=== PATIENT | male | born 1955 | race Caucasian/White ===

== ENCOUNTER → 2019-05-27 11:51 | Outpatient (CLI) | payer MEDICARE, OTHER, SELFPAY ==
--- NOTE | 2019-05-27 11:58 | RAD_ITS ---
STUDY: X-RAY - CERVICAL SPINE REASON FOR EXAM: Male, 64 years old. Neck pain TECHNIQUE: 5 view(s) of the cervical spine were obtained. COMPARISON: None FINDINGS: Normal anterior atlantoaxial articulation. Normal odontoid process. Normal cervical lordosis. There is multi-level endplate spondylosis. There is multi-level degenerative disc disease with multilevel disc space narrowing. There is multi-level osseous foraminal stenosis. The soft tissue structures are unremarkable. RAD/Cerv Spine 4 or 5 Views IMPRESSION: Moderate degenerative disc disease lower cervical spine. Electronically Signed: Ehsan Mathews MD at 12:38 EDT Tel , Service support ,
== END ==
PROVIDERS: Family Provider Family Medicine; PCP Family Medicine; Referring Provider Family Medicine; Visit Provider Family Medicine
DX: M54.2 Cervicalgia (principal)
CPT/HCPCS: 72050

== ENCOUNTER → 2019-08-13 09:08 | Outpatient (CLI) | payer MEDICARE, OTHER, SELFPAY ==
[2019-08-13 10:17] LABS: Absolute Lymphocyte Count 1.65 X10^3/uL (0.83-4.51); Absolute Neutrophil Count 5.2 X10^3/uL (2.0-7.7); Basophil# 0.06 X10^3/uL; Basophil% 0.8 % (0-1); Eosinophil# 0.07 X10^3/uL; Eosinophils% 0.9 % (0-5); Hematocrit 44.2 % (40-54); Lymphocyte # 1.65 X10^3/ul (4.0); Mean Corp Hgb Conc 33.9 g/dL (32-36); Mean Corpuscular Hgb 31.1 pg (27.0-32.0); Mean Corpuscular Volume 91.7 fL (80-94); Mean Platelet Vol. 9.3 fl (6.2-12.0); Monocyte# 0.53 X10^3/uL; Monocyte% 7.1 % (0-10); NRBC Flagged by Analyzer 0 % (0-5); Neutrophil # 5.18 X10^3/uL (2.7-7.7); Neutrophil % 68.9 % (47-70); Platelet Count 282 K/mm3 (150-450); RBC Distribution Width CV 12.3 % (11.6-14.6); RBC Distribution Width SD 41.4 fl (35.1-43.9); Red Blood Count 4.82 M/mm3 (4.6-6.2); White Blood Count 7.5 K/mm3 (4.4-11.0)
[2019-08-13 10:31] LABS: AST(SGOT) 18 U/L (15-37); Alanine Aminotransfer ALT/SGPT 20 U/L (16-61); Albumin, Serum 3.9 g/dL (3.2-5.0); Alkaline Phosphatase 86 U/L (45-117); Anion Gap 7 (5-15); BUN 18 mg/dL (7-18); BUN/Creat Ratio 19.9 RATIO (10-20); Calcium,Total 8.9 mg/dL (8.5-10.1); Chloride 102 mmol/L (98-107); Cholesterol 173 mg/dL (200); Creatinine, Serum 0.91 mg/dL (0.70-1.30); EST Glomerular Filtration Rate 89 mL/min (>60); Est Glom Filt Rate - Afr Amer 108 mL/min (>60); Globulin 3.9 g/dL (2.2-4.2); Glucose 94 mg/dL (74-106); High Density Lipoprotein 53 mg/dL; Potassium 4.1 mmol/L (3.5-5.1); Protein, Total 7.8 g/dL (6.4-8.2); Sodium Level 137 mmol/L (136-145); Triglycerides 64 mg/dL; Very Low Density Lipoprotein 13 mg/dL (5-40)
[2019-08-13 10:43] LABS: Microalbumin,Random Urine 5.5 mg/L (NO RANGE EST.); Microalbumin:Creatinine Ratio 8.7 mg/g CRE (<30 mg/g CRE)
== END ==
PROVIDERS: Family Provider Family Medicine; PCP Family Medicine; Referring Provider Family Medicine; Visit Provider Family Medicine
DX: I10 Essential (primary) hypertension (principal)
CPT/HCPCS: 36415; 80053; 80061; 82043; 82570; 85025

== ENCOUNTER 2019-08-25 09:30 | Outpatient (RCR) | payer MEDICARE, OTHER, SELFPAY ==
--- NOTE | 2019-07-29 15:03 | HP.PTEVAL_ITS ---
Patient's Visit Information DIANELYS SMALL is a 64 year old M referred to Physical Therapy by Sam Tao MD with a diagnosis of CERVICALGIA. Date of Evaluation: 07/29/19 Physical Therapist: Crystal Bailey PT, Cert MDT - Visit Plan Frequency: 2-3x /Week Duration: 4-6 Weeks Plan: NECK US, POSTURE CORRECTION/STRENGTHENING (PLEASE INCLUDE DEEP NECK FLEXOR EX'S), INSTRUCTION IN APPROPRIATE BODY MECHANICS AND ACTIVITY MODIFICATIONS. LAYO UE ROM, STRETCHING AND STRENGTHENING (ESPECIALLY SCAPULAR STABILIZERS). HEP INSTRUCTION. - Subjective Findings: Work/Leisure: RETIRED. Disability: NO. Present symptoms: HEADACHE , LAYO NECK PAIN, LAYO SHOULDER PAIN, RIGHT FOREARM, WRIST AND HAND NUMBNESS AND TINGLING. Present since: ABOUT 10 YEARS. Pain Scale: Worst - 5/10 Least - 0/10. Currently: 3/10. WORSENING. GETTING HARDER TO SLEEP AND NUMBESS USE TO JUST BE IN FINGERS NOW GOING UP ARM. Commenced as a result of: NO APPARENT REASON. Symptoms at onset: HEADACHE. Worse: LYING DOWN - CAN NOT FIND A COMFORTABLE POSITION AND CAUSES HEADACHE TO INCREASE, WALKING - IF HAVING TROUBLE WALKING PROPERLY. Better: CLOSING EYES, STAY STILL IN QUIET AREA FAR HEADACHE. CAN'T GET RID OF NUMBNESS. Disturbed sleep: YES. Previous history/Previous treatment: PHYSICAL THERPAY IN THE PAST. NO NECK SURGERY, NO SHLD SURGERY. NO INJECTIONS. Dizziness: NO. Tinnitis: OCCASSIONALLY - NOTHING MORE THAN NORMAL. Nausea: NO. Shortness of Breath: NO. Difficulty Swollowing: NO. Gait: NORMAL FOR PATIENT. Accidents: NO. Unexplained weight loss: NO. Imaging: RECENT NECK X-RAYS - There is multi-level endplate spondylosis. There is multi-level degenerative disc disease with multilevel disc space. narrowing. There is multi-level osseous foraminal stenosis. PMH/Recent major surgery: CANCER DX'D 1970'S - RESULTING IN RIGHT AKA. LTKR ABOUT 15 YEARS AGO. OTHER: PATIENT REPORTS THERAPY HELPED TEMPORARILY IN THE PAST BUT HIS FEAR IS THAT HE IS GOING TO HAVE TO HAVE SURGERY. PATIENT REPORTS HE HAS NOT HAD ANY OTHER TREATMENTS OR CONSULTS. HE REPORTS HE HAS HAD A NCT, BRAIN SCAN, MRI BUT REMOTE. BRAIN MRI 2016 - NORMAL. - Objective Sitting Posture/Standing Posture: POOR. Active Correction of posture: POOR. Other Observations: INDEP GAIT WITH STRAIGHT CANE LIMPING ON RIGHT LE AND WEARING PROSTHETIC LEG. Motor deficit: RIGHT TELEPHONIC CASE MANAGER 75 LBS AND LEFT 70 LBS. PATIENT IS LEFT HAND DOMINANT. LAYO UE STRENGTH 5/5 WITH MMT'ING EXCEPT RIGHT SHOULDER 4/5. Sensory deficit: DECREASED RIGHT FINGERS COMPARED TO LEFT. ROM deficit: LAYO UE'S WFL EXCEPT RIGHT SHOULDER SUPINE FLEX 125 WITH ERP. ER ROM IS GOOD. IR RESTICTED TO APPROX 60 DEG WITH 75 DEG ABD AND ABD = 150 DEG. Reflexes: 2/3 LAYO UE'S. Dural Signs: POSITIVE RIGHT UE. Cervical Mvmt Loss: Flex: NIL - NE. Pro: NIL - TIGHT. Ext: MOD TO PACO - INCREASES NECK PAIN. Ret: PACO. RSB: MOD - INCREASES RIGHT NECK PAIN. LSB: MIN - NE. R Rot: MIN - RIGHT NECK PAIN. L Rot: MIN - NE. Postural strength: POOR. Palpation: RIGHT SUPERIOR SCAP TENDERNESS. OTHER: TRACTION - NE. TREATMENT: HEP INSTRUCTION - Goals Goal 1:: DECREASE C/O NECK AND RIGHT UE SX'S. Goal Time Frame: 4-6 Weeks Goal 2:: IMPROVE WALKING AND SLEEP FUNCTION Goal Time Frame: 4-6 Weeks Goal 3:: INSTRUCT IN PROPHYLAXIS Goal Time Frame: 4-6 Weeks - Rehabilitation Potential Rehabilitation Potential: Fair - Anticipated Interventions Patient/Client Instruction: Educate patient on: Condition, Plan of Care, Risk Factors, Benefits of Fitness Program For the Purpose of:: To improve self management Therapeutic Exercise to Include: Strength training, Body mechanics, Postural training, Active ROM, Scapular Strength/Stabilization For the Purpose of:: To decrease pain, To improve muscle performance and motor function, To increase tolerance to activity/condition/position, To improve ability of physical actions for home/community/work/leisure Thank you for the opportunity to evaluate your patient. For Medicare and Medicare HMO plans, please review the plan of care and approve it. It will need to be FAXED BACK to us at [phone] for Medicare purposes. For Medicare only, by signing this I certify the plan of care. Please let me know if there are questions or concerns regarding this plan of care. Physician Signature: Date:
--- NOTE | 2019-08-25 10:01 | HP.PTDCSUM_ITS ---
HP - PT D/C Summary It has been my pleasure to treat DIANELYS SMALL under orders from Sam Tao MD, for the diagnosis of CERVICALGIA for a total of 10 visit(s). Discharge Date: Please see the following information for a summary of their discharge status. - Subjective Subjective: PATIENT REPORTS HE IS 90% BETTER. STATES HE DOESN'T HAVE THE HEADACHE ANYMORE OR THE EYE STRAIN. STATES HE IS SLEEPING BETTER AND IT JUST GETS STIFF SOMETIMES. DOING HEP AND FEELS IT IS JUST RIGHT. - Overall Improvement % Improvement: 90 - Objective Objective/Function: PATIENT HAS RESPONDED VERY WELL TO PT. ALL GOALS MET. UPON EXAM TODAY: Motor deficit: RIGHT VETERINARY RADIOLOGIST 87 LBS AND LEFT 86 LBS. PATIENT IS LEFT HAND DOMINANT. LAYO UE STRENGTH 5/5 WITH MMT'ING. Sensory deficit: NO. ROM deficit: LAYO UE'S WFL INCLUDING RIGHT SHLD. Dural Signs: NEGATIVE LAYO UE'S. Cervical Mvmt Loss: Flex: NIL - NE. Pro: NIL. Ext: MOD. Ret: PACO. RSB: MIN. LSB: MIN. R Rot: MIN. L Rot: MIN. Postural strength: POOR. PALPATION: MILD RIGHT CERVICAL TRIGGER POINTS THAT RESPONDED WELL TO SELF MASSAGE WITH BALL. - Goals Goal 1:: DECREASE C/O NECK AND RIGHT UE SX'S. Goal Progress: Goal Met Goal 2:: IMPROVE WALKING AND SLEEP FUNCTION Goal Progress: Goal Met Goal 3:: INSTRUCT IN PROPHYLAXIS Goal Progress: Goal Met - Plan Plan: D/C TO INDEP HEP. PATIENT IS AGREEABLE. - D/C Information If there are questions or concerns regarding this patient's physical therapy, please feel free to call me at [phone]. Thank you for the referral of this patient. Sincerely, Crystal Bailey, PT, Cert MDT
== END 2019-08-25 19:00 | disposition home or self-care (01) ==
LOC: PT 09:30
PROVIDERS: Family Provider Family Medicine; PCP Family Medicine; Referring Provider Family Medicine; Visit Provider Family Medicine
DX: M54.2 Cervicalgia (principal)
CPT/HCPCS: 97035; 97110; 97162; 97530

== ENCOUNTER → 2020-11-07 14:46 | Outpatient (CLI) | payer MEDICARE, OTHER, SELFPAY | PROVIDERS: PCP Family Medicine; Visit Provider Nurse Practitioner Adult Health | DX: U07.1 COVID-19 (principal) | CPT/HCPCS: 87635; U0005; U0003 ==

== ENCOUNTER → 2021-03-13 10:31 | Outpatient (CLI) | payer MEDICARE, OTHER, SELFPAY ==
[2021-03-13 12:05] LABS: Absolute Lymphocyte Count 1.94 X10^3/uL (0.83-4.51); Absolute Neutrophil Count 3.8 X10^3/uL (2.0-7.7); Basophil# 0.06 X10^3/uL; Basophil% 0.9 % (0-1); Eosinophil# 0.14 X10^3/uL; Eosinophils% 2.1 % (0-5); Hematocrit 43.5 % (40-54); Lymphocyte # 1.94 X10^3/ul (0.83-4.51); Lymphocyte % 29.3 % (19-41); Mean Corp Hgb Conc 34.5 g/dL (32-36); Mean Corpuscular Hgb 31.3 pg (27.0-32.0); Mean Corpuscular Volume 90.6 fL (80-94); Mean Platelet Vol. 9.4 fl (6.2-12.0); Monocyte# 0.61 X10^3/uL; Monocyte% 9.2 % (0-10); NRBC Flagged by Analyzer 0 % (0-5); Neutrophil # 3.84 X10^3/uL (2.7-7.7); Neutrophil % 58.2 % (47-70); Platelet Count 305 K/mm3 (150-450); RBC Distribution Width CV 12.5 % (11.6-14.6); RBC Distribution Width SD 41.1 fl (35.1-43.9); White Blood Count 6.6 K/mm3 (4.4-11.0)
[2021-03-13 12:30] LABS: Microalbumin:Creatinine Ratio 20.9 mg/g CRE (<30 mg/g CRE)
[2021-03-13 12:31] LABS: AST(SGOT) 28 U/L (15-37); Alanine Aminotransfer ALT/SGPT 42 U/L (16-61); Alkaline Phosphatase 85 U/L (45-117); BUN 15 mg/dL (7-18); BUN/Creat Ratio 17.7 RATIO (10-20); Calcium,Total 8.9 mg/dL (8.5-10.1); Chloride 104 mmol/L (98-107); Cholesterol 186 mg/dL (200); Creatinine, Serum 0.85 mg/dL (0.70-1.30); EST Glomerular Filtration Rate 96 mL/min (>60); Est Glom Filt Rate - Afr Amer 116 mL/min (>60); Glucose 102 mg/dL (74-106); Potassium 4.1 mmol/L (3.5-5.1); Sodium Level 137 mmol/L (136-145); Triglycerides 102 mg/dL
[2021-03-13 12:32] LABS: Anion Gap 6 (5-15); High Density Lipoprotein 51 mg/dL; Thyroid Stim Hormone (TSH) 2.75 uIU/mL (0.358-3.74); Very Low Density Lipoprotein 20 mg/dL (5-40)
[2021-03-15 13:23] LABS: Copper, Serum or Plasma 97 ug/dL (69-132); Zinc, Plasma or Serum 91 ug/dL (44-115)
[2021-03-15 13:28] LABS: ANTINUCLEAR ANTIBODIES DIRECT Negative (Negative)
== END ==
PROVIDERS: PCP Family Medicine; Visit Provider Family Medicine
DX: I10 Essential (primary) hypertension (principal); R43.9 Unspecified disturbances of smell and taste
CPT/HCPCS: 36415; 80053; 80061; 82043; 82525; 82570; 84443; 84630; 85025; 86038

== ENCOUNTER 2021-11-15 07:23 | Outpatient (CLI) | payer MEDICARE, OTHER, SELFPAY ==
--- NOTE | 2021-11-15 07:46 | CT_ITS ---
STUDY: CT LEFT LOWER EXTREMITY WITHOUT CONTRAST REASON FOR EXAM: Varus deformity of the left knee, surgical planning. TECHNIQUE: Transaxial CT imaging of the lower extremity was performed. Coronal and sagittal images were reformatted. Individualized dose optimization techniques were used for this CT. COMPARISON: None. FINDINGS: Knee: There is a medial femorotibial unicompartmental arthroplasty. There are marginal osteophytes with preservation of joint space of the lateral femorotibial compartment. There are marginal osteophytes, subchondral cystic change and joint space narrowing of the patellofemoral compartment (sagittal reconstruction 45). There is a small joint effusion of the left knee. There is enthesopathy at the patellar insertion of the distal quadriceps tendon. Hip: There is mild left hip arthrosis with small subchondral cysts of the acetabulum and mild joint space narrowing the superior medial left hip joint (coronal reconstruction 54). Ankle: There is a small osteochondral lesion of the medial talar dome (coronal reconstructions 27, 28) and posterior tibiotalar intra-articular bodies (sagittal reconstructions 18-21). There is a dorsal osteophyte of the proximal navicular with preservation of joint space of the talonavicular articulation. Normal posterior subtalar articulation. There is a small posterior calcaneal enthesophyte. CT/Extremity Lower without Contra IMPRESSION: Left knee osteoarthritis. Electronically Signed: Dallas English MD at 14:47 EST ,
== END 2021-11-15 23:59 | disposition home or self-care (01) ==
LOC: CT 07:25
PROVIDERS: PCP Family Medicine; Referring Provider Specialist; Visit Provider Specialist
DX: M21.162 Varus deformity, not elsewhere classified, left knee (principal)
CPT/HCPCS: 73700; 93005

== ENCOUNTER 2022-01-03 07:35 | Inpatient (IN) | payer MEDICARE, OTHER, SELFPAY ==
--- NOTE | 2021-11-13 13:06 | PCM.HP.BLA ---
History and Physical History and Physical [facility] Patient Name: Rizwan CoffmanDOB: 1955 From: LLOYD MCGARRY PA-C DATE OF SURGERY: 11/29/2021 SCHEDULED PROCEDURE: revision left partial knee replacement to a left total knee arthroplasty HISTORY OF PRESENT ILLNESS: Preoperative history and physical exam was performed on November 13, 2021. This is a 66-year-old male who has had a previous left unicompartmental knee replacement by Dr. Kojo Her on October 18, 2008. Patient denied any postoperative complications or infections. Patient has had increased pain in his left knee over the past several years. Patient has increased pain with going up and down stairs. Patient's pain can increase to 5/10 with activities. Patient has tried home exercises with no relief in symptoms. He has tried rest without relief in symptoms. He has tried jvua-fxq-xwmvjmr medications without relief in symptoms. He has used a cane for many years. Patient has had x-rays which shows a progression of lateral compartment osteoarthritis. After failing conservative measures and discussing all treatment options with Dr. Arnulfo Fernando, the patient does wish to proceed with a revision left partial knee replacement to a total knee arthroplasty. We are obtaining surgical clearance from the primary care physician Dr. Sam Tao. Patient has a medical history pertinent for hypertension as well as previous right knee infection which did require patient to have an tsioe-lqg-lqld amputation back in 1971. He currently denies any chest pain, shortness of breath, fevers chills or recent infections. REVIEW OF SYSTEMS: ROS: Const: Reports weight change, but denies change in appetite and fever. CV: Denies chest pain, heart murmur and irregular heartbeat. Resp: Denies cough, pneumonia, sleep apnea, shortness of breath, tuberculosis and wheezing. GI: Denies constipation, diarrhea, heartburn, nausea, rectal itching, bloody stools and vomiting. : Denies incontinence. Musculo: Reports pain and trouble walking, but denies leg swelling and weakness. Skin: Denies Raynaud's, history of shingles and tattoo. Neuro: Denies ambulatory dysfunction, dizziness, numbness/tingling and tremor. Psych: Denies anxiety, insomnia and stress. Derrick/Lymph: Denies anemia, bleeding/bruising tendency and past transfusion. Reviewed and updated. PAST MEDICAL HISTORY: Advance Care Plan: No Advance Directives Effective Date: 04/07/2018 PMH: Medical Problems: Cancer, High Blood Pressure Accidents: None Surgical Hx: Carpal Tunnel - 1998 [facility] LT Knee Unicompartmental - (10/18/2008) [facility] @ [facility] Right above the knee amputation - 1971 Anesthesia Complications: None Assistive Devices: Glasses, Cane Reviewed and updated. SOCIAL HISTORY: SH: Marital: .Occupation: Retired.Work Status: Retired.Hand Dominance: Left-Handed. Personal Habits: Cigarette Use: Never.Smokeless Tobacco: Never Used Smokeless Tobacco.E-Cigarette Use: Never used.Alcohol: Occasionally.Drug Use: Denies Use.Enjoy Exercising: Never Exercises. Reviewed and updated. VITALS: Ht: 69.5 Wt: 202lb Wt k.627 BMI: 29.4 BP: 128/86 Pulse: 78 Resp: 14 T: 97.4 T: 36.3C Pain Level: 0 ALLERGIES: No Known Drug Allergy MEDICATIONS: Lisinopril 40 mg 1 PO qd, Fluticasone Propionate 50 mcg/Act prn, Meloxicam 15 mg 1 by mouth every day, Lorazepam 0.5 mg 1 by mouth every day, Amlodipine Besylate 5 mg 1 by mouth every day PRE-OP EXAM: General appearance:NORMAL Other: Eyes: Conjunctivae and lids: NORMAL Pupils: ERR Ears, Nose, Mouth, and Throat: NORMAL Other: Inspection of lips, teeth and gums: NORMAL Other: Neck: Examination of neck: no masses noted. Respiratory: Assessment of respiratory effort: NORMAL Other: Auscultation of lungs: clear to auscultation no wheezes, rhonchi or rales. Cardiovascular: Auscultation of heart: regular rate and rhythm, no murmurs, gallops or rubs. PHYSICAL EXAMINATION: Patient does walk with a antalgic gait. Left knee is cool to touch without erythema or signs of infection. Previous incision is well-healed without signs of infection. He has tenderness to palpation over the lateral joint line. He gets crepitus with range of motion. Range of motion left knee: 0 extension 115 flexion. Stable to anterior/posterior drawer. Sensation intact to light touch. IMAGING STUDIES: Previous x-rays of the left knee reveals a unicompartmental medial knee replacement with well fixed implants. There has been progression of osteoarthritis of the lateral compartment including joint space narrowing, subtle sclerosis, osteophyte formation as well as patellofemoral joint space narrowing. IMPRESSION: 1. Presence of left medial unicompartmental knee replacement with progression osteoarthritis 2. Hypertension 3. Previous history of knee cancer with pwpsq-crj-xmvx amputation on the right PLAN: Dr. Arnulfo Fernando did discuss and review with the patient all treatment options including surgical versus nonsurgical options. Patient does wish to proceed with the above-stated procedure. Potential risks, benefits, and complications of the procedure were discussed in detail including but not limited to , infection, nerve and blood vessel damage, persistent pain, numbness, tingling, paresthesias, blood clot, pulmonary embolism, and requirement for possible further surgery. The patient expressed full understanding and has no further questions for the doctor. Patient does agree to proceed with the above-stated procedure and has signed the surgery consent form. We discussed the current risks associated with COVID 19. This does include the risk of exposure while in the hospital. Patient was reassured local hospitals have low infection rates and are taking all necessary precautions to avoid exposure to patients. In addition, we discussed strategies that can be used to help limit exposure including those that limit the patient's time in the hospital. Also using strategies to limit the patient's need for continued inpatient services after being discharged from the hospital. Patient was notified that we will need to comply with any screening or testing the hospital wishes to perform or that surgery may be delayed for any positive results. This dictation was created using voice recognition software. Phonetic and/or grammatical errors may exist. ___ I have re-examined the patient. There are no clinical changes since date of exam. ___ See progress notes for changes. ___ Dictated on admission Date: Time: Signature:
--- NOTE | 2021-11-15 08:30 | EKG12_ITS ---
Test Reason : PRE OP Blood Pressure : / mmHG Vent. Rate : 068 BPM Atrial Rate : 068 BPM P-R Int : 176 ms QRS Dur : 100 ms QT Int : 376 ms P-R-T Axes : 042 -31 051 degrees QTc Int : 399 ms Normal sinus rhythm Left axis deviation Poor R wave progression Abnormal ECG Confirmed by SHABBIR BACON, MARI ([id number]), assignment desk editor RICKEY DE LEON ([id number]) on 11/16/2021 9:02:05 AM Referred By: Arnulfo Fernando Confirmed By:MARI SHEA MD
[2021-11-15 08:36] LABS: Absolute Lymphocyte Count 1.84 X10^3/uL (0.83-4.51); Absolute Neutrophil Count 4.1 X10^3/uL (2.0-7.7); Basophil# 0.07 X10^3/uL; Eosinophil# 0.13 X10^3/uL; Eosinophils% 1.8 % (0-5); Hematocrit 44.7 % (40-54); Lymphocyte # 1.84 X10^3/ul (0.83-4.51); Lymphocyte % 26.2 % (19-41); Mean Corp Hgb Conc 33.6 g/dL (32-36); Mean Corpuscular Hgb 30.5 pg (27.0-32.0); Mean Corpuscular Volume 90.9 fL (80-94); Mean Platelet Vol. 9.7 fl (6.2-12.0); Monocyte# 0.86 X10^3/uL; Monocyte% 12.2 % (0-10); NRBC Flagged by Analyzer 0 % (0-5); Neutrophil # 4.11 X10^3/uL (2.7-7.7); Neutrophil % 58.5 % (47-70); Platelet Count 304 K/mm3 (150-450); RBC Distribution Width CV 12.7 % (11.6-14.6); RBC Distribution Width SD 41.8 fl (35.1-43.9); Red Blood Count 4.92 M/mm3 (4.6-6.2)
[2021-11-15 08:55] LABS: Albumin, Serum 4.1 g/dL (3.2-5.0); Anion Gap 5 (5-15); BUN 20 mg/dL (7-18); Calcium,Total 9.3 mg/dL (8.5-10.1); Chloride 99 mmol/L (98-107); Creatinine, Serum 1.11 mg/dL (0.70-1.30); EST Glomerular Filtration Rate 70 mL/min (>60); Est Glom Filt Rate - Afr Amer 85 mL/min (>60); Glucose 106 mg/dL (74-106); Potassium 4.2 mmol/L (3.5-5.1); Sodium Level 133 mmol/L (136-145)
--- NOTE | 2021-11-29 09:14 | SUR.PREOP ---
DR. FERNANDEZ SAW PT AT BEDSIDE AND ADVISED PT TO RESCHEDULE SURGERY DUE TO OPEN SCRATCH SPOTS AND RASH ON OPERATIVE LEG WELL FEVER OF UNKNOWN ORIGIN. PT TO SEE PRIMARY CARE AND RETURN FOR SURGERY AT A LATER DATE.
--- NOTE | 2021-12-18 13:01 | HP.PCM_ITS ---
History and Physical History and Physical [facility] Patient Name: Rizwan Coffman : 1955 From: LLOYD MCGARRY PA-C DATE OF SURGERY: 01/03/2022 SCHEDULED PROCEDURE: revision left unicompartmental knee replacement to a total knee arthroplasty HISTORY OF PRESENT ILLNESS: Preoperative history and physical exam was performed on December 18, 2021. This is a 66-year-old male who comes in for second preoperative visit for the left knee. He was initially scheduled to undergo revision left partial knee replacement to a left total knee arthroplasty on November 29, 2021. It was canceled on the day of surgery as he came in with a rash and elevated temperature. Patient states he scratches his skin due to dry skin. He has been afebrile at home. He is currently afebrile today. Patient has continued to have pain in the left knee. He initially had a left unicompartmental knee replacement by Dr. Her on October 18, 2008. There was no postoperative complications or infections. He continued to have pain in the left knee over the past several years. His pain can still reach as high as a 5/10. He has tried rest, home exercises with no relief in symptoms. He has attempted xefy-wro-okyaamr medications without relief. He has constant pain with going up and down stairs. Patient has had x- rays which has shown a progression of lateral compartment osteoarthritis. After failing conservative measures and discussing treatment options with Dr. Arnulfo Fernando, the patient does wish to proceed with a revision left partial knee replacement to a total knee arthroplasty. We are obtaining surgical clearance from the primary care physician Dr. Tao. Patient has a medical history pertinent for hypertension. He has also had previous right knee infection which did require an jpmec-aqt-csbo amputation back in 1971. Currently he denies any chest pain, shortness of breath, fevers chills. REVIEW OF SYSTEMS: ROS: Const: Reports weight change, but denies change in appetite and fever. CV: Denies chest pain, heart murmur and irregular heartbeat. Resp: Denies cough, pneumonia, sleep apnea, shortness of breath, tuberculosis and wheezing. GI: Denies constipation, diarrhea, heartburn, nausea, rectal itching, bloody stools and vomiting. : Denies incontinence. Musculo: Reports pain and trouble walking, but denies leg swelling and weakness. Skin: Denies Raynaud's, history of shingles and tattoo. Neuro: Denies ambulatory dysfunction, dizziness, numbness/tingling and tremor. Psych: Denies anxiety, insomnia and stress. Derrcik/Lymph: Denies anemia, bleeding/bruising tendency and past transfusion. Reviewed, no changes. PAST MEDICAL HISTORY: Advance Care Plan: No Advance Directives Effective Date: 04/07/2018 PMH: Medical Problems: Cancer, High Blood Pressure Accidents: None Surgical Hx: Carpal Tunnel - 1998 [facility] LT Knee Unicompartmental - (10/18/2008) [facility] @ [facility] Right above the knee amputation - 1971 Anesthesia Complications: None Assistive Devices: Glasses, Cane Reviewed, no changes. SOCIAL HISTORY: SH: Marital: .Occupation: Retired.Work Status: Retired.Hand Dominance: Left- Handed. Personal Habits: Cigarette Use: Never.Smokeless Tobacco: Never Used Smokeless Tobacco.E-Cigarette Use: Never used.Alcohol: Occasionally.Drug Use: Denies Use.Enjoy Exercising: Never Exercises. Reviewed, no changes. VITALS: Ht: 69.5 Wt: 205lb 4oz Wt k.101 BMI: 29.9 BP: 142/72 Pulse: 88 Resp: 16 T: 98.2 T: 36.8C Pain Level: 2 O2SatR: 98 ALLERGIES: No Known Drug Allergy MEDICATIONS: Lisinopril 40 mg 1 PO qd, Fluticasone Propionate 50 mcg/Act prn, Meloxicam 15 mg 1 by mouth every day, Lorazepam 0.5 mg 1 by mouth every day, Amlodipine Besylate 5 mg 1 by mouth every day PRE-OP EXAM: General appearance:NORMAL Other: Eyes: Conjunctivae and lids: NORMAL Pupils: ERR Ears, Nose, Mouth, and Throat: NORMAL Other: Inspection of lips, teeth and gums: NORMAL Other: Neck: Examination of neck: no masses noted. Respiratory: Assessment of respiratory effort: NORMAL Other: Auscultation of lungs: clear to auscultation no wheezes, rhonchi or rales. Cardiovascular: Auscultation of heart: regular rate and rhythm, no murmurs, gallops or rubs. PHYSICAL EXAMINATION: Patient does walk with a antalgic gait. Left knee is cool to touch without erythema or signs of infection. Previous incision is well-healed without signs of infection. Trace Effusion. He has tenderness to palpation over the lateral joint line. Crepitus with range of motion. Range of motion left knee: 0 extension 115 flexion. Stable to anterior/posterior drawer. Sensation intact to light touch. IMAGING STUDIES: Previous x-rays of the left knee reveals a unicompartmental medial knee replacement with well fixed implants. There has been progression of osteoarthritis of the lateral compartment including joint space narrowing, subtle sclerosis, osteophyte formation as well as patellofemoral joint space narrowing. IMPRESSION: 1. Presence of left medial unicompartmental knee replacement with progression osteoarthritis 2. Hypertension 3. Previous history of knee cancer with wrebo-adf-kqdm amputation on the right PLAN: Dr. Arnulfo Fernando did discuss and review with the patient all treatment options including surgical versus nonsurgical options. Patient does wish to proceed with the above-stated procedure. Potential risks, benefits, and complications of the procedure were discussed in detail including but not limited to , infection, nerve and blood vessel damage, persistent pain, numbness, tingling, paresthesias, blood clot, pulmonary embolism, and requirement for possible further surgery. The patient expressed full understanding and has no further questions for the doctor. Patient does agree to proceed with the above-stated procedure and has signed the surgery consent form. We discussed the current risks associated with COVID 19. This does include the risk of exposure while in the hospital. Patient was reassured local hospitals have low infection rates and are taking all necessary precautions to avoid exposure to patients. In addition, we discussed strategies that can be used to help limit exposure including those that limit the patient's time in the hospital. Also using strategies to limit the patient's need for continued inpatient services after being discharged from the hospital. Patient was notified that we will need to comply with any screening or testing the hospital wishes to perform or that surgery may be delayed for any positive results. This dictation was created using voice recognition software. Phonetic and/or grammatical errors may exist. ___ I have re-examined the patient. There are no clinical changes since date of exam. ___ See progress notes for changes. ___ Dictated on admission Date: Time: Signature:
[2022-01-03] VITALS (13 sets, daily range): BP systolic 93–128; BP diastolic 45–76; PULSE 67–92; RESP 15–18; TEMP 36.4–37; O2SAT 90–100; BMI 30.2
[2022-01-03] MEDS: Lactated Ringers 1,000 ML 999 ML IV (05:50)
[2022-01-03] MEDS: Gabapentin 600 MG Tablet PO (06:13)
[2022-01-03] MEDS: Acetaminophen 500 MG Tablet 1000 MG PO ×3 (06:13→21:38)
[2022-01-03] MEDS: Celecoxib 200 MG Capsule 400 MG PO (06:14)
[2022-01-03] MEDS: Lactated Ringers 1,000 ML 75 ML IV ×2 (06:55→23:54)
--- NOTE | 2022-01-03 07:30 | KNEE_PTH ---
PATIENT: DIANELYS SMALL LOC: [facility] U#:[id number] AGE/SX: 66/M ROOM: [facility] RE01/03/[address]: Dr. Tanika Méndez MD : 1955 BED: 1 DIS: 01/04/2022 SPEC #: [id number] RECD: 01/03/22 10:38 STATUS: MARIANNE JC #: [id number] YOLANDA: 01/03/22 07:[address]: Arnulfo Fernando DEPT: SURGICAL PATHOLOGY RECD BY: Lee Ann Seaman ENTERED: 01/03/22 11:22 SP TYPE: TOTAL KNEE OTHR DR: MD Shabbir Barraza PA-C Tissues: Knee, NOS Procedures: Decalcification bone/plaque Surgery Specimen Level IV HEADER OPERATION: [place], robotic assisted revision partial knee to total knee PRE-OP DIAGNOSIS: Presence of unicompartmental left knee replacement with progression to osteoarthritis TISSUE SUBMITTED: Left knee debrided bone and tissue MICROSCOPIC DIAGNOSIS Bone and tissue of left knee, total knee resection: Severe degenerative joint disease. AM:vicky 01/08/2022 MICROSCOPIC DESCRIPTION Slides are reviewed. GROSS DESCRIPTION Received is one container designated left knee debrided bone and tissue. The specimen consists of multiple fragments of valerio-yellow bone measuring in aggregate 12 x 9 x 3 cm. A number of bony fragments contain articular surfaces consistent with tibial plateau and femoral condyle and displaying prominent osteophyte formation and bone erosion. Delivery Coordinator sections are submitted in two cassettes after decalcification. / SJ:vicky 01/03/2022 TC:5 CPT: 92760, 96599
[2022-01-03] MEDS: Cefazolin 2 GM in 0.9% Normal Saline 100 ML IV (07:42)
[2022-01-03] MEDS: dexAMETHasone 10 MG/ML Vial IV (07:45)
[2022-01-03] MEDS: TXA 1000mg in NS100 100ml (IVPB at Incision) 660 MG IV (07:50)
[2022-01-03] MEDS: TXA 1000mg in NS100 100ml (IVPB at Closure) 660 MG IV (09:30)
--- NOTE | 2022-01-03 09:47 | OP.PCM_ITS ---
Report of Operation Date of Procedure: 01/03/22 Pre-Operative Diagnosis: Left knee Failed unicompartmental knee replacement sec ondary to progression of lateral and patellofemoral primary osteoarthritis Post-Operative Diagnosis: Left knee Failed unicompartmental knee replacement secondary to progression of lateral and patellofemoral primary osteoarthritis Surgery/Procedure Performed:: Left knee minimally invasive robotic assisted total knee replacement Description of Surgical Findings:: Stable knee with good patella tracking. Lateral patellofemoral stage IV osteoarthritis. Surgeon: Arnulfo Fernando feller machine operator: Fransico Ribeiro Type of Anesthesia: Spinal Anesthesiologist: William Bain Special Medications: 2 g Ancef, 1 g TXA at incision, 1 g TXA closure, 10 mg Decadron, joint cocktail (5 mg Duramorph, 30 mL of 0.5% Ropivicaine, 1000 units of epinephrine, 30 mg of Toradol) Specimen's removed: Bony cuts Description of Procedure: Implants used: 1. [place] size 6 triathlon cruciate retaining distal femoral press-fit component 2. Faith size 6 universal tibial baseplate with medial 5 mm augment 3. [place] X3 9 mm CS polyethylene 4. Faith X3 35 mm asymmetric patella Brief history operative indications: 66-year-old m with history of left knee medial unicompartmental replacement with progression of lateral and patellofemoral osteoarthritis with radiographic findings with loss of joint space, osteophyte formation and subchondral sclerosis. Failed conservative measures as mentioned in the H&P. Discussion of total knee arthroplasty as well as risk and benefits were discussed the patient including but not limited to blood loss, DVTs, PEs, neurovascular damage, general risk of anesthesia including loss of life, and stiffness or instability were discussed with patient. Patient demonstrated understanding and was able to sign informed consent. Procedure: On the date of procedure patient's left lower extremity was marked in the preoperative area. The patient was then taken back to the operating room where the patient was placed on the table in the supine position. All bony prominences were identified a well-padded. Anesthesia assumed control of the C-spine and airway and remained controlled throughout the remainder of the procedure. A tourniquet was placed on the left upper thigh and the leg was prepped in a sterile fashion. The surgeon then scrubbed at this time .Upon reentering the room left lower extremity was draped in a standard orthopedic fashion. A timeout was then called and everyone agreed upon the side, the site, the procedure to be performed, patient's identity and antibiotics given. Esmarch bandage was used to exsanguinate the extremity and the tourniquet was placed up to 250 mmHg with the knee in flexion. A midline skin incision was made and sharp dissection was taken down through skin subcutaneous tissue and fat. The standard medial parapatellar incision was made and the patella was subluxed laterally. An Appropriate deep MCL release was done and the fat pad was resected. At this time a complete synovectomy was performed. Our attention was then directed to the patella. The patella was everted and a flat resection was made. The knee was then flexed up in 2 femoral pins were placed inside the incision and 2 tibial pins were placed outside the incision in the medial tibia bicortically. Once this was completed the 2 checkpoints in the femur and tibia were placed. Knee was then flexed up and the bony landmarks were registered. Once this was completed knee was taken through range of motion and manually stressed allowing us to a plan for an appropriate tibial cut. The robotic arm was brought into the field sterilely and checkpoint and saw were registered. Osteophytes were debrided. At this time the tensioner was then placed in the joint and ligament tension was checked at 90 degrees and full extension. Based on the patient's ligamentous tension appropriate adjustments were made to the operative plan and ligament releases were done. At this time osteotome was used to remove the femoral component as well as the tibial component with minimal bone loss. We also used the osteotome to debride any excessive cement. Once this was completed and once we were happy with our operative plan with balanced flexion and extension gaps our attention was directed to the tibia where the robot was brought in. Initial tibial cut was made medially based on the previous surgery on this side we did need to make a 5 mm augment cut. These cuts were made for a 6 tibial implant. Our attention was then directed towards the femur the robot was brought into the field sterilely and registered. Posterior condylar cuts, anterior chamfer cuts and anterior cuts were appropriately made for a size 6 femur. When these were completed the saws were switched out in the distal femoral and posterior chamfer cuts were made. Protecting the soft tissue throughout this time. A size 6 tibial base plate was selected. the knee was flexed to 90 degrees and the soft tissues and posterior osteophytes were removed from the joint. 40 cc of the periarticular injection was injected into the posterior medial corner of the joint. The appropriate trials were then placed on the femur and tibia. A trial polyethylene was trialed to ensure proper balancing and stability of the knee. The appropriate tibial internal rotation was then marked with a bovie. Our attention was then directed to the patella. The lug holes were drilled and the patella trial was placed. Patellar tracking was checked and deemed appropriate. Once we were happy lug holes were drilled for the femur and trial components were removed. the tibia was subluxed and pinned into place and the keel was punched and drilled appropriately. Final components were verified and opened, and cement was mixed in a vacuum. Brickstream Simplex cement was used. The wound was copiously irrigated with normal saline. When the cement was ready the components were cemented into place starting with the tibia, femur was impacted as it was press-fit and finally cementing the patella. The trial poly component was placed and the knee was placed in full extension. All excess cement was removed in the process. Once the cement had cured the tracking, alignment and balance were verified and a size 9 mm CS polyethylene component was placed. Once the final components were placed a 3-minute dilute Betadine lavage was performed followed by an Irrisept lavage was performed and the wound was copiously irrigated with normal saline solution and the periarticular injection was given. The wound was closed in a layer ceballos fashion using #1 vicryl interrupted sutures for the arthrotomy, 2-0 interrupted Vicryl suture for the subcuticular layer and tj for final skin closure. A sterile compressive dressing was then placed. The patient was then awakened from anesthesia, transferred to the [facility] and transferred to the PACU for recovery. Post op plan DVT ppx: ASA 81mg BID, thigh high compression stockings Follow up: in office in 2 weeks for wound check PT: to start POD #0 at hospital, outpatient PT should be arranged. Due to the complexity of this case robotic arm was used to assist in the surgery to improve accuracy and clinical outcomes. Complications No intraoperative complications Admit VTE Documentation VTE Present on Admission: No VTE Mechan Device Prophylaxis: SCD's and Thigh High LINDA Hose VTE Pharm Prophylaxis ordered?: Yes
[2022-01-03] MEDS: Lactated Ringers 1,000 ML 125 ML IV ×2 (10:25→11:16)
--- NOTE | 2022-01-03 10:30 | RAD_ITS ---
STUDY: X-RAY - LEFT KNEE REASON FOR EXAM: Postoperative evaluation of left total knee arthroplasty. TECHNIQUE: 2 view(s) of the knee. COMPARISON: CT report 11/15/2021. FINDINGS: There is a left total knee arthroplasty without evidence of complication. There is postoperative gas in the soft tissues and overlying skin tj. RAD/Knee 1 or 2 Views IMPRESSION: Uncomplicated left total knee arthroplasty. Electronically Signed: Dallas English MD at 11:16 EDT ,
--- NOTE | 2022-01-03 12:20 | PCM.PN.HOSP ---
Subjective Subjective Patient is a 66-year-old gentleman who underwent revision left unicompartmental knee replacement to a total knee replacement on 01/03/[address] Fernando. The hospitalist service was consulted to assist with management of patient medical comorbidities Objective Data Objective Data Vital Signs: Vital Signs Temp Pulse Resp BP Pulse Ox 98.6 F 86 18 106/74 97 01/03/22 11:40 01/03/22 11:40 01/03/22 11:40 01/03/22 11:40 01/03/22 11:40 Oxygen Flow Rate (L/min) 4 Oxygen Delivery Method Room Air Weight: 93 kg Body Mass Index (BMI) 30.2 Intake & Output: Intake and Output for Last 24 Hours 01/01/22 01/02/22 01/03/22 23:59 23:59 23:59 Intake Total 4023.75 / 4023.75 Balance 4023.75 / 4023.75 Lab / Micro Data Result Diagrams: 11/15/21 07:29 11/15/21 07:29 Micro: Microbiology 12/28/21 10:47 Swab (Method) Nasal Screen MRSA/MSSA - Final 11/15/21 07:29 Swab (Method) Nasal Screen MRSA/MSSA - Final Radiography Diagnostic Testing: Radiology Impression Knee X-Ray 01/03/22 10:30 IMPRESSION: Uncomplicated left total knee arthroplasty. Electronically Signed: Dallas English MD at 11:16 EDT Reading Location ID and State: [address] [place] [address] Tel , Service support , Physical Exam Narrative GENERAL: cooperative HEENT: Atraumatic; EYES; Anicteric, Normal Conjunctiva NECK; supple, normal thyroid, RESPIRATORY: Diminished to auscultation CARDIOVASCULAR: Regular S1 S2, GI: soft, normoactive bowel sounds, : No Renal angle tenderness; EXTREMITIES: Right AKA, left knee in surgical dressing MUSCULOSKELETAL: no muscle wasting NEURO: Awake; no lateralizing signs. SKIN: No Rash PSYCH; Flat affect Assessment & Plan Assessment/Plan (1) Loose left total knee arthroplasty: QUALIFIERS: Encounter type: initial encounter Qualified Code(s): T84.033A - Mechanical loosening of internal left knee prosthetic joint, initial encounter PLAN: Patient is a 66-year-old gentleman who underwent revision left unicompartmental knee replacement to a total knee replacement on 01/03/[address] Fernando. The hospitalist service was consulted to assist with management of patient medical comorbidities 1. Status post revision left unicompartmental knee replacement to a total knee replacement -on 01/03/[address] Fernando. Patient postoperative orders regarding pain management DVT prophylaxis as well as PT OT addressed by primary service 2. Hypertension - Blood pressure controlled, home medications continued with dose adjustment as needed 3. 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 Sarcoma patient wears a prosthesis 4. Class I obesity with BMI of 30.3 ?Weight loss advised 5. DVT prophylaxis ?As per Ortho patient was placed on aspirin 81 mg p.o. twice daily Charges/Coding Visit Charges Inpatient E&M: 67164 Subs Hosp L3
[2022-01-03] MEDS: Cefazolin 1 GM/50 ML BAG IV ×2 (13:34→21:38)
[2022-01-03] MEDS: Senna/Docusate Sodium 1 Tablet 2 TABLET PO ×2 (13:35→21:38)
[2022-01-03] MEDS: Indapamide 2.5 MG Tablet 1.25 MG PO (13:35)
[2022-01-03] MEDS: Famotidine 20 MG Tablet PO (13:36)
[2022-01-03] MEDS: oxyCODONE 5 MG Tablet PO (16:05)
[2022-01-03] MEDS: Aspirin 81 MG TAB.CHEW PO (16:06)
[2022-01-03] MEDS: amLODIPine 5 MG Tablet PO (21:38)
[2022-01-03] MEDS: Lisinopril 20 MG Tablet PO (21:41)
[2022-01-04 05:00] VITALS: BP 117/77; PULSE 77; RESP 16; TEMP 36.4; O2SAT 97
[2022-01-04] MEDS: Acetaminophen 500 MG Tablet 1000 MG PO ×2 (05:11→14:14)
[2022-01-04 06:28] LABS: Hematocrit 34.8 % (40-54); Hemoglobin 11.9 g/dL (13.0-16.5); Mean Corp Hgb Conc 34.2 g/dL (32-36); Mean Corpuscular Hgb 31.2 pg (27.0-32.0); Mean Corpuscular Volume 91.3 fL (80-94); Mean Platelet Vol. 9.9 fl (6.2-12.0); Platelet Count 249 K/mm3 (150-450); RBC Distribution Width CV 12.5 % (11.6-14.6); RBC Distribution Width SD 41.5 fl (35.1-43.9); Red Blood Count 3.81 M/mm3 (4.6-6.2); White Blood Count 14.9 K/mm3 (4.4-11.0)
[2022-01-04 06:49] LABS: Anion Gap 4 (5-15); BUN 26 mg/dL (7-18); BUN/Creat Ratio 24.3 RATIO (10-20); Calcium,Total 8.3 mg/dL (8.5-10.1); Chloride 104 mmol/L (98-107); Creatinine, Serum 1.07 mg/dL (0.70-1.30); EST Glomerular Filtration Rate 73 mL/min (>60); Est Glom Filt Rate - Afr Amer 88 mL/min (>60); Estimated Creatinine Clearance 66.99 ml/min; Glucose 128 mg/dL (74-106); Potassium 4.2 mmol/L (3.5-5.1); Sodium Level 135 mmol/L (136-145)
[2022-01-04 08:18] VITALS: BP 126/73; PULSE 70; RESP 18; TEMP 36.6; O2SAT 98
[2022-01-04 08:40] VITALS: O2SAT 97
[2022-01-04] MEDS: Indapamide 2.5 MG Tablet 1.25 MG PO (09:04)
[2022-01-04] MEDS: Famotidine 20 MG Tablet PO (09:04)
[2022-01-04] MEDS: Aspirin 81 MG TAB.CHEW PO (09:04)
[2022-01-04] MEDS: Senna/Docusate Sodium 1 Tablet 2 TABLET PO (09:04)
--- NOTE | 2022-01-04 10:05 | CASEMGMT ---
RN JANEE Face to Face with patient for initial transition planning/care coordination assessment. RN CM introduced self and role at [facility]. Patient sitting in chair, alert and oriented. Patient willing to participate in assessment and is able to answer all questions appropriately. Care providers, pharmacy, and demographics verified. Patient wishes to discharge home and is setup with outpatient therapy at [facility]. Patient states he has no further needs or concerns at this time. CM to follow for discharge planning needs that may arise. PCP: Dinh Specialists: nicolette Fernando Pharmacy: CLAUDIA Vanessa [facility] retail at discharge Insurance: [facility], MMO Prescription Benefit: yes Living Will/HPOA: yes, son Kal Coffman LNOK: son, brother Living Arrangements: Patient lives alone in a 2 story home with bed and bath on first floor. Patient states he has 2 steps to enter the home. Patient states he was independent at home prior to surgery. Transportation: self, brother DME/HHC: Patient states she has shower chair, raised toilet, crutches, walker, and wheelchair at home. Patient states he has been to Rehab Unit in the past. Patient is scheduled for outpatient therapy at [facility] starting 01/08/22. Disposition Plan: Patient to discharge home with outpatient therapy, family support, and follow-up plans in place. Allyson NIETO, RN, CM
--- NOTE | 2022-01-04 10:47 | PN.HOSP_ITS ---
Subjective Subjective Patient seen and examined. He had an uneventful night and had no complaints. He was able to work with physical therapy today. Review of systems otherwise negative. Objective Data Objective Data Vital Signs: Vital Signs Temp Pulse Resp BP Pulse Ox 97.9 F 70 18 126/73 H 97 01/04/22 08:18 01/04/22 08:18 01/04/22 08:18 01/04/22 08:18 01/04/22 08:40 Oxygen Flow Rate (L/min) 4 Oxygen Delivery Method Room Air Weight: 205 lb 0.478 oz Body Mass Index (BMI) 30.2 Intake & Output: Intake and Output for Last 24 Hours 01/02/22 01/03/22 01/04/22 23:59 23:59 23:59 Intake Total 4241.25 / 4241.25 1330.00 / 1330.00 Output Total 900 / 900 400 / 400 Balance 3341.25 / 3341.25 930.00 / 930.00 Lab / Micro Data Result Diagrams: 01/04/22 05:35 01/04/22 05:35 Labs: Laboratory Results - last 24 hr 01/04/22 05:35: WBC 14.9 H, RBC 3.81 L, Hgb 11.9 L, Hct 34.8 L, MCV 91.3, MCH 31.2, MCHC 34.2, RDW Std Deviation 41.5, RDW Coeff of Ru 12.5, Plt Count 249, MPV 9.9 01/04/22 05:35: Sodium 135 L, Potassium 4.2, Chloride 104, Carbon Dioxide 27.0, Anion Gap 4 L, BUN 26 H, Creatinine 1.07, Estim Creat Clear Calc 66.99, Est GFR (MDRD) Af Amer 88, Est GFR (MDRD) Non-Af 73, BUN/Creatinine Ratio 24.3 H, Glucose 128 H, Calcium 8.3 L Micro: Microbiology 01/03/22 Unknown Tissue - Knee Wound Culture - Preliminary No growth-Final to follow 01/03/22 Unknown Tissue - Knee Wound Culture - Preliminary No growth-Final to follow 01/03/22 Unknown Tissue - Knee Wound Culture - Preliminary No growth-Final to follow 12/28/21 10:47 Swab (Method) Nasal Screen MRSA/MSSA - Final 11/15/21 07:29 Swab (Method) Nasal Screen MRSA/MSSA - Final Radiography Diagnostic Testing: Radiology Impression Knee X-Ray 01/03/22 10:30 IMPRESSION: Uncomplicated left total knee arthroplasty. Electronically Signed: Dallas English MD at 11:16 EDT , Physical Exam Const alert, oriented x3 and no apparent distress Exam Limitations: no limitations HEENT head/scalp atraumatic and moist oral mucous membranes Head and Scalp: normocephalic Eyes PERRL, EOMs intact bilaterally and conjunctivae normal Neck no lymphadenopathy, supple and no JVD Resp normal respiratory effort, no retractions, no use of accessory muscles and clear to auscultation bilaterally Cardio regular rate, regular rhythm, S1 normal heart sound, S2 normal heart sound and no murmurs GI normal to inspection, nondistended, normoactive bowel sounds, soft to palpation, non-tender and non-distended Extremity Extremity Narrative: has RLE prosthesis in place; LLE intact knee dressing Peripheral Pulses: Yes pulses 2+ throughout Skin no rashes or lesions noted Neuro oriented x3, CN's II-XII intact bilaterally and moves all extremities Sensorium / Orientation: awake and alert Psych affect normal Assessment & Plan Assessment/Plan (1) Loose left total knee arthroplasty: QUALIFIERS: Encounter type: initial encounter Qualified Code(s): T84.033A - Mechanical loosening of internal left knee prosthetic joint, initial encounter PLAN: #left knee arthritis * s/p revision of left unicompartmental knee replacement. * surgery done on 01/03/2022 * PT./OT on board. fall precautions * incentive spirometry use * #Hypertension: Continue current BP meds-amlodipine and indapamide as well as quinapril #Right AKA: This has been since childhood. Wears a prosthesis. DVT prophylaxis: On aspirin 81 mg daily Disposition: Patient stable to be discharged from hospital standpoint Charges/Coding Visit Charges Inpatient E&M: 96724 Subs Hosp L2
--- NOTE | 2022-01-04 12:10 | DCINST_ITS ---
Discharge Instructions Diet Discharge Diet: No restrictions Activity May shower in (days): 1 (Only if incision is dry and without drainage. Do not submerge underwater.) Ice area for (Minutes): 20 (Every 1-[address] barrier between skin and ice.) Weight Bearing Status: Weight bearing as tolerated Keep extremity elevated above heart level: Operative Extremity Additional Activity Instructions:: Follow [facility] postop instructions. Once postoperative dressing has been removed only use gentle soap and water over the incision. Do not use any ointments, Neosporin, salves, alcohol pads over the incision for 6 weeks postoperatively. Wear elastic LINDA hose for 2 weeks. Do not use alcohol with narcotic pain medications. Dressing / Incision Call your doctor if your incision/area has: Continuous Slow Oozing, Sudden Increased Bleeding, Increased Pain/ Swelling, Increased Redness and Foul Smelling Discharge Call your doctor if you observe: Fever of 101 or Higher, Shortness of breath, Chest pain, Calf discomfort and Uncontrolled pain Remove Dressing in: 4 days Follow Up Care Test Results: Test results from this visit will be discussed in further detail at your follow-up appointment, if applicable. Discharge Plan Admission Admit Date/Time: 01/03/22 07:35 Attending Provider: Tanika Méndez Primary Care Provider: Sam Tao Consulting Providers: Ortiz Daniels ; Efrain Pollack Discharge Orders/Prescriptions Prescriptions: New acetaminophen 500 mg Tablet 1,000 mg PO Q8 30 Days Qty: 90 RF: 0 aspirin 81 mg Tablet,Chewable 81 mg PO BIDCM 30 Days Qty: 60 RF: 0 meloxicam 7.5 mg Tablet 7.5 mg PO BID 30 Days Qty: 60 RF: 0 famotidine 20 mg Tablet 20 mg PO DAILY 30 Days Qty: 30 RF: 0 oxycodone 5 mg Tablet 5 - 10 mg PO .4-6 hrs prn PRN (Reason: Pain Score 4-10) 7 Days Qty: 60 RF: 0 doxycycline hyclate 100 mg tablet 100 mg PO BID 14 Days Qty: 28 RF: 0 Continued amlodipine 10 MG tablet 5 mg PO QHS RF: 0 indapamide 1.25 mg tablet 1.5 mg PO DAILY RF: 0 quinapril 20 mg Tablet 20 mg PO QHS RF: 0 ipratropium bromide 21 mcg (0.03 %) spray,non-aerosol 1 - 2 spray INTRANASAL PRN PRN (Reason: ALLERGIES) RF: 0 Referrals / Follow Up: Sam Tao MD [Primary Care Provider] - Disposition Disposition (needs filled in before D/C Order can be placed): Home, Self Care
--- NOTE | 2022-01-04 12:22 | PCM.PN.ORT ---
Subjective Subjective Patient is s/p revision left unicompartmental knee replacement to a total knee arthroplasty with Dr. Fernando on 01/03/2022. Patient resting comfortably in bed. Rates pain 2/ 10 at rest. With movement 5/10. States taking Tylenol, meloxicam oxycodone as needed and ice help to relieve pain. Patient has been up with therapy. Walking with the assit of a walker. Afebrile, no chest pain, shortness of breath, negative calf pain/ erythema, and no other signs of DVT. Objective Data Objective Data Vital Signs: Vital Signs Temp Pulse Resp BP Pulse Ox 97.9 F 70 18 126/73 H 97 01/04/22 08:18 01/04/22 08:18 01/04/22 08:18 01/04/22 08:18 01/04/22 08:40 Oxygen Flow Rate (L/min) 4 Oxygen Delivery Method Room Air Weight: 93 kg Body Mass Index (BMI) 30.2 Intake & Output: Intake and Output for Last 24 Hours 01/02/22 01/03/22 01/04/22 23:59 23:59 23:59 Intake Total 4241.25 / 4241.25 1330.00 / 1330.00 Output Total 900 / 900 400 / 400 Balance 3341.25 / 3341.25 930.00 / 930.00 Lab / Micro Data Result Diagrams: 01/04/22 05:35 01/04/22 05:35 Labs: Laboratory Results - last 24 hr 01/04/22 05:35: WBC 14.9 H, RBC 3.81 L, Hgb 11.9 L, Hct 34.8 L, MCV 91.3, MCH 31.2, MCHC 34.2, RDW Std Deviation 41.5, RDW Coeff of Ru 12.5, Plt Count 249, MPV 9.9 01/04/22 05:35: Sodium 135 L, Potassium 4.2, Chloride 104, Carbon Dioxide 27.0, Anion Gap 4 L, BUN 26 H, Creatinine 1.07, Estim Creat Clear Calc 66.99, Est GFR (MDRD) Af Amer 88, Est GFR (MDRD) Non-Af 73, BUN/Creatinine Ratio 24.3 H, Glucose 128 H, Calcium 8.3 L Micro: Microbiology 01/03/22 Unknown Tissue - Knee Gram Stain - Final 01/03/22 Unknown Tissue - Knee Wound Culture - Preliminary No growth-Final to follow 01/03/22 Unknown Tissue - Knee Gram Stain - Final 01/03/22 Unknown Tissue - Knee Wound Culture - Preliminary No growth-Final to follow 01/03/22 Unknown Tissue - Knee Gram Stain - Final 01/03/22 Unknown Tissue - Knee Wound Culture - Preliminary No growth-Final to follow 12/28/21 10:47 Swab (Method) Nasal Screen MRSA/MSSA - Final 11/15/21 07:29 Swab (Method) Nasal Screen MRSA/MSSA - Final Physical Exam Narrative Patient resting comfortably in bed No signs of acute distress Satting well on room air Left Limb is warm to touch, Sensation intact throughout entire lower extremity, including saphenous, sural, superficial and deep peroneal, and tibial distribution. DP/PT pulses bounding. Dorsi and plantar flexion 5/5 Dressing clear dry intact Calf nontender to palpation, no erythema, no edema. Negative Homans right LE below the knee amputation baseline Assessment & Plan Assessment/Plan (1) Loose left total knee arthroplasty: QUALIFIERS: Encounter type: initial encounter Qualified Code(s): T84.033A - Mechanical loosening of internal left knee prosthetic joint, initial encounter PLAN: Patient is status post left knee revision of unicompartmental knee replacement to left total knee arthroplasty with Dr. Fernando on 01/03/2022 1. Will continue PT today . Weightbearing as tolerated 2. plan for discharge this afternoon following PT 3. Patient will follow up for his post op appointment on 01/17/2022 4. Patient has outpatient PT appointment on 01/08/2022 5. WBC 14.9 acute reactive leukocytosis: secondary to pre operative decadron. no acute systemic signs of infection. will monitor, and likely self resolve. 6. H/H 11.9/34.8: post operative anemia secondary to acute blood loss intraoperatively. Patient is asymptomatic at this time. No intraoperative complications. will continue to monitor. no acute interventions. 7. DVT prophylaxis : Aspirin 81 mg twice daily x4 weeks 8. Pain control: patient instructed to take tylenol 500mg 2 tablets TID. and oxycodone 1-2 tablets every 4-6 hours only as needed for pain control. 9. Patient also given a prescription of meloxicam 7.5 mg twice daily for pain control, Pepcid for ulcer prophylaxis. 10. cultures pending, NGTD. doxycycline 100mg BID x2 weeks sent to pharmacy. patient to start that today. 11. Patient has been cleared per hospital medicine service for discharge home from their standpoint. 12. Patient is cleared from orthopedic standpoint to be discharged home. (2) S/P total knee arthroplasty:
[2022-01-04 14:03] VITALS: BP 146/66; PULSE 97; RESP 18; TEMP 36.7; O2SAT 99
== END 2022-01-04 14:56 | disposition home or self-care (01) | DRG 470 ==
LOC: SDC 07:56 → MS3 07:56
PROVIDERS: Admitting Provider Specialist; PCP Family Medicine; Referring Provider Specialist; Visit Provider Student in an Organized Health Care Education/Training Program
PROC: 0SRD0JZ Replacement of Left Knee Joint with Synthetic Substitute, Open Approach (ICD-10-PCS; CPT 27447; principal; 2022-01-03 07:00)
DX: M17.12 Unilateral primary osteoarthritis, left knee (principal); D62 Acute posthemorrhagic anemia; T84.033A Mechanical loosening of internal left knee prosthetic joint, initial encounter; I10 Essential (primary) hypertension; Z96.652 Presence of left artificial knee joint; E66.9 Obesity, unspecified; Z68.30 Body mass index [BMI] 30.0-30.9, adult
CPT/HCPCS: 36415; 73560; 80048; 82040; 83735; 85025; 85027; 87015; 87070; 87075; 87081; 87102; 87116; 87176; 87205; 87206; 88305; 88311; 93005; 97110; 97116; 97162; 97166; 97530; 97535; 99251; C1776; J7120; G0463; J2405

== ENCOUNTER → 2022-01-23 | Outpatient (CLI) | payer MEDICARE, OTHER, SELFPAY ==
--- NOTE | 2022-01-23 10:59 | VDLE_ITS ---
Reason For Study: Pain in LLE Procedure LEFT This is a venous duplex using B-mode, color GSV is normal. flow and spectral Doppler. CFV is compressible, spontaneous, phasic, Exam performed in department. competent, and demonstrates normal A preliminary report was called and/or faxed augmentation. to Abdullahi. FV is compressible, spontaneous, phasic, competent and demonstrates normal augmentation. POP V is compressible, spontaneous, phasic, competent and demonstrates normal augmentation. T/P Trunk is compressible. PTV is compressible. LT PerV is compressible. VL/Venous Duplex US, Unilateral Interpretation Summary Deep veins of the left lower extremity are patent and compressible segmentally. There is no evidence of left lower extremity deep vein thrombosis. Valvular competence appears intac t within the proximal deep venous system on the left . The left great saphenous vein appears patent a nd compressible segmentally. Ordering Physician: Arnulfo Fernando Referring Physician: Sam Tao MD Performed By: Allyson Sullivan RVT
== END | disposition home or self-care (01) ==
LOC: CVS 10:55
PROVIDERS: PCP Family Medicine; Referring Provider Specialist; Visit Provider Specialist
DX: M79.662 Pain in left lower leg (principal)
CPT/HCPCS: 93971

== ENCOUNTER → 2022-03-01 | Outpatient (CLI) | payer MEDICARE, OTHER, SELFPAY ==
[2022-03-01 10:06] LABS: Hematocrit 39.7 % (40-54); Hemoglobin 13.2 g/dL (13.0-16.5); Mean Corp Hgb Conc 33.2 g/dL (32-36); Mean Corpuscular Hgb 30.8 pg (27.0-32.0); Mean Corpuscular Volume 92.8 fL (80-94); Mean Platelet Vol. 9.7 fl (6.2-12.0); Platelet Count 310 K/mm3 (150-450); RBC Distribution Width CV 12.4 % (11.6-14.6); RBC Distribution Width SD 42.5 fl (35.1-43.9); Red Blood Count 4.28 M/mm3 (4.6-6.2)
[2022-03-01 10:53] LABS: AST(SGOT) 25 U/L (15-37); Alanine Aminotransfer ALT/SGPT 35 U/L (16-61); Albumin, Serum 3.8 g/dL (3.2-5.0); Alkaline Phosphatase 89 U/L (45-117); Anion Gap 7 (5-15); BUN 20 mg/dL (7-18); BUN/Creat Ratio 20.1 RATIO (10-20); Calcium,Total 9.7 mg/dL (8.5-10.1); Chloride 104 mmol/L (98-107); EST Glomerular Filtration Rate 79 mL/min (>60); Est Glom Filt Rate - Afr Amer 96 mL/min (>60); Ferritin 560 ng/mL (26-388); Glucose 142 mg/dL (74-106); Magnesium 1.8 mg/dL (1.6-2.6); Potassium 3.9 mmol/L (3.5-5.1); Protein, Total 7.8 g/dL (6.4-8.2); Sodium Level 137 mmol/L (136-145); Thyroid Stim Hormone (TSH) 1.92 uIU/mL (0.358-3.74)
== END | disposition home or self-care (01) ==
LOC: MFPLAB 09:02
PROVIDERS: PCP Family Medicine; Visit Provider Family Medicine
DX: I10 Essential (primary) hypertension (principal); R25.2 Cramp and spasm; R61 Generalized hyperhidrosis
CPT/HCPCS: 36415; 80053; 82728; 83735; 84443; 85027

== ENCOUNTER → 2022-04-13 | Outpatient (CLI) | payer MEDICARE, OTHER, SELFPAY ==
--- NOTE | 2022-04-13 10:55 | VDLE_ITS ---
Reason For Study: LEG SWELLING Procedure LEFT Exam performed in department. GSV is normal. This is a venous duplex using B-mode, color CFV is compressible, spontaneous, phasic, flow and spectral Doppler. competent, and demonstrates normal The exam was of adequate technical quality. augmentation. A preliminary report was called and/or faxed FV is compressible, spontaneous, phasic, to Ortiz Daniels. competent and demonstrates normal augmentation. POP V is compressible, spontaneous, phasic, competent and demonstrates normal augmentation. T/P Trunk is compressible. PTV is compressible. LT PerV is compressible. VL/Venous Duplex US, Unilateral Interpretation Summary Deep veins of the left lower extremity are patent and compressible segmentally. There is no evidence of left lower extremity deep vein thrombosis. Valvular competence appears intac t within the proximal deep venous system on the left . The left great saphenous vein appears patent a nd compressible segmentally. Ordering Physician: Ortiz Daniels Referring Physician: Sam Tao MD Performed By: Kojo Suresh
== END | disposition home or self-care (01) ==
LOC: CVS 10:49
PROVIDERS: PCP Family Medicine; Visit Provider Physician Assistant Surgical
DX: R22.42 Localized swelling, mass and lump, left lower limb (principal)
CPT/HCPCS: 93971

== ENCOUNTER → 2022-09-03 | Outpatient (CLI) | payer MEDICARE, OTHER, SELFPAY ==
[2022-09-03 12:33] LABS: Absolute Lymphocyte Count 1.47 X10^3/uL (0.83-4.51); Absolute Neutrophil Count 5.2 X10^3/uL (2.0-7.7); Basophil# 0.04 X10^3/uL; Basophil% 0.5 % (0-1); Eosinophil# 0.04 X10^3/uL; Eosinophils% 0.5 % (0-5); Hematocrit 45.8 % (40-54); Hemoglobin 16.2 g/dL (13.0-16.5); Lymphocyte # 1.47 X10^3/ul (0.83-4.51); Lymphocyte % 19.9 % (19-41); Mean Corp Hgb Conc 35.4 g/dL (32-36); Mean Corpuscular Hgb 31.4 pg (27.0-32.0); Mean Corpuscular Volume 88.8 fL (80-94); Mean Platelet Vol. 9.4 fl (6.2-12.0); Monocyte% 8.1 % (0-10); NRBC Flagged by Analyzer 0 % (0-5); Neutrophil % 70.7 % (47-70); Platelet Count 290 K/mm3 (150-450); RBC Distribution Width CV 12.4 % (11.6-14.6); RBC Distribution Width SD 40.7 fl (35.1-43.9); Red Blood Count 5.16 M/mm3 (4.6-6.2); White Blood Count 7.4 K/mm3 (4.4-11.0)
[2022-09-03 13:11] LABS: ALB/GLOB Ratio 1.2 RATIO (0.9-2.4); AST(SGOT) 33 U/L (15-37); Alanine Aminotransfer ALT/SGPT 48 U/L (16-61); Albumin, Serum 4.3 g/dL (3.2-5.0); Alkaline Phosphatase 92 U/L (45-117); Anion Gap 11 (5-15); BUN 17 mg/dL (7-18); Calcium,Total 9.6 mg/dL (8.5-10.1); Chloride 100 mmol/L (98-107); EST Glomerular Filtration Rate 79 mL/min (>60); Est Glom Filt Rate - Afr Amer 95 mL/min (>60); Globulin 3.6 g/dL (2.2-4.2); Glucose 99 mg/dL (74-106); PSA,Total - Annual Screen 1.84 ng/mL (0.00-4.00); Potassium 3.9 mmol/L (3.5-5.1); Protein, Total 7.9 g/dL (6.4-8.2); Sodium Level 137 mmol/L (136-145)
[2022-09-03 13:22] LABS: Microalbumin:Creatinine Ratio 82.8 mg/g CRE (<30 mg/g CRE)
== END | disposition home or self-care (01) ==
LOC: MFPLAB 11:14
PROVIDERS: PCP Family Medicine; Visit Provider Family Medicine
DX: Z00.00 Encounter for general adult medical examination without abnormal findings (principal); Z12.5 Encounter for screening for malignant neoplasm of prostate; I10 Essential (primary) hypertension
CPT/HCPCS: 36415; 80053; 82043; 82570; 84153; 85025; G0103

== ENCOUNTER → 2022-09-10 | Outpatient (CLI) | payer MEDICARE, OTHER, SELFPAY ==
--- NOTE | 2022-09-10 07:39 | CT_ITS ---
STUDY: CTA OF THE BRAIN REASON FOR EXAM: Male, 67 years old. Headache, vision changes, Cervicalgia RADIATION DOSAGE (If Supplied By Facility): CTDIvol = ( 31.77 ) mGy, DLP = ( 1209.81 ) mGycm TECHNIQUE: CT angiography was performed with a multi-detector CT scanner. Data acquisition was obtained from the skull base through the vertex following intravenous administration of IV 100mL Isovue-370. MIP images were reconstructed from the axial data set. Post-processing of the angiographic images was performed, with multiplanar reformation and 3D reconstruction. Individualized dose optimization techniques were used for this CT. COMPARISON: None. FINDINGS: Normal bilateral petrous carotid arteries. Normal right cavernous carotid artery with a normal supraclinoid bifurcation. Normal left cavernous carotid artery with a normal supraclinoid bifurcation. Normal right A1 segments of the anterior cerebral artery. Normal left A1 segments of the anterior cerebral artery. Normal intact anterior communicating artery (ACOM). Normal bilateral A2 segments of the anterior cerebral arteries. Normal right M1 and M2 segments of the middle cerebral arteries, with a normal M1 bifurcation. Normal left M1 and M2 segments of the middle cerebral arteries, with a normal M1 bifurcation. Normal right posterior communicating artery (PCOM). Normal left posterior communicating artery (PCOM). Normal bilateral vertebral arteries. Normal basilar artery with a normal basilar bifurcation. The visualized bilateral superior cerebellar (SCA) arteries are normal. Normal bilateral P1, P2 and visualized P3 segments of the posterior cerebral arteries. There is no demonstrated aneurysm of the craig of Maza. Mild degree of cerebral atrophy. CT/CTA Head W/WO Contrast IMPRESSION: Normal craig of Maza without a demonstrated aneurysm or hemodynamically significant stenosis. Electronically Signed: Al Martinez MD at 9:02 EST ,
== END | disposition home or self-care (01) ==
LOC: CT 07:39
PROVIDERS: PCP Family Medicine; Referring Provider Family Medicine; Visit Provider Family Medicine
DX: M54.2 Cervicalgia (principal); G31.9 Degenerative disease of nervous system, unspecified; H53.9 Unspecified visual disturbance; G44.89 Other headache syndrome
CPT/HCPCS: 70496; Q9967

== ENCOUNTER 2022-09-13 11:00 | Outpatient (RCR) | payer MEDICARE, OTHER, SELFPAY ==
--- NOTE | 2022-08-14 12:06 | HP.PTEVAL_ITS ---
Patient's Visit Information DIANELYS SMALL is a 67 year old M referred to Physical Therapy by Dr. Sam Tao MD with a diagnosis of Cervicalgia. 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 Pt reports this may be the cause for his chronic neck pain as he always leans toward his R side. Pt notes he has had Rx for this in the past and notes the cervical traction helped to ease his pain immensely. Pt reports this episode originated about 3-4 weeks ago and has progressively worsened. Pt reports this keeps him from sleeping at night and makes him have to sit in a chair to sleep. Pt reports he is sleeping a little better now that he was prescribed a muscle relaxer. Pt reports he has no recent diagnostic tests. Pt reports he has tingling and occasionally numbness in his R UE. Pt reports he was an avid walker until the pain returned in his neck. Pt also notes he has difficulty with house chores secondary to GIFFORD's. - Pain neck pain Pain Intensity (Out of 10): 0 Pain Intensity Range: 8 - Objective Neuro: B UE sensation is WNL to light touch. B bicipital reflex 2/3. Palpation: Pt is sore throughout the R side of his C/S. Obvious guarding on R C/S. No obvious deformity noted. ROM: Pt is moderately limited with ext and retraction. Pt was WNL with all other ranges. MMT: B UE's are grossly 5/5 throughout. Repeated movements: Rep retraction 10x2 increased IGFFORD's and R UE radiculopathy. Rep retraction in sitting increased R UE. Special test. Pos apley compression and distraction test - Balance/Special Test Scores Oswestry Neck Score: 20 - Goals Goal 1:: Decrease neck pain x 50% to aid with sleep Goal Time Frame: 4-6 Weeks Goal 2:: Decrease R UE radiculopathy x 50% to aid with IADL's Goal Time Frame: 4-6 Weeks Goal 3:: Increase c/s ROM ext and retraction x 1 grade to aid with IADL's Goal Time Frame: 4-6 Weeks Goal 4:: I with HEP Goal Time Frame: 4-6 Weeks - Rehabilitation Potential Physical Therapy Diagnosis: Pt has neck pain, R UE radiculopathy, and difficulty with sleep secondary to deg changes in the c/s Rehabilitation Potential: Good - Anticipated Interventions Patient/Client Instruction: Educate patient on: Condition, Plan of Care For the Purpose of:: To improve self management Therapeutic Exercise to Include: Strength training, Endurance training, Active ROM, Scapular Strength/Stabilization For the Purpose of:: To decrease pain, To increase ROM, To improve muscle perf ormance and motor function Thermo therapy (hot pack): Yes Intermittent cervical traction: Yes For the Purpose of:: To decrease pain Thank you for the opportunity to evaluate your patient. For Medicare and Medicare HMO plans, please review the plan of care and approve it. It will need to be FAXED BACK to us at [phone] for Medicare purposes. For Medicare only, by signing this I certify the plan of care. Please let me know if there are questions or concerns regarding this plan of care. Physician Signature: Date:
--- NOTE | 2023-01-10 17:19 | HP.PT.NRP ---
DIANELYS SMALL was seen in my office for initial evaluation on 08/14/22. The following Plan of Care was established for this patient: Initial Frequency: 2-3x /Week Initial Duration: 4-6 Weeks Patient/Client Instruction: Educate patient on: Condition, Plan of Care For the Purpose of:: To improve self management Therapeutic Exercise to Include: Strength training, Endurance training, Active ROM, Scapular Strength/Stabilization For the Purpose of:: To decrease pain, To increase ROM, To improve muscle performance and motor function Thermo therapy (hot pack): Yes Intermittent cervical traction: Yes For the Purpose of:: To decrease pain This patient was last seen in our office . Pertinent comments regarding their Physical therapy will appear below: Pt was treated for 9 PT visits for neck pain through the date of 09/14/22. Pt has not returned through todays date and is discontinued at this time. At this point I will be discontinuing this patient from physical therapy. I would be happy to see this patient again in the future if found appropriate by the physician. Thank you! Rob Augustin, PT, ATC Balance/Gait/Functional tests - Balance/Special Test Scores Oswestry Neck Score: 14
== END 2022-09-13 19:00 | disposition home or self-care (01) ==
LOC: PT 11:00
PROVIDERS: PCP Family Medicine; Referring Provider Family Medicine; Visit Provider Family Medicine
DX: M54.2 Cervicalgia (principal); G54.0 Brachial plexus disorders; R26.89 Other abnormalities of gait and mobility
CPT/HCPCS: 97012; 97110; 97140; 97161; 97164

== ENCOUNTER → 2022-09-17 | Outpatient (CLI) | payer MEDICARE, OTHER, SELFPAY ==
--- NOTE | 2022-09-17 12:00 | RAD_ITS ---
HISTORY: Cervicalgia, right-sided pain. TECHNIQUE: XR Spine Cervical 4 or 5 Views. COMPARISON: 05/27/2019. FINDINGS: VERTEBRAE: Vertebral body heights maintained. No acute fracture identified. ALIGNMENT: No significant anterior or posterior subluxation. Straightening of the cervical lordosis. INTERVERTEBRAL DISCS: Mild intervertebral disc space narrowing with osteophytes and degenerative endplate changes again seen at C4-5, C5-6, and C6-7. Mild right foraminal narrowing at C4-5, moderate bilateral foraminal narrowing at C5-6, and moderate right foraminal narrowing C6-7. SOFT TISSUES: No significant prevertebral soft tissue swelling. RAD/Cerv Spine 4 or 5 Views IMPRESSION: No acute fracture or dislocation identified in the cervical spine. Multilevel degenerative change. Electronically Signed: Tina Bernabe MD at 8:25 EST ,
== END | disposition home or self-care (01) ==
PROVIDERS: PCP Family Medicine; Visit Provider Family Medicine
DX: M54.2 Cervicalgia (principal)
CPT/HCPCS: 72050

== ENCOUNTER → 2022-10-04 | Outpatient (CLI) | payer MEDICARE, OTHER, SELFPAY ==
--- NOTE | 2022-10-04 14:56 | MRI_ITS ---
STUDY: MRI CERVICAL SPINE WITHOUT CONTRAST REASON FOR EXAM: Male, 67 years old. C-5-7 nerve impingement with radiculopathy TECHNIQUE: Standardized fat and water weighted pulse sequences were obtained in the sagittal and axial planes. COMPARISON: X-ray of the cervical spine dated September 17, 2022 FINDINGS: Normal foramen magnum and brainstem-cervical cord junction. Normal craniovertebral junction. Normal anterior atlantoaxial articulation. Normal odontoid process. Normal cervical lordosis. C2-3: Normal endplates. Diffuse disc desiccation. Normal disc height and morphology. Normal central canal and intervertebral neural foramina. C3-4: Normal endplates. Mild disc space narrowing and diffuse disc desiccation with a shallow midline disc protrusion causing mild compression anterior midline aspect of the cord and mild central canal stenosis. Normal intervertebral neural foramina. C4-5: Normal endplates. Moderate disc space narrowing with mild annular bulging contributing to mild central canal stenosis and mass effect on anterior aspect of the cord. Moderate to severe bilateral foraminal stenosis with nerve root compression due to combine uncovertebral facet joint hypertrophy. C5-6: Severe disc space narrowing with a diffuse disc osteophyte complex causing compression on anterior aspect of the cord and moderate central canal stenosis, as well as flattening of the cord and mildly increased signal in the cord consistent with compressive myelomalacia. Severe bilateral foraminal stenosis with nerve root compression due to uncovertebral and facet joint hypertrophy. C6-7: Severe disc space narrowing with a diffuse disc osteophyte complex causing compression on anterior aspect of the cord and moderate central canal stenosis. Severe bilateral foraminal stenosis with nerve root compression due to uncovertebral and facet joint hypertrophy. C7-T1: Normal endplates. Normal disc height, signal and morphology. Normal central canal and intervertebral neural foramina. Normal remaining aspects of the cervical cord. Normal visualized soft tissue structures. MRI/Spine Cervical (Routine) IMPRESSION: 1. Multilevel degenerative changes, as described above. 2. Moderate central canal stenosis with cord compression at C5-C6 and C6-C7 3. Compressive myelomalacia with increased signal within the cord at C5-C6 4. Multilevel foraminal stenosis with nerve root compression Electronically Signed: Nir Reaves MD at 9:15 EST ,
== END | disposition home or self-care (01) ==
LOC: MRI 14:49
PROVIDERS: PCP Family Medicine; Referring Provider Family Medicine; Visit Provider Family Medicine
DX: M54.12 Radiculopathy, cervical region (principal)
CPT/HCPCS: 72141

== ENCOUNTER 2022-12-25 05:26 | Inpatient (IN) | payer MEDICARE, OTHER, SELFPAY ==
--- NOTE | 2022-12-17 08:41 | EKG12_ITS ---
Test Reason : PREOP Blood Pressure : / mmHG Vent. Rate : 058 BPM Atrial Rate : 058 BPM P-R Int : 176 ms QRS Dur : 102 ms QT Int : 394 ms P-R-T Axes : 041 -11 045 degrees QTc Int : 386 ms Sinus bradycardia Otherwise normal ECG Confirmed by MONALISA BACON, WILEY ([id number]), editor index RICKEY DE LEON ([id number]) on 12/17/2022 12:48:33 PM Referred By: RICARDO Confirmed By:WILEY SHELDON MD
[2022-12-17 09:25] LABS: Absolute Lymphocyte Count 1.67 X10^3/uL (0.83-4.51); Absolute Neutrophil Count 4.4 X10^3/uL (2.0-7.7); Basophil# 0.05 X10^3/uL; Basophil% 0.7 % (0-1); Eosinophil# 0.08 X10^3/uL; Eosinophils% 1.2 % (0-5); Hematocrit 45.2 % (40-54); Hemoglobin 15.3 g/dL (13.0-16.5); Lymphocyte # 1.67 X10^3/ul (0.83-4.51); Mean Corp Hgb Conc 33.8 g/dL (32-36); Mean Corpuscular Hgb 31.1 pg (27.0-32.0); Mean Corpuscular Volume 91.9 fL (80-94); Mean Platelet Vol. 9.2 fl (6.2-12.0); Monocyte# 0.69 X10^3/uL; Monocyte% 9.9 % (0-10); NRBC Flagged by Analyzer 0 % (0-5); Neutrophil # 4.44 X10^3/uL (2.7-7.7); Neutrophil % 63.9 % (47-70); Platelet Count 298 K/mm3 (150-450); RBC Distribution Width CV 12.6 % (11.6-14.6); RBC Distribution Width SD 43.1 fl (35.1-43.9); Red Blood Count 4.92 M/mm3 (4.6-6.2)
[2022-12-17 09:43] LABS: Magnesium 2.1 mg/dL (1.6-2.6)
[2022-12-17 09:45] LABS: Anion Gap 4 (5-15); BUN 22 mg/dL (7-18); BUN/Creat Ratio 19.1 RATIO (10-20); Calcium,Total 9.5 mg/dL (8.5-10.1); Chloride 103 mmol/L (98-107); Creatinine, Serum 1.15 mg/dL (0.70-1.30); EST Glomerular Filtration Rate 67 mL/min (>60); Est Glom Filt Rate - Afr Amer 81 mL/min (>60); Glucose 119 mg/dL (74-106); Potassium 4.1 mmol/L (3.5-5.1); Sodium Level 136 mmol/L (136-145)
[2022-12-17 10:23] LABS: HIV - WCH Non-Reactive (Nonreactive); Hepatitis B Surface Antibody Non-Reactive; Hepatitis C Antibody Non-Reactive (Nonreactive)
[2022-12-18 08:59] LABS: Hepatitis A AB, Total Negative (Negative)
--- NOTE | 2022-12-20 16:52 | PCM.HP.BLA ---
History and Physical Addendum MR#: [id number] Acct: [id number] Name:DIANELYS ROSS Rep #: [id number] : 1955 ? ? Provider: Dr. Jose Dockery, DO Age/Sex:? 67/M ? ? Location: [facility] [place] Status: Signed Intake Vital Signs ? 01/03/2205:50 10/15/2309:07 Height 5 ft 9 in 5 ft 9 in Weight: ? 208 lb BMI ? 30.7 Intake Visit Reasons:?Cervical spine Is patient in pain?: Yes Pain scale (1-10): 6 Allergies No Known Allergies Allergy (Verified 10/15/22 10:08) Medications amlodipine 10 mg tablet 5 mg PO QHS 10/24/13 [History Confirmed 10/15/22] indapamide 1.25 mg tablet 1.5 mg PO DAILY 11/14/21 [History Confirmed 10/15/22] ipratropium bromide 21 mcg (0.03 %) nasal spray 1 - 2 spray intranasal PRN PRN ALLERGIES 11/14/21 [History Confirmed 10/15/22] quinapril 20 mg tablet 20 mg PO QHS 11/14/21 [History Confirmed 10/15/22] acetaminophen 500 mg tablet 1,000 mg PO Q8 30 days #90 tabs 01/04/22 [Rx Confirmed 10/15/22] aspirin 81 mg chewable tablet 81 mg PO BIDCM 30 days #60 tabs 01/04/22 [Rx Confirmed 10/15/22] doxycycline hyclate 100 mg tablet 100 mg PO BID 2 weeks #28 tabs 01/04/22 [Rx Confirmed 10/15/22] famotidine 20 mg tablet 20 mg PO DAILY 30 days #30 tabs 01/04/22 [Rx Confirmed 10/15/22] meloxicam 7.5 mg tablet 7.5 mg PO BID 30 days #60 tabs 01/04/22 [Rx Confirmed 10/15/22] oxycodone 5 mg tablet 5 - 10 mg PO .4-6 hrs prn PRN Pain Score 4-10 7 days #60 tabs 01/04/22 [Rx Confirmed 10/15/22] baclofen 20 mg tablet 20 mg PO DAILY 10/15/22 [History Confirmed 10/15/22] venlafaxine besylate 112.5 mg tablet,extended release 24 hr 5 mg PO DAILY 10/15/22 [History Confirmed 10/15/22] PFSH Medical History? Ambulates with cane Arthritis Cancer Former smoker History of stress test Hypertension Leg cramps Loose left total knee arthroplasty Rash Wears glasses Surgical History? History of carpal tunnel surgery of left wrist Hx of above knee amputation Hx of colonoscopy Hx of left knee surgery Social History? Smoking Status:? Never smoker HPI Cervical spine Details: Parts of this documentation were recorded by a scribe, this documentation accurately reflects the service provided and the decisions made by me, Dr. Jose Dockery, DO 10/15/22 1005. DIANELYS COFFMAN is a 67 year old M here today for cervical pain. States that he has been having pain for 3 months. States that he did do some PT over here [facility]. States that he did 9 sessions and they thought his pain was getting worse so they stopped PT. States that depending on how he lays down both hands and gets some numbness and tingling. Denies any previous surgery on his neck. States that laying down or anything pushing against the back of his neck increases his pain. Has used ice and heat in the past but not recently. Denies taking anything for the pain. Denies any injections in his neck. Pt had xrays on 09/17/22 and had an MRI on 10/04/22. Mr. Coffman is a very pleasant gentleman 67 years old who has chief complaint of right-sided neck pain that radiates down his right arm and perhaps a see 6 dermatome or perhaps a C7 dermatome or both.? It started about 3 months ago.? He has had some pains in the past however nothing like this.? Oddly enough he cannot lie down on his back as that really makes the pain bad.? But if he sits up most of the pain actually goes away.? He sleeps in a recliner in his semisitting position but he does not sleep that well.? But at least he does not have the severe pain.? He is right-hand dominant. On examination he has a positive Spurling's to the right side.? He has pain with extension but none with flexion of his cervical spine.? He has good motor strength of all the major muscle groups of both upper extremities.? He has no long tract signs on the left side he has no clonus and he has no hyperreflexia of his patella.? Upper extremity reflexes are 1+ for brachioradialis and biceps but absent on both triceps. Reviewed plain x-rays of his cervical spine that were done recently.? He demonstrates that he has significant degenerative disc disease at C5-6 and C6-7.? The MRI scan is consistent with the same except at C5-6 he has central protrusion with some pressure on the spinal cord.? He also has what appears to be some degree of myelomalacia at this level. He will need surgical intervention at C5-6 and C6-7.? 5 6 needs to be decompressed on both sides 6 7 simply fused.? Right now he is in the middle of his brothers estate which will take him a couple of more months.? He has to get that done before January 12.? We can do his surgery after that.? In the meantime we will send him to Dr. Sherman for a cervical epidural steroid injection hopefully this can at least give him some degree of pain relief.? I will visit with him again [address] Sherman performs the epidural injection of his cervical spine. Coding Level of Care Code Off vis,new,level 3 Diagnoses Herniated nucleus pulposus, C5-6 left? M50.222 Myelomalacia of cervical cord? G95.89
[2022-12-25] VITALS (14 sets, daily range): BP systolic 120–171; BP diastolic 76–98; PULSE 87–110; RESP 18–24; TEMP 36.5–36.8; O2SAT 93–98; BMI 29.7
[2022-12-25] MEDS: Magnesium 1 GM over 15 mins IV (06:00)
[2022-12-25] MEDS: Lactated Ringers 1,000 ML 15 ML IV (06:10)
[2022-12-25] MEDS: Acetaminophen 500 MG Tablet 1000 MG PO ×3 (06:12→22:18)
[2022-12-25] MEDS: dexAMETHasone 4 MG/ML Vial 8 MG IV (06:34)
[2022-12-25] MEDS: Insulin Lispro 100 UNIT/ML INSULN.PEN SC (06:47)
[2022-12-25 06:50] LABS: Bedside Glucose 218 mg/dL (74-106)
--- NOTE | 2022-12-25 07:30 | DISC_PTH ---
PATIENT: DIANELYS SMALL LOC: [facility] U#:[id number] AGE/SX: 67/M ROOM: IA315 RE12/25/[address]: Dr. Jose Dockery DO : 1955 BED: 1 DIS: 12/26/2022 SPEC #: [id number] RECD: 12/25/22 16:32 STATUS: MARIANNE RESam #: [id number] YOLANDA: 12/25/22 07:[address]: Jose Dockery DEPT: SURGICAL PATHOLOGY RECD BY: Lee Ann Seaman ENTERED: 12/26/22 09:19 SP TYPE: DISC OTHR DR: MD Dr. Darwin Barraza DO Tissues: A - Intervertebral disc, NOS B - Intervertebral disc, NOS Procedures: Decalcification bone/plaque Surgery Specimen Level III HEADER OPERATION: ERAS, anterior cervical disc fusion, C5-6, C6-7 PRE-OP DIAGNOSIS: Herniated nucleus pulposus, C5-6 left TISSUE SUBMITTED: A ? Disc material cervical C5-6, B - Disc material cervical C6-7 MICROSCOPIC DIAGNOSIS A. Disc material cervical C5-6, excision: Fragments of fibrocartilaginous tissue and bone with reactive changes. B. Disc material cervical C6-7, excision: Fragments of fibrocartilaginous tissue and bone with reactive changes. KARIME:vicky 12/27/2022 MICROSCOPIC DESCRIPTION Slides are reviewed. GROSS DESCRIPTION A - Received in fixative is one container labeled with the patient's name and designated disc material cervical C5-6. The specimen consists of multiple irregular fragments of valerio, indurated tissue that in aggregate measure 3.0 x 2.5 x 0.3 cm. The specimen is totally submitted in one cassette after decalcification. B - Received in fixative is one container labeled with the patient's name and designated disc material cervical C6-7. The specimen consists of multiple irregular fragments of valerio, indurated tissue that in aggregate measure 3.0 x 2.5 x 0.3 cm. The specimen is totally submitted in one cassette after decalcification. / KARIME:vicky 12/26/2022 TC:5 CPT: 40698 x2, 10474 x2
[2022-12-25] MEDS: Cefazolin 2 GM in 0.9% Normal Saline 100 ML IV (07:38)
--- NOTE | 2022-12-25 08:10 | RAD_ITS ---
STUDY: X-RAY - CERVICAL SPINE REASON FOR EXAM: Male, 67 years old. ANTERIOR FUSION C5-6, C6-7 TECHNIQUE: 1 view(s) of the cervical spine were obtained. COMPARISON: None FINDINGS: The localization instrument is seen along the anterior aspect of the C5-C6 disc space level. RAD/Spine 1 View Any Level IMPRESSION: The localization instrument is seen along the anterior aspect of the C5-C6 disc space level. Electronically Signed: Al Martinez MD at 8:42 EDT ,
[2022-12-25] MEDS: Heparin 10,000 UNITS/10 ML Vial 10000 UNITS (08:38)
[2022-12-25] MEDS: THROMBIN (RECOMBINANT) 20,000 UNIT VIAL 20000 UNIT TOPICAL (08:38)
--- NOTE | 2022-12-25 09:10 | RAD_ITS ---
STUDY: X-RAY - LUMBAR SPINE REASON FOR EXAM: Male, 67 years old. ANTERIOR FUSION C5-6, C6-7 TECHNIQUE: 1 view(s) of the lumbar spine were obtained. COMPARISON: Comparison is made with prior study done earlier today. FINDINGS: The localization instrument is seen anterior to the C5-C6 disc space level. RAD/Spine 1 View Any Level IMPRESSION: The localization instrument is seen anterior to the C5-C6 disc space level. Electronically Signed: Al Martinez MD at 9:48 EDT ,
--- NOTE | 2022-12-25 11:51 | RAD_ITS ---
STUDY: X-RAY - CERVICAL SPINE REASON FOR EXAM: Male, 67 years old. ANTERIOR FUSION C5-6, C6-7 TECHNIQUE: 1 view(s) of the cervical spine were obtained. COMPARISON: None FINDINGS: Status post anterior fusion with screw and plate fixation device and prosthetic disc at the C5-C6 and C6-C7 levels. RAD/Spine 1 View Any Level IMPRESSION: Status post anterior fusion with screw and plate fixation device and prosthetic disc placement at the C5-C6 and C6-C7 levels. Electronically Signed: Al Martinez MD at 13:57 EDT ,
--- NOTE | 2022-12-25 12:40 | OP.PCM_ITS ---
Report of Operation Description of Surgical Findings:: Preoperative diagnosis: Myelomalacia C5-6 and C6-7 secondary to spinal stenosis. Postoperative diagnosis: The same Procedures: #1 anterior lumbar interbody fusion C6-7 CPT code 45564 #2 application of spine plate from C5-C7 CPT code 69654/59 #3 anterior cervical fusion C5-6 CPT code 67993/51 #4 insertion of cage C6-7 CPT code 48132 #5 insertion of cage at C5-6 CPT code 35162/51 #6 bone marrow aspirate left iliac crest CPT code 97204 #7 use of allograft C5-6 and C6-7 CPT code 24043 Surgeon: Dr. Dockery Mender Hand: Lenka SCHULTZ Anesthesia: General endotracheal by [facility] EBL: Less than 50 cc Drains: 1/4 inch Catracho Complications: None Procedure: Patient was taken to the OR where he was placed in the supine position on the operative table he was then placed under general endotracheal anesthesia. A Alonzo catheter was inserted. Neuro monitoring placed her leads on the patient. A Kerlix was placed from 1 wrist to the other wrist and around the feet. This is for purposes of pulling an intraoperative x-ray was taken and the skin marked with a small laceration using the end of the needle where I would start the incision. The left crest and the cervical spine were then prepped and draped standard fashion. The PA obtained the bone marrow aspirate from the left crest by punching a hole through the skin entering with a Jamshidi needle and tapping it into the crest area. 60 cc of BMA were obtained this was then given to the chemical technician in the room who spun it down and the cells from other cells and concentrate of the stem cells from the patient about 10 times. This was given back to us then. Then then I made a incision starting the midline at the predetermined point incurvated into the edge of the right sternocleidomastoid muscle in line with longer's lines. Cutaneous tissues were incised length of skin incision note that the patient had any platysma at all it was only very thin covering but no muscle to speak of. I then exploited the superficial cervical fascia followed by the explantation of the pretracheal fascia in this fashion I was able to retract the midline structures to the left and the carotid to the right. This had been good access to the anterior longitudinal ligament and disc spaces. We then marked the disc that we thought would be C5-6 because it would be easier to see. This was done with a needle and an intraoperative x-ray was taken to confirm that that was indeed C5-6. I then moved down 1 level to C6-7 this was then marked with the cautery. 15 blade was used to cut into the annulus and remove the anterior nucleus I then removed more nucleus from and then the disc base using pituitary rongeurs and curettes. Went all the way back to the narrow uncinate process on the right side and used a maira bur to repeatedly bur the uncinate process until it was a thin shell that was then removed with sharp angled curettes. We then removed all the cartilage off both endplates using curettes. Adjuvants for the cage were then taken and we found that we would need a 7 mm cage. The space was then broached with anesthesia pulling on the head we then tamped the appropriate cage in place. Note that it was filled with spongy allograft and soaked in the patient's own stem cells prior to insertion. We then moved up to the 5 6 level. Note that there was a complete calcification anteriorly and use double-action rongeurs and the bur to remove these large calcifications just to find the disc space. Once it was found I then cut the anterior annulus with a 15 blade removed it and removed more nucleus from within the disc space. Note that the patient had myelomalacia basically at this level and below complete calcification of the posterior longitudinal ligament all the way across the back of the space. It was a very tedious process using more than 1 maira bur to bur this down to a thin shell I opened both uncinate processes the same fashion that I did at the level below. It was burred down to a thin shell and then removed to take the pressure off both see nerve roots. I had to work a lot harder on removing the bone from the that was calcified at the posterior longitudinal ligament these were likewise removed using Kerrison rongeurs I was finally released him off the back of the vertebra particularly at C6 6. These were removed carefully with a Kerrison rongeurs to prevent a tear in the dura. Once this was done I removed all remaining cartilage off both endplates and used a broach to broach the space. Once this was done we took our measurements decided to use an 8 mm large cage. Again this was filled with spongy bone soaked the patient's own stem cells and anesthesia pulling on the head of then tamped into place and countersunk it. We used a 45 mm plate I did add some lordosis to it. We then proceeded to put [address] 1 at a time followed by the insertion of a 14 mm screw this was done at all 6 points. We were able to observe it on plain x-ray was found to be quite satisfactory with good posit ion of the cages the plate and all the screws. Note that we thoroughly irrigated frequently in the course of the case. We left the 1/4 inch Catracho drain in place since she had no platysma we simply closed subcutaneous tissues interrupted fashion with 5-0 Vicryl for closure of the skin with 5-0 Vicryl also in interrupted fashion. This approximated the skin a safety pin was placed through the drain and sterile dressings were applied. The patient was then recovered in the OR taken recovery in satisfactory condition. This interoperative summary on Rizwan Coffman. This is Dr. Dockery dictating.
[2022-12-25 13:15] LABS: Bedside Glucose 164 mg/dL (74-106)
[2022-12-25] MEDS: dexAMETHasone 4 MG/ML Vial IV ×2 (13:30→18:49)
[2022-12-25] MEDS: Lactated Ringers 1,000 ML 100 ML IV ×2 (13:58→17:13)
[2022-12-25] MEDS: Cefazolin 1 GM/50 ML BAG IV ×2 (15:50→23:32)
[2022-12-25] MEDS: Ensure Surgery 237 ML LIQUID PO (17:15)
--- NOTE | 2022-12-25 18:17 | PN.HOSP_ITS ---
Reason for Visit Reason for Visit: Diagnoses Encounter for other preprocedural examination (12/25/22) Subjective Subjective Patient was seen and examined at the request of spine surgery, he was admitted to their service today after undergoing a cervical fusion. Patient has a history of essential hypertension, he did not take his blood pressure medications today. Objective Data Objective Data Vital Signs: Vital Signs Temp Pulse Resp BP Pulse Ox O2 Del Method O2 Flow Rate 97.7 F L 105 H 20 H 171/98 H 94 Room Air 4 12/25/22 17:06 12/25/22 17:06 12/25/22 17:06 12/25/22 17:06 12/25/22 17:06 12/25/22 17:44 12/25/22 13:30 Oxygen Flow Rate (L/min) 4 Oxygen Delivery Method Room Air Weight: 88.904 kg Body Mass Index (BMI) 29.7 Intake & Output: Intake and Output for Last 24 Hours 12/23/22 12/24/22 12/25/22 23:59 23:59 23:59 Intake Total 3587 / 3587 Output Total 1650 / 1650 Balance 1937 / 1937 Lab / Micro Data Result Diagrams: 12/17/22 08:33 12/17/22 08:33 Labs: Laboratory Results - last 24 hr 12/25/22 05:51: POC Glucose 218 H 12/25/22 12:55: POC Glucose 164 H Micro: Microbiology 12/17/22 08:33 Swab (Method) Nasal Screen MRSA/MSSA - Final Radiography Diagnostic Testing: Radiology Impression Spine X-Ray 12/25/22 08:10 IMPRESSION: The localization instrument is seen along the anterior aspect of the C5-C6 disc space level. Electronically Signed: Al Martinez MD at 8:42 EDT , Spine X-Ray 12/25/22 09:10 IMPRESSION: The localization instrument is seen anterior to the C5-C6 disc space level. Electronically Signed: Al Martinez MD at 9:48 EDT , Spine X-Ray 12/25/22 11:51 IMPRESSION: Status post anterior fusion with screw and plate fixation device and prosthetic disc placement at the C5-C6 and C6-C7 levels. Electronically Signed: Al Martinez MD at 13:57 EDT , Physical Exam Const alert, oriented x3, no apparent distress, average body habitus and healthy appearing General Appearance: cooperative, well kempt and well developed Orientation / Consciousness: awake, oriented to person, oriented to place and oriented to time HEENT normocephalic and moist oral mucous membranes Eyes PERRL, EOMs intact bilaterally and conjunctivae normal Neck supple, no JVD, thyroid normal and no carotid bruits General: trachea midline Resp normal respiratory effort and clear to auscultation bilaterally Auscultation: Negative for rales, rhonchi or wheezes Cardio regular rate, regular rhythm, S1 normal heart sound, S2 normal heart sound, no murmurs, no rub and no gallops GI normal to inspection, nondistended, normoactive bowel sounds, soft to palpation, non-tender and non-distended Extremity Extremity Narrative: 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 Essential hypertension-patient's blood pressure medications will be restarted tonight-patient is on an GHANSHYAM inhibitor, a diuretic, and calcium channel nayan. 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
[2022-12-25] MEDS: amLODIPine 5 MG Tablet PO (18:39)
[2022-12-25] MEDS: Lisinopril 20 MG Tablet PO (18:40)
[2022-12-25] MEDS: Indapamide 2.5 MG Tablet 1.25 MG PO (18:50)
[2022-12-26 01:55] VITALS: BP 146/86; PULSE 96; RESP 18; TEMP 36.5; O2SAT 94
[2022-12-26] MEDS: dexAMETHasone 4 MG/ML Vial 2 MG IV ×2 (02:00→06:59)
[2022-12-26] MEDS: 0.9% Saline Lock 10 ML Syringe IV ×2 (02:10→06:58)
[2022-12-26] MEDS: Acetaminophen 500 MG Tablet 1000 MG PO ×2 (06:59→14:03)
[2022-12-26 07:09] VITALS: BP 140/81; PULSE 95; RESP 20; TEMP 36.6; O2SAT 94
[2022-12-26 08:21] VITALS: BP 141/79; PULSE 92; RESP 18; TEMP 36.7; O2SAT 95
[2022-12-26] MEDS: Indapamide 2.5 MG Tablet 1.25 MG PO (08:31)
[2022-12-26] MEDS: Ensure Surgery 237 ML LIQUID PO ×2 (08:31→11:45)
--- NOTE | 2022-12-26 11:34 | PCM.PN.HOSP ---
Reason for Visit Reason for Visit: Diagnoses Other specified diseases of spinal cord (12/25/22) Encounter for other preprocedural examination (12/25/22) Subjective Subjective Patient was seen and examined today, his blood pressure is improved. Patient has no complaints of any shortness of breath or chest discomfort Objective Data Objective Data Vital Signs: Vital Signs Temp Pulse Resp BP Pulse Ox O2 Del Method O2 Flow Rate 98.1 F 92 18 141/79 H 95 Room Air 4 12/26/22 08:21 12/26/22 08:21 12/26/22 08:21 12/26/22 08:21 12/26/22 08:21 12/26/22 08:23 12/25/22 13:30 Oxygen Flow Rate (L/min) 4 Oxygen Delivery Method Room Air Weight: 88.904 kg Body Mass Index (BMI) 29.7 Intake & Output: Intake and Output for Last 24 Hours 12/24/22 12/25/22 12/26/22 23:59 23:59 23:59 Intake Total 4837 / 4837 1003.58 / 1003.58 Output Total 4400 / 4400 1300 / 1300 Balance 437 / 437 -296.42 / -296.42 Lab / Micro Data Result Diagrams: 12/17/22 08:33 12/17/22 08:33 Labs: Laboratory Results - last 24 hr 12/25/22 12:55: POC Glucose 164 H Micro: Microbiology 12/17/22 08:33 Swab (Method) Nasal Screen MRSA/MSSA - Final Radiography Diagnostic Testing: Radiology Impression Spine X-Ray 12/25/22 11:51 IMPRESSION: Status post anterior fusion with screw and plate fixation device and prosthetic disc placement at the C5-C6 and C6-C7 levels. Electronically Signed: Al Martinez MD at 13:57 EDT , Physical Exam Const alert, oriented x3, no apparent distress and healthy appearing General Appearance: cooperative, well kempt and well developed Orientation / Consciousness: awake, oriented to person, oriented to place and oriented to time HEENT normocephalic and moist oral mucous membranes Eyes PERRL, EOMs intact bilaterally and conjunctivae normal Neck Neck Narrative: Patient has a neck collar in place, this was not removed for examination of the neck Resp normal respiratory effort, no retractions, no use of accessory muscles and clear to auscultation bilaterally Auscultation: Negative for rales, rhonchi or wheezes Cardio regular rate, regular rhythm, no murmurs, no rub and no gallops GI normal to inspection, nondistended, normoactive bowel sounds, soft to palpation, non-tender and non-distended Extremity Extremity Narrative: There is a remote [id number] amputation on the right Skin no rashes or lesions noted General Skin Exam: no breakdown Neuro oriented x3, CN's II-XII intact bilaterally, no focal motor deficits and no sensory deficits noted Sensorium / Orientation: awake, alert, oriented to person, oriented to place and oriented to time Speech: speech normal Psych affect normal Assessment & Plan Assessment/Plan (1) Myelomalacia of cervical cord: PLAN: Plan 1. Essential hypertension-patient is currently receiving his home blood pressure medications. 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
--- NOTE | 2022-12-26 13:45 | CASEMGMT ---
WERNER WELLER Assessment: Face to Face with pt for initial transition planning/care coordination assessment. RN JANEE introduced self and role at [facility], pt voices understanding and consents to assessment. Pt is A/O x4 and answers all questions appropriately at this time. Pt lying in bed in no distress. Care providers, pharmacy, and demographics verified/updated. Admitting Dx: anterior cervical disc fusion C5-6, C6-7 PCP:Dinh Specialists:Sarkis, spine OR; nicolette Fernando [facility] Insurance: [facility], MM Prescription Benefit: yes LNOK: Kal Coffman, son Living Arrangements: Pt lives alone in a single story home with 1 step to enter with a rail. Pt reports he is I in ADL's and denies concerns at home. Transportation: Pt drives self and denies concerns with transportation. Pt sons will transport him until he is able. DME/HHC/SNF: Pt has a cane, walker, w/c, raised toilet seat, crutches and prosthesis for R AKA. Pt states his home is w/c accessible. Pt denies hx of HHC and states has been to the Rehab Unit at [facility]. Pt states no concerns with going home at time of dc. Pt states no further concerns/needs. CM to follow. Advised pt to ask CM if any further question/concerns/needs arise, voices understanding. Pt Goal: Home Plan: Home
[2022-12-26 14:00] VITALS: BP 127/84; PULSE 96; RESP 18; TEMP 36.9; O2SAT 98
--- NOTE | 2022-12-26 15:32 | DCINST_ITS ---
Discharge Instructions Activity May shower in (days): 5 May resume sexual activity in: 4-6 weeks Weight Bearing Status: Full weight bearing Lifting Restrictions: 15# Follow Up Care Test Results: Test results from this visit will be discussed in further detail at your follow- up appointment, if applicable. Discharge Plan Admission Admit Date/Time: 12/25/22 05:26 Primary Reason for Your Visit: cervical decompression and fusion Attending Provider: Jose Dockery Primary Care Provider: Sam Tao Consulting Providers: Darwin Thornton Discharge Orders/Prescriptions Prescriptions: No Action baclofen 20 mg tablet 20 mg PO PRN PRN (Reason: Pain) amlodipine 10 MG tablet 5 mg PO QHS indapamide 1.25 mg tablet 1.25 mg PO DAILY quinapril 20 mg Tablet 20 mg PO QHS ipratropium bromide 21 mcg (0.03 %) spray,non-aerosol 1 - 2 spray INTRANASAL PRN PRN (Reason: ALLERGIES) lorazepam 1 mg Tablet 1 mg PO DAILY PRN (Reason: Cramps) meloxicam 7.5 mg tablet 15 mg PO QHS oxycodone-acetaminophen 5-325 mg tablet 1 tab PO Q6H PRN (Reason: pain) 10 Days Qty: 40 0RF Referrals / Follow Up: Sam Tao MD [Primary Care Provider] - Disposition Disposition (needs filled in before D/C Order can be placed): Home, Self Care
--- NOTE | 2022-12-26 15:34 | PCM.DC.SUM ---
Providers Date of Admission: 12/25/22 Primary Care Physician: Dr. Sam Tao MD Attending Physician: This is discharge summary on Rizwan Coffman. This patient was admitted yesterday and underwent anterior cervical decompression and fusion at the C6-7 and C5-6 levels. At the 5 6 levels he had myelomalacia with marked central stenosis. Calcification of the posterior longitudinal ligament at this level and took a significant amount of work intraoperatively to remove all the bone spurs and decompress the spinal cord. Today he is doing well. He has a clear voice. His pain is not bad at all. The pain down his right arm is completely resolved. Neurologically he remains totally intact. I change his dressing and remove the drain he had a significant amount of drainage as expected. Incision is dry and healing well now. I put new dressings on and gave him directions regarding the removal of the dressing when he could shower etc. In addition he was given oxycodone 5/325 for pain. He has enough for 10 days. He already has an appointment to see me in the office. He knows how to get ahold of me in the event that he should have a problem however I do not anticipate that he will. This is the end of discharge summary on Rizwan Coffman. This is Dr. Dockery dictating. Consultations 12/25/22 13:30 Consult: Hospitalist Routine Consulting Provider: Darwin Thornton Reason for Consult: med management EMERGENT Consult: No MD Notified: Yes Date Notified: 12/25/22 Time Notified: 17:03 Method of Notification: Verbal Reason For Visit: ANTERIOR CERVICAL DISC FUSION C 5-6, C 6-7 Diagnosis Discharge Diagnosis (1) Myelomalacia of cervical cord: Status: Acute Code(s): G95.89 - Other specified diseases of spinal cord Medications at Discharge Home Medications amlodipine 10 mg tablet 5 mg PO QHS BP 10/24/13 indapamide 1.25 mg tablet 1.25 mg PO DAILY WATER PILL 11/14/21 ipratropium bromide 21 mcg (0.03 %) nasal spray 1 - 2 spray intranasal PRN PRN ALLERGIES 11/14/21 quinapril 20 mg tablet 20 mg PO QHS BP 11/14/21 baclofen 20 mg tablet 20 mg PO PRN PRN Pain 10/15/22 lorazepam 1 mg tablet 1 mg PO DAILY PRN Cramps 12/11/22 meloxicam 7.5 mg tablet 15 mg PO QHS PAIN 12/11/22 oxycodone-acetaminophen 5 mg-325 mg tablet 1 tab PO Q6H PRN pain 10 days #40 tabs 12/26/22 Weight / BMI Weight Weight: 196 lb Body Mass Index (BMI) 29.7 ABG / Lab / Microbiology Data Result Diagrams: 12/17/22 08:33 12/17/22 08:33 Microbiology: Microbiology 12/17/22 08:33 Swab (Method) Nasal Screen MRSA/MSSA - Final D/C Instructions May shower in (days): 5 May resume sexual activity in: 4-6 weeks Weight Bearing Status: Full weight bearing Meaningful Use Info Meaningful Use Diagnoses (Choose all that apply): None applicable Discharge Plan Admission Admit Date/Time: 12/25/22 05:26 Primary Reason for Your Visit: cervical decompression and fusion Attending Provider: Jose Dockery Primary Care Provider: Sam Tao Consulting Providers: Darwin Thornton Discharge Orders/Prescriptions Prescriptions: No Action baclofen 20 mg tablet 20 mg PO PRN PRN (Reason: Pain) amlodipine 10 MG tablet 5 mg PO QHS indapamide 1.25 mg tablet 1.25 mg PO DAILY quinapril 20 mg Tablet 20 mg PO QHS ipratropium bromide 21 mcg (0.03 %) spray,non-aerosol 1 - 2 spray INTRANASAL PRN PRN (Reason: ALLERGIES) lorazepam 1 mg Tablet 1 mg PO DAILY PRN (Reason: Cramps) meloxicam 7.5 mg tablet 15 mg PO QHS oxycodone-acetaminophen 5-325 mg tablet 1 tab PO Q6H PRN (Reason: pain) 10 Days Qty: 40 0RF Referrals / Follow Up: Sam Tao MD [Primary Care Provider] - Disposition Disposition (needs filled in before D/C Order can be placed): Home, Self Care
== END 2022-12-26 17:44 | disposition home or self-care (01) | DRG 472 ==
LOC: ACINP 16:41 → MS3 16:56
PROVIDERS: Anesthesiology; Admitting Provider Orthopaedic Surgery; PCP Family Medicine; Visit Provider Orthopaedic Surgery
PROC: 0RG23A0 Fusion of 2 or more Cervical Vertebral Joints with Interbody Fusion Device, Anterior Approach, Anterior Column, Percutaneous Approach (ICD-10-PCS; CPT 22551; principal; 2022-12-25 07:00)
DX: M48.02 Spinal stenosis, cervical region (principal); G95.89 Other specified diseases of spinal cord; M50.222 Other cervical disc displacement at C5-C6 level; M50.322 Other cervical disc degeneration at C5-C6 level; M19.90 Unspecified osteoarthritis, unspecified site; I10 Essential (primary) hypertension
CPT/HCPCS: 36415; 72020; 80048; 82962; 83735; 85025; 86703; 86706; 86708; 86803; 87081; 88304; 88311; 93005; 94668; 97162; C1713; J7120; A4216; J2405; J3475

== ENCOUNTER → 2023-04-16 | Outpatient (CLI) | payer MEDICARE, OTHER, SELFPAY ==
--- NOTE | 2023-04-16 09:02 | RAD_ITS ---
STUDY: X-RAY - CERVICAL SPINE REASON FOR EXAM: Male, 68 years old. Radiculopathy. TECHNIQUE: 7 view(s) of the cervical spine, including lateral flexion and extension views, were obtained. COMPARISON: Cervical spine and x-rays dated March 20, 2023. FINDINGS: Osteopenia. Normal anterior atlantoaxial articulation. Normal odontoid process. Normal cervical lordosis. Diffuse uncovertebral and facet sclerosis. Anterior fusion from C5 to C7 with intervertebral disc prostheses at C5-6 and C6-7, unchanged from prior study. Limited flexion and extension. Intervertebral disc space narrowing at C4-5 and C7-T1. Anterior bony neural foraminal encroachment at C4-5, C5-6 and C6-7 on the right and C4-5, C5-6 and C6-7 on the left. Normal soft tissues. RAD/Cerv Spine Obl/Flex/Ext Comp IMPRESSION: Stable osteopenia, postsurgical changes from C5 to C7 with intervertebral disc prostheses at C5-6 and C6-7. Anterior bony neural foraminal encroachment at C4-5 through C6-7 bilaterally. No acute abnormality or erosive changes. Electronically Signed: Dany Cardona MD at 9:52 EDT ,
== END | disposition home or self-care (01) ==
LOC: MTRAD 09:01
PROVIDERS: PCP Family Medicine; Referring Provider Family Medicine; Visit Provider Family Medicine
DX: M54.12 Radiculopathy, cervical region (principal); R29.898 Other symptoms and signs involving the musculoskeletal system
CPT/HCPCS: 72052

== ENCOUNTER → 2023-04-20 | Outpatient (CLI) | payer MEDICARE, OTHER, SELFPAY ==
--- NOTE | 2023-04-20 07:43 | MRI_ITS ---
HISTORY: Left arm numbness and weakness. TECHNIQUE: Multiplanar and multisequence MR images of the cervical spine were obtained without contrast. 296 images. COMPARISON: XR 1723, MR 10/04/2022. FINDINGS: Motion artifact lowers the sensitivity of examination. VERTEBRAE: Vertebral body heights maintained. Mild degenerative endplate changes of C4-5. Artifact from anterior spinal fusion hardware of C5-7. No other significant bone marrow signal abnormality. VERTEBRAL ALIGNMENT: No anterior or posterior subluxation. SPINAL CORD: Cervical cord signal and morphology within normal limits. SOFT TISSUES: No prevertebral fluid collection. INTERVERTEBRAL DISCS: C2-3, C3-4: No significant posterior disc protrusion, central canal stenosis, or foraminal narrowing. C4-5: Mild posterior disc bulge osteophyte complex resulting in mild central canal stenosis and bilateral foraminal narrowing, not increased from prior. C5-6, C6-7: Interbody fusion material. No recurrent posterior disc protrusion. Residual degenerative change with mild central canal stenosis. Mild-moderate bilateral foraminal narrowing with limited evaluation due to motion artifact. C7-T1: No significant posterior disc protrusion, central canal stenosis, or foraminal narrowing. MRI/Spine Cervical (Routine) IMPRESSION: ACDF C5-7 with mild spinal canal stenosis, decreased from prior. Motion artifact. Degenerative disc disease of C4-5 above the level of fusion again resulting in mild spinal canal stenosis and bilateral foraminal narrowing. Electronically Signed: Tina Bernabe MD at 15:16 EDT ,
== END | disposition home or self-care (01) ==
LOC: MRI 08:02
PROVIDERS: PCP Family Medicine; Referring Provider Family Medicine; Visit Provider Family Medicine
DX: M54.12 Radiculopathy, cervical region (principal); R29.898 Other symptoms and signs involving the musculoskeletal system
CPT/HCPCS: 72141

== ENCOUNTER 2023-04-23 13:30 | Outpatient (RCR) | payer MEDICARE, OTHER, SELFPAY ==
--- NOTE | 2023-04-22 08:39 | HP.OTEVAL ---
Patient's Visit Information Visit Information Visit Information: DIANELYS SMALL is a 68 year old M, referred to Occupational Therapy by Dr. Sam Tao MD, with a diagnosis of new onset L 2-3 finger paresthesia and hand weakness. Date of Evaluation: 04/17/23 Occupational Therapist: Britta Cam, HELEN/Edin, CHT Subjective Subjective: Pt is a 68 year-old left-handed individual with left digits 2-3 paresthesia and hand weakness. Earlier this year, patient received PT prior to obtaining an MRI of his cervical spine. Per chart review pt had ACDF C5-7 secondary to spinal stenosis. Per patient post surgery everything was resolved. In the last 2 weeks pt has new paresthesia in L hand IF and MF finger. Pt reports when everything is inflamed it is going all the way up the arm with hair raising feeling. When squeezing/making a fist pt feels like he is stretching the skin on his 2-3 digits. This limits all ADL and IADLs. Pt is retired and has hobbies of lawncare, utilizing hand tools, and socializing. Pt reports dropping items in the past week. Pt hands difficulty with telling pressure and opening medicine bottles. MRI schedule for Saturday Morning with Dr Tao. Pt declining nerve conduction tests. Pt has tried Advil, muscle relaxers, nothing helps the pain. Walks with cane and places more weight on palm when ambulating. Objective Objective/Observation: When perform AROM pt hikes L shoulder to compensate indicating possible tight muscles. Pt utilizes cane on left side when ambulating and uses a compensatory gait due to RLE prosthesis and leans on LUE while ambulating. 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# L 60# Lateral Pinch: R 16# L 9# Tripod Pinch: R 16# L 8# Sensation Thumb: left 2.83 right 2.83 interpretation Normal Index: L 3.61 diminished light touch right 2.83 normal sensation Middle: L 3.22 diminished light touch right 2.83 normal sensation Ring: left 2.83 right 2.83 interpretation Normal Little: left 2.83 right 2.83 interpretation Normal Sensation Comments: Right hand normal at 2.83 Nine Hole Peg Right: 28.82 Left: 27.12 Quick DASH-Disab of Arm,Shoulder& Hand Quick DASH Score: 29.5450 Goals Goal:: pt will demo a increase in left mental health therapist strength by 15# or greater to increase pts ind. with ADLs and IADLs by d/c pt will demo a increase in left lateral and tripod pinch to increase pts ind. with ADLs and IADLs by d.c Goal:: Patient will be able to perform daily tasks (such as opening jars, writing, and driving) with no reports of numbness/tingling. Goal:: Patient will be able to perform daily tasks (such as opening jars, writing, and driving) with no reports of numbness/tingling. 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 Goal:: Pt will identify and implement 3 energy conservation techniques within his daily tasks for increased ability to perform functional tasks. Rehabilitation General Assessment: Pt seen for an OT eval due to L 2-3 finger paresthesia and weakness. Patent has a diagnosis of cervical spinal stenosis. Patient is a left-handed individual with decreased strength affecting ability to perform ADL and IADL tasks. Pt will benefit from skilled OT 1-2x a week for 4 weeks to diminished symptoms and increase pts ind. with ADLs and IADLs. pt would also benefit from further education and to ensure follow through with techniques and education. Pt educated in radial nerve glides, positioning, and safety when performing daily tasks. Pt is scheduled for a MRI of the cervical spine Saturday04/20/23. Based on findings this may alter POC. Pt verbalizes understanding and agreeable to OT POC. Therapy session was directly supervised and doc. approved by Britta CERVANTES/JENNIFER Jesus. Rehabilitation Potential: Good Anticipated Interventions Anticipated Interventions: A/AAROM/PROM, Strengthening, Sensory Retraining, Modalities, Joint Protection/Energy Conservation, Ergonomic Education, Fine Motor Coord/Devan, Sensory Stimulation, ADL Training, Education re assistive Equipment, Education re Diagnosis and Home Program Visit Plan Frequency: 1-2x /Week Duration: 4 Weeks General Plan: AROM/ROM Energy conservation Joint protection Body Mechanics/Ergonomic Education Strength Sensory Stimulation Safety [facility] [place] TEXT: Thank you for the opportunity to evaluate your patient. For Medicare and Medicare HMO plans, please review the plan of care and approve it. It will need to be FAXED BACK to us at [phone] for Medicare purposes. Please let me know if there are questions or concerns regarding this plan of care. Physician Signature: Date:
== END 2023-04-23 19:00 | disposition home or self-care (01) ==
LOC: OT 13:30
PROVIDERS: PCP Family Medicine; Referring Provider Family Medicine; Visit Provider Family Medicine
DX: R20.2 Paresthesia of skin (principal); R29.898 Other symptoms and signs involving the musculoskeletal system
CPT/HCPCS: 97110; 97165; 97168

== ENCOUNTER → 2023-09-05 | Outpatient (CLI) | payer MEDICARE, OTHER, SELFPAY ==
[2023-09-05 12:24] LABS: Absolute Lymphocyte Count 1.97 X10^3/uL (0.83-4.51); Absolute Neutrophil Count 4.4 X10^3/uL (2.0-7.7); Basophil# 0.05 X10^3/uL; Basophil% 0.7 % (0-1); Eosinophil# 0.05 X10^3/uL; Eosinophils% 0.7 % (0-5); Hematocrit 44.3 % (40-54); Lymphocyte # 1.97 X10^3/ul (0.83-4.51); Lymphocyte % 27.7 % (19-41); Mean Corp Hgb Conc 33.9 g/dL (32-36); Mean Corpuscular Hgb 31.2 pg (27.0-32.0); Mean Corpuscular Volume 92.1 fL (80-94); Mean Platelet Vol. 9.2 fl (6.2-12.0); Monocyte# 0.65 X10^3/uL; Monocyte% 9.1 % (0-10); NRBC Flagged by Analyzer 0 % (0-5); Neutrophil # 4.38 X10^3/uL (2.7-7.7); Neutrophil % 61.7 % (47-70); Platelet Count 329 K/mm3 (150-450); RBC Distribution Width CV 12.5 % (11.6-14.6); RBC Distribution Width SD 42.9 fl (35.1-43.9); Red Blood Count 4.81 M/mm3 (4.6-6.2); White Blood Count 7.1 K/mm3 (4.4-11.0)
[2023-09-05 13:08] LABS: Microalbumin,Random Urine 6.4 mg/L (NO RANGE EST.); Microalbumin:Creatinine Ratio 5.3 mg/g CRE (<30 mg/g CRE)
[2023-09-05 13:17] LABS: ALB/GLOB Ratio 0.9 RATIO (0.9-2.4); AST(SGOT) 35 U/L (15-37); Alanine Aminotransfer ALT/SGPT 45 U/L (16-61); Albumin, Serum 3.9 g/dL (3.2-5.0); Alkaline Phosphatase 95 U/L (45-117); Anion Gap 5 (5-15); BUN 23 mg/dL (7-18); BUN/Creat Ratio 22.1 RATIO (10-20); Calcium,Total 9.4 mg/dL (8.5-10.1); Chloride 104 mmol/L (98-107); Cholesterol 171 mg/dL (200); Creatinine, Serum 1.04 mg/dL (0.70-1.30); EST Glomerular Filtration Rate 75 mL/min (>60); Est Glom Filt Rate - Afr Amer 91 mL/min (>60); Globulin 4.2 g/dL (2.2-4.2); Glucose 103 mg/dL (74-106); High Density Lipoprotein 55 mg/dL; Protein, Total 8.1 g/dL (6.4-8.2); Sodium Level 134 mmol/L (136-145)
== END | disposition home or self-care (01) ==
LOC: MFPLAB 11:01
PROVIDERS: PCP Family Medicine; Visit Provider Family Medicine
DX: I10 Essential (primary) hypertension (principal)
CPT/HCPCS: 36415; 80053; 82043; 82465; 82570; 83718; 85025

== ENCOUNTER → 2024-03-02 | Outpatient (CLI) | payer MEDICARE, OTHER, SELFPAY ==
[2024-03-02 13:00] LABS: Absolute Lymphocyte Count 1.57 X10^3/uL (0.83-4.51); Absolute Neutrophil Count 4.9 X10^3/uL (2.0-7.7); Basophil# 0.05 X10^3/uL; Basophil% 0.7 % (0-1); Eosinophil# 0.08 X10^3/uL; Eosinophils% 1.1 % (0-5); Hematocrit 43.4 % (40-54); Hemoglobin 14.7 g/dL (13.0-16.5); Lymphocyte # 1.57 X10^3/ul (0.83-4.51); Lymphocyte % 21.1 % (19-41); Mean Corp Hgb Conc 33.9 g/dL (32-36); Mean Corpuscular Hgb 31.5 pg (27.0-32.0); Mean Corpuscular Volume 93.1 fL (80-94); Mean Platelet Vol. 9.7 fl (6.2-12.0); Monocyte# 0.76 X10^3/uL; Monocyte% 10.2 % (0-10); NRBC Flagged by Analyzer 0 % (0-5); Neutrophil # 4.93 X10^3/uL (2.7-7.7); Neutrophil % 66.4 % (47-70); Platelet Count 303 K/mm3 (150-450); RBC Distribution Width CV 12.6 % (11.6-14.6); RBC Distribution Width SD 43.2 fl (35.1-43.9); Red Blood Count 4.66 M/mm3 (4.6-6.2); White Blood Count 7.4 K/mm3 (4.4-11.0)
[2024-03-02 14:45] LABS: AST(SGOT) 28 U/L (15-37); Alanine Aminotransfer ALT/SGPT 30 U/L (16-61); Albumin, Serum 3.9 g/dL (3.2-5.0); Alkaline Phosphatase 97 U/L (45-117); Anion Gap 6 (5-15); BUN 27 mg/dL (7-18); BUN/Creat Ratio 23.9 RATIO (10-20); Calcium,Total 9.9 mg/dL (8.5-10.1); Chloride 105 mmol/L (98-107); Creatinine, Serum 1.13 mg/dL (0.70-1.30); EST Glomerular Filtration Rate 68 mL/min (>60); Est Glom Filt Rate - Afr Amer 83 mL/min (>60); Globulin 3.9 g/dL (2.2-4.2); Glucose 96 mg/dL (74-106); Potassium 4.5 mmol/L (3.5-5.1); Protein, Total 7.8 g/dL (6.4-8.2); Sodium Level 134 mmol/L (136-145)
[2024-03-06 18:14] LABS: Microalbumin,Random Urine 6.4 mg/L (NO RANGE EST.); Microalbumin:Creatinine Ratio 5.4 mg/g CRE (<30 mg/g CRE)
== END | disposition home or self-care (01) ==
LOC: MFPLAB 11:04
PROVIDERS: PCP Family Medicine; Visit Provider Family Medicine
DX: M19.049 Primary osteoarthritis, unspecified hand (principal); I10 Essential (primary) hypertension
CPT/HCPCS: 36415; 80053; 82043; 82570; 85025

== ENCOUNTER → 2025-01-26 | Outpatient (CLI) | payer MEDICARE, OTHER, SELFPAY ==
--- NOTE | 2025-01-26 11:18 | RAD_ITS ---
PROCEDURE: LUMBAR SPINE 2 OR 3 VIEWS 01/26/2025 REASON FOR EXAM: DORSALGIA TECHNIQUE: 2 view(s) of the lumbar spine FINDINGS: Vertebrae: No acute fracture. Discs: Mild multilevel disc space narrowing. Alignment: Mild dextroscoliosis centered at L2/L3. No subluxation. Other: Facet hypertrophy in the lower lumbar spine. RAD/Lumbar Spine 2 or 3 Views IMPRESSION: Mild dextroscoliosis with degenerative disc disease. Reading Location: [id number]
== END | disposition home or self-care (01) ==
LOC: MTLAB 11:14 → MTRAD 11:14
PROVIDERS: PCP Family Medicine; Referring Provider Family Medicine; Visit Provider Family Medicine
DX: M54.9 Dorsalgia, unspecified (principal)
CPT/HCPCS: 72100

== ENCOUNTER → 2025-03-02 | Outpatient (CLI) | payer MEDICARE, OTHER, SELFPAY ==
--- NOTE | 2025-03-02 10:10 | RAD_ITS ---
PROCEDURE: FEMUR MIN 2 VIEWS 03/02/2025 REASON FOR EXAM: PAIN LATERAL LEG, MYOFASCIAL PAIN TECHNIQUE: 2 view(s) of the right femur. COMPARISON: None. FINDINGS: Status post right above the knee amputation. There is no evidence of acute injury. The bone and soft tissues at the amputation site appear unremarkable. There is no evidence of osteomyelitis or subcutaneous emphysema. The right hip appears unremarkable. RAD/Femur Min 2 Views IMPRESSION: Status post right AKA no evidence of complications. Reading Location: [id number]
== END | disposition home or self-care (01) ==
LOC: MTRAD 10:10
PROVIDERS: PCP Family Medicine; Referring Provider Family Medicine; Visit Provider Family Medicine
DX: M79.18 Myalgia, other site (principal)
CPT/HCPCS: 73552

== ENCOUNTER 2025-03-10 11:49 | Outpatient (RCR) | payer MEDICARE, OTHER, SELFPAY ==
--- NOTE | 2025-05-04 08:01 | HP.PT.NRP ---
Patient Information Patient Information: DIANELYS SMALL was seen in my office for initial evaluation on 03/10/25. The following Plan of Care was established for this patient: POC Established Initial Frequency: 1x/Week Initial Duration: 1 Week Last Seen Last Seen: This patient was last seen in our office . Pertinent comments regarding their Physical therapy will appear below: Plan was to return to MD for further evaluation- d/c At this point I will be discontinuing this patient from physical therapy. I would be happy to see this patient again in the future if found appropriate by the physician. Thank you! CHRISTOPHER SalazarT
== END 2025-03-10 19:00 | disposition home or self-care (01) ==
LOC: PT 11:49
PROVIDERS: PCP Family Medicine; Referring Provider Family Medicine; Visit Provider Family Medicine
DX: M79.604 Pain in right leg (principal); S33.6XXD Sprain of sacroiliac joint, subsequent encounter
CPT/HCPCS: 97162

== ENCOUNTER → 2025-03-18 | Outpatient (CLI) | payer MEDICARE, OTHER, SELFPAY ==
--- NOTE | 2025-03-18 17:30 | MRI_ITS ---
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 It displays low T1 and bright T2 signal with intense post contrast enhancement. Thickened sciatic nerve with stump neuroma along its tip measuring 2.9 x 1.8 cm along its axial diameter. Diffuse fatty changes of the right pelvic girdle and thigh muscles. The right femoral head and neck are unremarkable. There is no femoral head collapse. The right femoroacetabular joints space is narrowed. Minimal left hip joint effusion. No pathologically enlarged lymph nodes. No pelvic collections. MRI/Lower Ext No Joint W/WO Cont IMPRESSION: Evidence of above knee amputation with the distal femoral shaft stump shows an intramedullary well defined lesion . advise clinical and prior studies correlation. Thickened sciatic nerve with stump neuroma. Diffuse fatty changes of the right pelvic girdle and thigh muscles. Reading Location[facility]
== END | disposition home or self-care (01) ==
LOC: MRI 16:49
PROVIDERS: PCP Family Medicine; Referring Provider Family Medicine; Visit Provider Family Medicine
DX: R52 Pain, unspecified (principal); L90.5 Scar conditions and fibrosis of skin
CPT/HCPCS: 73720; A9575

== ENCOUNTER → 2025-04-16 | Outpatient (CLI) | payer MEDICARE, OTHER, SELFPAY ==
[2025-04-16] VITALS (13 sets, daily range): BP systolic 100–150; BP diastolic 57–86; PULSE 59–78; RESP 10–22; TEMP 36.5; O2SAT 93–98; BMI 31.9
--- NOTE | 2025-04-16 | ASPIGT_PTH ---
PATIENT: DIANELYS SMALL LOC: [facility] U#:[id number] AGE/SX: 70/M ROOM: RE04/16/[address]: Dr. Sam Tao MD : [id number] BED: DIS: 04/16/2025 SPEC #: [id number] RECD: 04/16/25 15:02 STATUS: MARIANNE HOSEA #: [id number] YOLANDA: 04/16/25 00:[address]: Sam Tao DEPT: SURGICAL PATHOLOGY RECD BY: Lee Ann Seaman Tissues: Leg, NOS Procedures: FNA Specimen Adequacy Special Stain Group II Surgery Specimen Level IV Imprint (control) HEADER OPERATION: Bone lesion biopsy PRE-OP DIAGNOSIS: Right leg bone lesion TISSUE SUBMITTED: A- 18 gauge x 7 cores, bone biopsy MICROSCOPIC DIAGNOSIS A. Right leg, bone, CT-guided core biopsy: - Fibrovascular connective tissue and scant adipose. - Negative for neoplasia. - No significant inflammation seen. COMMENT The specimen is evaluated at the time of biopsy by Dr. Jackson. Immediate Evaluation =1. Blood, fat, stroma. 2. Blood. 3. Blood and fat. MICROSCOPIC DESCRIPTION Slides are reviewed. GROSS DESCRIPTION Received in fixative is one container labeled with the patient's name and designated Bone lesion biopsy. The specimen consists of a bone fragment measuring in aggregate 1 x 0.5 x 0.25cm. The entire specimen is submitted in one cassette. 04/16/2025 CPT:60836,04595
--- NOTE | 2025-04-16 09:13 | CT_ITS ---
EXAM: CT-guided biopsy of the distal femur abnormality. 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 COMPARISON: MRI examination dated March 18, 2025. TECHNIQUE: The procedure as well as the benefits and possible complications including infection and bleeding were explained to the patient. Informed consent was obtained. Conscious sedation was performed. The patient received 2 mg of Versed and 50 mcg of fentanyl intravenously. Conscious sedation was started at 10:27 a.m. and terminated at 10:45 a.m.. The patient was independently monitored by the department nurse. The abnormality was localized. The overlying skin was prepped and draped in the usual sterile fashion. Following local anesthetic application, an 18 gauge core biopsy needle system was placed into the abnormality in the lower portion of the femur. 6 targeted biopsies were performed. The specimen was deemed adequate by the pathologist. The patient tolerated the procedure well. Radiation dose: CTDI L volume: 18.99. DLP: 218.9 FINDINGS: Successful targeted core biopsies of the distal femoral abnormality. The patient tolerated the procedure well. CT/Biopsy/Inj or Needle Placement IMPRESSION: Successful targeted core biopsies of distal femoral abnormality as described. The patient tolerated the procedure well. No immediate post procedure complication noted. Reading Location: [place] [id number]
[2025-04-16] MEDS: Midazolam 2 MG/2 ML Syringe IV (10:24)
[2025-04-16] MEDS: fentaNYL 100 MCG/2 ML Ampul IV (10:24)
[2025-04-16] MEDS: 0.9% Saline Lock 10 ML Syringe IV (10:32)
[2025-04-16] MEDS: Lidocaine 2% (20 ml mdv) 20 ML Vial INFILT (10:36)
== END | disposition home or self-care (01) ==
LOC: RAD 09:13
PROVIDERS: PCP Family Medicine; Referring Provider Family Medicine; Visit Provider Family Medicine
DX: M79.89 Other specified soft tissue disorders (principal); Z89.611 Acquired absence of right leg above knee
CPT/HCPCS: 20206; 77012; 87070; 87075; 87205; 88172; 88305; 88313; 99156

== ENCOUNTER → 2025-06-04 | Outpatient (CLI) | payer MEDICARE, OTHER, SELFPAY ==
[2025-06-04 15:32] LABS: Hematocrit 47.2 % (40-54); Hemoglobin 16.2 g/dL (13.0-16.5); Immature Granulocytes Count 0.020 X10^3/uL (0.0-0.0); Mean Corp Hgb Conc 34.3 g/dL (32-36); Mean Corpuscular Volume 91.3 fL (80-94); Mean Platelet Vol. 9.8 fl (6.2-12.0); NRBC Flagged by Analyzer 0 % (0-5); Platelet Count 314 K/mm3 (150-450); RBC Distribution Width CV 12.8 % (11.6-14.6); RBC Distribution Width SD 43.2 fl (35.1-43.9); Red Blood Count 5.17 M/mm3 (4.6-6.2); White Blood Count 8.0 K/mm3 (4.4-11.0)
[2025-06-04 16:34] LABS: AST(SGOT) 69 U/L (<=37); Alanine Aminotransfer ALT/SGPT 92 U/L (<=46); Albumin, Serum 4.6 g/dL (3.4-4.8); Alkaline Phosphatase 109 U/L (40-129); Anion Gap 16 (5-15); BUN 19 mg/dL (4-19); BUN/Creat Ratio 17.5 RATIO (10-20); Calcium,Total 10.0 mg/dL (7.6-11.0); Carbon Dioxide 20.4 mmol/L (21.0-32.0); Chloride 98 mmol/L (98-108); Globulin 3.5 g/dL (2.2-4.2); Glucose 105 mg/dL (70-99); Potassium 4.9 mmol/L (3.3-5.1)
[2025-06-06 08:39] LABS: Prealbumin 22 mg/dL (9-32)
== END | disposition home or self-care (01) ==
LOC: MFPLAB 12:29
PROVIDERS: PCP Family Medicine; Visit Provider Family Medicine
DX: R52 Pain, unspecified (principal)
CPT/HCPCS: 80053; 83036; 84134; 85025

== ENCOUNTER → 2025-08-03 | Outpatient (CLI) | payer MEDICARE, OTHER, SELFPAY ==
[2025-08-03 12:22] LABS: Hematocrit 43.3 % (40-54); Hemoglobin 14.9 g/dL (13.0-16.5); Immature Granulocytes Count 0.020 X10^3/uL (0.0-0.0); Mean Corp Hgb Conc 34.4 g/dL (32-36); Mean Corpuscular Volume 91.2 fL (80-94); Mean Platelet Vol. 9.2 fl (6.2-12.0); NRBC Flagged by Analyzer 0 % (0-5); Platelet Count 284 K/mm3 (150-450); RBC Distribution Width CV 12.9 % (11.6-14.6); RBC Distribution Width SD 42.9 fl (35.1-43.9); Red Blood Count 4.75 M/mm3 (4.6-6.2); White Blood Count 6.5 K/mm3 (4.4-11.0)
[2025-08-03 13:04] LABS: AST(SGOT) 60 U/L (<=37); Alanine Aminotransfer ALT/SGPT 82 U/L (<=46); Albumin, Serum 4.2 g/dL (3.4-4.8); Alkaline Phosphatase 103 U/L (40-129); Anion Gap 10 (5-15); BUN 18 mg/dL (4-19); BUN/Creat Ratio 17.6 RATIO (10-20); Calcium,Total 9.4 mg/dL (7.6-11.0); Carbon Dioxide 24.1 mmol/L (21.0-32.0); Chloride 101 mmol/L (98-108); Globulin 3.2 g/dL (2.2-4.2); Glucose 114 mg/dL (70-99); Potassium 4.6 mmol/L (3.3-5.1)
[2025-08-04 08:09] LABS: Prealbumin 21 mg/dL (9-32)
== END | disposition home or self-care (01) ==
LOC: MFPLAB 09:26
PROVIDERS: PCP Family Medicine; Visit Provider Family Medicine
DX: R52 Pain, unspecified (principal); L90.5 Scar conditions and fibrosis of skin
CPT/HCPCS: 36415; 80053; 83036; 84134; 85025

== ENCOUNTER 2025-08-17 09:54 | Observation (INO) | payer MEDICARE, OTHER, SELFPAY ==
[2025-08-17] VITALS (13 sets, daily range): BP systolic 106–135; BP diastolic 62–80; PULSE 72–100; RESP 15–18; TEMP 36.5–37.3; O2SAT 84–98; BMI 32.4
--- OUTSIDE RECORDS SUMMARY | 2025-08-17 06:05 | XMS RPT_ITS | CCD ---
Author Organization [facility] Care Team Providers Care Manager [employer] Name Role Phone Dr. Clementina Tao Primary Care Provider Dr. Saji Whiteside Attending Provider Dr. Arnulfo Fernando Referring Provider [phone] Dr. Arnulfo Fernando Admit Provider Dr. Arnulfo Fernando Other Provider TIMOTEO Almeida Other Provider [phone] Dr. Efrain Pollack Attending Provider Unavailable Dr. Efrain Pollack Other Provider Unavailable Dr. Tanika Méndez Attending Provider Dr. Tanika Méndez Other Provider Dr. Clementina Tao Primary Care Provider Dr. Arnulfo Fernando Referring Provider ELVIS BONNER Attending Unavailable CLEMENTINA TAO Primary Care Unavailable DARIANA JOSE Referring Unavailable DARIANA JOSE Attending Unavailable CLEMENTINA TAO Referring Unavailable CLEMENTINA TAO Primary Care Unavailable Dr. Clementina Tao Primary Care Provider Dr. Clementina Tao Referring Provider Dr. Jose Dockery Attending Provider Dr. Clementina Tao Primary Care Provider [phone] Dr. Clementina Tao Referring Provider Dr. Jose Dockery Attending Provider [phone] Saad Haywood Attending Provider Dr. Jose Dockery Referring Provider Dr. Jose Dockery Admit Provider Dr. Jose Dockery Other Provider Dr. Darwin Thornton Attending Provider Dr. Darwin Thornton Other Provider Dr. Clementina Tao Primary Care Provider Dr. Jose Dockery Attending Provider Dr. Jose Dockery Referring Provider Dr. Clementina aTo Referring Provider Dr. Saad Haywood Attending Provider Dr. Clementina Tao Primary Care Provider Dr. Clementina Tao Referring Provider Dr. Jose Dockery Attending Provider Dinh BACON, Dr. Vargas Primary Care Provider 1([facility])[phone] Dr. Clementina Tao MD Attending Provider Dr. Clementina Tao MD Referring Provider Dr. Montez Robbins MD Attending Provider 1([facility])[phone] Dinh BACON, Dr. Vargas Primary Care Physician Dr. Clementina Tao MD Attending Physician Dr. Clementina Tao MD Referring Provider Dr. Montez Robbins MD Attending Physician 1([facility])[phone] Montez Robbins Referring Unavailable Tao, Clementina Primary Care Unavailable Montez Robbins Attending Unavailable Tao, Clementina Attending Unavailable Tao, Clementina Referring Unavailable Tao, Clementina Primary Care Unavailable Tao, Clementina Referring Unavailable Tao, Clementina Attending Unavailable Tao, Clementina Primary Care Unavailable Tao, Clementina Attending Unavailable Tao, Clementina Referring Unavailable Tao, Clementina Primary Care Unavailable Tao, Clementina Attending Unavailable Tao, Clementina Referring Unavailable Tao, Clementina Primary Care Unavailable Tao, Clementina Attending Unavailable Tao, Clementina Referring Unavailable Tao, Clementina Primary Care Unavailable Tao, Clementina Attending Unavailable Tao, Clementina Primary Care Unavailable Tao, Clementina Primary Care Unavailable Tao, Clementina Attending Unavailable Tao, Clementina Referring Unavailable Tao, Clementina Primary Care Unavailable Montez Robbins Attending Unavailable Clementina Tao Referring Unavailable Clementina Tao Primary Care Unavailable Montez Robbins Attending Unavailable Medications Current Medications Medication Drug Class(es) Dates Sig (Normalized) Sig (Original) acetaminophen 500 mg oral tablet (8 sources) Start: 01-04-2022 take 1000 mg by mouth every eight hours Acetaminophen Active 1000 MG PO EVERY 8 HOURS 90 January 03, 2022 11:00pm amLODIPine 5 mg oral tablet (20 sources) Dihydropyridine Calcium Channel Nayan Start: 04-16-2025 take 2.5-5 mg by mouth once daily Start: 10-24-2013 End: 04-16-2025 take 5 mg by mouth at bedtime Amlodipine 10 MG tablet Discontinued 5 mg PO AT BEDTIME October 24, 2013 1:00am April 16, 2025 9:47am BP Start: 10-24-2013 take 5 mg by mouth at bedtime Amlodipine Active 5 MG PO AT BEDTIME October 24, 2013 12:00am aspirin 81 mg chewable tablet (8 sources) Platelet Aggregation Inhibitor, Nonsteroidal Anti-inflammatory Drug Start: 01-04-2022 take 81 mg by mouth twice daily at mealtime Aspirin Active 81 MG PO TWICE DAILY WITH MEALS 60 January 03, 2022 11:00pm doxycycline hyclate 100 mg oral tablet (8 sources) Tetracycline-class Drug Start: 01-04-2022 take 100 mg by mouth twice daily Doxycycline Hyclate Active 100 MG PO TWICE A DAY 28 January 03, 2022 11:00pm famotidine 20 mg oral tablet (8 sources) Histamine-2 Receptor Antagonist Start: 01-04-2022 take 20 mg by mouth once daily Famotidine Active 20 MG PO DAILY 30 January 03, 2022 11:00pm levocetirizine dihydrochloride 5 mg oral tablet (5 sources) Histamine-1 Receptor Antagonist Start: 04-16-2025 take 1 tablet by mouth once daily magnesium oxide 400 mg oral tablet (4 sources) Start: 04-23-2025 Manganese 50 mg tablet (5 sources) Start: 04-16-2025 Start: 04-16-2025 Manganese 50 m g tablet Active mg PO April 16, 2025 12:00am oxyCODONE hydrochloride 5 mg oral tablet (8 sources) Opioid Agonist Start: 01-04-2022 Oxycodone Acti ve 5 - 10 MG PO .4-6 hrs prn 60 7 January 04, 2022 ramipril 10 mg oral capsule (5 sources) Angiotensin Converting Enzyme Inhibitor Start: 04-16-2025 take 1 capsule by mouth once daily in the evening Venlafaxine Besylate (1 source) Start: 10-15-2022 take 5 mg by mouth once daily Venlafaxine Besylate Active 5 MG PO DAILY October 15, 2022 12:00am vitamin b6 250 mg oral tablet (4 sources) Start: 04-23-2025 Completed/Discontinued Medications Medication Drug Class(es) Dates Sig (Normalized) Sig (Original) acetaminophen 325 mg / oxyCODONE hydrochloride 5 mg oral tablet (20 sources) Opioid Agonist Start: 01-09-2023 End: 03-20-2023 Oxycodone-Acetamino phen 5-325 mg tablet Discontinued NMA PO 0 January 09, 2023 12:00am March 20, 2023 10:22am Start: 01-09-2023 End: 03-20-2023 Oxycodone-Acetaminophen Disc ontinued TAB PO January 08, 2023 11:00pm March 20, 2023 9:22am Start: 12-26-2022 End: 01-05-2023 Oxycodone-Acetaminophen 5-32 5 mg tablet Discontinued 1 {tbl} PO EVERY 6 HOURS as needed for pain 40 10 0 December 26, 2022 January 04, 2023 12:00am January 05, 2023 12:11am Herniated nucleus pulposus, C6-7 right Herniated nucleus pulposus, C5-6 left Other cervical disc displacement at C6-C7 level Other cervical disc displacement at C5-C6 level Start: 12-26-2022 End: 01-05-2023 take 1 tablet by mouth every six hours Oxycodone-Acetaminophen Discontinued 1 TABLET PO EVERY 6 HOURS 40 10 December 26, 2022 January 04, 2023 11:11pm baclofen 20 mg oral tablet (14 sources) gamma-Aminobutyric Acid-ergic Agonist Start: 10-15-2022 End: 04-16-2025 Baclofen 20 mg tablet Discontinued 20 mg PO NEEDED as needed for Pain October 15, 2022 1:00am April 16, 2025 9:41am indapamide 1.25 mg oral tablet (20 sources) Thiazide-like Diuretic Start: 11-14-2021 End: 04-16-2025 take 1 tablet by mouth once daily Indapamide 1.25 mg tablet Discontinued 1.25 mg PO DAILY November 14, 2021 1:00am April 16, 2025 9:41am WATER PILL Start: 11-14-2021 take 1.5 mg by mouth once jodee y Indapamide Active 1.5 MG PO DAILY November 14, 2021 12:00am ipratropium bromide 0.021 mg/actuat metered dose nasal spray (20 sources) Anticholinergic Start: 11-14-2021 End: 04-16-2025 Ipratropium Burkett 21 mcg (0.03 %) spray,non-aerosol Discontinued 1 - 2 NMA INTRANASAL NEEDED as needed for ALLERGIES November 14, 2021 1:00am April 16, 2025 9:41am Start: 11-14-2021 Ipratropium Br omide Active 1 - 2 SPRAY INTRANASAL NEEDED November 14, 2021 12:00am LORazepam 1 mg oral tablet (13 sources) Benzodiazepine Start: 12-11-2022 End: 04-23-2025 take 1 tablet by mouth once daily as needed Lorazepam 1 mg Tablet Discontinued 1 mg PO DAILY as needed for Cramps December 11, 2022 12:00am April 23, 2025 10:22am meloxicam 7.5 mg oral tablet (20 sources) Nonsteroidal Anti-inflammatory Drug Start: 12-11-2022 End: 04-16-2025 take 2 tablets by mouth at bedtime Meloxicam 7.5 mg tablet Discontinued 15 mg PO AT BEDTIME December 11, 2022 1:04pm April 16, 2025 9:42am PAIN Start: 12-11-2022 take 15 mg by mouth at bedtime Meloxicam Active 15 MG PO AT BEDTIME December 11, 2022 12:04pm Start: 01-04-2022 End: 12-11-2022 take 1 tablet by mouth twice daily Meloxicam 7.5 mg Tablet Discontinued 7.5 mg PO TWICE A DAY 60 30 0 January 04, 2022 12:00am December 11, 2022 1:04pm quinapril 20 mg oral tablet (20 sources) Angiotensin Converting Enzyme Inhibitor Start: 11-14-2021 End: 04-16-2025 take 1 tablet by mouth at bedtime Quinapril 20 mg Tablet Discontinued 20 mg PO AT BEDTIME November 14, 2021 1:00am April 16, 2025 9:42am BP Problems Active Problems Problem Classification Problem Date Documented Da te Episodic/Chronic Complication of device; implant or graft (2 sources) Loosening of total knee replacement; Translations: [Mechanical loosening of internal left knee prosthetic joint, initial encounter] Episodic Complications of surgical procedures or medical care (2 sources) Neuroma of amputation stump; Translations: [Neuroma of amputation stump, unspecified extremity] 05-21-2025 Episodic Malignant neoplasm without specification of site (20 sources) Malignant neoplastic disease; Translations: [Malignant (primary) neoplasm, unspecified] 01-03-2022 Chronic Comment on above: R LEG, KNEE JOINT Other and unspecified benign neoplasm (2 sources) Neuroma; Translations: [Benign neoplasm of peripheral nerves and autonomic nervous system, unspecified] 05-21-2025 Episodic Other bone disease and musculoskeletal deformities (7 sources) History of amputation of lower limb above knee; Translations: [Acquired absence of unspecified leg above knee] 04-24-2025 Chronic Other bone disease and musculoskeletal deformities (1 source) Acquired absence of right leg above knee; Translations: [Acquired absence of right leg above knee] Onset: 04-22-2025 Chronic Other connective tissue disease (20 sources) History of total knee arthroplasty; Translations: [Presence of unspecified artificial knee joint] 01-04-2022 Chronic Other connective tissue disease (4 sources) Presence of unspecified artificial knee joint; Translations: [Knee joint replacement] Chronic Other connective tissue disease (12 sources) History of cervical spine fusion; Translations: [Arthrodesis status] 01-09-2023 Episodic Other connective tissue disease (6 sources) Arthrodesis status; Translations: [Arthrodesis status] 01-09-2023 Episodic Other nervous system disorders (14 sources) Myelomalacia; Translations: [Other specified diseases of spinal cord] 10-15-2022 Chronic Other nervous system disorders (8 sources) Other specified diseases of spinal cord; Translations: [Other myelopathy] 10-15-2022 Chronic Residual codes; unclassified (1 source) Pain, unspecified; Translations: [Pain, unspecified] Onset: 06-18-2025 Episodic Spondylosis; intervertebral disc disorders; other back problems (20 sources) Displacement of cervical intervertebral disc without myelopathy; Translations: [Other cervical disc displacement at C5-C6 level] 10-15-2022 Chronic Past or Other Problems Problem Classification Problem Date Documented Da te Episodic/Chronic Other connective tissue disease (1 source) Myalgia, other site; Translations: [Myalgia, other site] Onset: 03-10-2025 Episodic Other screening for suspected conditions (not mental disorders or infectious disease) (1 source) Encounter for screening for malignant neoplasm of colon; Translations: [Special screening for malignant neoplasms, colon] Onset: 11-09-2021 Episodic Spondylosis; intervertebral disc disorders; other back problems (15 sources) Neck pain; Translations: [Cervicalgia] Onset: 02-05-2025 10-15-2022 Episodic Results Test Name Value Interpretation Reference Range Facility Prealbumin [id number] Prealbumin [Mass/Vol] 21 mg/dL Normal 9-32 [facility] Comment on above: Result Comment: Perf ormed at: - [facility] [address] [id number] Hat Presser: Vinod Varghese PhD, Phone: [phone] Performed By: #### L 100.0100, L3300.6400, L501.9985, L500.4050 ####[facility] [address] [place], [place], [id number] CBC W/Diff, Automatedon 11-0 Absolute Lymph 1.67 X10 3/uL Normal 0.83-4.51 [facility] Comment on above: Performed By: #### L 100.0100, L3300.6400, L501.9985, L500.4050 ####[facility] [address] [place], [address] Absolute Neut 3.9 X10 3/uL Normal 2.0-7.7 [facility] Comment on above: Performed By: #### L 100.0100, L3300.6400, L501.9985, L500.4050 ####[facility] [address] [place], [address] Basophils/100 WBC (Bld) 1.1 % High 0-1 [facility] Comment on above: Performed By: #### L 100.0100, L3300.6400, L501.9985, L500.4050 ####[facility] [address] [place], [address] Eosinophils/100 WBC (Bld) 1.8 % Normal 0-5 [facility] Comment on above: Performed By: #### L 100.0100, L3300.6400, L501.9985, L500.4050 ####[facility] [address] [place], [address] Erythrocyte distribution width (RBC) [Ratio] 12.9 % Normal 11.6-14.6 [facility] Comment on above: Performed By: #### L 100.0100, L3300.6400, L501.9985, L500.4050 ####[facility] [address] [place], [address] Hematocrit (Bld) [Volume fraction] 43.3 % Normal 40-54 [facility] Comment on above: Performed By: #### L 100.0100, L3300.6400, L501.9985, L500.4050 ####[facility] [address] [place], [address] Hemoglobin (Bld) [Mass/Vol] 14.9 g/dL Normal 13.0-16.5 [facility] Comment on above: Performed By: #### L 100.0100, L3300.6400, L501.9985, L500.4050 ####[facility] [address] [place], [address] IG% 0.300 Normal 0.0-0.9 [facility] Comment on above: Result Comment: IG% - Immature Granulocytes (promyelocytes, myelocytes and metamyelocytes) > 1% indicates that a LEFT SHIFT is Present. Performed By: #### L 100.0100, L3300.6400, L501.9985, L500.4050 ####[facility] [address] [place], [address] Lymphocytes/100 WBC (Bld) 25.6 % Normal 19-41 [facility] Comment on above: Performed By: #### L 100.0100, L3300.6400, L501.9985, L500.4050 ####[facility] [address] [place], [address] MCH (RBC) [Entitic mass] 31.4 pg Normal 27.0-32.0 [facility] Comment on above: Performed By: #### L 100.0100, L3300.6400, L501.9985, L500.4050 ####[facility] [address] [place], [address] MCHC (RBC) [Mass/Vol] 34.4 g/dL Normal 32-36 [facility] Comment on above: Performed By: #### L 100.0100, L3300.6400, L501.9985, L500.4050 ####[facility] [address] [place], [address] MCV (RBC) [Entitic vol] 91.2 fL Normal 80-94 [facility] Comment on above: Performed By: #### L 100.0100, L3300.6400, L501.9985, L500.4050 ####[facility] [address] [place], [address] Monocytes/100 WBC (Bld) 10.9 % High 0-10 [facility] Comment on above: Performed By: #### L 100.0100, L3300.6400, L501.9985, L500.4050 ####[facility] [address] [place], [address] Neutrophils/100 WBC (Bld) 60.3 % Normal 47-70 [facility] Comment on above: Performed By: #### L 100.0100, L3300.6400, L501.9985, L500.4050 ####[facility] [address] [place], [address] Nucleated RBC (Bld) [#/Vol] 0 10*3/uL Normal 0-5 [facility] Comment on above: Performed By: #### L 100.0100, L3300.6400, L501.9985, L500.4050 ####[facility] [address] [place], [address] Platelet mean volume (Bld) [Entitic vol] 9.2 fL Normal 6.2-12.0 [facility] Comment on above: Performed By: #### L 100.0100, L3300.6400, L501.9985, L500.4050 ####[facility] [address] [place], [address] Platelets (Bld) [#/Vol] 284 10*3/uL Normal 150-450 [facility] Comment on above: Performed By: #### L 100.0100, L3300.6400, L501.9985, L500.4050 ####[facility] [address] [place], [address] RBC (Bld) [#/Vol] 4.75 10*6/uL Normal 4.6-6.2 [facility] Comment on above: Performed By: #### L 100.0100, L3300.6400, L501.9985, L500.4050 ####[facility] [address] [place], [address] RDW SD 42.9 fl Normal 35.1-43.9 [facility] Comment on above: Performed By: #### L 100.0100, L3300.6400, L501.9985, L500.4050 ####[facility] [address] [place], [address] WBC (Bld) [#/Vol] 6.5 10*3/uL Normal 4.4-11.0 [facility] Comment on above: Performed By: #### L 100.0100, L3300.6400, L501.9985, L500.4050 ####[facility] [address] [place], [address] Absolute Neut Normal 2.0-7.7 [facility] Comment on above: Result Comment: DIFF ERENT ORDER Performed By: #### L 500.4050, L100.0100 ####[facility] [address] [place], [address] HCT Normal 40-54 [facility] Comment on above: Result Comment: DIFF ERENT ORDER Performed By: #### L 500.4050, L100.0100 ####[facility] [address] [place], [address] HGB Normal 13.0-16.5 [facility] Comment on above: Result Comment: DIFF ERENT ORDER Performed By: #### L 500.4050, L100.0100 ####[facility] [address] [place], [address] MCH Normal 27.0-32.0 [facility] Comment on above: Result Comment: DIFF ERENT ORDER Performed By: #### L 500.4050, L100.0100 ####[facility] [address] [place], [address] MCHC Normal 32-36 [facility] Comment on above: Result Comment: DIFF ERENT ORDER Performed By: #### L 500.4050, L100.0100 ####[facility] [address] [place], [address] MCV Normal 80-94 [facility] Comment on above: Result Comment: DIFF ERENT ORDER Performed By: #### L 500.4050, L100.0100 ####[facility] [address] [place], [address] NEUT% Normal 47-70 [facility] Comment on above: Result Comment: DIFF ERENT ORDER Performed By: #### L 500.4050, L100.0100 ####[facility] [address] [place], [address] PLT Normal 150-450 [facility] Comment on above: Result Comment: DIFF ERENT ORDER Performed By: #### L 500.4050, L100.0100 ####[facility] [address] [place], [address] RBC Normal 4.6-6.2 [facility] Comment on above: Result Comment: DIFF ERENT ORDER Performed By: #### L 500.4050, L100.0100 ####[facility] [address] [place], [address] RDW CV Normal 11.6-14.6 [facility] Comment on above: Result Comment: DIFF ERENT ORDER Performed By: #### L 500.4050, L100.0100 ####[facility] [address] [place], [address] RDW SD Normal 35.1-43.9 [facility] Comment on above: Result Comment: DIFF ERENT ORDER Performed By: #### L 500.4050, L100.0100 ####[facility] [address] [place], [address] WBC Normal 4.4-11.0 [facility] Comment on above: Result Comment: DIFF ERENT ORDER Performed By: #### L 500.4050, L100.0100 ####[facility] [address] [place], [address] Comprehensive Metabolic Prof ilon 11-04-2025 Albumin [Mass/Vol] 4.2 g/dL Normal 3.4-4.8 [facility] Comment on above: Performed By: #### L 100.0100, L3300.6400, L501.9985, L500.4050 ####[facility] [address] [place], [address] Albumin/Globulin [Mass ratio] 1.3 {ratio} Normal 0.9-2.4 [facility] Comment on above: Performed By: #### L 100.0100, L3300.6400, L501.9985, L500.4050 ####[facility] [address] [place], [address] ALK PHOS 103 U/L Normal 40-129 [facility] Comment on above: Performed By: #### L 100.0100, L3300.6400, L501.9985, L500.4050 ####[facility] [address] [place], [address] ALT [Catalytic activity/Vol] 82 U/L High <=46 [facility] Comment on above: Performed By: #### L 100.0100, L3300.6400, L501.9985, L500.4050 ####[facility] [address] [place], [address] AST [Catalytic activity/Vol] 60 U/L High <=37 [facility] Comment on above: Performed By: #### L 100.0100, L3300.6400, L501.9985, L500.4050 ####[facility] [address] [place], [address] Bilirubin [Mass/Vol] 0.58 mg/dL Normal 0.00-1.30 [facility] Comment on above: Performed By: #### L 100.0100, L3300.6400, L501.9985, L500.4050 ####[facility] [address] [place], [address] BUN/CRE 17.6 RATIO Normal 10-20 [facility] Comment on above: Performed By: #### L 100.0100, L3300.6400, L501.9985, L500.4050 ####[facility] [address] [place], [address] Calcium [Mass/Vol] 9.4 mg/dL Normal 7.6-11.0 [facility] Comment on above: Performed By: #### L 100.0100, L3300.6400, L501.9985, L500.4050 ####[facility] [address] [place], [address] Chloride [Moles/Vol] 101 mmol/L Normal 98-108 [facility] Comment on above: Performed By: #### L 100.0100, L3300.6400, L501.9985, L500.4050 ####[facility] [address] [place], [address] CO2 [Moles/Vol] 24.1 mmol/L Normal 21.0-32.0 [facility] Comment on above: Performed By: #### L 100.0100, L3300.6400, L501.9985, L500.4050 ####[facility] [address] [place], [address] Creatinine [Mass/Vol] 1.03 mg/dL Normal 0.70-1.20 [facility] Comment on above: Performed By: #### L 100.0100, L3300.6400, L501.9985, L500.4050 ####[facility] [address] [place], [address] GAP 10 Normal 5-15 [facility] Comment on above: Performed By: #### L 100.0100, L3300.6400, L501.9985, L500.4050 ####[facility] [address] [place], [address] GFR/1.73 sq M.predicted among non-blacks MDRD (S/P/Bld) [Vol rate/Area] 78 mL/min/{1.73_m2} Normal >60 [facility] Comment on above: Result Comment: mL/m in/1.73m2 CKD-EPI Creatinine Equation (2020) Performed By: #### L 100.0100, L3300.6400, L501.9985, L500.4050 ####[facility] [address] [place], [address] Globulin (S) [Mass/Vol] 3.2 g/dL Normal 2.2-4.2 [facility] Comment on above: Performed By: #### L 100.0100, L3300.6400, L501.9985, L500.4050 ####[facility] [address] [place], [address] Glucose [Mass/Vol] 114 mg/dL High 70-99 [facility] Comment on above: Performed By: #### L 100.0100, L3300.6400, L501.9985, L500.4050 ####[facility] [address] [place], [address] Potassium [Moles/Vol] 4.6 mmol/L Normal 3.3-5.1 [facility] Comment on above: Performed By: #### L 100.0100, L3300.6400, L501.9985, L500.4050 ####[facility] [address] [place], [address] Sodium [Moles/Vol] 136 mmol/L Normal 133-145 [facility] Comment on above: Performed By: #### L 100.0100, L3300.6400, L501.9985, L500.4050 ####[facility] [address] [place], [address] T PROT 7.4 g/dL Normal 5.9-8.4 [facility] Comment on above: Performed By: #### L 100.0100, L3300.6400, L501.9985, L500.4050 ####[facility] [address] [place], [address] Urea nitrogen [Mass/Vol] 18 mg/dL Normal 4-19 [facility] Comment on above: Performed By: #### L 100.0100, L3300.6400, L501.9985, L500.4050 ####[facility] [address] [place], [address] ALB Normal 3.4-4.8 [facility] Comment on above: Result Comment: DIFF ERENT ORDER Performed By: #### L 500.4050, L100.0100 ####[facility] [address] [place], [address] ALK PHOS Normal 40-129 [facility] Comment on above: Result Comment: DIFF ERENT ORDER Performed By: #### L 500.4050, L100.0100 ####[facility] [address] [place], [address] ALT Normal <=46 [facility] Comment on above: Result Comment: DIFF ERENT ORDER Performed By: #### L 500.4050, L100.0100 ####[facility] [address] [place], [address] AST Normal <=37 [facility] Comment on above: Result Comment: DIFF ERENT ORDER Performed By: #### L 500.4050, L100.0100 ####[facility] [address] [place], [address] BUN Normal 4-19 [facility] Comment on above: Result Comment: DIFF ERENT ORDER Performed By: #### L 500.4050, L100.0100 ####[facility] [address] [place], [address] BUN/CRE Normal 10-20 [facility] Comment on above: Result Comment: DIFF ERENT ORDER Performed By: #### L 500.4050, L100.0100 ####[facility] [address] [place], [address] Calcium Normal 7.6-11.0 [facility] Comment on above: Result Comment: DIFF ERENT ORDER Performed By: #### L 500.4050, L100.0100 ####[facility] [address] [place], [address] CL Normal 98-108 [facility] Comment on above: Result Comment: DIFF ERENT ORDER Performed By: #### L 500.4050, L100.0100 ####[facility] [address] [place], [address] CO2 Normal 21.0-32.0 [facility] Comment on above: Result Comment: DIFF ERENT ORDER Performed By: #### L 500.4050, L100.0100 ####[facility] [address] [place], [address] CREAT,SERUM Normal 0.70-1.20 [facility] Comment on above: Result Comment: DIFF ERENT ORDER Performed By: #### L 500.4050, L100.0100 ####[facility] [address] [place], [address] eGFR Normal >60 [facility] Comment on above: Result Comment: DIFF ERENT ORDER Performed By: #### L 500.4050, L100.0100 ####[facility] [address] [place], [address] GAP Normal 5-15 [facility] Comment on above: Result Comment: DIFF ERENT ORDER Performed By: #### L 500.4050, L100.0100 ####[facility] [address] [place], [address] GLU Normal 70-99 [facility] Comment on above: Result Comment: DIFF ERENT ORDER Performed By: #### L 500.4050, L100.0100 ####[facility] [address] [place], [address] Potassium Normal 3.3-5.1 [facility] Comment on above: Result Comment: DIFF ERENT ORDER Performed By: #### L 500.4050, L100.0100 ####[facility] [address] [place], [address] T BILI Normal 0.00-1.30 [facility] Comment on above: Result Comment: DIFF ERENT ORDER Performed By: #### L 500.4050, L100.0100 ####[facility] [address] [place], [address] T PROT Normal 5.9-8.4 [facility] Comment on above: Result Comment: DIFF ERENT ORDER Performed By: #### L 500.4050, L100.0100 ####[facility] [address] [place], [address] Comprehensive Metabolic Profil Normal 133-145 [facility] Comment on above: Result Comment: DIFF ERENT ORDER Performed By: #### L 500.4050, L100.0100 ####[facility] [address] [place], [address] Hemoglobin A1con 08-03-2025 HbA1c (Bld) [Mass fraction] 6.1 % High <=5.6 [facility] Comment on above: Result Comment: Norm al < 5.7 % Prediabetic 5.7 - 6.4 % Diabetic >or= 6.5 % Please note range changes. Performed By: #### L 100.0100, L3300.6400, L501.9985, L500.4050 ####[facility] [address] [place], [address] Prealbumin [id number] Prealbumin [Mass/Vol] 22 mg/dL Normal 9-32 [facility] Comment on above: Result Comment: Perf ormed at: - [facility] [address] [id number] Hat Presser: Vinod Varghese PhD, Phone: [phone] Performed By: #### L 4537.1500 #### [facility] [address] [place], [address] Absolute lymphocyte countOrd ered By: Clementina Tao on 06-04-2025 Lymphocytes Auto (Unsp spec) [#/Vol] 2.09 10*3/uL 0.83-4.51 [facility] Absolute neutrophil countOrd ered By: Clementina Tao on 06-04-2025 Neutrophils (Bld) [#/Vol] 5.0 10*3/uL 2.0-7.7 [facility] Anion gap in Serum or Plasma Ordered By: Clementina Tao on 06-04-2025 Anion gap [Moles/Vol] 16 mmol/L High 5-15 [facility] Automated lymphocyte count a s percentage of total leukocytesOrdered By: Clementina Tao on 06-04-2025 Lymphocytes/100 WBC Auto (Unsp spec) 26.0 % 19-41 [facility] BUN/creatinine ratioOrdered By: Clementina Tao on 06-04-2025 Urea nitrogen/Creatinine [Mass ratio] 17.5 mg/mg 10-20 [facility] Basophil percentageOrdered B y: Clementina Tao on 06-04-2025 Basophils/100 WBC (Bld) 0.7 % 0-1 [facility] Bilirubin, totalOrdered By: Clementina Tao on 06-04-2025 Bilirubin [Mass/Vol] 0.61 mg/dL 0.00-1.30 [facility] CBC W/Diff, Automatedon 09 Absolute Lymph 2.09 X10 3/uL Normal 0.83-4.51 [facility] Comment on above: Order Comment: Inter face Comments:cc copy all to Dr. Robbins at [facility] Date: 06/04/25Order Info: 0184-1 - CBCDComments: cc copy all to Dr. Robbins at [facility] Performed By: #### L 501.9985, L100.0100, L500.4050 ####[facility] [address] [place], [address] Absolute Neut 5.0 X10 3/uL Normal 2.0-7.7 [facility] Comment on above: Order Comment: Inter face Comments:cc copy all to Dr. Robbins at [facility] Date: 06/04/25Order Info: 0184-1 - CBCDComments: cc copy all to Dr. Robbins at [facility] Performed By: #### L 501.9985, L100.0100, L500.4050 ####[facility] [address] [place], [address] Basophils/100 WBC (Bld) 0.7 % Normal 0-1 [facility] Comment on above: Order Comment: Inter face Comments:cc copy all to Dr. Robbins at [facility] Date: 06/04/25Order Info: 0184-1 - CBCDComments: cc copy all to Dr. Robbins at [facility] Performed By: #### L 501.9985, L100.0100, L500.4050 ####[facility] [address] [place], [address] Eosinophils/100 WBC (Bld) 1.5 % Normal 0-5 [facility] Comment on above: Order Comment: Inter face Comments:cc copy all to Dr. Robbins at [facility] Date: 06/04/25Order Info: 0184-1 - CBCDComments: cc copy all to Dr. Robbins at [facility] Performed By: #### L 501.9985, L100.0100, L500.4050 ####[facility] [address] [place], [address] Erythrocyte distribution width (RBC) [Ratio] 12.8 % Normal 11.6-14.6 [facility] Comment on above: Order Comment: Inter face Comments:cc copy all to Dr. Robbins at [facility] Date: 06/04/25Order Info: 0184-1 - CBCDComments: cc copy all to Dr. Robbins at [facility] Performed By: #### L 501.9985, L100.0100, L500.4050 ####[facility] [address] [place], [address] Hematocrit (Bld) [Volume fraction] 47.2 % Normal 40-54 [facility] Comment on above: Order Comment: Inter face Comments:cc copy all to Dr. Robbins at [facility] Date: 06/04/25Order Info: 0184-1 - CBCDComments: cc copy all to Dr. Robbins at [facility] Performed By: #### L 501.9985, L100.0100, L500.4050 ####[facility] [address] [place], [address] Hemoglobin (Bld) [Mass/Vol] 16.2 g/dL Normal 13.0-16.5 [facility] Comment on above: Order Comment: Inter face Comments:cc copy all to Dr. Robbins at [facility] Date: 06/04/25Order Info: 0184-1 - CBCDComments: cc copy all to Dr. Robbins at [facility] Performed By: #### L 501.9985, L100.0100, L500.4050 ####[facility] [address] [place], [address] IG% 0.200 Normal 0.0-0.9 [facility] Comment on above: Order Comment: Inter face Comments:cc copy all to Dr. Robbins at [facility] Date: 06/04/25Order Info: 0184-1 - CBCDComments: cc copy all to Dr. Robbins at [facility] Result Comment: IG% - Immature Granulocytes (promyelocytes, myelocytes and metamyelocytes) > 1% indicates that a LEFT SHIFT is Present. Performed By: #### L 501.9985, L100.0100, L500.4050 ####[facility] [address] [place], [address] Lymphocytes/100 WBC (Bld) 26.0 % Normal 19-41 [facility] Comment on above: Order Comment: Inter face Comments:cc copy all to Dr. Robbins at [facility] Date: 06/04/25Order Info: 0184-1 - CBCDComments: cc copy all to Dr. Robbins at [facility] Performed By: #### L 501.9985, L100.0100, L500.4050 ####[facility] [address] [place], [address] MCH (RBC) [Entitic mass] 31.3 pg Normal 27.0-32.0 [facility] Comment on above: Order Comment: Inter face Comments:cc copy all to Dr. Robbins at [facility] Date: 06/04/25Order Info: 0184-1 - CBCDComments: cc copy all to Dr. Robbins at [facility] Performed By: #### L 501.9985, L100.0100, L500.4050 ####[facility] [address] [place], [address] MCHC (RBC) [Mass/Vol] 34.3 g/dL Normal 32-36 [facility] Comment on above: Order Comment: Inter face Comments:cc copy all to Dr. Robbins at [facility] Date: 06/04/25Order Info: 0184-1 - CBCDComments: cc copy all to Dr. Robbins at [facility] Performed By: #### L 501.9985, L100.0100, L500.4050 ####[facility] [address] [place], [address] MCV (RBC) [Entitic vol] 91.3 fL Normal 80-94 [facility] Comment on above: Order Comment: Inter face Comments:cc copy all to Dr. Robbins at [facility] Date: 06/04/25Order Info: 0184-1 - CBCDComments: cc copy all to Dr. Robbins at [facility] Performed By: #### L 501.9985, L100.0100, L500.4050 ####[facility] [address] [place], [address] Monocytes/100 WBC (Bld) 9.2 % Normal 0-10 [facility] Comment on above: Order Comment: Inter face Comments:cc copy all to Dr. Robbins at [facility] Date: 06/04/25Order Info: 0184-1 - CBCDComments: cc copy all to Dr. Robbins at [facility] Performed By: #### L 501.9985, L100.0100, L500.4050 ####[facility] [address] [place], [address] Neutrophils/100 WBC (Bld) 62.4 % Normal 47-70 [facility] Comment on above: Order Comment: Inter face Comments:cc copy all to Dr. Robbins at [facility] Date: 06/04/25Order Info: 0184-1 - CBCDComments: cc copy all to Dr. Robbins at [facility] Performed By: #### L 501.9985, L100.0100, L500.4050 ####[facility] [address] [place], [address] Nucleated RBC (Bld) [#/Vol] 0 10*3/uL Normal 0-5 [facility] Comment on above: Order Comment: Inter face Comments:cc copy all to Dr. Robbins at [facility] Date: 06/04/25Order Info: 0184-1 - CBCDComments: cc copy all to Dr. Robbins at [facility] Performed By: #### L 501.9985, L100.0100, L500.4050 ####[facility] [address] [place], [address] Platelet mean volume (Bld) [Entitic vol] 9.8 fL Normal 6.2-12.0 [facility] Comment on above: Order Comment: Inter face Comments:cc copy all to Dr. Robbins at [facility] Date: 06/04/25Order Info: 0184-1 - CBCDComments: cc copy all to Dr. Robbins at [facility] Performed By: #### L 501.9985, L100.0100, L500.4050 ####[facility] [address] [place], [address] Platelets (Bld) [#/Vol] 314 10*3/uL Normal 150-450 [facility] Comment on above: Order Comment: Inter face Comments:cc copy all to Dr. Robbins at [facility] Date: 06/04/25Order Info: 0184-1 - CBCDComments: cc copy all to Dr. Robbins at [facility] Performed By: #### L 501.9985, L100.0100, L500.4050 ####[facility] [address] [place], [address] RBC (Bld) [#/Vol] 5.17 10*6/uL Normal 4.6-6.2 [facility] Comment on above: Order Comment: Inter face Comments:cc copy all to Dr. Robbins at [facility] Date: 06/04/25Order Info: 0184-1 - CBCDComments: cc copy all to Dr. Robbins at [facility] Performed By: #### L 501.9985, L100.0100, L500.4050 ####[facility] [address] [place], [address] RDW SD 43.2 fl Normal 35.1-43.9 [facility] Comment on above: Order Comment: Inter face Comments:cc copy all to Dr. Robbins at [facility] Date: 06/04/25Order Info: 0184-1 - CBCDComments: cc copy all to Dr. Robbins at [facility] Performed By: #### L 501.9985, L100.0100, L500.4050 ####[facility] [address] [place], [place], [address] WBC (Bld) [#/Vol] 8.0 10*3/uL Normal 4.4-11.0 [facility] Comment on above: Order Comment: Inter face Comments:cc copy all to Dr. Robbins at [facility] Date: 06/04/25Order Info: 0184-1 - CBCDComments: cc copy all to Dr. Robbins at [facility] Performed By: #### L 501.9985, L100.0100, L500.4050 ####[facility] [address] [place], [address] Carbon dioxide, total [Moles /volume] in Central venous bloodOrdered By: Clementina Tao on 06-04-2025 CO2 [Moles/Vol] 20.4 mmol/L Low 21.0-32.0 [facility] Chloride assayOrdered By: Vu Tao on 06-04-2025 Chloride [Moles/Vol] 98 mmol/L 98-108 [facility] Comprehensive Metabolic Prof ilon 06-04-2025 Albumin [Mass/Vol] 4.6 g/dL Normal 3.4-4.8 [facility] Comment on above: Order Comment: Inter face Comments:cc copy all to Dr. Robbins at [facility] Date: 06/04/25Order Info: 0786-1 - CMPcc copy all to Dr. Robbins at [facility] Performed By: #### L 501.9985, L100.0100, L500.4050 ####[facility] [address] [place], [place], [address] Albumin/Globulin [Mass ratio] 1.3 {ratio} Normal 0.9-2.4 [facility] Comment on above: Order Comment: Inter face Comments:cc copy all to Dr. Robbins at [facility] Date: 06/04/25Order Info: 0786-1 - CMPcc copy all to Dr. Robbins at [facility] Performed By: #### L 501.9985, L100.0100, L500.4050 ####[facility] [address] [place], [address] ALK PHOS 109 U/L Normal 40-129 [facility] Comment on above: Order Comment: Inter face Comments:cc copy all to Dr. Robbins at [facility] Date: 06/04/25Order Info: 0786 - [facility] all to [facility]. Robbins at [facility] Performed By: #### L 501.9985, L100.0100, L500.4050 ####[facility] [address] [place], [address] ALT [Catalytic activity/Vol] 92 U/L High <=46 [facility] Comment on above: Order Comment: Inter face Comments:cc copy all to Dr. Robbins at [facility] Date: 06/04/25Order Info: 0786 - [facility] all to Dr. Robbins at [facility] Performed By: #### L 501.9985, L100.0100, L500.4050 ####[facility] [address] [place], [place], [address] AST [Catalytic activity/Vol] 69 U/L High <=37 [facility] Comment on above: Order Comment: Inter face Comments:cc copy all to Dr. Robbins at [facility] Date: 06/04/25Order Info: 0786 - [facility] copy all to Dr. Robbins at [facility] Performed By: #### L 501.9985, L100.0100, L500.4050 ####[facility] [address] [place], [address] Bilirubin [Mass/Vol] 0.61 mg/dL Normal 0.00-1.30 [facility] Comment on above: Order Comment: Inter face Comments:cc copy all to Dr. Robbins at [facility] Date: 06/04/25Order Info: 0786- - CMPcc copy all to Dr. Robbins at [facility] Performed By: #### L 501.9985, L100.0100, L500.4050 ####[facility] [address] [place], [address] BUN/CRE 17.5 RATIO Normal 10-20 [facility] Comment on above: Order Comment: Inter face Comments:cc copy all to Dr. Robbins at [facility] Date: 06/04/25Order Info: 0786-1 - CMPcc copy all to Dr. Robbins at [facility] Performed By: #### L 501.9985, L100.0100, L500.4050 ####[facility] [address] [place], [address] Calcium [Mass/Vol] 10.0 mg/dL Normal 7.6-11.0 [facility] Comment on above: Order Comment: Inter face Comments:cc copy all to Dr. Robbins at [facility] Date: 06/04/25Order Info: 0786- - CMPcc copy all to Dr. Robbins at [facility] Performed By: #### L 501.9985, L100.0100, L500.4050 ####[facility] [address] [place], [address] Chloride [Moles/Vol] 98 mmol/L Normal 98-108 [facility] Comment on above: Order Comment: Inter face Comments:cc copy all to Dr. Robbins at [facility] Date: 06/04/25Order Info: 0786-1 - CMPcc copy all to Dr. Robbins at [facility] Performed By: #### L 501.9985, L100.0100, L500.4050 ####[facility] [address] [place], [address] CO2 [Moles/Vol] 20.4 mmol/L Low 21.0-32.0 [facility] Comment on above: Order Comment: Inter face Comments:cc copy all to Dr. Robbins at [facility] Date: 06/04/25Order Info: 0786-1 - CMPcc copy all to Dr. Robbins at [facility] Performed By: #### L 501.9985, L100.0100, L500.4050 ####[facility] [address] [place], [address] Creatinine [Mass/Vol] 1.10 mg/dL Normal 0.70-1.20 [facility] Comment on above: Order Comment: Inter face Comments:cc copy all to Dr. Robbins at [facility] Date: 06/04/25Order Info: 0786-1 - [facility] copy all to Dr. Robbins at [facility] Performed By: #### L 501.9985, L100.0100, L500.4050 ####[facility] [address] [place], [address] GAP 16 High 5-15 [facility] Comment on above: Order Comment: Inter face Comments:cc copy all to Dr. Robbins at [facility] Date: 06/04/25Order Info: 0786-1 - [facility] copy all to Dr. Robbins at [facility] Performed By: #### L 501.9985, L100.0100, L500.4050 ####[facility] [address] [place], [address] GFR/1.73 sq M.predicted among non-blacks MDRD (S/P/Bld) [Vol rate/Area] 72 mL/min/{1.73_m2} Normal >60 [facility] Comment on above: Order Comment: Inter face Comments:cc copy all to Dr. Robbins at [facility] Date: 06/04/25Order Info: 0786-1 - [facility] copy all to Dr. Robbins at [facility] Result Comment: mL/m in/1.73m2 CKD-EPI Creatinine Equation (2020) Performed By: #### L 501.9985, L100.0100, L500.4050 ####[facility] [address] [place], [address] Globulin (S) [Mass/Vol] 3.5 g/dL Normal 2.2-4.2 [facility] Comment on above: Order Comment: Inter face Comments:cc copy all to Dr. Robbins at [facility] Date: 06/04/25Order Info: 0786-1 - CMPcc copy all to Dr. Robbins at [facility] Performed By: #### L 501.9985, L100.0100, L500.4050 ####[facility] [address] [place], [address] Glucose [Mass/Vol] 105 mg/dL High 70-99 [facility] Comment on above: Order Comment: Inter face Comments:cc copy all to Dr. Robbins at [facility] Date: 06/04/25Order Info: 0786-1 - CMPcc copy all to Dr. Robbins at [facility] Performed By: #### L 501.9985, L100.0100, L500.4050 ####[facility] [address] [place], [address] Potassium [Moles/Vol] 4.9 mmol/L Normal 3.3-5.1 [facility] Comment on above: Order Comment: Inter face Comments:cc copy all to Dr. Robbins at [facility] Date: 06/04/25Order Info: 0786-1 - CMPcc copy all to Dr. Robbins at [facility] Performed By: #### L 501.9985, L100.0100, L500.4050 ####[facility] [address] [place], [address] Sodium [Moles/Vol] 135 mmol/L Normal 133-145 [facility] Comment on above: Order Comment: Inter face Comments:cc copy all to Dr. Robbins at [facility] Date: 06/04/25Order Info: [id number] - CMPcc copy all to Dr. Robbins at [facility] Performed By: #### L 501.9985, L100.0100, L500.4050 ####[facility] [address] [place], [address] T PROT 8.1 g/dL Normal 5.9-8.4 [facility] Comment on above: Order Comment: Inter face Comments:cc copy all to Dr. Robbins at [facility] Date: 06/04/25Order Info: [id number] - [facility] copy all to Dr. oRbbins at [facility] Performed By: #### L 501.9985, L100.0100, L500.4050 ####[facility] [address] [place], [place], [address] Urea nitrogen [Mass/Vol] 19 mg/dL Normal 4-19 [facility] Comment on above: Order Comment: Inter face Comments:cc copy all to Dr. Robbins at [facility] Date: 06/04/25Order Info: [id number] - [facility] copy all to Dr. Robbins at [facility] Performed By: #### L 501.9985, L100.0100, L500.4050 ####[facility] [address] [place], [place], [id number] Eosinophil percentageOrdered By: Clementina Tao on 06-04-2025 Eosinophils/100 WBC (Bld) 1.5 % 0-5 [facility] Erythrocyte distribution wid th ratioOrdered By: Clementina Tao on 06-04-2025 Erythrocyte distribution width (RBC) [Ratio] 12.8 % 11.6-14.6 [facility] Erythrocyte distribution wid th standard deviationOrdered By: Clementina Tao on 06-04-2025 Erythrocyte distribution width (RBC) [Ratio] 43.2 fl 35.1-43.9 [facility] Glomerular filtration rate ( GFR) estimation/1.73 sq m using serum, plasma, or whole bOrdered By: Clementina Tao on 06-04-2025 GFR/1.73 sq M.predicted among non-blacks MDRD (S/P/Bld) [Vol rate/Area] 72 mL/min/{1.73_m2} >60 [facility] Comment on above: mL/min/1.73m2 CKD-EP I Creatinine Equation (2020) Hematocrit Auto (Bld) [Volum e fraction]Ordered By: Clementina Tao on 06-04-2025 Hematocrit (Bld) [Volume fraction] 47.2 % 40-54 [facility] Hemoglobin A1con 06-04-2025 HbA1c (Bld) [Mass fraction] 6.0 % High <=5.6 [facility] Comment on above: Order Comment: Inter face Comments:cc copy all to Dr. Robbins at [facility] Date: 06/04/25Order Info: [id number] - [id number]: cc copy all to Dr. Robbins at [facility] Result Comment: Norm al < 5.7 % Prediabetic 5.7 - 6.4 % Diabetic >or= 6.5 % Please note range changes. Performed By: #### L 501.9985, L100.0100, L500.4050 ####[facility] [address] [place], [address] Hemoglobin A1c percentageOrd ered By: Clementina Tao on 06-04-2025 HbA1c (Bld) [Mass fraction] 6.0 % High <5.7 [facility] Comment on above: Normal < 5.7 % Predi abetic 5.7 - 6.4 % Diabetic >or= 6.5 % Please note range changes. Hemoglobin measurementOrdere d By: Clementina Tao on 06-04-2025 Hemoglobin (Bld) [Mass/Vol] 16.2 g/dL 13.0-16.5 [facility] Immature granulocytes/100 WB C Auto (Bld)Ordered By: Clementina Tao on 06-04-2025 Immature granulocytes/100 WBC (Bld) 0.200 % 0.0-0.9 [facility] Comment on above: IG% - Immature Granu locytes (promyelocytes, myelocytes and metamyelocytes) > 1% indicates that a LEFT SHIFT is Present. Laboratory - Chemistry and C hemistry - challengeOrdered By: Clementina Tao on 06-04-2025 AST [Catalytic activity/Vol] 69 U/L High <38 [facility] MCV (mean corpuscular volume ) determinationOrdered By: Clementina Tao on 06-04-2025 MCV (RBC) [Entitic vol] 91.3 fL 80-94 [facility] Mean corpuscular hemoglobin (MCH) determinationOrdered By: Clementina Tao on 06-04-2025 MCH (RBC) [Entitic mass] 31.3 pg 27.0-32.0 [facility] Mean corpuscular hemoglobin concentration (MCHC) determinationOrdered By: Clementina Tao on 06-04-2025 MCHC (RBC) [Mass/Vol] 34.3 g/dL 32-36 [facility] Mean platelet volume determi nationOrdered By: Clementina Tao on 06-04-2025 Platelet mean volume (Bld) [Entitic vol] 9.8 fL 6.2-12.0 [facility] Monocyte percentageOrdered B y: Clementina Tao on 06-04-2025 Monocytes/100 WBC (Bld) 9.2 % 0-10 [facility] Neutrophil percentageOrdered By: Clementina Tao on 06-04-2025 Neutrophils/100 WBC (Bld) 62.4 % 47-70 [facility] Nucleated red blood cell per centageOrdered By: Clementina Tao on 06-04-2025 Nucleated RBC/100 WBC (Bld) [Ratio] 0 % 0-5 [facility] Platelet countOrdered By: Vu Tao on 06-04-2025 Platelets (Bld) [#/Vol] 314 10*3/uL 150-450 [facility] Potassium measurement (mass/ volume)Ordered By: Clementina Tao on 06-04-2025 Potassium (Unsp spec) [Mass/Vol] 4.9 mmol/L 3.3-5.1 [facility] RBC Auto (Bld) [#/Vol]Ordere d By: Clementina Tao on 06-04-2025 RBC (Bld) [#/Vol] 5.17 10*6/uL 4.6-6.2 [facility] Serum creatinine measurement (mass/volume)Ordered By: Clementina Tao on 06-04-2025 Creatinine [Mass/Vol] 1.10 mg/dL 0.70-1.20 [facility] Serum globulin measurementOr dered By: Clementina Tao on 06-04-2025 Globulin (S) [Mass/Vol] 3.5 g/dL 2.2-4.2 [facility] Serum glucose measurement (m ass/volume)Ordered By: Clementina Tao on 06-04-2025 Glucose [Mass/Vol] 105 mg/dL High 70-99 [facility] Serum or plasma alanine burgos otransferase (ALT) measurementOrdered By: Clementina Tao on 06-04-2025 ALT [Catalytic activity/Vol] 92 U/L High <47 [facility] Serum or plasma albumin rl urement (mass/volume)Ordered By: Clementina Tao on 06-04-2025 Albumin [Mass/Vol] 4.6 g/dL 3.4-4.8 [facility] Serum or plasma albumin/glob ulin mass ratioOrdered By: Clementina Tao on 06-04-2025 Albumin/Globulin [Mass ratio] 1.3 {ratio} 0.9-2.4 [facility] Serum or plasma alkaline lalit sphatase measurementOrdered By: Clementina Tao on 06-04-2025 ALP [Catalytic activity/Vol] 109 U/L 40-129 [facility] Serum or plasma calcium rl urement (mass/volume)Ordered By: Clementina Tao on 06-04-2025 Calcium [Mass/Vol] 10.0 mg/dL 7.6-11.0 [facility] Serum or plasma urea nitroge n measurement (mass/volume)Ordered By: Clementina Tao on 06-04-2025 Urea nitrogen [Mass/Vol] 19 mg/dL 4-19 [facility] Serum prealbumin measurement by immunoassayOrdered By: Clementina Tao on 06-04-2025 Prealbumin [Mass/Vol] 22 mg/dL 9-32 [facility] Comment on above: Performed at: [place] [id number] Director: Vinod Varghese PhD, Phone: [phone] Sodium levelOrdered By: Clementina Tao on 06-04-2025 Sodium [Moles/Vol] 135 mmol/L 133-145 [facility] Total proteinOrdered By: Marah Tao on 06-04-2025 Protein [Mass/Vol] 8.1 g/dL 5.9-8.4 [facility] White blood cell (WBC) count Ordered By: Clementina Tao on 06-04-2025 WBC (Bld) [#/Vol] 8.0 10*3/uL 4.4-11.0 [facility] Plastic Surgery Visit Report on 05-21-2025 Plastic Surgery Visit Report [facility] Plastic Reconstructive Surgery [address], [address] [place] [address] OFFICE VISIT Date of Service: 05/21/25 MR#: [id number] Acct: [id number] Name: RIZWAN COFFMAN Rep #: [id number] : 1955 Provider: Dr. Montez Robbins MD Age/Sex: 70/M Location: [facility] Status: Signed with Addenda ADDENDUM by Dr. Montez Robbins MD on 05/21/25 at 1352 Assessment and Plan (No Qualifiers) Assessment and Plan (1) S/P above knee amputation: Status: Acute (2) Neuroma: Status: Acute (3) Neuroma of amputation stump of extremity: Status: Acute 05/21/25 1352 Date Montez Robbins MD cc: * Signed ADDENDUM by Dr. Montez Robbins MD on 05/21/25 at 1352 Assessment and Plan (No Qualifiers) Assessment and Plan (1) S/P above knee amputation: Status: Acute Plan: CPT codes for insurance prior authorization are as follows: 08368, 10379, 57474, 11606 05/21/25 1352 Date Montez Robbins MD cc: * Signed Intake Vital Signs 3 04/23/25 10:28 05/21/25 09:15 Height 5 ft 7 in 5 ft 7 in Weight: 203 lb BMI 31.8 BP 147/87 H 181/91 H Blood Pressure Location Lt brachial Lt brachial Position Sitting Sitting Respiration 18 18 Pulse 92 72 Temp 98.0 F Temp Source Oral Oral Pulse Oximetry (%) 96 98 Oxygen Delivery Method room air room air Intake Visit Reasons: 4 W FU Chief Complaint: pain in scar right leg Allergies No Known Allergies Allergy (Verified 05/21/25 09:17) Have you fallen in the past year?: No [facility] Medical History Numbness and tingling in both hands Cancer Wears glasses Cancer Ambulates with cane Arthritis Former smoker Leg cramps History of stress test Hypertension Surgical History H/O neck surgery Hx of total knee arthroplasty Hx of left knee surgery Hx of colonoscopy History of carpal tunnel surgery of left wrist Hx of above knee amputation Social History Smoking Status: Never smoker alcohol intake: never substance use type: does not use additional social history: pt denies aspirin, denies ibuprofen , denies vaping, denies edibles, denies marijuana denies blood clots HPI 4 W FU Details: The patient is a 70-year-old male presenting with pain in the right leg above-knee amputation stump. 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 The patient reports that the prosthetic leg fit perfectly for many years without issues until December of this year when he began experiencing sharp, steady pain upon weight-bearing. The pain was initially thought to be due to an inflammatory hip condition, but medication did not alleviate the symptoms. Subsequent evaluation suggested a pinched nerve, leading to a referral for acupuncture, which was not performed due to concerns about the stump's appearance. An MRI revealed a growth, and a CT-guided biopsy was performed, which was negative for malignancy. 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 The patient has been advised to consult with a prosthetics specialist to address the fit of the prosthetic leg. If adjustments do not alleviate the pain, surgical exploration and potential nerve intervention are considered. The patient has been referred to pain management for further evaluation and management of symptoms. ROS - Musculoskeletal: Reports sharp, steady pain in the right leg stump upon weight-bearing. Denies pain when not wearing the prosthetic. - Neurological: Reports sharp, electrical pain localized to the stump area. Denies radiation of pain. - General: Denies any other significant health problems, including diabetes or smoking history. Attestation: Documentation on this patient encounter was supported using ambient scribe technology/ voice AI technology. The patient consented to recording for the purpose of documenting the encounter. Provider reviewed content of the generated note prior to signature. Current encounter, 21 May 2025: Patient went to his prosthetists and there was nothing they could do to refit the AKA to alleviate pressure/pain. Prosthesis please that this is a neuroma pain that would benefit from surgical intervention. Patient would like to try surgical intervention as previously discussed as he feels like the neuroma pain is getting worse. He has point tenderness and shooting burning electrical pain. Exam Details - Musculoskeletal: Right AKA stump with healed incision with indentations along the incision from tethered skin and scar. (more content not included)... Normal [facility] Plastic Surgery Visit Report on 04-23-2025 Plastic Surgery Visit Report [facility] Plastic Reconstructive Surgery [address], [address] [place] [address] OFFICE VISIT Date of Service: 04/23/25 MR#: [id number] Acct: [id number] Name: RIZWAN COFFMAN Rep #: [id number] : 1955 Provider: Dr. Montez Robbins MD Age/Sex: 70/M Location: [facility] Status: Signed Intake Vital Signs 3 12/25/22 06:14 03/23/25 15:23 04/16/25 09:42 04/23/25 10:28 Height 5 ft 8 in 5 ft 8 in 5 ft 8 in 5 ft 7 in Weight: 203 lb BMI 31.8 BP 147/87 H Blood Pressure Location Lt brachial Position Sitting Respiration 18 Pulse 92 Temp 98.0 F Temp Source Oral Pulse Oximetry (%) 96 Oxygen Delivery Method room air Intake Visit Reasons: PAIN IN SCAR R LEG Chief Complaint: pain in scar right leg Is patient in pain?: No (only when wearing prostesis) Allergies No Known Allergies Allergy (Verified 04/23/25 10:21) Medications 3 ???Medication ???Instructions ???Recorded ???Confirmed ???Type amlodipine 5 mg tablet 2.5 - 5 mg PO DAILY 04/16/2504/23 History levocetirizine 5 mg tablet 5 mg PO DAILY 04/16/25 04/23/25 Hi story manganese 50 mg tablet mg PO 04/16/25 04/23/25 History ramipril 10 mg capsule 10 mg PO QPM 04/16/25 04/23/25 His tory magnesium oxide 400 mg (241.3 mg mg PO Vitiman 04/23/25 04/23/25 Hi story magnesium) tablet pyridoxine (vitamin B6) 250 mg mg PO Vitamin 04/23/25 04/23/25 Hi story tablet (Vitamin B-6) Have you fallen in the past year?: No PFSH Medical History Numbness and tingling in both hands Cancer Wears glasses Cancer Ambulates with cane Arthritis Former smoker Leg cramps History of stress test Hypertension Surgical History H/O neck surgery Hx of total knee arthroplasty Hx of left knee surgery Hx of colonoscopy History of carpal tunnel surgery of left wrist Hx of above knee amputation Social History Smoking Status: Never smoker alcohol intake: never substance use type: does not use additional social history: pt denies aspirin, denies ibuprofen , denies vaping, denies edibles, denies marijuana denies blood clots HPI PAIN IN SCAR R LEG Details: The patient is a 70-year-old male presenting with pain in the right leg above-knee amputation stump. 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 The patient reports that the prosthetic leg fit perfectly for many years without issues until December of this year when he began experiencing sharp, steady pain upon weight-bearing. The pain was initially thought to be due to an inflammatory hip condition, but medication did not alleviate the symptoms. Subsequent evaluation suggested a pinched nerve, leading to a referral for acupuncture, which was not performed due to concerns about the stump's appearance. An MRI revealed a growth, and a CT-guided biopsy was performed, which was negative for malignancy. 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 The patient has been advised to consult with a prosthetics specialist to address the fit of the prosthetic leg. If adjustments do not alleviate the pain, surgical exploration and potential nerve intervention are considered. The patient has been referred to pain management for further evaluation and management of symptoms. ROS - Musculoskeletal: Reports sharp, steady pain in the right leg stump upon weight-bearing. Denies pain when not wearing the prosthetic. - Neurological: Reports sharp, electrical pain localized to the stump area. Denies radiation of pain. - General: Denies any other significant health problems, including diabetes or smoking history. Attestation: Documentation on this patient encounter was supported using ambient scribe technology/ voice AI technology. The patient consented to recording for the purpose of documenting the encounter. Provider reviewed content of the generated note prior to signature. ROS General General: Yes good health; No fatigue, fever(s) or weight loss HENMT HENMT: No rhinitis, sore throat/mouth sore, nasal congestion, contacts or glaucoma Endo Endocrine: No thyroid disease, polydipsia, heat intolerance, cold intolerance, hepatitis or excessive urine Skin Skin: No Bleeding, bruising, changing moles or suspicious lesion Musc Musculoskeletal: No joint pain, joint stiffness, muscle weakness, back pain, osteoarthritis or Muscle aches/ myalgia Neuro Neurological: No headache(s), No lightheadedness and No numbness Cardio Cardiovascular: No chest pain, pacemaker, fatigue or shortness of breat with exertion Psych Psychiatric: No depression, c (more content not included)... Normal [facility] Culture, Anaerobic Any Sourc rae 04-22-2025 CUAN RIGHT LEG BONE LESION BIOPY- CT No growth in 5 days. Normal [facility] Comment on above: Performed By: #### M 100.1999, M100.4001, M100.2910 #### [facility] [address] [place], [place], [id number] Surgical pathology reportOrd ered By: Birdie Jackson on 04-19-2025 Surgical pathology study [facility] Body Tissue Cultureon 2024 BTC RIGHT LEG BONE LESION BIOPY- CT No growth aerobically. Normal [facility] Comment on above: Performed By: #### M 100.1999, M100.4001, M100.2910 #### [facility] [address] [place], [place], [address] Anaerobic cultureOrdered By: Clementina Tao on 04-16-2025 Bacteria identified Anaer cx Nom (Unsp spec) No growth in 5 days. [facility] Bacterial tissue aerobic cul tureOrdered By: Clementina Tao on 04-16-2025 Bacteria identified Aer cx Nom (Tiss) No growth aerobically. [facility] Biopsy/Inj or Needle Placeme nton 04-16-2025 Biopsy/Inj or Needle Placement [facility] Imaging Services [address] [place] [address] Biopsy/Inj or Needle Placement MR#: [id number] Acct: [id number] Name: RIZWAN COFFMAN Rep #: [id number] : 1955 M 70 From: Al phillips MD PCP: Dr. Clementina Tao MD Status: REG CLI Study: Biopsy/Inj or Needle Placement Date of Exam: 0 04/16/25 Exam# [id number] Ordering Dr: Clementina Tao MD EXAM: CT-guided biopsy of the distal femur abnormality. 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 COMPARISON: MRI examination dated March 18, 2025. TECHNIQUE: The procedure as well as the benefits and possible complications including infection and bleeding were explained to the patient. Informed consent was obtained. Conscious sedation was performed. The patient received 2 mg of Versed and 50 mcg of fentanyl intravenously. Conscious sedation was started at 10:27 a.m. and terminated at 10:45 a.m.. The patient was independently monitored by the department nurse. The abnormality was localized. The overlying skin was prepped and draped in the usual sterile fashion. Following local anesthetic application, an 18 gauge core biopsy needle system was placed into the abnormality in the lower portion of the femur. 6 targeted biopsies were performed. The specimen was deemed adequate by the pathologist. The patient tolerated the procedure well. Radiation dose: CTDI L volume: 18.99. DLP: 218.9 FINDINGS: Successful targeted core biopsies of the distal femoral abnormality. The patient tolerated the procedure well. CT/Biopsy/Inj or Needle Placement IMPRESSION: Successful targeted core biopsies of distal femoral abnormality as described. The patient tolerated the procedure well. No immediate post procedure complication noted. Reading Location: [place] [address] CC: Dr. Clementina Tao MD Manufacturing Scheduler: Signed Normal [facility] Gram Stainon 04-16-2025 GS RIGHT LEG BONE LESION BIOPY- CT Gram Stain No organisms seen Rare White Blood Cells Normal [facility] Comment on above: Performed By: #### M 100.2000, M100.4001, M100.2910 #### [facility] [place], [address] Gram stainOrdered By: Clementina umanzor on 04-16-2025 Microscopic observation Gram stain Nom (Unsp spec) [facility] Special Stain Group IIon Special Stain Group II --- Patient Age/Sex Location Account Attending Physician RIZWAN COFFMAN/M RAD [id number] Dr. Clementina Tao MD Specimen: [id number] Received: 04/16/25 Status: MARIANNE Dietz Num: [id number] Spec Type: ASP RAD Subm Dr: Dr. Clementina Tao MD HEADER OPERATION: Bone lesion biopsy PRE-OP DIAGNOSIS: Right leg bone lesion TISSUE SUBMITTED: A- 18 gauge x 7 cores, bone biopsy MICROSCOPIC DIAGNOSIS A. Right leg, bone, CT-guided core biopsy: - Fibrovascular connective tissue and scant adipose. - Negative for neoplasia. - No significant inflammation seen. COMMENT The specimen is evaluated at the time of biopsy by Dr. Jackson. Immediate Evaluation =1. Blood, fat, stroma. 2. Blood. 3. Blood and fat. MICROSCOPIC DESCRIPTION Slides are reviewed. GROSS DESCRIPTION Received in fixative is one container labeled with the patient's name and designated Bone lesion biopsy. The specimen consists of a bone fragment measuring in aggregate 1 x 0.5 x 0.25cm. The entire specimen is submitted in one cassette. 04/16/2025 [facility]:[id number] Patient Age/Sex Location Account Attending Physician RIZWAN COFFMAN 70/M RAD [id number] Dr. Clementina Tao MD Signed (signature on file) Dr. Birdie Jackson MD 04/19/25 1553 Normal [facility] Comment on above: Performed By: #### P SSII ####[facility] [address] [place], [place], [id number] Magnetic resonance imaging r eportOrdered By: Sourav Harman on 03-22-2025 Study report [facility] Imaging Services [address] [place], [place] [address] Lower Ext No Joint W/WO Cont MR#: [id number] Acct: [id number] Name: RIZWAN COFFMAN Rep #: [id number] : 1955 M 70 From: Mya Harman MD PCP: Dr. Clementina Tao MD Status: REG CLI Study:Lower Ext No Joint W/WO Cont Date of Ex am: 03/18/25 Exam# [id number] Ordering Dr: Vu Tao MD ADDENDUM by Dr. Sourav Harman MD on 03/22/25 at 1236 20 cc of Clariscan were injected intravenously. Reading Location: [facility] 03/22/25 1236 Date cc: Dr. Clementina Tao MD ~* Signed PROCEDURE: LOWER EXT NO JOINT W/WO CONT 03/19/2025 REASON FOR EXAM: HX STUMP FROM SARCOMA REMOVAL, PAINFUL SCAR TECHNIQUE: LOWER EXT NO JOINT W/WO CONT CONTRAST: VOLUME: mL COMPARISON: 03-02-2025 FINDINGS: Evidence of above knee amputation with the distal femoral shaft stump shows an intramedullary well defined lesion 2 x 1.9 cm along its axial diameter. It displays low T1 and bright T2 signal with intense post contrast enhancement. Thickened sciatic nerve with stump neuroma along its tip measuring 2.9 x 1.8 cm along its axial diameter. Diffuse fatty changes of the right pelvic girdle and thigh muscles. The right femoral head and neck are unremarkable. There is no femoral head collapse. The right femoroacetabular joints space is narrowed. Minimal left hip joint effusion. No pathologically enlarged lymph nodes. No pelvic collections. MRI/Lower Ext No Joint W/WO Cont IMPRESSION: Evidence of above knee amputation with the distal femoral shaft stump shows an intramedullary well defined lesion . advise clinical and prior studies correlation. Thickened sciatic nerve with stump neuroma. Diffuse fatty changes of the right pelvic girdle and thigh muscles. Reading Location: [place] [address] CC: Dr. Clementina Tao MD ~ Manufacturing Scheduler: Signed [facility] Lower Ext No Joint W/WO Cont on 03-18-2025 Lower Ext No Joint W/WO Cont [facility] Imaging Services [address] [place] [address] Lower Ext No Joint W/WO Cont MR#: [id number] Acct: [id number] Name: RIZWAN COFFMAN Rep #: [id number] : 1955 M 70 From: Sourav ferrera MD PCP: Dr. Clementina Tao MD Status: [facility] CLI Study: Lower Ext No Joint W/WO Cont Date of Exam: Exam# [id number] Ordering Dr: Clementina Tao MD ADDENDUM by Dr. Sourav Harman MD on 03/22/25 at 1236 20 cc of Clariscan were injected intravenously. Reading Location: [place] [address] 03/22/25 1236 Date cc: Dr. Clementina Tao MD * Signed PROCEDURE: LOWER EXT NO JOINT W/WO CONT 03/19/2025 REASON FOR EXAM: HX STUMP FROM SARCOMA REMOVAL, PAINFUL SCAR TECHNIQUE: LOWER EXT NO JOINT W/WO CONT CONTRAST: VOLUME: mL COMPARISON: 03-02-2025 FINDINGS: Evidence of above knee amputation with the distal femoral shaft stump shows an intramedullary well defined lesion 2 x 1.9 cm along its axial diameter. It displays low T1 and bright T2 signal with intense post contrast enhancement. Thickened sciatic nerve with stump neuroma along its tip measuring 2.9 x 1.8 cm along its axial diameter. Diffuse fatty changes of the right pelvic girdle and thigh muscles. The right femoral head and neck are unremarkable. There is no femoral head collapse. The right femoroacetabular joints space is narrowed. Minimal left hip joint effusion. No pathologically enlarged lymph nodes. No pelvic collections. MRI/Lower Ext No Joint W/WO Cont IMPRESSION: Evidence of above knee amputation with the distal femoral shaft stump shows an intramedullary well defined lesion . advise clinical and prior studies correlation. Thickened sciatic nerve with stump neuroma. Diffuse fatty changes of the right pelvic girdle and thigh muscles. Reading Location: [place] [address] CC: Dr. Clementina Tao MD Manufacturing Scheduler: Signed Normal [facility] Femur Min 2 Viewson 03-02-20 Femur Min 2 Views [facility] Imaging Services [address], [place] [id number] Femur Min 2 Views MR#: [id number] Acct: [id number] Name: RIZWAN COFFMAN Rep #: [id number] : 1955 M 70 From: Jonathan Rosales MD PCP: Dr. Clementina Tao MD Status: REG CLI Study: Femur Min 2 Views Date of Exam: 03/02/25 Exam# [id number] Ordering Dr: Clementina Tao MD PROCEDURE: FEMUR MIN 2 VIEWS 03/02/2025 REASON FOR EXAM: PAIN LATERAL LEG, MYOFASCIAL PAIN TECHNIQUE: 2 view(s) of the right femur. COMPARISON: None. FINDINGS: Status post right above the knee amputation. There is no evidence of acute injury. The bone and soft tissues at the amputation site appear unremarkable. There is no evidence of osteomyelitis or subcutaneous emphysema. The right hip appears unremarkable. RAD/Femur Min 2 Views IMPRESSION: Status post right AKA no evidence of complications. Reading Location: [id number] CC: Dr. Clementina Tao MD Manufacturing Scheduler: Signed Normal [facility] Lumbar Spine 2 or 3 Viewson 01-26-2025 Lumbar Spine 2 or 3 Views [facility] Imaging Services [address] [place] [id number] Lumbar Spine 2 or 3 Views MR#: [id number] Acct: [id number] Name: RIZWAN COFFMAN Rep #: [id number] : 1955 M 70 From: Ehsan Mathews MD PCP: Dr. Clementina Tao MD Status: REG CLI Study: Lumbar Spine 2 or 3 Views Date of Exam: Exam# [id number] Ordering Dr: Clementina Tao MD PROCEDURE: LUMBAR SPINE 2 OR 3 VIEWS 01/26/2025 REASON FOR EXAM: DORSALGIA TECHNIQUE: 2 view(s) of the lumbar spine FINDINGS: Vertebrae: No acute fracture. Discs: Mild multilevel disc space narrowing. Alignment: Mild dextroscoliosis centered at L2/L3. No subluxation. Other: Facet hypertrophy in the lower lumbar spine. RAD/Lumbar Spine 2 or 3 Views IMPRESSION: Mild dextroscoliosis with degenerative disc disease. Reading Location: [id number] CC: Dr. Clementina Tao MD Manufacturing Scheduler: Signed Normal [facility] Absolute lymphocyte countOrd ered By: Clementina Tao on 09-05-2023 Lymphocytes Auto (Unsp spec) [#/Vol] 1.97 10*3/uL 0.83-4.51 [facility] Basophil percentageOrdered B y: Clementina Tao on 09-05-2023 Basophils/100 WBC (Bld) 0.7 % 0-1 [facility] Bilirubin [Mass/Vol] 1.00 mg/dL 0.20-1.00 [facility] Comment on above: For patients on eltr ombopag therapy, use of Dimension [place] TBIL is not recommended. Chloride [Moles/Vol] 104 mmol/L 98-107 [facility] Cholesterol [Mass/Vol] 171 mg/dL <200 [facility] Comment on above: <200 mg/dL Desirable 200-240 mg/dL Borderline >240 mg/dL High Risk Eosinophils/100 WBC (Bld) 0.7 % 0-5 [facility] Glucose [Mass/Vol] 103 mg/dL 74-106 [facility] Comment on above: Fasting Glucose resu lt from 100 to 125 mg/dL suggests IMPAIRED HOMEOSTASIS per A.D.A. criteria. Neutrophils (Bld) [#/Vol] 4.4 10*3/uL 2.0-7.7 [facility] Neutrophils/100 WBC (Bld) 61.7 % 47-70 [facility] Potassium [Moles/Vol] 4.0 mmol/L 3.5-5.1 [facility] Protein [Mass/Vol] 8.1 g/dL 6.4-8.2 [facility] Sodium [Moles/Vol] 134 mmol/L 136-145 [facility] WBC (Bld) [#/Vol] 7.1 10*3/uL 4.4-11.0 [facility] Blood erythrocytes count (nu mber/volume)Ordered By: Clementina Tao on 09-05-2023 RBC (Bld) [#/Vol] 4.81 10*6/uL 4.6-6.2 [facility] Blood hemoglobin measurement (mass/volume)Ordered By: Clementina Tao on 09-05-2023 Hemoglobin (Bld) [Mass/Vol] 15.0 g/dL 13.0-16.5 [facility] Blood lymphocytes/100 leukoc ytesOrdered By: Clementina Tao on 09-05-2023 Lymphocytes/100 WBC (Bld) 27.7 % 19-41 [facility] Blood monocytes/100 leukocyt esOrdered By: Clementina Tao on 09-05-2023 Monocytes/100 WBC (Bld) 9.1 % 0-10 [facility] Blood platelet mean volumeOr dered By: Clementina Tao on 09-05-2023 Platelet mean volume (Bld) [Entitic vol] 9.2 fL 6.2-12.0 [facility] Determination of erythrocyte mean corpuscular volume (MCV)Ordered By: Clementina Tao on 09-05-2023 MCV (RBC) [Entitic vol] 92.1 fL 80-94 [facility] Hematocrit Auto (Bld) [Volum e fraction]Ordered By: Clementina Tao on 09-05-2023 Hematocrit (Bld) [Volume fraction] 44.3 % 40-54 [facility] Laboratory - Chemistry and C hemistry - challengeOrdered By: Clementina Tao on 09-05-2023 ALP [Catalytic activity/Vol] 95 U/L 45-117 [facility] ALT [Catalytic activity/Vol] 45 U/L 16-61 [facility] CO2 [Moles/Vol] 25.0 mmol/L 21.0-32.0 [facility] Globulin (S) [Mass/Vol] 4.2 g/dL 2.2-4.2 [facility] Urea nitrogen/Creatinine [Mass ratio] 22.1 mg/mg 10-20 [facility] Laboratory - Hematology and Cell countsOrdered By: Clementina Tao on 09-05-2023 Erythrocyte distribution width (RBC) [Entitic vol] 42.9 fL 35.1-43.9 [facility] Erythrocyte distribution width (RBC) [Ratio] 12.5 % 11.6-14.6 [facility] Immature granulocytes/100 WBC (Bld) 0.100 % 0.0-0.9 [facility] Comment on above: IG% - Immature Granu locytes (promyelocytes, myelocytes and metamyelocytes) > 1% indicates that a LEFT SHIFT is Present. MCH (RBC) [Entitic mass] 31.2 pg 27.0-32.0 [facility] Nucleated RBC/100 WBC (Bld) [Ratio] 0 % 0-5 [facility] Auto (RBC) [Mass/Vol]Or dered By: Clementina Tao on 09-05-2023 MCHC (RBC) [Mass/Vol] 33.9 g/dL 32-36 [facility] No Panel InformationOrdered By: Clementina Tao on 09-05-2023 Estimated GFR (MDRD) Amer 91 mL/min >60 [facility] Comment on above: GFR Calc Estimated GFR (MDRD) Non-Af Amer 75 mL/min >60 [facility] Comment on above: Non- GFR Calc Urine Microalbumin/Creatinine Ratio 5.3 mg/g CRE <30 [facility] Platelets bldOrdered By: Marah Tao on 09-05-2023 Platelets (Bld) [#/Vol] 329 10*3/uL 150-450 [facility] Serum or plasma albumin rl urement (mass/volume)Ordered By: Clementina Tao on 09-05-2023 Albumin [Mass/Vol] 3.9 g/dL 3.2-5.0 [facility] Serum or plasma albumin/glob ulin mass ratioOrdered By: Clementina Tao on 09-05-2023 Albumin/Globulin [Mass ratio] 0.9 {ratio} 0.9-2.4 [facility] Serum or plasma calcium rl urement (mass/volume)Ordered By: Clementina Tao on 09-05-2023 Calcium [Mass/Vol] 9.4 mg/dL 8.5-10.1 [facility] Serum or plasma cholesterol in HDL measurement (mass/volume)Ordered By: Clementina Tao on 09-05-2023 Cholesterol in HDL [Mass/Vol] 55 mg/dL >40 [facility] Comment on above: The drugs N-Acetylcy steine and Metamizole may falsely depress this assay. Reference Range HDL <40 mg/dL Low HDL Cholesterol HDL >or= 60 mg/dL High HDL Cholesterol Serum or plasma creatinine m easurement (mass/volume)Ordered By: Clementina Tao on 09-05-2023 Creatinine [Mass/Vol] 1.04 mg/dL 0.70-1.30 [facility] Comment on above: The validity of the calculated GFR & GFRAA in patients over 70 years has not been determined. Clinical correlation is essential. Serum or plasma urea nitroge n measurement (mass/volume)Ordered By: Clementina Tao on 09-05-2023 Urea nitrogen [Mass/Vol] 23 mg/dL 7-18 [facility] Thin prep Papanicolaou smear with manual screeningOrdered By: Clementina Tao on 09-05-2023 Thin prep Papanicolaou smear with manual screening 35 U/L 15-37 [facility] Thin prep Papanicolaou smear with manual screening 5 5-15 [facility] Thin prep Papanicolaou smear with manual screening 6.4 mg/L NO RANGE EST. [facility] Urine creatinine measurement (mass/volume)Ordered By: Clementina Tao on 09-05-2023 Creatinine (U) [Mass/Vol] 120.00 mg/dL NO RANGE EST. [facility] Glucose Glucometer (BldC) [M ass/Vol]Ordered By: Dr. Dockery on 12-25-2022 Glucose [Mass/Vol] 164 mg/dL 74-106 [facility] Comment on above: MANAGEMENT OF PATIEN T CARE PER NURSING PROTOCOL No Panel InformationOrdered By: Dr. Dockery on 12-18-2022 Nasal Screen MRSA/MSSA [facility] Absolute lymphocyte countOrd ered By: Dr. Dockery on 12-17-2022 Lymphocytes Auto (Unsp spec) [#/Vol] 1.67 10*3/uL 0.83-4.51 [facility] Basophil percentageOrdered B y: Dr. Dockery on 12-17-2022 Basophils/100 WBC (Bld) 0.7 % 0-1 [facility] Chloride [Moles/Vol] 103 mmol/L 98-107 [facility] Eosinophils/100 WBC (Bld) 1.2 % 0-5 [facility] Glucose [Mass/Vol] 119 mg/dL 74-106 [facility] Comment on above: Fasting Glucose resu lt from 100 to 125 mg/dL suggests IMPAIRED HOMEOSTASIS per A.D.A. criteria. Neutrophils (Bld) [#/Vol] 4.4 10*3/uL 2.0-7.7 [facility] Neutrophils/100 WBC (Bld) 63.9 % 47-70 [facility] Potassium [Moles/Vol] 4.1 mmol/L 3.5-5.1 [facility] Sodium [Moles/Vol] 136 mmol/L 136-145 [facility] WBC (Bld) [#/Vol] 7.0 10*3/uL 4.4-11.0 [facility] Blood erythrocytes count (nu mber/volume)Ordered By: Dr. Dockery on 12-17-2022 RBC (Bld) [#/Vol] 4.92 10*6/uL 4.6-6.2 [facility] Blood hemoglobin measurement (mass/volume)Ordered By: Dr. Dockery on 12-17-2022 Hemoglobin (Bld) [Mass/Vol] 15.3 g/dL 13.0-16.5 [facility] Blood lymphocytes/100 leukoc ytesOrdered By: Dr. Dockery on 12-17-2022 Lymphocytes/100 WBC (Bld) 24.0 % 19-41 [facility] Blood monocytes/100 leukocyt esOrdered By: Dr. Dockery on 12-17-2022 Monocytes/100 WBC (Bld) 9.9 % 0-10 [facility] Blood platelet mean volumeOr dered By: Dr. Dockery on 12-17-2022 Platelet mean volume (Bld) [Entitic vol] 9.2 fL 6.2-12.0 [facility] Determination of erythrocyte mean corpuscular volume (MCV)Ordered By: Dr. Dockery on 12-17-2022 MCV (RBC) [Entitic vol] 91.9 fL 80-94 [facility] HIV 1 and HIV-2 antibody ass ay with HIV-1 p24 antigen detectionOrdered By: Dr. Dockery on 12-17-2022 HIV 1+2 Ab+HIV1 p24 Ag IA Ql Non-Reactive Nonreactive [facility] Hematocrit Auto (Bld) [Volum e fraction]Ordered By: Dr. Dockery on 12-17-2022 Hematocrit (Bld) [Volume fraction] 45.2 % 40-54 [facility] Laboratory - Chemistry and C hemistry - challengeOrdered By: Dr. Dockery on 12-17-2022 CO2 [Moles/Vol] 29.0 mmol/L 21.0-32.0 [facility] Urea nitrogen/Creatinine [Mass ratio] 19.1 mg/mg 10- [facility] Laboratory - Chemistry and C hemistry - challengeOrdered By: Dr. Lal on 12-17-2022 Magnesium [Mass/Vol] 2.1 mg/dL 1.6-2.6 [facility] Laboratory - Hematology and Cell countsOrdered By: Dr. Dockery on 12-17-2022 Erythrocyte distribution width (RBC) [Entitic vol] 43.1 fL 35.1-43.9 [facility] Erythrocyte distribution width (RBC) [Ratio] 12.6 % 11.6-14.6 [facility] Immature granulocytes/100 WBC (Bld) 0.300 % 0.0-0.9 [facility] Comment on above: IG% - Immature Granu locytes (promyelocytes, myelocytes and metamyelocytes) > 1% indicates that a LEFT SHIFT is Present. MCH (RBC) [Entitic mass] 31.1 pg 27.0-32.0 [facility] Nucleated RBC/100 WBC (Bld) [Ratio] 0 % 0-5 [facility] MCHC Auto (RBC) [Mass/Vol]Or dered By: Dr. Dockery on 12-17-2022 MCHC (RBC) [Mass/Vol] 33.8 g/dL 32-36 [facility] No Panel InformationOrdered By: Dr. Dockery on 12-17-2022 Estimated GFR (MDRD) Amer 81 mL/min >60 [facility] Comment on above: GFR Calc Estimated GFR (MDRD) Non-Af Amer 67 mL/min >60 [facility] Comment on above: Non- GFR Calc Hepatitis A Antibody Total Negative Negative [facility] Comment on above: Performed at: [address] [id number] Director: Vinod Varghese PhD, Phone: [phone] Hepatitis C Antibody Non-Reactive Nonreactive [facility] Comment on above: Non Reactive: < 0.8 Equivocal: >/= 0.8 to < 1.0 Reactive: >/= 1.0The CDC recommends that a reactive/equivocal HCV antibody result be followed up by the HCV Nucleic Acid Amplificationtest (344774) No Panel InformationOrdered By: Jose Dockery on 12-17-2022 Nasal Screen MRSA/MSSA [facility] Platelets bldOrdered By: Dr. Dockery on 12-17-2022 Platelets (Bld) [#/Vol] 298 10*3/uL 150-450 [facility] Serum hepatitis B virus surf connie antibody IgG detectionOrdered By: Dr. Dockery on 12-17-2022 HBV surface IgG Ql (S) Non-Reactive [facility] Comment on above: Non Reactive: Incons istent with immunity less than <10 mIU/mL Reactive: Consistent with immunity greater than or equal to 10 mIU/mL Serum or plasma calcium rl urement (mass/volume)Ordered By: Dr. Dockery on 12-17-2022 Calcium [Mass/Vol] 9.5 mg/dL 8.5-10.1 [facility] Serum or plasma creatinine m easurement (mass/volume)Ordered By: Dr. Dockery on 12-17-2022 Creatinine [Mass/Vol] 1.15 mg/dL 0.70-1.30 [facility] Comment on above: The validity of the calculated GFR & GFRAA in patients over 70 years has not been determined. Clinical correlation is essential. Serum or plasma urea nitroge n measurement (mass/volume)Ordered By: Dr. Dockery on 12-17-2022 Urea nitrogen [Mass/Vol] 22 mg/dL 7-18 [facility] Thin prep Papanicolaou smear with manual screeningOrdered By: Dr. Dockery on 12-17-2022 Thin prep Papanicolaou smear with manual screening 4 5-15 [facility]20[facility] RIZWAN COFFMAN ([id number]) 1955 M Date Time Provider Department 09/18/22 ELVIS BONNER During your visit today, we recorded the following information about you: Timothy Cohen RN 09/18/2022 9:11 AM Signed Received request for Rizwan's colonoscopy that was completed on 11/09/2021. Faxed to [phone]. Fax confirmation sheet received. Timothy Cohen RN Allergies As of Date: 09/18/2022 (No Known Allergies) Date Reviewed: 11/09/2021 Reviewed by: Lalita Sheth RN - Fully Assessed Reason for Visit: Release Of Medical Records [2017] Cmt: Colonoscopy results Prescriptions as of 09/18/2022 - polyethylene glycol 3350 (MIRALAX, GLYCOLAX) 17 gram packet Take 17 g by mouth once daily. - amLODIPine (NORVASC) 10 mg tablet Take 10 mg by mouth once daily. - meloxicam (MOBIC) 15 mg tablet Take 15 mg by mouth once daily. - lisinopril (ZESTRIL, PRINIVIL) 20 mg tablet Take 20 mg by mouth once daily. - FLUTICASONE PROPIONATE (FLUTICASONE NASAL) Use in the nose. Problem List As Of Date 09/18/2022 Noted Resolved Benign Neoplasm of Colon [D12.6] 12/19/2009 Unspecified Constipation [K59.00] 12/19/2009 Encounter for screening for malignant neoplasm *04/19/2016 Encounter Status:Closed by TIMOTHY COHEN on 09/18/22 Normal [facility] Absolute lymphocyte countOrd ered By: Dr. Tao on 09-03-2022 Lymphocytes Auto (Unsp spec) [#/Vol] 1.47 10*3/uL 0.83-4.51 [facility] Basophil percentageOrdered B y: Dr. Tao on 09-03-2022 Basophils/100 WBC (Bld) 0.5 % 0-1 [facility] Bilirubin [Mass/Vol] 0.90 mg/dL 0.20-1.00 [facility] Comment on above: For patients on eltr ombopag therapy, use of Dimension [place] TBIL is not recommended. Chloride [Moles/Vol] 100 mmol/L 98-107 [facility] Eosinophils/100 WBC (Bld) 0.5 % 0-5 [facility] Glucose [Mass/Vol] 99 mg/dL 74-106 [facility] Neutrophils (Bld) [#/Vol] 5.2 10*3/uL 2.0-7.7 [facility] Neutrophils/100 WBC (Bld) 70.7 % 47-70 [facility] Potassium [Moles/Vol] 3.9 mmol/L 3.5-5.1 [facility] Protein [Mass/Vol] 7.9 g/dL 6.4-8.2 [facility] Sodium [Moles/Vol] 137 mmol/L 136-145 [facility] WBC (Bld) [#/Vol] 7.4 10*3/uL 4.4-11.0 [facility] Blood erythrocytes count (nu mber/volume)Ordered By: Dr. Tao on 09-03-2022 RBC (Bld) [#/Vol] 5.16 10*6/uL 4.6-6.2 [facility] Blood hemoglobin measurement (mass/volume)Ordered By: Dr. Tao on 09-03-2022 Hemoglobin (Bld) [Mass/Vol] 16.2 g/dL 13.0-16.5 [facility] Blood lymphocytes/100 leukoc ytesOrdered By: Dr. Tao on 09-03-2022 Lymphocytes/100 WBC (Bld) 19.9 % 19-41 [facility] Blood monocytes/100 leukocyt esOrdered By: Dr. Tao on 09-03-2022 Monocytes/100 WBC (Bld) 8.1 % 0-10 [facility] Blood platelet mean volumeOr dered By: Dr. Tao on 09-03-2022 Platelet mean volume (Bld) [Entitic vol] 9.4 fL 6.2-12.0 [facility] Determination of erythrocyte mean corpuscular volume (MCV)Ordered By: Dr. Tao on 09-03-2022 MCV (RBC) [Entitic vol] 88.8 fL 80-94 [facility] Hematocrit Auto (Bld) [Volum e fraction]Ordered By: Dr. Tao on 09-03-2022 Hematocrit (Bld) [Volume fraction] 45.8 % 40-54 [facility] Laboratory - Chemistry and C hemistry - challengeOrdered By: Dr. Tao on 09-03-2022 ALP [Catalytic activity/Vol] 92 U/L 45-117 [facility] ALT [Catalytic activity/Vol] 48 U/L 16-61 [facility] CO2 [Moles/Vol] 26.0 mmol/L 21.0-32.0 [facility] Globulin (S) [Mass/Vol] 3.6 g/dL 2.2-4.2 [facility] Urea nitrogen/Creatinine [Mass ratio] 17.0 mg/mg 10-20 [facility] Laboratory - Hematology and Cell countsOrdered By: Dr. Tao on 09-03-2022 Erythrocyte distribution width (RBC) [Entitic vol] 40.7 fL 35.1-43.9 [facility] Erythrocyte distribution width (RBC) [Ratio] 12.4 % 11.6-14.6 [facility] Immature granulocytes/100 WBC (Bld) 0.300 % 0.0-0.9 [facility] Comment on above: IG% - Immature Granu locytes (promyelocytes, myelocytes and metamyelocytes) > 1% indicates that a LEFT SHIFT is Present. MCH (RBC) [Entitic mass] 31.4 pg 27.0-32.0 [facility] Nucleated RBC/100 WBC (Bld) [Ratio] 0 % 0-5 [facility] MCHC Auto (RBC) [Mass/Vol]Or dered By: Dr. Tao on 09-03-2022 MCHC (RBC) [Mass/Vol] 35.4 g/dL 32-36 [facility] No Panel InformationOrdered By: Dr. Tao on 09-03-2022 Estimated GFR (MDRD) Amer 95 mL/min >60 [facility] Comment on above: GFR Calc Estimated GFR (MDRD) Non-Af Amer 79 mL/min >60 [facility] Comment on above: Non- GFR Calc Prostate Specific Antigen Screen 1.84 ng/mL 0.00-4.00 [facility] Comment on above: This test was perfor med using the TPSA assay method for the[employer] chemistry system. Values obtained with differentassay methods cannot be used interchangably.When changing PSA assays in the course of monitoring apatient, additional sequential testing should be carriedout to confirm baseline values. Urine Microalbumin/Creatinine Ratio 82.8 mg/g CRE <30 [facility] Platelets bldOrdered By: Dr. Tao on 09-03-2022 Platelets (Bld) [#/Vol] 290 10*3/uL 150-450 [facility] Serum or plasma albumin rl urement (mass/volume)Ordered By: Dr. Tao on 09-03-2022 Albumin [Mass/Vol] 4.3 g/dL 3.2-5.0 [facility] Serum or plasma albumin/glob ulin mass ratioOrdered By: Dr. Tao on 09-03-2022 Albumin/Globulin [Mass ratio] 1.2 {ratio} 0.9-2.4 [facility] Serum or plasma calcium rl urement (mass/volume)Ordered By: Dr. Tao on 09-03-2022 Calcium [Mass/Vol] 9.6 mg/dL 8.5-10.1 [facility] Serum or plasma creatinine m easurement (mass/volume)Ordered By: Dr. Tao on 09-03-2022 Creatinine [Mass/Vol] 1.00 mg/dL 0.70-1.30 [facility] Comment on above: The validity of the calculated GFR & GFRAA in patients over 70 years has not been determined. Clinical correlation is essential. Serum or plasma urea nitroge n measurement (mass/volume)Ordered By: Dr. Tao on 09-03-2022 Urea nitrogen [Mass/Vol] 17 mg/dL 7-18 [facility] Thin prep Papanicolaou smear with manual screeningOrdered By: Dr. Tao on 09-03-2022 Thin prep Papanicolaou smear with manual screening 33 U/L 15-37 [facility] Thin prep Papanicolaou smear with manual screening 11 5-15 [facility] Thin prep Papanicolaou smear with manual screening 48.0 mg/L NO RANGE EST. [facility] Urine creatinine measurement (mass/volume)Ordered By: Dr. Tao on 09-03-2022 Creatinine (U) [Mass/Vol] 58.00 mg/dL NO RANGE EST. [facility] Basophil percentageon 2021 Bilirubin [Mass/Vol] 0.50 mg/dL 0.20-1.00 [facility] Work Phone: Comment on above: For patients on eltr ombopag therapy, use of Dimension [place] TBIL is not recommended. Chloride [Moles/Vol] 104 mmol/L 98-107 [facility] Work Phone: Glucose [Mass/Vol] 142 mg/dL 74-106 [facility] Work Phone: [phone] Comment on above: Fasting Glucose resu lt greater than or equal to 126 mg/dL suggests DIABETES MELLITUS per A.D.A. criteria. Potassium [Moles/Vol] 3.9 mmol/L 3.5-5.1 [facility] Work Phone: [phone] Protein [Mass/Vol] 7.8 g/dL 6.4-8.2 [facility] Work Phone: [phone] Sodium [Moles/Vol] 137 mmol/L 136-145 [facility] Work Phone: [phone] WBC (Bld) [#/Vol] 7.0 10*3/uL 4.4-11.0 [facility] Work Phone: [phone] Blood erythrocytes count (nu mber/volume)on 03-01-2022 RBC (Bld) [#/Vol] 4.28 10*6/uL 4.6-6.2 [facility] Work Phone: [phone] Blood hemoglobin measurement (mass/volume)on 03-01-2022 Hemoglobin (Bld) [Mass/Vol] 13.2 g/dL 13.0-16.5 [facility] Work Phone: [phone] Blood platelet mean volumeon 03-01-2022 Platelet mean volume (Bld) [Entitic vol] 9.7 fL 6.2-12.0 [facility] Work Phone: [phone] Determination of erythrocyte mean corpuscular volume (MCV)on 03-01-2022 MCV (RBC) [Entitic vol] 92.8 fL 80-94 [facility] Work Phone: [phone] Hematocrit Auto (Bld) [Volum e fraction]on 03-01-2022 Hematocrit (Bld) [Volume fraction] 39.7 % 40-54 [facility] Work Phone: [phone] Laboratory - Chemistry and C hemistry - challengeon 03-01-2022 ALP [Catalytic activity/Vol] 89 U/L 45-117 [facility] Work Phone: ALT [Catalytic activity/Vol] 35 U/L 16-61 [facility] Work Phone: [phone] CO2 [Moles/Vol] 26.0 mmol/L 21.0-32.0 [facility] Work Phone: [phone] Globulin (S) [Mass/Vol] 4.0 g/dL 2.2-4.2 [facility] Work Phone: [phone] Magnesium [Mass/Vol] 1.8 mg/dL 1.6-2.6 [facility] Work Phone: Urea nitrogen/Creatinine [Mass ratio] 20.1 mg/mg 10-20 [facility] Work Phone: [phone] Laboratory - Hematology and Cell countson 03-01-2022 Erythrocyte distribution width (RBC) [Entitic vol] 42.5 fL 35.1-43.9 [facility] Work Phone: [phone] distribution width (RBC) [Ratio] 12.4 % 11.6-14.6 [facility] Work Phone: MCH (RBC) [Entitic mass] 30.8 pg 27.0-32.0 [facility] Work Phone: MCHC Auto (RBC) [Mass/Vol]on 03-01-2022 MCHC (RBC) [Mass/Vol] 33.2 g/dL 32-36 [facility] Work Phone: No Panel Informationon 03-01 Estimated GFR (MDRD) Amer 96 mL/min >60 [facility] Work Phone: Comment on above: GFR Calc Estimated GFR (MDRD) Non-Af Amer 79 mL/min >60 [facility] Work Phone: [phone] Comment on above: Non- GFR Calc Thyroid Stimulating Hormone (TSH) 1.92 uIU/mL 0.358-3.74 [facility] Work Phone: Platelets bldon 03-01-2022 Platelets (Bld) [#/Vol] 310 10*3/uL 150-450 [facility] Work Phone: [phone] Serum or plasma albumin rl urement (mass/volume)on 03-01-2022 Albumin [Mass/Vol] 3.8 g/dL 3.2-5.0 [facility] Work Phone: [phone] Serum or plasma albumin/glob ulin mass ratioon 03-01-2022 Albumin/Globulin [Mass ratio] 1.0 {ratio} 0.9-2.4 [facility] Work Phone: [phone] Serum or plasma calcium rl urement (mass/volume)on 03-01-2022 Calcium [Mass/Vol] 9.7 mg/dL 8.5-10.1 [facility] Work Phone: [phone] Serum or plasma creatinine m easurement (mass/volume)on 03-01-2022 Creatinine [Mass/Vol] 1.00 mg/dL 0.70-1.30 [facility] Work Phone: Comment on above: The validity of the calculated GFR & GFRAA in patients over 70 years has not been determined. Clinical correlation is essential. Serum or plasma ferritin zachery surement (mass/volume)on 03-01-2022 Ferritin [Mass/Vol] 560 ng/mL 26-388 [facility] Work Phone: [phone] Serum or plasma urea nitroge n measurement (mass/volume)on 03-01-2022 Urea nitrogen [Mass/Vol] 20 mg/dL 7-18 [facility] Work Phone: [phone] Thin prep Papanicolaou smear with manual screeningon 03-01-2022 Thin prep Papanicolaou smear with manual screening 25 U/L 15-37 [facility] Work Phone: [phone] Thin prep Papanicolaou smear with manual screening 7 5-15 [facility] Work Phone: [phone] Basophil percentageon 2021 Chloride [Moles/Vol] 104 mmol/L 98-107 [facility] Work Phone: [phone] Glucose [Mass/Vol] 128 mg/dL 74-106 [facility] Work Phone: [phone] Comment on above: Fasting Glucose resu lt greater than or equal to 126 mg/dL suggests DIABETES MELLITUS per A.D.A. criteria. Potassium [Moles/Vol] 4.2 mmol/L 3.5-5.1 [facility] Work Phone: [phone] Sodium [Moles/Vol] 135 mmol/L 136-145 [facility] Work Phone: [phone] WBC (Bld) [#/Vol] 14.9 10*3/uL 4.4-11.0 [facility] Work Phone: [phone] Blood erythrocytes count (nu mber/volume)on 01-04-2022 RBC (Bld) [#/Vol] 3.81 10*6/uL 4.6-6.2 [facility] Work Phone: [phone] Blood hemoglobin measurement (mass/volume)on 01-04-2022 Hemoglobin (Bld) [Mass/Vol] 11.9 g/dL 13.0-16.5 [facility] Work Phone: [phone] Blood platelet mean volumeon 01-04-2022 Platelet mean volume (Bld) [Entitic vol] 9.9 fL 6.2-12.0 [facility] Work Phone: [phone] Determination of erythrocyte mean corpuscular volume (MCV)on 01-04-2022 MCV (RBC) [Entitic vol] 91.3 fL 80-94 [facility] Work Phone: [phone] Hematocrit Auto (Bld) [Volum e fraction]on 01-04-2022 Hematocrit (Bld) [Volume fraction] 34.8 % 40-54 [facility] Work Phone: [phone] Laboratory - Chemistry and C hemistry - challengeon 01-04-2022 CO2 [Moles/Vol] 27.0 mmol/L 21.0-32.0 [facility] Work Phone: [phone] Urea nitrogen/Creatinine [Mass ratio] 24.3 mg/mg 10-20 [facility] Work Phone: [phone] Laboratory - Hematology and Cell countson 01-04-2022 Erythrocyte distribution width (RBC) [Entitic vol] 41.5 fL 35.1-43.9 [facility] Work Phone: [phone] Erythrocyte distribution width (RBC) [Ratio] 12.5 % 11.6-14.6 [facility] Work Phone: [phone] MCH (RBC) [Entitic mass] 31.2 pg 27.0-32.0 [facility] Work Phone: [phone] MCHC Auto (RBC) [Mass/Vol]on 01-04-2022 MCHC (RBC) [Mass/Vol] 34.2 g/dL 32-36 [facility] Work Phone: No Panel Informationon 01-04 Estimated Creatinine Clearance Calc 66.99 ml/min [facility] Work Phone: [phone] Estimated GFR (MDRD) Amer 88 mL/min >60 [facility] Work Phone: Comment on above: GFR Calc Estimated GFR (MDRD) Non-Af Amer 73 mL/min >60 [facility] Work Phone: [phone] Comment on above: Non- GFR Calc Platelets bldon 01-04-2022 Platelets (Bld) [#/Vol] 249 10*3/uL 150-450 [facility] Work Phone: [phone] Serum or plasma calcium rl urement (mass/volume)on 01-04-2022 Calcium [Mass/Vol] 8.3 mg/dL 8.5-10.1 [facility] Work Phone: [phone] Serum or plasma creatinine m easurement (mass/volume)on 01-04-2022 Creatinine [Mass/Vol] 1.07 mg/dL 0.70-1.30 [facility] Work Phone: [phone] Comment on above: The validity of the calculated GFR & GFRAA in patients over 70 years has not been determined. Clinical correlation is essential. Serum or plasma urea nitroge n measurement (mass/volume)on 01-04-2022 Urea nitrogen [Mass/Vol] 26 mg/dL 7-18 [facility] Work Phone: Thin prep Papanicolaou smear with manual screeningon 01-04-2022 Thin prep Papanicolaou smear with manual screening 4 5-15 [facility] Work Phone: Gram stain for investigation of transfusion reactionon 01-03-2022 Microscopic observation Gram stain Nom (Unsp spec) [facility] Work Phone: Absolute lymphocyte counton 11-15-2021 Lymphocytes Auto (Unsp spec) [#/Vol] 1.84 10*3/uL 0.83-4.51 [facility] Work Phone: Basophil percentageon 2021 Basophils/100 WBC (Bld) 1.0 % 0-1 [facility] Work Phone: Eosinophils/100 WBC (Bld) 1.8 % 0-5 [facility] Work Phone: Neutrophils (Bld) [#/Vol] 4.1 10*3/uL 2.0-7.7 [facility] Work Phone: Neutrophils/100 WBC (Bld) 58.5 % 47-70 [facility] Work Phone: Blood lymphocytes/100 leukoc yteson 11-15-2021 Lymphocytes/100 WBC (Bld) 26.2 % 19-41 [facility] Work Phone: Blood monocytes/100 leukocyt eson 11-15-2021 Monocytes/100 WBC (Bld) 12.2 % 0-10 [facility] Work Phone: Laboratory - Chemistry and C hemistry - challengeon 11-15-2021 Magnesium [Mass/Vol] 2.0 mg/dL 1.6-2.6 [facility] Work Phone: Laboratory - Hematology and Cell countson 11-15-2021 Immature granulocytes/100 WBC (Bld) 0.300 % 0.0-0.9 [facility] Work Phone: Comment on above: IG% - Immature Granu locytes (promyelocytes, myelocytes and metamyelocytes) > 1% indicates that a LEFT SHIFT is Present. Nucleated RBC/100 WBC (Bld) [Ratio] 0 % 0-5 [facility] Work Phone: Serum or plasma albumin rl urement (mass/volume)on 11-15-2021 Albumin [Mass/Vol] 4.1 g/dL 3.2-5.0 [facility] Work Phone: HISTORY PHYSICALon 2 HISTORY PHYSICAL HNO ID: [id number] Author: Elvis Bonner MD Service: General Surgery Author Type: Physician Type: HANDP Filed: 11/09/2021 8:44 AM Note Text: HISTORY AND PHYSICAL ? Rizwan Coffman 1955 ? REFERRING PHYSICIAN: Clementina Tao MD ? CHIEF COMPLAINT: Consult (Colonoscopy) ? HPI: The patient is a 66 year old male referred for endoscopy. Rizwan notes no colon complaints. Patient denies any change in bowel habits, weight changes, blood in stools, black tarry stools or abdominal pain. Denies family history of colon issues. The patient notes no upper GI complaints. ? Rizwan has undergone prior endoscopy. Most recent colonoscopy 05/01/[address] Casillas with findings of sigmoid diverticulosis and a 7 mm recto-sigmoid colon polyp which was removed. Pathology showed: ? CONVERTED FINAL DIAGNOSIS 1. Transverse colon polyp, biopsy (A) - Colonic mucosa with minimal surface epithelial hyperplasia (see comment). ?2. Colon polyp at 25 cm, biopsy (B) - Markedly cauterized colonic mucosa with prominent lymphoid aggregate (see comment). ?SHWETA/north 05/03/2016 ? CONVERTED DIAGNOSIS COMMENT ? 1, 2. There is no evidence of dysplasia or malignancy, including on multiple additional deeper levels. ? ? ? Patient had history of a polyp on prior colonoscopy in 2009 as well. Repeat colonoscopy was recommended in 5 years. ? Patient denies chest pain, shortness of breath or recent hospitalizations. Denies problems with sedation in the past. ? Patient has upcoming total knee replacement in October and is hoping to get his colonoscopy completed before his knee surgery. ? ? ? PAST MEDICAL HISTORY PAST MEDICAL HISTORY Diagnosis Date - Benign neoplasm of colon ? - HTN (hypertension), benign ? - Malignant neoplasm of bone and articular cartilage, site unspecified ? Bone cancer left knee - Unspecified constipation ? ? ? PAST SURGICAL HISTORY PAST SURGICAL HISTORY Procedure Laterality Date - COLONOS W/REM POLYP SNARE ? 05/01/2016 ? repeat in 5 years - COLONOSCOP W/ OR W/O BRSH SPEC ? 12/19/2009 ? Colonoscopy-repeat in 5 years (3-2014) - LEG AMPUTATION HX Right ? ? Bone cancer age 17 - TOTAL KNEE REPLACEMENT ? 09/30/2008 ? PARTIAL KNEE REPLACEMENT ? ? ? CURRENT MEDICATIONS Current Outpatient Medications Medication Sig - polyethylene glycol 3350 (MIRALAX, GLYCOLAX) 17 gram packet Take 17 g by mouth once daily. - amLODIPine (NORVASC) 10 mg tablet Take 10 mg by mouth once daily. - meloxicam (MOBIC) 15 mg tablet Take 15 mg by mouth once daily. - lisinopril (ZESTRIL, PRINIVIL) 20 mg tablet Take 20 mg by mouth once daily. - FLUTICASONE PROPIONATE (FLUTICASONE NASAL) Use in the nose. ? No current facility-administere d medications for this visit. ? ? ALLERGIES: Patient has no known allergies. ? PERSONAL HISTORY: SOCIAL HISTORY Social History ? Tobacco Use - Smoking status: Never Smoker - Smokeless tobacco: Never Used Substance Use Topics - Alcohol use: No - Drug use: No ? FAMILY HISTORY: FAMILY HISTORY FAMILY HISTORY Problem Relation Age of Onset - Hypertension Brother ? ? ? REVIEW OF SYMPTOMS: The review of systems data was entered by the nurse and reviewed by me ? Nursing Notes: Shayla Frank 10/17/2021 9:28 AM Signed REVIEW OF SYSTEMS: General: The patient denies fatigue, denies weight loss, denies weight gain, denies feeling hot, and denies feelings of cold. Eyes: The patient denies glaucoma, denies eye injury/surgery, does not wear glasses or contacts. Ear/Nose/Throat: The patient denies allergies, denies hayfever, denies ear infections, and denies bloody noses. Cardiovascular: The patient denies chest pain, denies heart disease, NOTES high blood pressure,denies cardiac stent, denies prior heart attack, denies irregular heart beat, denies high cholesterol, denies poor circulation, denies heart failure, other cardiac issues, NOTES claudication, denies cold feet, denies peripheral arterial stent. Respiratory: The patient denies tuberculosis, denies pneumonia, denies frequent cough, denies pulmonary embolism, denies shortness of breath, and denies coughing up blood. Gastrointestinal: The patient denies difficulty swallowing, denies acid reflux, denies ulcers, denies vomiting, denies jaundice/hepatitis, denies gallbladder problems, denies black or tarry stools, denies hemorrhoids, denies bleeding from rectum, denies diverticulitis, denies constipation, denies diarrhea, denies loss of stool control, and denies hernias. Kidney/Bladder: The patient denies kidney stones, denies urine infections, and denies bloody urine. Skin: The patient denies a history of skin cancer, denies bleeding/changing moles, and denies a history of skin rash. Neurologic: The patient denies a history of epilepsy/convulsions , denies headaches, denies head/spinal injuries, and denies stroke/TIA. Psychiatric: (more content not included)... [facility] NURSING PROGon 11-09-2021 NURSING PROG HNO ID: [id number] Author: Antionette Edge RN Service: ? Author Type: Registered Nurse Type: Nursing Progress Note Filed: 11/09/2021 9:54 AM Note Text: [facility] PRE-OP NURSING HAND OFF NOTE SBAR Hand off given to Anna Red RN and Toño Berger RN. Hand off was communicated verbally and at the patient's bedside and all questions were answered. Antionette Edge RN [facility] Teresa 10-18-2021 [facility] RIZWAN COFFMAN ([id number]) 1955 M Date Time Provider Department 10/18/21 DARIANA JOSE During your visit today, we recorded the following information about you: Maricarmen Riggins 10/18/2021 12:18 PM Signed 11-02-2021 [facility] Allergies As of Date: 10/18/2021 (No Known Allergies) Date Reviewed: 10/17/2021 Reviewed by: Dariana Jose PA-C - Fully Assessed Reason for Visit: 11-02-2021 [facility] [Other] Primary Visit Diagnosis:Special screening for malignant neoplasms, colon [Z12.11] Order(s):COLONOSCOPY SCREENING [GI51] Order #: [id number] FUTURE Prescriptions as of 11/09/2021 - polyethylene glycol 3350 (MIRALAX, GLYCOLAX) 17 gram packet Take 17 g by mouth once daily. - amLODIPine (NORVASC) 10 mg tablet Take 10 mg by mouth once daily. - meloxicam (MOBIC) 15 mg tablet Take 15 mg by mouth once daily. - lisinopril (ZESTRIL, PRINIVIL) 20 mg tablet Take 20 mg by mouth once daily. - FLUTICASONE PROPIONATE (FLUTICASONE NASAL) Use in the nose. Facility-Administere d Medications as of 11/09/2021 - lactated ringers iv infusion Problem List As Of Date 10/18/2021 Noted Resolved Benign Neoplasm of Colon [D12.6] 12/19/2009 Unspecified Constipation [K59.00] 12/19/2009 Encounter for screening for malignant neoplasm *04/19/2016 Encounter Status:Closed by MARICARMEN RIGGINS on 11/09/21 [facility] 10-17-2021 [facility] Office Visit (SWS) RIZWAN COFFMAN ([id number]) 1955 M Date Time Provider Department 10/17/21 9:30 AM DARIANA JOSE During your visit today, we recorded the following information about you: Temperature Pulse Blood pressure Weight 98 degrees 96/minute 124/81 93 kg Height 1.765 m Shayla Frank 10/17/2021 9:28 AM Signed REVIEW OF SYSTEMS: General: The patient denies fatigue, denies weight loss, denies weight gain, denies feeling hot, and denies feelings of cold. Eyes: The patient denies glaucoma, denies eye injury/surgery, does not wear glasses or contacts. Ear/Nose/Throat: The patient denies allergies, denies hayfever, denies ear infections, and denies bloody noses. Cardiovascular: The patient denies chest pain, denies heart disease, NOTES high blood pressure,denies cardiac stent, denies prior heart attack, denies irregular heart beat, denies high cholesterol, denies poor circulation, denies heart failure, other cardiac issues, NOTES claudication, denies cold feet, denies peripheral arterial stent. Respiratory: The patient denies tuberculosis, denies pneumonia, denies frequent cough, denies pulmonary embolism, denies shortness of breath, and denies coughing up blood. Gastrointestinal: The patient denies difficulty swallowing, denies acid reflux, denies ulcers, denies vomiting, denies jaundice/hepatitis, denies gallbladder problems, denies black or tarry stools, denies hemorrhoids, denies bleeding from rectum, denies diverticulitis, denies constipation, denies diarrhea, denies loss of stool control, and denies hernias. Kidney/Bladder: The patient denies kidney stones, denies urine infections, and denies bloody urine. Skin: The patient denies a history of skin cancer, denies bleeding/changing moles, and denies a history of skin rash. Neurologic: The patient denies a history of epilepsy/convulsions , denies headaches, denies head/spinal injuries, and denies stroke/TIA. Psychiatric: The patient denies psychiatric medications, denies depression, and denies voices, denies substance abuse. Endocrine: The patient denies thyroid disorders, denies diabetes, and denies hormonal problems. Hematologic: The patient denies a history of bruising, denies bleeding, and denies anemia, denies blood clots. Infections: The patient NOTES a history of measles and mumps, denies rheumatic fever, and denies sexually transmitted diseases. Musculoskeletal: The patient NOTES back pain/injury, NOTES back problems, denies sciatica, NOTES knee/foot trouble, NOTES arthritis, or denies gout. When was patient's last Mammogram screening? N/A Last Colonoscopy: 04/2016 Shayla Jose PA-C 10/17/2021 12:14 PM Signed HISTORY AND PHYSICAL Rizwan Coffman 1955 REFERRING PHYSICIAN: Clementina Tao MD CHIEF COMPLAINT: Consult (Colonoscopy) HPI: The patient is a 66 year old male referred for endoscopy. Rizwan notes no colon complaints. Patient denies any change in bowel habits, weight changes, blood in stools, black tarry stools or abdominal pain. Denies family history of colon issues. The patient notes no upper GI complaints. Rizwan has undergone prior endoscopy. Most recent colonoscopy 05/01/[address] Casillas with findings of sigmoid diverticulosis and a 7 mm recto-sigmoid colon polyp which was removed. Pathology showed: CONVERTED FINAL DIAGNOSIS 1. Transverse colon polyp, biopsy (A) - Colonic mucosa with minimal surface epithelial hyperplasia (see comment). ?2. Colon polyp at 25 cm, biopsy (B) - Markedly cauterized colonic mucosa with prominent lymphoid aggregate (see comment). ?J[facility]/north 05/03/2016 CONVERTED DIAGNOSIS COMMENT 1, 2. There is no evidence of dysplasia or malignancy, including on multiple additional deeper levels. ? Patient had history of a polyp on prior colonoscopy in 2009 as well. Repeat colonoscopy was recommended in 5 years. Patient denies chest pain, shortness of breath or recent hospitalizations. Denies problems with sedation in the past. Patient has upcoming total knee replacement in October and is hoping to get his colonoscopy completed before his knee surgery. PAST MEDICAL HISTORY Diagnosis Date - Benign neoplasm of colon - HTN (hypertension), benign - Malignant neoplasm of bone and articular cartilage, site unspecified Bone cancer left knee - Unspecified constipation PAST SURGICAL HISTORY Procedure Laterality Date - COLONOS W/REM POLYP SNARE 05/01/2016 repeat in 5 years - COLONOSCOP W/ OR W/O BRSH SPEC 12/19/2009 Colonoscopy-repeat in 5 years (-2014) - LEG AMPUTATION HX Right Bone cancer age 17 - TOTAL KNEE REPLACEMENT 09/30/2008 PARTIAL KNEE REPLACEMENT Current Outpatient Medications Medication Sig - polyethylene glycol 3350 (MIRALAX, GLYCOLAX) 17 gram packet Take 17 g by mouth once daily. - amLODIPine (NORVASC) 10 mg tablet Take 10 mg (more content not included)... [facility] Vital Signs Date Time Vital Sign Value Performing Clinician Marinoi jessenia 05-21-2025 09:15-0400 Body height 170.[address] Clementina Tao MD Work Phone: [facility] 05-21-2025 09:15-0400 Diastolic blood pressure 91 mm[Hg] Dr. Clementina Tao MD Work Phone: [phone] [place] [address] 05-21-2025 09:15-0400 Heart rate 72 /min Dr. Clementina Tao MD Work Phone: [phone] [place] [address] 05-21-2025 09:15-0400 Respiratory rate 18 /min Dr. Clementina Tao MD Work Phone: [phone] [place] [address] 05-21-2025 09:15-0400 SaO2% (BldA) [Mass fraction] 98 % Dr. Clementina Tao MD Work Phone: [phone] [place] [address] 05-21-2025 09:15-0400 Systolic blood pressure 181 mm[Hg] Dr. Clementina Tao MD Work Phone: [phone] [place] [address] 04-23-2025 10:28-0400 Body height 170.[address] Clementina Tao MD Work Phone: [phone] [place] [address] 04-23-2025 10:28-0400 Body mass index (BMI) [Ratio] 31.8 kg/m2 Dr. Clementina Tao MD Work Phone: [phone] [place] [address] 04-23-2025 10:28-0400 Body temperature 98 [degF] Dr. Clementina Tao MD Work Phone: [phone])[phone] [place] [address] 04-23-2025 10:28-0400 Body weight 92.[address] Clementina Tao MD Work Phone: [phone] [place] [address] 04-23-2025 10:28-0400 Diastolic blood pressure 87 mm[Hg] Dr. Clementina Tao MD Work Phone: [phone] [place] [address] 04-23-2025 10:28-0400 Heart rate 92 /min Dr. Clementina Tao MD Work Phone: [phone])601-957838 [place] [address] 04-23-2025 10:28-0400 Respiratory rate 18 /min Dr. Clementina Tao MD Work Phone: [facility] 04-23-2025 10:28-0400 SaO2% (BldA) [Mass fraction] 96 % Dr. Clementina Tao MD Work Phone: [facility] 04-23-2025 10:28-0400 Systolic blood pressure 147 mm[Hg] Dr. Clementina Tao MD Work Phone: [phone] [place] [address] 04-16-2025 12:02-0400 Diastolic blood pressure 70 mm[Hg] Dr. Clementina Tao MD Work Phone: [phone])989-947565 [place] [address] 04-16-2025 12:02-0400 Heart rate 62 /min Dr. Clementina Tao MD Work Phone: [phone])254-509065 [place] [address] 04-16-2025 12:02-0400 Respiratory rate 15 /min Dr. Clemenitna Tao MD Work Phone: [phone] [place] [address] 04-16-2025 12:02-0400 SaO2% (BldA) [Mass fraction] 95 % Dr. Clementina Tao MD Work Phone: [phone] [place] [address] 04-16-2025 12:02-0400 Systolic blood pressure 113 mm[Hg] Dr. Clementina Tao MD Work Phone: [phone] [place] [address] 04-16-2025 09:42-0400 Body height 172.[address] Clementina Tao MD Work Phone: [phone] [place] [address] 04-16-2025 09:42-0400 Body mass index (BMI) [Ratio] 31.9 kg/m2 Dr. Clementina Tao MD Work Phone: [phone])[phone] [place] [address] 04-16-2025 09:42-0400 Body temperature 97.7 [degF] Dr. Clementina Tao MD Work Phone: [phone] [place] [address] 04-16-2025 09:42-0400 Body weight 95.[address] Clementina Tao MD Work Phone: [phone] [place] [address] 12-26-2022 14:00-0400 Body temperature 98.4 [degF] Dr. Clementina Tao Work Phone: [facility] 12-26-2022 14:00-0400 Diastolic blood pressure 84 mm[Hg] Dr. Clementina Tao Work Phone: [facility] 12-26-2022 14:00-0400 Heart rate 96 /min Dr. Clementina Tao Work Phone: [phone] [address] [place] [id number] 12-26-2022 14:00-0400 Respiratory rate 18 /min Dr. Clementina Tao Work Phone: 7(327)416-741132 [address] 12-26-2022 14:00-0400 SaO2% (BldA) [Mass fraction] 98 % Dr. Clementina Tao Work Phone: 4(949)[phone] [place] [address] 12-26-2022 14:00-0400 Systolic blood pressure 127 mm[Hg] Dr. Clementina Tao Work Phone: 5(577)[phone] [place] [address] 12-25-2022 13:30-0400 Inhaled oxygen flow rate 4 L/min Dr. Clementina Tao Work Phone: 4(222)[phone] [address] 12-25-2022 06:14-0400 Body height 172.[address] Clementina Tao Work Phone: 7(750)[phone] [place] [address] 12-25-2022 06:14-0400 Body mass index (BMI) [Ratio] 29.7 kg/m2 Dr. Clementina Tao Work Phone: 1(305)[phone] [place] [address] 12-25-2022 06:14-0400 Body weight 88.[address] Clementina Tao Work Phone: 8(954)578-073638 [place] [address] 10-15-2022 10:07-0500 Body height 175.[address] Clementina Tao Work Phone: 2(794)[phone] [place] [address] 10-15-2022 10:07-0500 Body mass index (BMI) [Ratio] 30.7 kg/m2 Dr. Clementina Tao Work Phone: 9(530)815-002238 [place] [address] 10-15-2022 10:07-0500 Body weight 94.[address] Clementina Tao Work Phone: 2(910)[phone] [place] [address] 01-04-2022 14:03-0400 Body temperature 98.1 [degF] Dr. Clementina Tao Work Phone: [facility] Work Phone: 01-04-2022 14:03-0400 Diastolic blood pressure 66 mm[Hg] Dr. Clementina Tao Work Phone: [facility] Work Phone: 01-04-2022 14:03-0400 Heart rate 97 /min Dr. Clementina Tao Work Phone: [facility] Work Phone: 01-04-2022 14:03-0400 Respiratory rate 18 /min Dr. Clementina Tao Work Phone: [facility] Work Phone: 01-04-2022 14:03-0400 SaO2% (BldA) [Mass fraction] 99 % Dr. Clementina Tao Work Phone: [facility] Work Phone: 01-04-2022 14:03-0400 Systolic blood pressure 146 mm[Hg] Dr. Clementina Tao Work Phone: [facility] Work Phone: 01-03-2022 11:10-0400 Inhaled oxygen flow rate 4 L/min Dr. Clmeentina Tao Work Phone: [facility] Work Phone: 01-03-2022 05:50-0400 Body height 175.[address] Clementina Tao Work Phone: [facility] Work Phone: 01-03-2022 05:50-0400 Body mass index (BMI) [Ratio] 30.2 kg/m2 Dr. Clementina Tao Work Phone: [facility] Work Phone: 01-03-2022 05:50-04[address] weight [address] Clementina Tao Work Phone: [facility] Work Phone: Encounters Encounter Date Encounter Type Care Provider Facility Start: 08-17-2025 ambulatory Montez Robbins Facility:[facility] Start: 08-03-2025 ambulatory Clementina Tao Facility:[facility] Start: 06-04-2025 End: 06-04-[address] Clementina Tao MD Work Phone: -[facility] Start: 06-04-2025 End: 06-04-[address] Clementina Tao MD -[facility] Start: 06-04-2025 End: 06-04-2025 ambulatory Clementina Tao Facility:[facility] Start: 05-21-2025 End: 05-21-[address] Montez Robbins MD -[facility] Work Phone: Start: 05-21-2025 End: 05-21-[address] Clementina Tao MD Work Phone: -[facility] Start: 04-23-2025 End: 04-23-[address] Montez Robbins MD -[facility] Work Phone: Start: 04-23-2025 End: 04-23-[address] Clementina Tao MD Work Phone: -[facility] Start: 04-16-2025 End: 04-16-[address] Clementina Tao MD Work Phone: -Radiology [facility] Start: 04-16-2025 End: 04-16-[address] Clementina Tao MD -Radiology [facility] Work Phone: Start: 04-16-2025 End: 04-16-2025 ambulatory Clementina Tao Facility:[facility] Start: 03-18-2025 End: 03-18-[address] Clementina Tao MD Work Phone: [facility] Work Phone: Start: 03-18-2025 End: 03-18-[address] Clementina Tao MD -[facility] - [facility] Work Phone: Start: 03-18-2025 End: 03-18-2025 ambulatory Clementina Tao Facility:[facility] Start: 03-10-2025 End: 03-10-[address] Clementina Tao MD -Physical Therapy Work Phone: Start: 03-10-[address] Clementina Tao MD -Physical Therapy Work Phone: Start: 03-10-2025 End: 03-10-[address] Clementina Tao MD Work Phone: -Physical Therapy Start: 03-02-2025 End: 03-02-[address] Clementina Tao MD Work Phone: [facility] Work Phone: Start: 03-02-2025 End: 03-02-[address] Clementina Tao MD -Radiology [place] Work Phone: Start: 03-02-2025 End: 03-02-2025 ambulatory Clementina Tao Facility:[facility] Start: 01-26-2025 End: 01-26-[address] Clementina Tao MD Work Phone: [facility] Work Phone: Start: 01-26-2025 End: 01-26-[address] [facility] Start: 01-26-2025 End: 01-26-2025 ambulatory Clementina Tao Facility:[facility] Start: 09-05-2023 End: 09-05-[address] Clementina Tao Work Phone: [facility] Work Phone: Start: 09-05-2023 End: 09-05-[address] Clementina Tao Work Phone: [facility] Start: 05-30-2023 End: 05-30-[address] Clementina Tao Work Phone: [facility] Work Phone: Start: 04-17-[address] Clementina Tao Work Phone: [facility]-Occupational Therapy Work Phone: Start: 04-16-2023 End: 04-16-[address] Clementina Tao Work Phone: [facility] Work Phone: Start: 04-16-2023 End: 04-16-[address] Clementina Tao Work Phone: [facility] Work Phone: Start: 03-20-2023 End: 03-20-[address] Clementina Tao Work Phone: [facility] Work Phone: Start: 02-06-2023 End: 02-06-[address] Clementina Tao Work Phone: [facility] Work Phone: Start: 01-09-2023 End: 01-09-[address] Clementina Tao Work Phone: [facility] Start: 12-26-2022 Non-patient / Non-visit Dr. Vu Tao Work Phone: [facility] Start: 12-26-2022 Non-patient / Non-visit Dr. Vu Tao Work Phone: [facility] Start: 12-25-2022 Non-patient / Non-visit Dr. Vu Tao Work Phone: [facility] Start: 12-25-2022 Non-patient / Non-visit Dr. Vu Tao Work Phone: [facility] Start: 12-25-2022 End: 12-26-2022 Evaluation and management of inpatient Dr. Clementina Tao Work Phone: [facility]-Medical Surgical 3 Start: 12-20-2022 Non-patient / Non-visit Dr. Vu Tao Work Phone: [facility] Start: 12-17-2022 End: 12-17-[address] Clementina Tao Work Phone: [facility] Start: 12-17-2022 End: 12-17-2022 Non-patient / Non-visit Dr. Clementina Tao Work Phone: [facility] Start: 10-15-2022 End: 10-15-[address] Clementina Tao Work Phone: [facility] Start: 10-04-2022 End: 10-04-[address] Clementina Tao Work Phone: [facility] Work Phone: Start: 10-04-2022 End: 10-04-[address] Clementina Tao Work Phone: [facility] - [facility] Start: 09-17-2022 End: 09-17-2022 ambulatory [facility] Work Phone: Start: 09-17-2022 End: 09-17-2022 Patient encounter procedure [facility], [facility] Start: 09-13-2022 End: 09-13-[address] Clementina Tao Work Phone: [facility] Work Phone: Start: 09-13-2022 End: 09-13-[address] Clementina Tao Work Phone: [facility]-Physical Therapy Start: 09-13-2022 Registered Recurring [facility]-Physical Therapy Start: 09-10-2022 End: 09-10-2022 ambulatory [facility] Work Phone: Start: 09-10-2022 End: 09-10-2022 Patient encounter procedure [facility] Start: 09-03-2022 End: 09-03-2022 ambulatory [facility] Work Phone: Start: 09-03-2022 End: 09-03-2022 Patient encounter procedure [facility] Start: 04-13-2022 End: 04-13-[address] [facility] Start: 03-01-2022 End: 03-01-[address] Clementina Tao Work Phone: [facility] [place] Start: 01-23-2022 End: 01-23-[address] [facility] Start: 01-04-2022 Non-patient / Non-visit Dr. Vu Tao Work Phone: [facility] Start: 01-03-2022 Non-patient / Non-visit Dr. Vu Tao Work Phone: [facility] Start: 01-03-2022 End: 01-04-2022 Evaluation and management of inpatient Dr. Clementina Tao Work Phone: [facility]-Medical Surgical 3 Start: 11-15-2021 End: 11-15-[address] Clement[facility] Start: 11-15-2021 Non-patient / Non-visit Dr. Vu Tao Work Phone: [facility] Start: 11-09-2021 End: 11-09-2021 ambulatory ELVIS BONNER Facility:[facility] Start: 10-17-2021 End: 10-17-2021 ambulatory DARIANA JOSE Facility:[facility] Procedures Date Procedure Procedure Detail Performing Clinician Start: 04-16-[address] Clementina Tao MD Work Phone: Start: 04-16-[address] Clementina aTo MD Work Phone: Start: 04-16-2025 Gram stain microscopy Gerardo Tao MD Work Phone: Start: 04-16-2025 Biopsy/Inj or Needle Placement Dr. Clementina Tao MD Work Phone: Start: 03-18-2025 MRI of lower limb wi th contrast Dr. Clementina Tao MD Work Phone: Start: 03-02-2025 Plain X-ray of femur Dr Janay Tao MD Work Phone: Start: 01-26-2025 X-ray of lumbar spin e, two or three views Dr. Clementina Tao MD Work Phone: Start: 04-16-2023 X-ray of cervical spine Dr. Clementina Tao Work Phone: Start: 03-20-2023 X-ray of cervical spine Dr. Celmentina Tao Work Phone: Start: 02-06-2023 X-ray of cervical spine Dr. Clementina Tao Work Phone: Start: 01-09-2023 X-ray of cervical spine Dr. Clementina Tao Work Phone: Start: 12-25-[address] Janay Tao Work Phone: Start: 12-25-2022 End: 12-25-[address] Clementina Tao Work Phone: Start: 12-25-2022 Cervical arthrodesis by anterior technique Dr. Clementina Tao Work Phone: Start: 12-17-2022 Nasal Screen MRSA/MSSA Dr. Clementina Tao Work Phone: Start: 10-04-2022 MRI of cervical spine Gerardo Tao Work Phone: Start: 12-19-2022 X-ray of cervical spine Start: 09-10-2022 CT angiography of head Start: 01-03-2022 End: 01-03-[address] Acid fast bacilli culture Dr. Clementina Tao Work Phone: Start: 01-03-2022 End: 01-03-[address] Clementina lee Work Phone: Start: 01-03-2022 End: 01-03-2022 Cytopathology procedure, preparation of smear, genital source Dr. Clementina Tao Work Phone: Start: 01-03-2022 End: 01-03-[address] Clementina Tao Work Phone: Start: 01-03-2022 Investigation of transfusion reaction Dr. Clementina Tao Work Phone: Start: 01-03-2022 End: 01-03-2022 Microbial culture, routine Dr. Clementina gomez Work Phone: Start: 01-03-2022 End: 01-03-[address] Clementina Tao Work Phone: Start: 01-03-2022 Radiologic examinati on of knee Dr. Clementina Tao Work Phone: Start: 01-03-2022 Total Knee Replaceme nt Robotic Arm Jany (Left) Dr. lCementina Tao Work Phone: Start: 11-15-2021 MRI of lower extremity Dr. Clementina Tao Work Phone: Acid fast bacilli culture Dr Janay Tao Work Phone: Cytopathology proced ure, preparation of smear, genital source Dr. Clementina Tao Work Phone: Fungus stain method Dr. Clementina Tao Work Phone: Mycology culture Dr. Clementina hernandez Work Phone: Nasal Screen MRSA/MSSA Dr. Guilherme Tao Work Phone: Plan of Treatment Date Care Activity Detail Author Start: 04-16-2025 Biopsy muscle percutaneous needle BIOPSY MUSCLE PERQ NEEDLE [facility] Start: 04-16-2025 Following clinical pathway protocol [facility] Start: 04-16-2025 Catheterization of vein [facility] Start: 04-16-2025 Oxygen therapy [facility] Start: 04-16-2025 Patient discharge [facility] Start: 04-16-2025 Vital signs measurements [facility] Start: 12-26-2022 Patient discharge [facility] Start: 12-25-2022 [facility] Start: 12-25-2022 Following clinical pathway protocol [facility] Start: 12-25-2022 Admission procedure [facility] Start: 12-25-2022 Application of intermittent pneumatic compression device [facility] Start: 12-25-2022 Care of equipment and devices [facility] Start: 12-25-2022 Catheterization of vein [facility] Start: 12-25-2022 Consultation [facility] Start: 12-25-2022 Elevation of head of bed [facility] Start: 12-25-2022 Following clinical pathway protocol [facility] Start: 12-25-2022 Incentive spirometry [facility] Start: 12-25-2022 Measuring intake and output [facility] Start: 12-25-2022 Neurovascular assessment [facility] Start: 12-25-2022 Patient education [facility] Start: 12-25-2022 Procedure discontinued [facility] Start: 12-25-2022 Provision of activity privileges [facility] Start: 12-25-2022 Recommendation to continue with treatment [facility] Start: 12-25-2022 Referral to service [facility] Start: 12-25-2022 Taking patient vital signs [facility] Start: 12-25-2022 [facility] Start: 12-25-2022 Admission procedure [facility] Start: 10-15-2022 Patient referral [facility] Work Phone: Start: 01-04-2022 Patient discharge [facility] Work Phone: Start: 01-03-2022 Anaerobic Culture Anaerobic Culture [facility] Work Phone: Start: 01-03-2022 Microbial culture, routine Wound Culture [facility] Work Phone: Start: 01-03-2022 Following clinical pathway protocol [facility] Work Phone: Start: 01-03-2022 Provision of overbed trapeze [facility] Work Phone: Start: 01-03-2022 Ambulation therapy management [facility] Work Phone: Start: 01-03-2022 Application of device [facility] Work Phone: Start: 01-03-2022 Application of elastic bandage [facility] Work Phone: Start: 01-03-2022 Assessment of risk of venous thromboembolism [facility] Work Phone: Start: 01-03-2022 Catheterization of vein [facility] Work Phone: Start: 01-03-2022 Consultation [facility] Work Phone: Start: 01-03-2022 Exercises [facility] Work Phone: Start: 01-03-2022 Following clinical pathway protocol [facility] Work Phone: Start: 01-03-2022 Incentive spirometry [facility] Work Phone: Start: 01-03-2022 Introduction of urinary catheter [facility] Work Phone: Start: 01-03-2022 Measuring intake and output [facility] Work Phone: Start: 01-03-2022 Neurovascular assessment [facility] Work Phone: Start: 01-03-2022 Patient education [facility] Work Phone: Start: 01-03-2022 Procedure discontinued [facility] Work Phone: Start: 01-03-2022 Provision of activity privileges [facility] Work Phone: Start: 01-03-2022 Referral to occupational therapist [facility] Work Phone: Start: 01-03-2022 Referral to service [facility] Work Phone: Start: 01-03-2022 Vital signs measurements [facility] Work Phone: Start: 01-03-2022 Wound care [facility] Work Phone: Start: 01-03-2022 [facility] Work Phone: Start: 01-03-2022 Admission procedure [facility] Work Phone: Start: 01-03-2022 Application of antithromboembolic stockings [facility] Work Phone: Start: 01-03-2022 Application of intermittent pneumatic compression device [facility] Work Phone: Patient Education RAD RN Image-G uided Biopsy RAD RN Procedural Sedation [facility] Work Phone: Patient referral [facility] Work Phone: Immunizations Immunization Date Immunization Notes Care Provider Fa [facility] 05-19-2021 Covid (Pfizer) Dr. Clementina gomez Work Phone: [facility] 04-28-2021 Covid (Pfizer) Dr. Clementina Gentile h Work Phone: [facility] Payers Date Payer Category Payer Self-pay [id number] 2018 Medicare [id number] 2016 Unknown [id number] Unknown [id number] 2.16.8 [id number] Unknown [id number] 2.16.8 [id number] Unknown [id number] 2.16.8 [id number] Unknown [id number] 2.16.8 [id number] Unknown [id number] 2.16.8 [id number] Unknown [id number] 2.16.8 [id number] Unknown [id number] 2.16.8 [id number] Unknown [id number] 2.16.8 [id number] Unknown [id number] 2.16.8 [id number] Unknown [id number] 2.16.8 [id number] Social History Date Type Detail Facility Start: 12-28-2021 End: 05-30-2023 Tobacco smoking status ARIS Unknown if ever smoked [facility] Start: 1955 Sex Assigned At Male [facility] Start: 11-27-2023 End: 04-23-2025 Tobacco smoking status NHIS Never smoked tobacco (finding) [facility] Sex Male [facility] Medical Equipment Procedure Code Equipment Code Equipment Origin al Text Equipment Identifier Dates Discectomy, spine, cervical, anterior approach, with fusion 2 level plate FDA Start: 12-25-2022 Discectomy, spine, cervical, anterior approach, with fusion 7mm F3D cervical FDA Start: 12-25-2022 Discectomy, spine, cervical, anterior approach, with fusion 8mm F3D Cervical FDA Start: 12-25-2022 Discectomy, spine, cervical, anterior approach, with fusion PATCH,AMNION 4x4CM FDA Start: 12-25-2022 Discectomy, spine, cervical, anterior approach, with fusion STRIP,BONE CANC [id number] FDA Start: 12-25-2022 Discectomy, spine, cervical, anterior approach, with fusion STRIP,BONE CANC [id number] FDA Start: 12-25-2022 Discectomy, spine, cervical, anterior approach, with fusion screw FDA Start: 12-25-2022 Discectomy, spine, cervical, anterior approach, with fusion 2 level plate FDA Start: 12-25-2022 Discectomy, spine, cervical, anterior approach, with fusion 7mm F3D cervical FDA Start: 12-25-2022 Discectomy, spine, cervical, anterior approach, with fusion 8mm F3D Cervical FDA Start: 12-25-2022 Discectomy, spine, cervical, anterior approach, with fusion PATCH,AMNION 4x4CM FDA Start: 12-25-2022 Discectomy, spine, cervical, anterior approach, with fusion STRIP,BONE CANC [id number] FDA Start: 12-25-2022 Discectomy, spine, cervical, anterior approach, with fusion STRIP,BONE CANC [id number] FDA Start: 12-25-2022 Discectomy, spine, cervical, anterior approach, with fusion screw FDA Start: 12-25-2022 Discectomy, spine, cervical, anterior approach, with fusion 2 level plate FDA Start: 12-25-2022 Discectomy, spine, cervical, anterior approach, with fusion 7mm F3D cervical FDA Start: 12-25-2022 Discectomy, spine, cervical, anterior approach, with fusion 8mm F3D Cervical FDA Start: 12-25-2022 Discectomy, spine, cervical, anterior approach, with fusion PATCH,AMNION 4x4CM FDA Start: 12-25-2022 Discectomy, spine, cervical, anterior approach, with fusion STRIP,BONE CANC [id number] FDA Start: 12-25-2022 Discectomy, spine, cervical, anterior approach, with fusion STRIP,BONE CANC [id number] FDA Start: 12-25-2022 Discectomy, spine, cervical, anterior approach, with fusion screw FDA Start: 12-25-2022 Discectomy, spine, cervical, anterior approach, with fusion 2 level plate FDA Start: 12-25-2022 Discectomy, spine, cervical, anterior approach, with fusion 7mm F3D cervical FDA Start: 12-25-2022 Discectomy, spine, cervical, anterior approach, with fusion 8mm F3D Cervical FDA Start: 12-25-2022 Discectomy, spine, cervical, anterior approach, with fusion PATCH,AMNION 4x4CM FDA Start: 12-25-2022 Discectomy, spine, cervical, anterior approach, with fusion STRIP,BONE CANC [id number] FDA Start: 12-25-2022 Discectomy, spine, cervical, anterior approach, with fusion STRIP,BONE CANC [id number] FDA Start: 12-25-2022 Discectomy, spine, cervical, anterior approach, with fusion screw FDA Start: 12-25-2022 Discectomy, spine, cervical, anterior approach, with fusion 2 level plate FDA Start: 12-25-2022 Discectomy, spine, cervical, anterior approach, with fusion 7mm F3D cervical FDA Start: 12-25-2022 Discectomy, spine, cervical, anterior approach, with fusion 8mm F3D Cervical FDA Start: 12-25-2022 Discectomy, spine, cervical, anterior approach, with fusion PATCH,AMNION 4x4CM FDA Start: 12-25-2022 Discectomy, spine, cervical, anterior approach, with fusion STRIP,BONE CANC [id number] FDA Start: 12-25-2022 Discectomy, spine, cervical, anterior approach, with fusion STRIP,BONE CANC [id number] FDA Start: 12-25-2022 Discectomy, spine, cervical, anterior approach, with fusion screw FDA Start: 12-25-2022 Discectomy, spine, cervical, anterior approach, with fusion 2 level plate FDA Start: 12-25-2022 Discectomy, spine, cervical, anterior approach, with fusion 7mm F3D cervical FDA Start: 12-25-2022 Discectomy, spine, cervical, anterior approach, with fusion 8mm F3D Cervical FDA Start: 12-25-2022 Discectomy, spine, cervical, anterior approach, with fusion PATCH,AMNION 4x4CM FDA Start: 12-25-2022 Discectomy, spine, cervical, anterior approach, with fusion STRIP,BONE CANC [id number] FDA Start: 12-25-2022 Discectomy, spine, cervical, anterior approach, with fusion STRIP,BONE CANC [id number] FDA Start: 12-25-2022 Discectomy, spine, cervical, anterior approach, with fusion screw FDA Start: 12-25-2022 Discectomy, spine, cervical, anterior approach, with fusion 2 level plate FDA Start: 12-25-2022 Discectomy, spine, cervical, anterior approach, with fusion 7mm F3D cervical FDA Start: 12-25-2022 Discectomy, spine, cervical, anterior approach, with fusion 8mm F3D Cervical FDA Start: 12-25-2022 Discectomy, spine, cervical, anterior approach, with fusion PATCH,AMNION 4x4CM FDA Start: 12-25-2022 Discectomy, spine, cervical, anterior approach, with fusion STRIP,BONE CANC [id number] FDA Start: 12-25-2022 Discectomy, spine, cervical, anterior approach, with fusion STRIP,BONE CANC [id number] FDA Start: 12-25-2022 Discectomy, spine, cervical, anterior approach, with fusion screw FDA Start: 12-25-2022 Discectomy, spine, cervical, anterior approach, with fusion 2 level plate FDA Start: 12-25-2022 Discectomy, spine, cervical, anterior approach, with fusion 7mm F3D cervical FDA Start: 12-25-2022 Discectomy, spine, cervical, anterior approach, with fusion 8mm F3D Cervical FDA Start: 12-25-2022 Discectomy, spine, cervical, anterior approach, with fusion PATCH,AMNION 4x4CM FDA Start: 12-25-2022 Discectomy, spine, cervical, anterior approach, with fusion STRIP,BONE CANC [id number] FDA Start: 12-25-2022 Discectomy, spine, cervical, anterior approach, with fusion STRIP,BONE CANC [id number] FDA Start: 12-25-2022 Discectomy, spine, cervical, anterior approach, with fusion screw FDA Start: 12-25-2022 Discectomy, spine, cervical, anterior approach, with fusion 2 level plate FDA Start: 12-25-2022 Discectomy, spine, cervical, anterior approach, with fusion 7mm F3D cervical FDA Start: 12-25-2022 Discectomy, spine, cervical, anterior approach, with fusion 8mm F3D Cervical FDA Start: 12-25-2022 Discectomy, spine, cervical, anterior approach, with fusion PATCH,AMNION 4x4CM FDA Start: 12-25-2022 Discectomy, spine, cervical, anterior approach, with fusion STRIP,BONE CANC [id number] FDA Start: 12-25-2022 Discectomy, spine, cervical, anterior approach, with fusion STRIP,BONE CANC [id number] FDA Start: 12-25-2022 Discectomy, spine, cervical, anterior approach, with fusion screw FDA Start: 12-25-2022 Discectomy, spine, cervical, anterior approach, with fusion 2 level plate FDA Start: 12-25-2022 Discectomy, spine, cervical, anterior approach, with fusion 7mm F3D cervical FDA Start: 12-25-2022 Discectomy, spine, cervical, anterior approach, with fusion 8mm F3D Cervical FDA Start: 12-25-2022 Discectomy, spine, cervical, anterior approach, with fusion PATCH,AMNION 4x4CM FDA Start: 12-25-2022 Discectomy, spine, cervical, anterior approach, with fusion STRIP,BONE CANC [id number] FDA Start: 12-25-2022 Discectomy, spine, cervical, anterior approach, with fusion STRIP,BONE CANC [id number] FDA Start: 12-25-2022 Discectomy, spine, cervical, anterior approach, with fusion screw FDA Start: 12-25-2022 Discectomy, spine, cervical, anterior approach, with fusion 2 level plate FDA Start: 12-25-2022 Discectomy, spine, cervical, anterior approach, with fusion 7mm F3D cervical FDA Start: 12-25-2022 Discectomy, spine, cervical, anterior approach, with fusion 8mm F3D Cervical FDA Start: 12-25-2022 Discectomy, spine, cervical, anterior approach, with fusion PATCH,AMNION 4x4CM FDA Start: 12-25-2022 Discectomy, spine, cervical, anterior approach, with fusion STRIP,BONE CANC [id number] FDA Start: 12-25-2022 Discectomy, spine, cervical, anterior approach, with fusion STRIP,BONE CANC [id number] FDA Start: 12-25-2022 Discectomy, spine, cervical, anterior approach, with fusion screw FDA Start: 12-25-2022 Discectomy, spine, cervical, anterior approach, with fusion 2 level plate FDA Start: 12-25-2022 Discectomy, spine, cervical, anterior approach, with fusion 7mm F3D cervical FDA Start: 12-25-2022 Discectomy, spine, cervical, anterior approach, with fusion 8mm F3D Cervical FDA Start: 12-25-2022 Discectomy, spine, cervical, anterior approach, with fusion PATCH,AMNION 4x4CM FDA Start: 12-25-2022 Discectomy, spine, cervical, anterior approach, with fusion STRIP,BONE CANC [id number] FDA Start: 12-25-2022 Discectomy, spine, cervical, anterior approach, with fusion STRIP,BONE CANC [id number] FDA Start: 12-25-2022 Discectomy, spine, cervical, anterior approach, with fusion screw FDA Start: 12-25-2022 ([id number]) Uncoated knee ti casey prosthesis, metallic ()[id number] FDA Start: 01-03-2022 ([id number]) Knee arthroplast y wedge ()[id number] TOA FDA Start: 01-03-2022 ([id number]) Coated knee femu r prosthesis ()[id number] FDA Start: 01-03-2022 Orthopaedic ceme nt, non-antimicrobial ()[id number] FDA Start: 01-03-2022 Orthopaedic ceme nt, non-antimicrobial ()[id number] FDA Start: 01-03-2022 ([id number]) Polyethylene pat jose manuel prosthesis ()[id number] FDA Start: 01-03-2022 ([id number]) Tibial insert ()[id number] FDA Start: 01-03-2022 Goals Date Patient Goal Desired Activity /State Functional Status Date Assessment Result Facility 12-26-2022 Functional status Bedrest [facility] Work Phone: 01-04-2022 Functional status Chair [facility] Work Phone: 01-03-2022 Functional status Standard Walker [facility] Work Phone: Mental Status Date Assessment Result Facility 04-16-2025 Cognitive function Voice/Name [facility] Work Phone: 12-26-2022 Cognitive function Level Of Cons ciousness Awake;Alert;Appropriate;Follow s Commands [facility] Work Phone: 12-26-2022 Cognitive function Voice/Name [facility] Work Phone: 01-04-2022 Cognitive function Level Of Cons ciousness Awake;Alert;Appropriate;Follow s Commands [facility] Work Phone: 01-03-2022 Cognitive function Voice/Name [facility] Work Phone: Clinical Notes 10-17-2021 to 05-04-2025 Note Date & Type Note Facility 05-04-2025 Discharge summary Note Date/Time May 04, 2025 8:0 1am [facility] Physical Therapy [facility] [address] [place] [address] [address] [place] [address] / REHABILITATION SERVICES DISCHARGE SUMMARY MR#: [id number] Acct: [id number] Name: RIZWAN COFFMAN Rep #: [id number] : 1955 70 From: Latha Cardenas DP T Referring Dr.: Dr. Clementina Tao MD Status: REG RCR Insurance: MEDICARE PART A B [facility] Patient Information Patient Information: RIZWAN COFFMAN was seen in my office for initial evaluation on 03/10/25. The following Plan of Care was established for this patient: POC Established Initial Frequency: 1x/Week Initial Duration: 1 Week Last Seen Last Seen: This patient was last seen in our office . Pertinent comments regarding their Physical therapy will appear below: Plan was to return to MD for further evaluation- d/c At this point I will be discontinuing this patient from physical therapy. I would be happy to see this patient again in the future if found appropriate by the physician. Thank you! Latha Cardenas DPT <Electronically signed by Latha Cardenas DPT> 05/04/25 0801 CC: Dr. Clementina Tao MD ~ ELR Signed [facility] Work Phone: 1(598) 664-563008-05-2025 Discharge summary [facility] [address] [place] [address]. [address] [place] [address] / REHABILITATION SERVICES DISCHARGE SUMMARY MR#: [id number] Acct: [id number] Name: RIZWAN COFFMAN Rep #: [id number] : 1955 70 From: Latha Cardenas DP T Referring Dr.: Dr. Clementina Tao MD Status: REG RCR Insurance: MEDICARE PART A B [facility] Patient Information Patient Information: RIZWAN COFFMAN was seen in my office for initial evaluation on 03/10/25. The following Plan of Care was established for this patient: POC Established Initial Frequency: 1x/Week Initial Duration: 1 Week Last Seen Last Seen: This patient was last seen in our office . Pertinent comments regarding their Physical therapy willappear below: Plan was to return to MD for further evaluation- d/c At this point I will be discontinuing this patient from physical therapy. I would be happy to see this patient again in the future if found appropriate by the physician. Thank you! Latha Cardenas, CHRISTOPHERT 05/04/25 0801 CC: Dr. Clementina Tao MD ~ ELR Signed [facility]07-25-2025 Evaluation note* Diagnosis Onset Date Resolution Status Admit Date S/P above knee amputation acute April 23, 2025 9:39am [facility] Work Phone: 1(233) 887-859007-25-2025 Evaluation note* Diagnosis Onset Date Resolution Status Admit Date S/P above knee amputation acute April 23, 2025 9:39am Neuroma acute May 21, 2 025 9:09am Neuroma of amputation stump of extremity acute May 21 9:09am S/P above knee amputation acute May 21, 2025 9:09am [facility] Work Phone: 1(479) 128-903107-18-2025 Radiology Diagnostic study note [facility] Imaging Services [address] [place], [place] [id number] Biopsy/Inj or Needle Placement MR#: [id number] Acct: [id number] Name: RIZWAN COFFMAN Rep #: [id number] : 1955 M 70 From: Sherif Martinez MD PCP: Dr. Clementina Tao MD Status: REG CLI Study:Biopsy/Inj or Needle Placement Date of Exam: 04/16/25 Exam# [id number] Ordering Dr: Vu Tao MD EXAM: CT-guided biopsy of the distal femur abnormality. 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 COMPARISON: MRI examination dated March 18, 2025. TECHNIQUE: The procedure as well as the benefits and possible complications including infection and bleeding were explained to the patient. Informed consent was obtained. Conscious sedation was performed. The patient received 2 mg of Versed and 50 mcg of fentanyl intravenously. Conscious sedation was started at 10:27 a.m. and terminated at 10:45 a.m.. The patient was independently monitored by the department nurse. The abnormality was localized. The overlying skin was prepped and draped in theusual sterile fashion. Following local anesthetic application, an 18 gauge core biopsy needle system was placed into the abnormality in the lower portion of the femur. 6 targeted biopsies were performed. The specimen was deemed adequate by the pathologist. The patient tolerated the procedure well. Radiation dose: CTDI L volume: 18.99. DLP: 218.9 FINDINGS: Successful targeted core biopsies of the distal femoral abnormality. The patient tolerated the procedure well. CT/Biopsy/Inj or Needle Placement IMPRESSION: Successful targeted core biopsies of distal femoral abnormality as described. The patient toleratedthe procedure well. No immediate post procedure complication noted. [facility] CC: Dr. Clementina Tao MD ~ Manufacturing Scheduler: Signed [facility]06-03-2025 Radiology Diagnostic study note [facility] Imaging Services [address] [place] [address] Femur Min 2 Views MR#: [id number] Acct: [id number] Name: RIZWAN COFFMAN Rep #: [id number] : 1955 M 70 From: Demond Rosales MD PCP: Dr. Clementina Tao MD Status: REG CLI Study:Femur Min 2 Views Date of Exam: Exam# [id number] Ordering Dr: Vu Tao MD PROCEDURE: FEMUR MIN 2 VIEWS 03/02/2025 REASON FOR EXAM: PAIN LATERAL LEG, MYOFASCIAL PAIN TECHNIQUE: 2 view(s) of the right femur. COMPARISON: None. FINDINGS: Status post right above the knee amputation. There is no evidence of acute injury. The bone and soft tissues at the amputation site appear unremarkable. There is no evidence of osteomyelitis or subcutaneousemphysema. The righthip appears unremarkable. RAD/Femur Min 2 Views IMPRESSION: Status post right AKA no evidence of complications. Reading Location: [id number] CC: Dr. Clementina Tao MD ~ Manufacturing Scheduler: Signed [facility] Work Phone: 1([phone]) 191-643904-29-2025 Radiology Diagnostic study note [facility] Imaging Services [address] [place] [address] Lumbar Spine 2 or 3 Views MR#: [id number] Acct: [id number] Name: RIZWAN COFFMAN Rep #: [id number] : 1955 M 70 From: Uzair Mathews MD PCP: Dr. Clementina Tao MD Status: REG CLI Study:Lumbar Spine 2 or 3 Views Date of Exam: 01/26/25 Exam# [id number] Ordering Dr: Vu Tao MD PROCEDURE: LUMBAR SPINE 2 OR 3 VIEWS 01/26/2025 REASON FOR EXAM: DORSALGIA TECHNIQUE: 2 view(s) of the lumbar spine FINDINGS: Vertebrae: No acute fracture. Discs: Mild multilevel disc space narrowing. Alignment: Mild dextroscoliosis centered at L2/L3. No subluxation. Other: Facet hypertrophy in the lower lumbar spine. RAD/Lumbar Spine 2 or 3 Views IMPRESSION: Mild dextroscoliosis with degenerative disc disease. Reading Location: [id number] CC: Dr. Clementina Tao MD ~ Manufacturing Scheduler: Signed [facility]04-13-2023 Discharge summary Author Rob Hartzler [facility] January 10, 2023 5:19pm Note Date/Time January 10, 2023 5:1 9pm [facility] Physical Therapy [facility] [address] [place] [address] / REHABILITATION SERVICES DISCHARGE SUMMARY MR#: [id number] Acct: [id number] Name: RIZWAN COFFMAN Rep #: [id number] : 1955 68 From: Rob Augustin PT, ATC Referring Dr.: Dr. Clementina Tao MD Status: REG RCR Insurance: MEDICARE PART A B [facility] RIZWAN COFFMAN was seen in my office for initial evaluation on 08/14/22. The following Plan of Care was established for this patient: Initial Frequency: 2-3x /Week Initial Duration: 4-6 Weeks Patient/Client Instruction: Educate patient on: Condition, Plan of Care For the Purpose of:: To improve self management Therapeutic Exercise to Include: Strength training, Endurance training, Active ROM, Scapular Strength/Stabilization For the Purpose of:: To decrease pain, To increase ROM, To improve muscle performance and motor function Thermo therapy (hot pack): Yes Intermittent cervical traction: Yes For the Purpose of:: To decrease pain This patient was last seen in our office . Pertinent comments regarding their Physical therapy will appear below: Pt was treated for 9 PT visits for neck pain through the date of 09/14/22. Pt has not returned through todays date and is discontinued at this time. At this point I will be discontinuing this patient from physical therapy. I would be happy to see this patient again in the future if found appropriate by the physician. Thank you! Rob Augustin PT, ATC Balance/Gait/Functional tests - Balance/Special Test Scores Oswestry Neck Score: 14 <Electronically signed by Rob Augustin PT, ATC> 01/10/23 1719 CC: Dr. Clementina Tao MD ~ [facility] Signed [facility] Work Phone: 1([phone]) 308-685903-29-[address] Dockery [facility] December 26, 2022 3:37pm Note Date/Time December 26, 2022 3:3 7pm [facility] Medical Records Department [address] [place] [address] Discharge Summary 12/26/22 1534 MR#: [id number] Acct: [id number] Name: RIZWAN COFFMAN Rep #:[id number] : 1955 67 From: Jose Mckeon PCP: Dr. Clementina Tao MD Status:ADM IN Location: [facility] [place] [id number] Providers Date of Admission: 12/25/22 Primary Care Physician: Dr. Clementina Tao MD Attending Physician: This is discharge summary on Rizwan Coffman. This patient was admitted yesterday and underwent anterior cervical decompression and fusion at the C6-7 and C5-6 levels. At the 5 6 levels he had myelomalacia with marked central stenosis. Calcification of the posterior longitudinal ligament at this level and took a significant amount of work intraoperatively to remove all the bone spurs and decompress the spinal cord. Today he is doing well. He has a clear voice. His pain is not bad at all. The pain down his right arm is completely resolved. Neurologically he remains totally intact. I change his dressing and remove the drain he had a significant amount of drainage as expected. Incision is dry and healing well now. I put new dressings on and gave him directions regarding the removal of the dressing when he could shower etc. In addition he was given oxycodone 5/325 for pain. He has enough for 10 days. He already has an appointment to see me in the office. He knows how to get ahold of me in the event that he should have a problem however I do not anticipate that he will. This is the end of discharge summary on Rizwan Coffman. This is Dr. Dockery dictating. Consultations 12/25/22 13:30 Consult: Hospitalist Routine Consulting Provider: Darwin Thornton Reason for Consult: med management EMERGENT Consult: No MD Notified: Yes Date Notified: 12/25/22 Time Notified: 17:03 Method of Notification: Verbal Reason For Visit: ANTERIOR CERVICAL DISC FUSION C 5-6, C 6-7 Diagnosis Discharge Diagnosis (1) Myelomalacia of cervical cord: Status: Acute Code(s): G95.89 - Other specified diseases of spinal cord Medications at Discharge Home Medications amlodipine 10 mg tablet 5 mg PO QHS BP 10/24/13 indapamide 1.25 mg tablet 1.25 mg PO DAILY WATER PILL 11/14/21 ipratropium bromide 21 mcg (0.03 %) nasal spray 1 - 2 spray intranasal PRN PRN ALLERGIES 11/14/21 quinapril 20 mg tablet 20 mg PO QHS BP 11/14/21 baclofen 20 mg tablet 20 mg PO PRN PRN Pain 10/15/22 lorazepam 1 mg tablet 1 mg PO DAILY PRN Cramps 12/11/22 meloxicam 7.5 mg tablet 15 mg PO QHS PAIN 12/11/22 oxycodone-acetaminophen 5 mg-325 mg tablet 1 tab PO Q6H PRN pain 10 days #40 tabs 12/26/22 Weight / BMI Weight Weight: 196 lb Body Mass Index (BMI) 29.7 ABG / Lab / Microbiology Data Result Diagrams: 12/17/22 08:33 12/17/22 08:33 Microbiology: Microbiology 12/17/22 08:33 Swab (Method) Nasal Screen MRSA/MSSA - Final D/C Instructions May shower in (days): 5 May resume sexual activity in: 4-6 weeks Weight Bearing Status: Full weight bearing Meaningful Use Info Meaningful Use Diagnoses (Choose all that apply): None applicable Discharge Plan Admission Admit Date/Time: 12/25/22 05:26 Primary Reason for Your Visit: cervical decompression and fusion Attending Provider: Jose Dockery Primary Care Provider: Clementina Tao Consulting Providers: Darwin Thornton Discharge Orders/Prescriptions Prescriptions: No Action baclofen 20 mg tablet 20 mg PO PRN PRN (Reason: Pain) amlodipine 10 MG tablet 5 mg PO QHS indapamide 1.25 mg tablet 1.25 mg PO DAILY quinapril 20 mg Tablet 20 mg PO QHS ipratropium bromide 21 mcg (0.03 %) spray,non-aerosol 1 - 2 spray INTRANASAL PRN PRN (Reason: ALLERGIES) lorazepam 1 mg Tablet 1 mg PO DAILY PRN (Reason: Cramps) meloxicam 7.5 mg tablet 15 mg PO QHS oxycodone-acetaminophen 5-325 mg tablet 1 tab PO Q6H PRN (Reason: pain) 10 Days Qty: 40 0RF Referrals / Follow Up: Clementina Tao MD [Primary Care Provider] - Disposition Disposition (needs filled in before D/C Order can be placed): Home, Self Care 12/26/22 1537 <Electronically signed by Jose Dockery DO> Cosigner Signature (if applicable): CC: Dr. Clementina Tao MD; Dr. Jose Dockery DO; Dr. Darwin Thornton DO~ Signed [facility] Work Phone: 1(252) 517-707903-29-[address] Thornton [facility] December 26, 2022 11:36am Note Date/Time December 26, 2022 11: 36am [facility] Medical Records Department [address] [place] [address] Progress Note - Hospitalist 12/26/22 1134 MR#: [id number] Acct: [id number] Name: RIZWAN COFFMAN Rep #:[id number] : 1955 67 From: Darwin Thornton DO PCP: Dr. Clementina Tao MD Status:ADM IN Location: [facility] [place] [id number] Reason for Visit Reason for Visit: Diagnoses Other specified diseases of spinal cord (12/25/22) Encounter for other preprocedural examination (12/25/22) Subjective Subjective Patient was seen and examined today, his blood pressure is improved. Patient has no complaints of any shortness of breath or chest discomfort Objective Data Objective Data Vital Signs: Vital Signs Temp Pulse Resp BP Pulse Ox O2 Del Method O2 Flow Rate 98.1 F 92 18 141/79 H 95 Room Air 4 12/26/22 08:21 12/26/22 08:21 12/26/22 08:21 12/26/22 08:21 12/26/22 08:21 12/26/22 08:23 12/25/22 13:30 Oxygen Flow Rate (L/min) 4 Oxygen Delivery Method Room Air Weight: 88.904 kg Body Mass Index (BMI) 29.7 Intake & Output: Intake and Output for Last 24 Hours 12/24/22 12/25/22 12/26/22 23:59 23:59 23:59 Intake Total 4837 / 4837 1003.58 / 1003.58 Output Total 4400 / 4400 1300 / 1300 Balance 437 / 437 -296.42 / -296.42 Lab / Micro Data Result Diagrams: 12/17/22 08:33 12/17/22 08:33 Labs: Laboratory Results - last 24 hr 12/25/22 12:55: POC Glucose 164 H Micro: Microbiology 12/17/22 08:33 Swab (Method) Nasal Screen MRSA/MSSA - Final Radiography Diagnostic Testing: Radiology Impression Spine X-Ray 12/25/22 11:51 IMPRESSION: Status post anterior fusion with screw and plate fixation device and prosthetic disc placement at the C5-C6 and C6-C7 levels. Electronically Signed: Al Martinez MD at 13:57 EDT , Physical Exam Const alert, oriented x3, no apparent distress and healthy appearing General Appearance: cooperative, well kempt and well developed Orientation / Consciousness: awake, oriented to person, oriented to place and oriented to time HEENT normocephalic and moist oral mucous membranes Eyes PERRL, EOMs intact bilaterally and conjunctivae normal Neck Neck Narrative: Patient has a neck collar in place, this was not removed for examination of the neck Resp normal respiratory effort, no retractions, no use of accessory muscles and clearto auscultation bilaterally Auscultation: Negative for rales, rhonchi or wheezes Cardio regular rate, regular rhythm, no murmurs, no rub and no gallops GI normal to inspection, nondistended, normoactive bowel sounds, soft to palpation,non-tender and non-distended Extremity Extremity Narrative: There is a remote gqtpf-lfl-meep amputation on the right Skin no rashes or lesions noted General Skin Exam: no breakdown Neuro oriented x3, CN's II-XII intact bilaterally, no focal motor deficits and no sensory deficits noted Sensorium / Orientation: awake, alert, oriented to person, oriented to place andoriented to time Speech: speech normal Psych affect normal Assessment & Plan Assessment/Plan (1) Myelomalacia of cervical cord: PLAN: Plan 1. Essential hypertension-patient is currently receiving his home blood pressure medications. 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 Thornton [facility] December 25, 2022 6:22pm Note Date/Time December 25, 2022 6:2 1pm [facility] Medical Records Department [address] [address] Progress Note - Hospitalist 12/25/221816 MR#: [id number] Acct: [id number] Name: RIZWAN COFFMAN Rep #:[id number] : 1955 67 From: Darwin Thornton DO PCP: Dr. Clementina Tao MD Status:ADM IN Location: [place] [address] Reason for Visit Reason for Visit: Diagnoses Encounter for other preprocedural examination (12/25/22) Subjective Subjective Patient was seen and examined at the request of spine surgery, he was admitted to their service today after undergoing a cervical fusion. Patient has a history of essential hypertension, he did not take his blood pressure medications today. Objective Data Objective Data Vital Signs: Vital Signs Temp Pulse Resp BP Pulse Ox O2 Del Method O2 Flow Rate 97.7 F L 105 H 20 H 171/98 H 94 Room Air 4 12/25/22 17:06 12/25/22 17:06 12/25/22 17:06 12/25/22 17:06 12/25/22 17:06 12/25/22 17:44 12/25/22 13:30 Oxygen Flow Rate (L/min) 4 Oxygen Delivery Method Room Air Weight: 88.904 kg Body Mass Index (BMI) 29.7 Intake & Output: Intake and Output for Last 24 Hours 12/23/22 12/24/22 12/25/22 23:59 23:59 23:59 Intake Total 3587 / 3587 Output Total 1650 / 1650 Balance 1936 / 1936 Lab / Micro Data Result Diagrams: 12/17/22 08:33 12/17/22 08:33 Labs: Laboratory Results - last 24 hr 12/25/22 05:51: POC Glucose 218 H 12/25/22 12:55: POC Glucose 164 H Micro: Microbiology 12/17/22 08:33 Swab (Method) Nasal Screen MRSA/MSSA - Final Radiography Diagnostic Testing: Radiology Impression Spine X-Ray 12/25/22 08:10 IMPRESSION: The localization instrument is seen along the anterior aspect of the C5-C6 disc space level. Electronically Signed: Al Martinez MD at 8:42 EDT , Spine X-Ray 12/25/22 09:10 IMPRESSION: The localization instrument is seen anterior to the C5-C6 disc space level. Electronically Signed: Al Martinez MD at 9:48 EDT , Spine X-Ray 12/25/22 11:51 IMPRESSION: Status post anterior fusion with screw and plate fixation device and prosthetic disc placement at the C5-C6 and C6-C7 levels. Electronically Signed: Al Martinez MD at 13:57 EDT , Physical Exam Const alert, oriented x3, no apparent distress, average body habitus and healthy appearing General Appearance: cooperative, well kempt and well developed Orientation / Consciousness: awake, oriented to person, oriented to place and oriented to time HEENT normocephalic and moist oral mucous membranes Eyes PERRL, EOMs intact bilaterally and conjunctivae normal Neck supple, no JVD, thyroid normal and no carotid bruits General: trachea midline Resp normal respiratory effort and clear to auscultation bilaterally Auscultation: Negative for rales, rhonchi or wheezes Cardio regular rate, regular rhythm, S1 normal heart sound, S2 normal heart sound, no murmurs, no rub and no gallops GI normal to inspection, nondistended, normoactive bowel sounds, soft to palpation,non-tender and non-distended Extremity Extremity Narrative: 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 Essential hypertension-patient's blood pressure medications will be restarted tonight-patient is on an CONNIE inhibitor, a diuretic, and calcium channel nayan. 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 secondary to spinal stenosis-postop care per spinal surgery #3 osteoarthritis-patient takes meloxicam at home Total clinical time spent by myself addressing the patient's medical issues, reviewing all of his data, and collaborating with patient's care team: 25- minutes Charges/Coding Visit Charges Inpatient E&M: 25288 [facility] L1 12/25/221821 <Electronically signed by Darwin Thornton DO> Cosigner Signature (if applicable): CC: ~ Signed [facility] Work Phone: 1(865) 401-402103-28-2023 Procedure [facility] 12-20-2022 History and physical note Author Dr. Dockery [facility] December 20, 2022 4:54pm Note Date/Time December 20, 2022 4:5 4pm [facility] Medical Records Department [address] [address] History & Physical Exam 12/20/22 1652 MR#: [id number] Acct: [id number] Name: RIZWAN COFFMAN Rep #:[id number] : 1955 67 From: Jose Mckeon PCP: Dr. Clementina Tao MD Status:PRE IN Location: [facility] History and Physical Addendum MR#: [id number] Acct: [id number] Name:RIZWAN ROSS Rep #: [id number] : 1955 ? ? Provider: Dr. Jose Dockery, DO Age/Sex:? 67/M ? ? Location: [facility] Status: Signed Intake Vital Signs ? 01/03/2205:50 10/15/2309:07 Height 5 ft 9 in 5 ft 9 in Weight: ? 208 lb BMI ? 30.7 Intake Visit Reasons:?Cervical spine Is patient in pain?: Yes Pain scale (1-10): 6 Allergies No Known Allergies Allergy (Verified 10/15/22 10:08) Medications amlodipine 10 mg tablet 5 mg PO QHS 10/24/13 [History Confirmed 10/15/22] indapamide 1.25 mg tablet 1.5 mg PO DAILY 11/14/21 [History Confirmed 10/15/22] ipratropium bromide 21 mcg (0.03 %) nasal spray 1 - 2 spray intranasal PRN PRN ALLERGIES 11/14/21 [History Confirmed 10/15/22] quinapril 20 mg tablet 20 mg PO QHS 11/14/21 [History Confirmed 10/15/22] acetaminophen 500 mg tablet 1,000 mg PO Q8 30 days #90 tabs 01/04/22 [Rx Confirmed 10/15/22] aspirin 81 mg chewable tablet 81 mg PO BIDCM 30 days #60 tabs 01/04/22 [Rx Confirmed 10/15/22] doxycycline hyclate 100 mg tablet 100 mg PO BID 2 weeks #28 tabs 01/04/22 [Rx Confirmed 10/15/22] famotidine 20 mg tablet 20 mg PO DAILY 30 days #30 tabs 01/04/22 [Rx Confirmed 10/15/22] meloxicam 7.5 mg tablet 7.5 mg PO BID 30 days #60 tabs 01/04/22 [Rx Confirmed 10/15/22] oxycodone 5 mg tablet 5 - 10 mg PO .4-6 hrs prn PRN Pain Score 4-10 7 days #60 tabs 01/04/22 [Rx Confirmed 10/15/22] baclofen 20 mg tablet 20 mg PO DAILY 10/15/22 [History Confirmed 10/15/22] venlafaxine besylate 112.5 mg tablet,extended release 24 hr 5 mg PO DAILY 10/15/22 [History Confirmed 10/15/22] PFSH Medical History? Ambulates with cane Arthritis Cancer Former smoker History of stress test Hypertension Leg cramps Loose left total knee arthroplasty Rash Wears glasses Surgical History? History of carpal tunnel surgery of left wrist Hx of above knee amputation Hx of colonoscopy Hx of left knee surgery Social History? Smoking Status:? Never smoker HPI Cervical spine Details: Parts of this documentation were recorded by a scribe, this documentation accurately reflects the service provided and the decisions made by me, Dr. Jose Dockery, DO 10/15/22 1005. RIZWAN COFFMAN is a 67 year old M here today for cervical pain. States that he has been having pain for 3 months. States that he did do some PT over here at [facility]. States that he did 9 sessions and they thought his pain was getting worseso they stopped PT. States that depending on how he lays down both hands and gets some numbness and tingling. Denies any previous surgery on his neck. Statesthat laying down or anything pushing against the back of his neck increases his pain. Has used ice and heat in the past but not recently. Denies taking anythingfor the pain. Denies any injections in his neck. Pt had xrays on 09/17/22 and had an MRI on 10/04/22. Mr. Coffman is a very pleasant gentleman 67 years old who has chief complaint of right-sided neck pain that radiates down his right arm and perhaps a see 6 dermatome or perhaps a C7 dermatome or both.? It started about 3 months ago.? Hehas had some pains in the past however nothing like this.? Oddly enough he cannot lie down on his back as that really makes the pain bad.? But if he sits up most of the pain actually goes away.? He sleeps in a recliner in his semisitting position but he does not sleep that well.? But at least he does not have the severe pain.? He is right-hand dominant. On examination he has a positive Spurling's to the right side.? He has pain withextension but none with flexion of his cervical spine.? He has good motor strength of all the major muscle groups of both upper extremities.? He has no long tract signs on the left side he has no clonus and he has no hyperreflexia of his patella.? Upper extremity reflexes are 1+ for brachioradialis and biceps but absent on both triceps. Reviewed plain x-rays of his cervical spine that were done recently.? He demonstrates that he has significant degenerative disc disease at C5-6 and C6-7.? The MRI scan is consistent with the same except at C5-6 he has central protrusion with some pressure on the spinal cord.? He also has what appears to be some degree of myelomalacia at this level. He will need surgical intervention at C5-6 and C6-7.? 5 6 needs to be decompressed on both sides 6 7 simply fused.? Right now he is in the middle of his brothers estate which will take him a couple of more months.? He has to get that done before January 12.? We can do his surgery after that.? In the meantime we will send him to Dr. Sherman for a cervical epidural steroid injection hopefully this can at least give him some degree of pain relief.? I will visit with him again [address] Sherman performs the epidural injection of his cervical spine. Coding Level of Care Code Off vis,new,level 3 Diagnoses Herniated nucleus pulposus, C5-6 left? M50.222 Myelomalacia of cervical cord? G95.89 12/20/22 1654 <Electronically signed by Jose Dockery DO> Cosigner Signature (if applicable): CC: Dr. Clementina Tao MD; Dr. Jose Dockery DO~ Signed [facility] Work Phone: 1(176) 411-858402-10-2022 NoteHNO ID: [id number] Author: Lalita Sheth RN Service: ? Author Type: Registered Nurse Type: Nursing Progress Note Filed: 11/09/2021 10:03 AM Note Text: Abdomen soft non-distended. Will continue to monitor.[facility] 10-17-2021 NoteHNO ID: [id number] Author: Dariana Jose PA-C Service: ? Author Type: Physician Watch Leader Type: Progress Notes Filed: 10/17/2021 12:14 PM Note Text: HISTORY AND PHYSICAL Rizwan Coffman 1955 REFERRING PHYSICIAN: Clementina Tao MD CHIEF COMPLAINT: Consult (Colonoscopy) HPI: The patient is a 66 year old male referred for endoscopy. Rizwan notes no colon complaints. Patient denies any change in bowel habits, weight changes, blood in stools, black tarry stools or abdominal pain. Denies family history of colon issues. The patient notes no upper GI complaints. Rizwan has undergone prior endoscopy. Most recent colonoscopy 05/01/[address] Casillas with findings of sigmoid diverticulosis and a 7 mm recto-sigmoid colon polyp which was removed. Pathology showed: CONVERTED FINAL DIAGNOSIS 1. Transverse colon polyp, biopsy (A) - Colonic mucosa with minimal surface epithelial hyperplasia (see comment). ?2. Colon polyp at 25 cm, biopsy (B) - Markedly cauterized colonic mucosa with prominent lymphoid aggregate (see comment). ?JEL/kr 05/03/2016 CONVERTED DIAGNOSIS COMMENT 1, 2. There is no evidence of dysplasia or malignancy, including on multiple additional deeper levels. ? Patient had history of a polyp on prior colonoscopy in 2009 as well. Repeat colonoscopy was recommended in 5 years. Patient denies chest pain, shortness of breath or recent hospitalizations. Denies problems with sedation in the past. Patient has upcoming total knee replacement in October and is hoping to get his colonoscopy completed before his knee surgery. PAST MEDICAL HISTORY Diagnosis Date - Benign neoplasm of colon - HTN (hypertension), benign - Malignant neoplasm of bone and articular cartilage, site unspecified Bone cancer left knee - Unspecified constipation PAST SURGICAL HISTORY Procedure Laterality Date - COLONOS W/REM POLYP SNARE 05/01/2016 repeat in 5 years - COLONOSCOP W/ OR W/O BRSH SPEC 12/19/2009 Colonoscopy-repeat in 5 years (-2014) - LEG AMPUTATION HX Right Bone cancer age 17 - TOTAL KNEE REPLACEMENT 09/30/2008 PARTIAL KNEE REPLACEMENT Current Outpatient Medications Medication Sig - polyethylene glycol 3350 (MIRALAX, GLYCOLAX) 17 gram packet Take 17 g by mouth once daily. - amLODIPine (NORVASC) 10 mg tablet Take 10 mg by mouth once daily. - meloxicam (MOBIC) 15 mg tablet Take 15 mg by mouth once daily. - lisinopril (ZESTRIL, PRINIVIL) 20 mg tablet Take 20 mg by mouth once daily. - FLUTICASONE PROPIONATE (FLUTICASONE NASAL) Use in the nose. No current facility-administered medications for this visit. ALLERGIES: Patient has no known allergies. PERSONAL HISTORY: Social History Tobacco Use - Smoking status: Never Smoker - Smokeless tobacco: Never Used Substance Use Topics - Alcohol use: No - Drug use: No FAMILY HISTORY: FAMILY HISTORY Problem Relation Age of Onset - Hypertension Brother REVIEW OF SYMPTOMS: The review of systems data was entered by the nurse and reviewed by ms Nursing Notes: Shayla Frank 10/17/2021 9:28 AM Signed REVIEW OF SYSTEMS: General: The patient denies fatigue, denies weight loss, denies weight gain, denies feeling hot, and denies feelings of cold. Eyes: The patient denies glaucoma, denies eye injury/surgery, does not wear glasses or contacts. Ear/Nose/Throat: The patient denies allergies, denies hayfever, denies ear infections, and denies bloody noses. Cardiovascular: The patient denies chest pain, denies heart disease, NOTES high blood pressure,denies cardiac stent, denies prior heart attack, denies irregular heart beat, denies high cholesterol, denies poor circulation, denies heart failure, other cardiac issues, NOTES claudication, denies cold feet, denies peripheral arterial stent. Respiratory: The patient denies tuberculosis, denies pneumonia, denies frequent cough, denies pulmonary embolism, denies shortness of breath, and denies coughing up blood. Gastrointestinal: The patient denies difficulty swallowing, denies acid reflux, denies ulcers, denies vomiting, denies jaundice/hepatitis, denies gallbladder problems, denies black or tarry stools, denies hemorrhoids, denies bleeding from rectum, denies diverticulitis, denies constipation, denies diarrhea, denies loss of stool control, and denies hernias. Kidney/Bladder: The patient denies kidney stones, denies urine infections, and denies bloody urine. Skin: The patient denies a history of skin cancer, denies bleeding/changing moles, and denies a history of skin rash. Neurologic: The patient denies a history of epilepsy/convulsions, denies headaches, denies head/spinal injuries, and denies stroke/TIA. Psychiatric: The patient denies psychiatric medications, denies depression, and denies voices, denies substance abuse. Endocrine: The patient denies thyroid disorders, denies diabetes, and denies hormonal problems. Hematologic: The patient carlos alberto (more content not included)...[facility] Diagnosis Onset Date Resolution Status Loose left total knee arthroplasty acute S/P total knee arthroplasty acute [facility] Work Phone: Evaluation note* Diagnosis Onset Date Resolution Status S/P total knee arthroplasty acute [facility] Work Phone: Evaluation noteNo assessment information available [facility] Work Phone: Evaluation note* Diagnosis Onset Date Resolution Status Herniated nucleus pulposus, C5-6 left acute Myelomalacia of cervical cord acute [facility] Work Phone: Evaluation note* Diagnosis Onset Date Resolution Status Herniated nucleus pulposus, C5-6 left acute Myelomalacia of cervical cord acute Herniated nucleus pulposus, C5-6 left acute Herniated nucleus pulposus, C6-7 right acute Myelomalacia of cervical cord acute Myelomalacia of cervical cord [facility] Work Phone: Evaluation note* Diagnosis Onset Date Resolution Status Herniated nucleus pulposus, C5-6 left acute Myelomalacia of cervical cord resolved Herniated nucleus pulposus, C5-6 left acute Herniated nucleus pulposus, C6-7 right acute Myelomalacia of cervical cord resolved Myelomalacia of cervical cord resolved S/P cervical spinal fusion a [facility] Work Phone: Evaluation note* Diagnosis Onset Date Resolution Status Myelomalacia of cervical cord resolved S/P cervical spinal fusion a [facility] S/P [facility] S/P cervical spinal fusion a [facility] Work Phone: Evaluation note* Diagnosis Onset Date Resolution Status S/P cervical spinal fusion a [facility] Work Phone: [facility] Work Phone: Hospital Discharge instructionsAmbulatory Orders* Pain Management Location: None Selected [facility] Work Phone: Reason for referral (narrative)No reason for referral information availableWReg[facility] Work Phone: Chief Complaint and Reason for Visit Chief Complaint L REV PARTIAL KNEE T O TOTAL KNEE ARTHROPLASTY LEFT KNEE LANDON L REV PARTIAL KNEE TO TOTAL KNEE ARTHROPLASTY L REV PARTIAL KNEE TO TOTAL KNEE ARTHROPLASTY L REV PARTIAL KNEE TO TOTAL KNEE ARTHROPLASTY Reason for Visit Loose left total kne e arthroplasty S/P total knee arthroplasty Chief Complaint L REV PARTIAL KNEE T O TOTAL KNEE ARTHROPLASTY LEFT KNEE LANDON L REV PARTIAL KNEE TO TOTAL KNEE ARTHROPLASTY L REV PARTIAL KNEE TO TOTAL KNEE ARTHROPLASTY L REV PARTIAL KNEE TO TOTAL KNEE ARTHROPLASTY Pain in left lower leg Reason for Visit S/P total knee arthr oplasty Chief Complaint L REV PARTIAL KNEE T O TOTAL KNEE ARTHROPLASTY L REV PARTIAL KNEE TO TOTAL KNEE ARTHROPLASTY L REV PARTIAL KNEE TO TOTAL KNEE ARTHROPLASTY Pain in left lower leg R22.42 Reason for Visit S/P total knee arthr oplasty Chief Complaint VISION CHANGES SINCE PT FOR NECK/HEADACHE CERVICALGIA, R ARM SYMPTOMS RX HERE Chief Complaint VISION CHANGES SINCE PT FOR NECK/HEADACHE CERVICALGIA, R ARM SYMPTOMS RX HERE CERVICAL RAD Cervical spine Reason for Visit Herniated nucleus pu lposus, C5-6 left Myelomalacia of cervical cord Chief Complaint VISION CHANGES SINCE PT FOR NECK/HEADACHE CERVICALGIA, R ARM SYMPTOMS RX HERE CERVICAL RAD Cervical spine PREOP cervical spine ANTERIOR CERVICAL DISC FUSION C 5-6, C 6-7 ANTERIOR CERVICAL DISC FUSION C 5-6, C 6-7 ANTERIOR CERVICAL DISC FUSION C 5-6, C 6-7 ANTERIOR CERVICAL DISC FUSION C 5-6, C 6-7 ANTERIOR CERVICAL DISC FUSION C 5-6, C 6-7 ANTERIOR CERVICAL DISC FUSION C 5-6, C 6-7 Reason for Visit Herniated nucleus pu lposus, C5-6 left Myelomalacia of cervical cord Herniated nucleus pulposus, C5-6 left Herniated nucleus pulposus, C6-7 right 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 Chief Complaint CERVICALGIA, R ARM S YMPTOMS RX HERE CERVICAL RAD Cervical spine PREOP cervical spine ANTERIOR CERVICAL DISC FUSION C 5-6, C 6-7 ANTERIOR CERVICAL DISC FUSION C 5-6, C 6-7 ANTERIOR CERVICAL DISC FUSION C 5-6, C 6-7 ANTERIOR CERVICAL DISC FUSION C 5-6, C 6-7 ANTERIOR CERVICAL DISC FUSION C 5-6, C 6-7 ANTERIOR CERVICAL DISC FUSION C 5-6, C 6-7 cervical spine RM 4 Reason for Visit Herniated nucleus pu lposus, C5-6 left Myelomalacia of cervical cord Herniated nucleus pulposus, C5-6 left Herniated nucleus pulposus, C6-7 right 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 S/P cervical spinal fusion Chief Complaint ANTERIOR CERVICAL DI SC FUSION C 5-6, C 6-7 ANTERIOR CERVICAL DISC FUSION C 5-6, C 6-7 ANTERIOR CERVICAL DISC FUSION C 5-6, C 6-7 ANTERIOR CERVICAL DISC FUSION C 5-6, C 6-7 ANTERIOR CERVICAL DISC FUSION C 5-6, C 6-7 ANTERIOR CERVICAL DISC FUSION C 5-6, C 6-7 cervical spine RM 4 CERVICAL SPINE Room 5 CERVICAL SPINE RM 4 CERV SPINE L 2-3 FINGER PARESTHSIA AND HAND WEAKNESS Reason for Visit Myelomalacia of cerv ical cord S/P cervical spinal fusion S/P cervical spinal fusion S/P cervical spinal fusion Chief Complaint CERVICAL SPINE Reason for Visit S/P cervical spinal fusion Chief Complaint Admit Date EORDER- BACK PAIN January 26, 2025 11: 12am Chief Complaint Admit Date EORDER- BACK PAIN January 26, 2025 11: 12am pain lateral leg- RIGHT March 02, 2025 1 0:09am Chief Complaint Admit Date EORDER- BACK PAIN January 26, 2025 11: 12am pain lateral leg- RIGHT March 02, 2025 1 0:09am PAIN RELIEF, DRY NEEDLING. RX HERE March 10, 2025 11:49am Pain, unspecified March 18, 2025 4:48 pm Chief Complaint Admit Date EORDER- BACK PAIN January 26, 2025 11: 12am pain lateral leg- RIGHT March 02, 2025 1 0:09am PAIN RELIEF, DRY NEEDLING. RX HERE March 10, 2025 11:49am Pain, unspecified March 18, 2025 4:48 pm BONE LESION, SCAR PAIN April 16, 2025 9 :11am Chief Complaint Admit Date EORDER- BACK PAIN January 26, 2025 11: 12am pain lateral leg- RIGHT March 02, 2025 1 0:09am PAIN RELIEF, DRY NEEDLING. RX HERE March 10, 2025 11:49am Pain, unspecified March 18, 2025 4:48 pm BONE LESION, SCAR PAIN April 16, 2025 9 :11am PAIN IN SCAR R LEG April 23, 2025 9:39 am Reason for Visit Admit Date S/P above knee amputation April 23 9:39am Chief Complaint Admit Date EORDER- BACK PAIN January 26, 2025 11: 12am pain lateral leg- RIGHT March 02, 2025 1 0:09am PAIN RELIEF, DRY NEEDLING. RX HERE March 10, 2025 11:49am Pain, unspecified March 18, 2025 4:48 pm BONE LESION, SCAR PAIN April 16, 2025 9 :11am PAIN IN SCAR R LEG April 23, 2025 9:39 am 4 W FU May 21, 2025 9: 09am Chief Complaint Admit Date pain lateral leg- RIGHT March 02, 2025 1 0:09am PAIN RELIEF, DRY NEEDLING. RX HERE March 10, 2025 11:49am Pain, unspecified March 18, 2025 4:48 pm BONE LESION, SCAR PAIN April 16, 2025 9 :11am PAIN IN SCAR R LEG April 23, 2025 9:39 am 4 W FU May 21, 2025 9: 09am Reason for Visit Admit Date S/P above knee amputation April 23 9:39am Neuroma May 21, 2025 9: 09am Neuroma of amputation stump of extremity May 21, 2025 9:09am S/P above knee amputation May 21, 2 025 9:09am Advance Directives No Advanced Directives Records Found Advance Directive Response Recorded Date/ Time Living Will No January 03, 2022 11:40am Power of Fitter'S Assistant Yes January 03 11:40am Advance Directive Response Recorded Date/ Time Name of Medical Power of Fitter'S Assistant SHANKAR COFFMAN - dominiqueer January 03, 2022 11:40am Living Will No January 03, 2022 11:40am Power of Fitter'S Assistant Yes January 03 11:40am Advance Directive Response Recorded Date/ Time Living Will No January 03, 2022 10:40am Power of Fitter'S Assistant Yes January 03 10:40am Advance Directive Response Recorded Date/ Time Name of Medical Power of Fitter'S Assistant MIKEL - SON December 25, 2022 5:20pm Living Will Yes December 25, 2022 5:20pm Power of Fitter'S Assistant Yes December 25 5:20pm Advance Directive Response Recorded Date/ Time Living Will Yes December 25, 2022 4:20pm Power of Fitter'S Assistant Yes December 25 4:20pm Summary Purpose Family History No Family History Records FoundNo Family History Records Found Additional Source Comments Goals (unrecognized section and content) Goals may be documented in a n alternate sectionGoals may be documented in an alternate sectionGoals may be documented in an alternate sectionGoals may be documented in an alternate sectionGoals may be documented in an alternate sectionGoals may be documented in an alternate sectionGoals may be documented in an alternate sectionGoals may be documented in an alternate sectionGoals may be documented in an alternate sectionGoals may be documented in an alternate sectionGoals may be documented in an alternate sectionGoals may be documented in an alternate sectionGoals may be documented in an alternate sectionGoals may be documented in an alternate sectionGoals may be documented in an alternate sectionGoals may be documented in an alternate sectionGoals may be documented in an alternate section (unrecognized sect ion and content) No Status Records FoundNo Status Records Found INFORMATION SOURCE (unrecogn ized section and content) DATE CREATED AUTHOR 09/22/2022 [facility] DATE CREATED AUTHOR AUTHOR'S ORGANIZ ATION 08/11/2025 [facility] Care Teams (unrecognized sec tion and content) Team Status: Active Member Role Status Dates Dr. Clementina Tao MD Family Provider Active Dr. Clementina Tao MD Primary Care Provider Active Team Status: Inactive Member Role Status Dates Dr. Clementina Tao MD Primary Care Provider, Referring P rishi Active Dr. Jose Dockery DO Attending Provider Active Team Status: Active Member Role Status Dates Dr. Clemetnina Tao MD Primary Care Provide r, Attending Provider, Referring Provider Active Team Status: Inactive Member Role Status Dates Dr. Clementina Tao MD Primary Care Provide r, Attending Provider, Referring Provider Active Team Status: Inactive Member Role Status Dates Dr. Clementina Tao MD Primary Care Provider, Attending P rishi Active Team Status: Active Member Role Status Dates Dr. Clementina Tao MD Primary Care Provider Active Dr. Saad Haywood MD Attending Provider Active Dr. Jose Dockery DO Referring Provider Active Team Status: Active Member Role Status Dates Dr. Clementina Tao MD Primary Care Provider Active Dr. Jose Dockery DO Admit Provider, A ttending Provider, Other Provider Active Team Status: Active Member Role Status Dates Dr. Clementina Tao MD Primary Care Provider Active Dr. Jose Dockery DO Admit Provider, Other Provider Active Dr. Darwin Thornton DO Attending Provider, Other Pro vider Active Team Status: Active Member Role Status Dates Dr. Clementina Tao MD Primary Care Provider Active Dr. Jose Dockery DO Admit Provider, A ttending Provider, Other Provider Active Dr. Darwin Thornton DO Other Provider Active Team Status: Inactive Member Role Status Dates Dr. Clementina Tao MD Primary Care Provider Active Dr. Jose Dockery DO Admit Provider, Attending Provi demi Active Dr. Darwin Thornton DO Other Provider Active Team Status: Active Member Role Status Dates Dr. Clementina Tao MD Primary Care Provider Active Dr. Jose Dockery DO Admit Provider, R eferring Provider, Other Provider Active Dr. Darwin Thornton DO Attending Provider, Other Pro vider Active Team Status: Inactive Member Role Status Dates Dr. Clementina Tao MD Primary Care Provider Active Dr. Saad Haywood MD Attending Provider Active Team Status: Inactive Member Role Status Dates Dr. Clementina Tao MD Primary Care Provider Active Start: January 26, 2025 End: January 26, 2025 Dr. Clementina Tao MD Attending Provider Active St art: January 26, 2025 End: January 26, 2025 Dr. Clementina Tao MD Referring Provider Active St art: January 26, 2025 End: January 26, 2025 Team Status: Active Member Role Status Dates Dr. lCementina Tao MD Primary Care Provider Active Team Status: Inactive Member Role Status Dates Dr. Clementina Tao MD Primary Care Provider Active Start: March 02, 2025 End: March 02, 2025 Dr. Clementina Tao MD Attending Provider Active St art: March 02, 2025 End: March 02, 2025 Dr. Clementina Tao MD Referring Provider Active St art: March 02, 2025 End: March 02, 2025 Team Status: Active Member Role Status Dates Dr. Clementina Tao MD Primary Care Provider Active Start: March 10, 2025 Dr. Clementina Tao MD Attending Provider Active St art: March 10, 2025 Dr. Clementina Tao MD Referring Provider Active St art: March 10, 2025 Team Status: Inactive Member Role Status Dates Dr. Clementina Tao MD Primary Care Provider Active Start: March 18, 2025 End: March 18, 2025 Dr. Clementina Tao MD Attending Provider Active St art: March 18, 2025 End: March 18, 2025 Dr. Clementina Tao MD Referring Provider Active St art: March 18, 2025 End: March 18, 2025 Team Status: Active Member Role/Relationship Status Dates Dr. Clementina Tao MD Primary Care Provider Active Team Status: Inactive Member Role/Relationship Status Dates Dr. Clementina Tao MD Primary Care Provider Active Start: January 26, 2025 End: January 26, 2025 Dr. Clementina Tao MD Attending Provider Active St art: January 26, 2025 End: January 26, 2025 Dr. Clementina Tao MD Referring Provider Active St art: January 26, 2025 End: January 26, 2025 Team Status: Inactive Member Role/Relationship Status Dates Dr. Clementina Tao MD Primary Care Provider Active Start: March 02, 2025 End: March 02, 2025 Dr. Clementina Tao MD Attending Provider Active St art: March 02, 2025 End: March 02, 2025 Dr. Clementina Tao MD Referring Provider Active St art: March 02, 2025 End: March 02, 2025 Team Status: Active Member Role/Relationship Status Dates Dr. Clementina Tao MD Primary Care Provider Active Start: March 10, 2025 Dr. Clementina Tao MD Attending Provider Active St art: March 10, 2025 Dr. Clementina Tao MD Referring Provider Active St art: March 10, 2025 Team Status: Inactive Member Role/Relationship Status Dates Dr. Clementina Tao MD Primary Care Provider Active Start: March 18, 2025 End: March 18, 2025 Dr. Clementina Tao MD Attending Provider Active St art: March 18, 2025 End: March 18, 2025 Dr. Clementina Tao MD Referring Provider Active St art: March 18, 2025 End: March 18, 2025 Team Status: Inactive Member Role/Relationship Status Dates Dr. Clementina Tao MD Primary Care Provider Active Start: April 16, 2025 End: April 16, 2025 Dr. Clementina Tao MD Attending Provider Active St art: April 16, 2025 End: April 16, 2025 Dr. Clementina Tao MD Referring Provider Active St art: April 16, 2025 End: April 16, 2025 Team Status: Inactive Member Role/Relationship Status Dates Dr. Clementina Tao MD Primary Care Provider Active Start: April 23, 2025 End: April 23, 2025 Dr. Clementina Tao MD Referring Provider Active St art: April 23, 2025 End: April 23, 2025 Dr. Montez Robbins MD Attending Provider Active Start: April 23, 2025 End: April 23, 2025 Team Status: Inactive Member Role/Relationship Status Dates Dr. Clementina Tao MD Primary Care Provider Active Start: March 10, 2025 End: March 10, 2025 Dr. Clementina Tao MD Attending Provider Active St art: March 10, 2025 End: March 10, 2025 Dr. Clementina Tao MD Referring Provider Active St art: March 10, 2025 End: March 10, 2025 Team Status: Inactive Member Role/Relationship Status Dates Dr. Clementina Tao MD Primary Care Provider Active Start: May 21, 2025 End: May 21, 2025 Dr. Clementina Tao MD Referring Provider Active St art: May 21, 2025 End: May 21, 2025 Dr. Montez Robbins MD Attending Provider Active Start: May 21, 2025 End: May 21, 2025 Team Status: Active Member Role/Relationship Status Dates Dr. Clementina Tao MD Primary care physician Active Team Status: Inactive Member Role/Relationship Status Dates Dr. Clementina Tao MD Primary care physician Active Start: March 02, 2025 End: March 02, 2025 Dr. Clementina Tao MD Attending physician Active S tart: March 02, 2025 End: March 02, 2025 Dr. Clementina Tao MD Referring Provider Active St art: March 02, 2025 End: March 02, 2025 Team Status: Inactive Member Role/Relationship Status Dates Dr. Clementina Tao MD Primary care physician Active Start: March 10, 2025 End: March 10, 2025 Dr. Clementina Tao MD Attending physician Active S tart: March 10, 2025 End: March 10, 2025 Dr. Clementina Tao MD Referring Provider Active St art: March 10, 2025 End: March 10, 2025 Team Status: Inactive Member Role/Relationship Status Dates Dr. Clementina Tao MD Primary care physician Active Start: March 18, 2025 End: March 18, 2025 Dr. Clementina Tao MD Attending physician Active S tart: March 18, 2025 End: March 18, 2025 Dr. Clementina Tao MD Referring Provider Active St art: March 18, 2025 End: March 18, 2025 Team Status: Inactive Member Role/Relationship Status Dates Dr. Clementina Tao MD Primary care physician Active Start: April 16, 2025 End: April 16, 2025 Dr. Clementina Tao MD Attending physician Active S tart: April 16, 2025 End: April 16, 2025 Dr. Clementina Tao MD Referring Provider Active St art: April 16, 2025 End: April 16, 2025 Team Status: Inactive Member Role/Relationship Status Dates Dr. Clementina Tao MD Primary care physician Active Start: April 23, 2025 End: April 23, 2025 Dr. Clementina Tao MD Referring Provider Active St art: April 23, 2025 End: April 23, 2025 Dr. Montez Robbins MD Attending physician Active Start: April 23, 2025 End: April 23, 2025 Team Status: Inactive Member Role/Relationship Status Dates Dr. Clementina Tao MD Primary care physician Active Start: May 21, 2025 End: May 21, 2025 Dr. Clementina Tao MD Referring Provider Active St art: May 21, 2025 End: May 21, 2025 Dr. Montez Robbins MD Attending physician Active Start: May 21, 2025 End: May 21, 2025 Team Status: Inactive Member Role/Relationship Status Dates Dr. Clementina Tao MD Primary care physician Active Start: June 04, 2025 End: June 04, 2025 Dr. Clementina Tao MD Attending physician Active S tart: June 04, 2025 End: June 04, 2025 FOR RECORDS PERTAINING TO PATIENTS WHO ARE OR HAVE BEEN ENROLLED IN A CHEMICAL DEPENDENCY/SUBSTANCEABUSE PROGRAM, SOME INFORMATION MAY BE OMITTED. This clinical summary was aggregated from multiple sources. Caution should be exercised in using it in the provision of clinical care. This summary normalizes information from multiple sources, and as a consequence, information in this document may materially change the coding, format and clinical context of patient data. In addition, data may be omitted in some cases. CLINICAL DECISIONS SHOULD BE BASED ON THE PRIMARY CLINICAL RECORDS. [facility]. provides no warranty or guarantee of the accuracy or completeness of information in this document.
[2025-08-17] MEDS: Lactated Ringers 1,000 ML 15 ML IV (06:48)
--- NOTE | 2025-08-17 07:08 | PCM.PRE.AN2 ---
ASA Classification* ASA Classification ASA Classification: 3 Assessment & Plan Anesthesia* Anesthesia Assessment Anesthesia Assessment: Discussed sedation and/or anesthesia options, risks, benefits, and alternatives with patient/parents/legal guardian/POA. Questions invited. The patient/parents/legal guardian/POA seems to understand and agrees to proceed with anesthesia plan. Reviewed the physical assessment, medical history, allergy history and patient home medications list prior to surgery/procedure/anesthetic and documented any changes. Performed airway and anesthesia risk assessments. Anesthesia Type Anesthesia Type: General History Source History Obtained from:: Patient and Chart Anesthesia Focused Assessment* Temperature: 98.6 F Pulse Rate: 80 Blood Pressure: 135/79 Respiratory Rate: 16 Pulse Ox: 96 Oxygen Delivery Method: Room Air Airway Assessment Mouth opens: >3 cm Mallampati Score: II Teeth Condition: Chipped/Broken and Missing (Very poor dentition. Lots of broken teeth present. Lots of rotten teeth. ) Neck Range of motion (ROM): Full ROM Labs Anesthesia Preop lab: CBC WBC, (4.4-11.0) 6.5 K/mm3 08/03/25, RBC, (4.6-6.2) 4.75 M/mm3 08/03/25, Hgb, (13.0-16.5) 14.9 g/dL 08/03/25, Hct, (40-54) 43.3 % 08/03/25, : Plt Count, (150-450) 284 K/mm3 08/03/25, : CHEMISTRY Potassium, (3.3-5.1) 4.6 mmol/L 08/03/25, Sodium, (133-145) 136 mmol/L 08/03/25, Magnesium, (1.6-2.6) 2.1 mg/dL 12/17/22, 08:33 BUN, (4-19) 18 mg/dL 08/03/25, Creatinine, (0.70-1.20) 1.03 mg/dL 08/03/25, : Glucose, (70-99) 114 mg/dL H 08/03/25, : POC Glucose, (74-106) 164 mg/dL H 12/25/22, 12:55 TSH, (0.358-3.74) 1.92 uIU/mL 03/01/22, 09:02 COAG Pre-Assessment Diagnosis/Proposed Procedure Planned Operative Procedure(s): (R) Right lower extremity exploration for neuroma and possible regenerative peripheral nerve interface or targeted muscle reinnervation Anesthesia History 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 When Was Last Pacemaker Check QUESTION #4 FULL TEXT: You/Your Family Experience fever (hyperthermia) with Anesthesia Last Oral Intake Last Oral intake: Last Oral Intake NPO since 21:00 08/17/25 06:37 Meds taken in AM with sips of No 08/17/25 06:37 water? Meds patient instructed to take am of surgery PONV PONV - cash management clerk: PONV - cash management clerk Female No 07/28/25 15:03 HX of Motion Sickness No 07/28/25 15:03 HX of N/V After Surgery No 07/28/25 15:03 Non-Smoker Yes 07/28/25 15:03 Duration of Surgery greater No 07/28/25 15:03 than 60 minutes Number of Risk Factors 1 07/28/25 15:03 PONV Score Low Risk 07/28/25 15:03 Height & Weight Height & Weight: Anesthesia: Height & Weight Height 5 ft 7 in 08/17/25 06:37 Weight: 94 kg 08/17/25 06:37 Body Mass Index (BMI) 32.4 08/17/25 06:37 Respiratory Assessment Respiratory Assessment - cash management clerk: Respiratory Tract Infection Hx - cash management clerk Hx Respiratory Tract Infection No 07/28/25 15:03 STOP Sleep Apnea STOP Sleep Apnea - cash management clerk: STOP Sleep Apnea - cash management clerk Hx Hypertension Yes: CONTROLLED WITH MED 07/28/25 15:03 Hx Sleep Apnea No 07/28/25 15:03 CPAP BIPAP Do you snore loudly (louder No 07/28/25 15:03 than talking or can be heard Do you often feel tired/ No 07/28/25 15:03 fatigued/ sleepy during daytime? Has anyone observed you stop No 07/28/25 15:03 breathing during sleep? STOP Results Negative 07/28/25 15:03 QUESTION #5 FULL TEXT : Do you snore loudly (louder than talking or can be heard through closed doors)? Tobacco Use History Tobacco Use History - cash management clerk: Tobacco Use History - cash management clerk Tobacco Use Smoking Status Never smoker 07/28/25 15:03 Hx Tobacco Use No 07/28/25 15:03 Years Smoking Packs Smoked per Day Smoking Cessation Date was within the last 15 years Hx Smoking Cessation Date Hx Smoking Cessation Counseling Hematologic Medial History Hematologic Hx - cash management clerk: Hematologic Medical Hx - systems support specialist Hx of Blood Transfusion No 07/28/25 15:03 Hx of Transfusion in last 3 No 07/28/25 15:03 Months Date of Last Transfusion (if within last 3 months) Ever experience any problems No 07/28/25 15:03 with transfusion(s)? Specify any problems Hx of Preganancy in last 3 N/A 07/28/25 15:03 Months Nurse Filling Out Transfusion NBUCHER 07/28/25 15:03 & Questions: Date: 07/28/25 07/28/25 15:03 Time: 15:05 07/28/25 15:03 Patient unable to answer at this time (ie. confused, unrespo /Reproduction History /Reproductive History - cash management clerk: /Reproductive Hx- cash management clerk Hx Now No 07/28/25 15:03 Gestational Age (in weeks): EDC: Hx Hx Para Hx Section SAB No 07/28/25 15:03 Does the father of the baby or his family experience fever w Father of the baby Malignant Hypertension history comment Active Medications Active Medications: Current Medications Generic Name Dose Route Start Last Admin Trade Name Freq PRN Reason Stop Dose Admin Cefazolin Sodium 2 gm/ Sodium 110 mls @ 200 mls/hr 08/17/25 07:30 Chloride IV 08/17/25 08:02 INTRAOP ONE Lactated Ringer's 1,000 mls @ 15 mls/hr 08/17/25 06:15 08/17/25 06:48 IV 15 mls/hr .Q48H NEGRITA Administration PFSH Medical History Numbness and tingling in both hands Cancer Wears glasses Cancer Ambulates with cane Arthritis Former smoker Leg cramps History of stress test Hypertension Home Medications ?Medication ?Instructions ?Recorded ?Last Taken ?Type amlodipine 5 mg tablet 10 mg PO QHS 04/16/25 08/16/25 History levocetirizine 5 mg tablet 5 mg PO QHS 04/16/25 08/16/25 History ramipril 10 mg capsule 10 mg PO QHS 04/16/25 08/16/25 History magnesium oxide 400 mg (241.3 mg 400 mg PO QHS Vitiman 04/23/25 08/16/25 History magnesium) tablet pyridoxine (vitamin B6) 250 mg 250 mg PO DAILY Vitamin 04/23/25 08/16/25 History tablet (Vitamin B-6) fluticasone propionate 50 1 - 2 spray intranasal QHS 07/28/25 08/16/25 History mcg/actuation nasal spray,suspension hydrochlorothiazide 25 mg tablet 25 mg PO DAILY 07/28/25 08/16/25 History lorazepam 1 mg tablet 1 mg PO DAILY PRN LEG CRAMP 07/28/25 08/16/25 History Allergy/AdvReac Type Severity Reaction Status Date / Time No Known Allergies Allergy Verified 08/17/25 06:36 Surgical History History of fusion of cervical spine (12/25/22) H/O neck surgery Hx of total knee arthroplasty Hx of left knee surgery (~2021) Hx of colonoscopy History of carpal tunnel surgery of left wrist Hx of above knee amputation Social History Smoking Status: Never smoker alcohol intake: never substance use type: does not use additional social history: pt denies aspirin, denies ibuprofen , denies vaping, denies edibles, denies marijuana denies blood clots Review of Systems (Anesthesia) ROS Narrative System reviewed and no additional complaints, except as documented.
--- NOTE | 2025-08-17 07:18 | PCM.HP.STD ---
HPI - General General Date of Service: 08/17/25 HPI Narrative DIANELYS SMALL, is a 70 M who presents for neuroma excision of his right leg stump. He denies changes to his medical health since his last visit. Denies fever, chills, URI, dental infection. 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 The pain is sharp and steady, exacerbated by weight-bearing and localized to the stump area, with a positive Tinel's sign indicating a neuroma. The MRI findings suggest a neuroma, and the CT-guided biopsy ruled out neoplasm of an odd spot in the femur. [facility] Medical History Numbness and tingling in both hands Cancer Wears glasses Cancer Ambulates with cane Arthritis Former smoker Leg cramps History of stress test Hypertension Home Medications ?Medication ?Instructions ?Recorded ?Last Taken ?Type amlodipine 5 mg tablet 10 mg PO QHS 04/16/25 08/16/25 History levocetirizine 5 mg tablet 5 mg PO QHS 04/16/25 08/16/25 History ramipril 10 mg capsule 10 mg PO QHS 04/16/25 08/16/25 History magnesium oxide 400 mg (241.3 mg 400 mg PO QHS Vitiman 04/23/25 08/16/25 History magnesium) tablet pyridoxine (vitamin B6) 250 mg 250 mg PO DAILY Vitamin 04/23/25 08/16/25 History tablet (Vitamin B-6) fluticasone propionate 50 1 - 2 spray intranasal QHS 07/28/25 08/16/25 History mcg/actuation nasal spray,suspension hydrochlorothiazide 25 mg tablet 25 mg PO DAILY 07/28/25 08/16/25 History lorazepam 1 mg tablet 1 mg PO DAILY PRN LEG CRAMP 07/28/25 08/16/25 History Allergy/AdvReac Type Severity Reaction Status Date / Time No Known Allergies Allergy Verified 08/17/25 06:36 Surgical History History of fusion of cervical spine (12/25/22) H/O neck surgery Hx of total knee arthroplasty Hx of left knee surgery (~2021) Hx of colonoscopy History of carpal tunnel surgery of left wrist Hx of above knee amputation Social History Smoking Status: Never smoker alcohol intake: never substance use type: does not use additional social history: pt denies aspirin, denies ibuprofen , denies vaping, denies edibles, denies marijuana denies blood clots ROS ROS Narrative General: Denies fever, chills HEENT: Denies headaches, vision changes, sore throat Cardio: Denies chest pain, leg edema Pulmonary: Denies shortness of pain, cough, wheezing GI: Denies nausea, vomiting, diarrhea Vital Signs Vital Signs Vital Signs: 08/17/25 06:37 08/17/25 06:37 08/17/25 07:09 Temperature 98.6 F 98.6 F Temperature Source Temporal Pulse Rate 80 80 Respiratory Rate 16 16 Respiratory Pattern Normal Blood Pressure 135/79 H 135/79 H Blood Pressure Mean 97 Blood Pressure Source Monitor Blood Pressure Position Semi-Fowlers Blood Pressure Location Left Arm Pulse Ox 96 96 Oxygen Delivery Method Room Air Room Air Weight Weight: 207 lb 3.752 oz Body Mass Index (BMI) 32.4 Physical Exam Narrative Afebrile/VSS. Musculoskeletal: Right AKA stump with healed incision with indentations along the incision from tethered skin and scar. Good padding over the residual femur. + Tinel's sign on the right posterior aspect of the above-knee amputation stump. Assessment & Plan Assessment/Plan (1) Neuroma of amputation stump of extremity: PLAN: Plan Plan for neuroma excision for right leg stump Plan for observation overnight. Ancef for periop prophylaxis
--- NOTE | 2025-08-17 07:30 | NEUR_PTH ---
PATIENT: DIANELYS SMALL LOC: MS3 U#:[id number] AGE/SX: 70/M ROOM: [facility] [place] RE08/17/[address]: Dr. Montez Robbins MD : 1955 BED: 1 DIS: 08/19/2025 SPEC #: [id number] RECD: 08/17/25 10:00 STATUS: MARIANNE RESam #: [id number] YOLANDA: 08/17/25 07:[address]: Montez Robbins DEPT: SURGICAL PATHOLOGY RECD BY: Duy Rice ENTERED: 08/17/25 11:50 SP TYPE: NEUROMA OTHR DR: Dr. Sam Tao MD Tissues: A - NEUROMA Procedures: Surgery Specimen Level III HEADER OPERATION: Right lower extremity exploration for neuroma PRE-OP DIAGNOSIS: Neuroma right amputation stump TISSUE SUBMITTED: A- Presumed neuroma from right above knee amputation stump MICROSCOPIC DIAGNOSIS A. Soft tissue, right lower extremity AKA stump, excision: * Neuroma MICROSCOPIC DESCRIPTION Slides are reviewed. GROSS DESCRIPTION A. Received in formalin labeled with the patient's name and date of . Designated as presumed neuroma from right AKA stump is a 6.1 x 3.1 x 1.5 cm valerio-white to pink-red firm, and bifurcated portion of tissue (grossly consistent with nerve) with minimal attached valerio-yellow lobulated soft tissue. The specimen is devoid of orientation and the external surfaces are inked black. Sectioning reveals a 2.7 x 2.5 x 1.6 cm valerio-white to pink, fibrotic, somewhat nodular mass, abutting the external surfaces. Strip Catcher sections are submitted in 4 cassettes. [facility] 08/17/2025 CPT:[id number]
[2025-08-17] MEDS: Midazolam 2 MG/2 ML Syringe IV (07:39)
[2025-08-17] MEDS: Cefazolin 1 GM/5 ML Vial 2 GM IV (07:39)
[2025-08-17] MEDS: Lidocaine 1% (5 ml sdv) 5 ML Vial 8 ML IV (07:47)
[2025-08-17] MEDS: fentaNYL 100 MCG/2 ML Ampul IV (07:53)
[2025-08-17] MEDS: Bupiv/Epi 0.25% 30 ML Vial (09:31)
--- NOTE | 2025-08-17 09:51 | PCM.POST.ANE ---
Anesthesia: Postop Eval I Current Vital Signs Temperature: 97.9 F Pulse Rate: 80 Blood Pressure: 111/62 Respiratory Rate: 16 Pulse Ox: 94 Assessment Airway patent: Yes Spontaneous unlabored respirations: Yes nausea: No Vomiting: No Anesthesia Complication: No Fluid Hydration Crystalloid volume administer (ml): 800 Total IV fluid infused: 800 Progress Note Anesthesia document: Postop Eval 1 completed: Yes
--- NOTE | 2025-08-17 10:53 | PCM.OPRPT ---
Operative Report (Standard) Operative Information Date of Procedure: 08/17/25 Pre-Operative Diagnosis: Right above-knee amputation neuroma (sciatic nerve) Post-Operative Diagnosis: Same Surgery/Procedure Performed: 1) Exploration and excision of the right sciatic nerve neuroma children's book author: Yes Electrician'S Assistant: Sam Millan Tasks completed by assistant store manager trainee: Dissecting tissue Additional fleet assistant?: Yes Additional Buff Wheel Fabricator #2: Cody Young Tasks completed by fleet assistant #2: Closing and Retracting Type of Anesthesia: General/Supplemental (30 cc of quarter percent Marcaine with 1-200,000 epinephrine) RN Documented Start/Stop Times: Operation Date: 08/17/25 07:30 Case Time Into Pre-Op 08/17/25 06:13 Out of Pre-Op 08/17/25 07:33 Anesthesia Start 08/17/25 07:39 Into Room 08/17/25 07:39 Procedure Start 08/17/25 08:12 Procedure End 08/17/25 09:37 Anesthesia End 08/17/25 09:44 Out of Room 08/17/25 09:44 Into Recovery 08/17/25 09:47 Out of Recovery 08/17/25 10:21 Procedure Start Time: 08:12 Procedure Stop Time: 09:37 Select all DRAINS/GRAFTS/IMPLANTS that apply: Drains Drain details: 19 Fr Kyle tunneled out laterally Special Medications: 19 Urdu Kyle drain Estimated Blood Loss: 20 cc Specimen collected: Yes Description of specimen(s) removed: Presumed neuroma from the right sciatic nerve Description of surgery: Indications: Rizwan Coffman is a delightful 70-year-old male with a past medical history of a 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 This is caused him significant distress and he has been unable over the past year to use his prosthetic. He is now walking on crutches instead of his prosthetic. The prosthetists recommended neuroma management surgically as they could not help him with any redesign of the prosthetic. He understands the risks, benefits, and alternatives to today's procedure and elected to proceed. Procedure details: Patient was quickly identified in preoperative holding and I marked the area point tenderness (positive Tinel), and he was taken back to the operating room where he was administered general anesthesia. He was prepped and draped in sterile fashion and all proper timeouts were performed. 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 The neuroma was identified in the posterior compartment of the thigh, approximately 5 cm from the stump edge just beneath the femur. This was the area of point tenderness. It was dissected circumferentially and excised proximally essentially midway up the thigh. There were no viable targets for targeted muscle reinnervation as the 2 branches identified or 2 muscles that were significantly atrophied and not inserted on the femur. We therefore dissected the sciatic nerve into tibial and peroneal contributions, and implanted them into the adjacent hamstring muscles with 7-0 Prolene's epineurial sutures, and an oversew with 5-0 Vicryl. The nerve stump/neuroma was then sent to pathology. It measured approximately 6 x 4 cm (see photo below of the neuroma). The wound was then irrigated with Irrisept and copious amounts normal saline. It was then closed with layers with 0 PDS for the deep fascia, 2-0 PDS for the superficial fascial system, and 3-0 Monocryl and tj for the skin. A Prineo topical wound VAC was applied, and a 19 Urdu Kyle drain was left in the wound bed and tunneled out laterally. Patient tolerated the procedure well. He was waken taken the PACU in stable condition. Postoperative plan: Admit for pain control overnight. No walking on his prosthetic for 3 months while the wound heals. Surgical Findings: Large sciatic nerve neuroma underneath the femur near the amputation site The above photograph is of the stumps of the sciatic (peroneal and tibial divisions following dissection with a right angle and dissection micro scissors for intraneural neurolysis/division) which were inserted into the adjacent hamstring muscles. The former picture is of the neuroma stump that was excised and sent to pathology. Complications Complications: No
[2025-08-17] MEDS: 0.9% Normal Saline (1000mL) 1,000 ML 75 ML IV (11:27)
[2025-08-17] MEDS: Cefazolin 1 GM/50 ML BAG IV ×2 (14:39→21:59)
--- NOTE | 2025-08-17 16:28 | POSTOPAN2_ITS ---
Anesthesia Postop Eval I Sum Postop Eval Completion status Anesthesia document: Postop Eval 1 completed: Yes Anesthesia Postop Eval I Summary Anesthesia Postop Eval I Summary: Anesthesia Postop Eval I: Assessment Summary Airway patent Yes 08/17/25 09:52 [email or web address] Spontaneous unlabored Yes 08/17/25 09:52 HAND [email or web address] respirations Mental status nausea No 08/17/25 09:52 [email or web address] Vomiting No 08/17/25 09:52 HAND [email or web address] Anesthesia Postop Eval I: Fluid Summary Crystalloid volume administer 800 08/17/25 09:52 HAND [email or web address] (ml) Colloids volume administered ( ml) Blood Product volume administered (ml) Total IV fluid infused 800 08/17/25 09:52 [email or web address] Anesthesia Postop Eval I: Summary Notes Anesthesia Complication No 08/17/25 09:52 [email or web address] Anesthesia Complication Comment: Post-operative progress note Anesthesia: Postop Eval II Evaluation Mental status: Awake and Calm Pain Level: 1 nausea: No Vomiting: No Complications Anesthesia Complication: No
--- NOTE | 2025-08-17 16:28 | PCM.POSTANE2 ---
Anesthesia Postop Eval I Sum Postop Eval Completion status Anesthesia document: Postop Eval 1 completed: Yes Anesthesia Postop Eval I Summary Anesthesia Postop Eval I Summary: Anesthesia Postop Eval I: Assessment Summary Airway patent Yes 08/17/25 09:52 [email or web address] [email or web address] Spontaneous unlabored Yes 08/17/25 09:52 [email or web address] [email or web address] respirations Mental status nausea No 08/17/25 09:52 [email or web address] [email or web address] Vomiting No 08/17/25 09:52 [email or web address] [email or web address] Anesthesia Postop Eval I: Fluid Summary Crystalloid volume administer 800 08/17/25 09:52 [email or web address] [email or web address] (ml) Colloids volume administered ( ml) Blood Product volume administered (ml) Total IV fluid infused 800 08/17/25 09:52 [email or web address] [email or web address] Anesthesia Postop Eval I: Summary Notes Anesthesia Complication No 08/17/25 09:52 [email or web address] [email or web address] Anesthesia Complication Comment: Post-operative progress note Anesthesia: Postop Eval II Evaluation Mental status: Awake and Calm Pain Level: 1 nausea: No Vomiting: No Complications Anesthesia Complication: No
[2025-08-17] MEDS: Magnesium Chloride 64 MG Delay Rel.Tablet 128 MG PO (21:59)
[2025-08-18] MEDS: 0.9% Normal Saline (1000mL) 1,000 ML 75 ML IV ×2 (00:22→15:02)
[2025-08-18 03:20] VITALS: BP 112/60; PULSE 80; RESP 15; TEMP 36.7; O2SAT 96
[2025-08-18] MEDS: Cefazolin 1 GM/50 ML BAG IV ×3 (06:33→20:55)
[2025-08-18 06:57] LABS: Hematocrit 40.4 % (40-54); Hemoglobin 14.0 g/dL (13.0-16.5); Immature Granulocytes Count 0.080 X10^3/uL (0.0-0.0); Mean Corp Hgb Conc 34.7 g/dL (32-36); Mean Corpuscular Volume 91.4 fL (80-94); Mean Platelet Vol. 8.8 fl (6.2-12.0); NRBC Flagged by Analyzer 0 % (0-5); Platelet Count 290 K/mm3 (150-450); RBC Distribution Width CV 12.8 % (11.6-14.6); RBC Distribution Width SD 42.8 fl (35.1-43.9); Red Blood Count 4.42 M/mm3 (4.6-6.2); White Blood Count 18.0 K/mm3 (4.4-11.0)
[2025-08-18 07:15] LABS: Anion Gap 10 (5-15); BUN 21 mg/dL (4-19); BUN/Creat Ratio 18.7 RATIO (10-20); Calcium,Total 8.7 mg/dL (7.6-11.0); Carbon Dioxide 19.7 mmol/L (21.0-32.0); Chloride 103 mmol/L (98-108); Estimated Creatinine Clearance 66.70 ml/min (50-250); Glucose 137 mg/dL (70-99); Potassium 4.4 mmol/L (3.3-5.1)
[2025-08-18 08:09] VITALS: BP 113/71; PULSE 68; RESP 16; TEMP 36.8; O2SAT 97
--- NOTE | 2025-08-18 09:55 | CASEMGMT ---
Discharge Planning A list of?RU providers including quality and resource use data and consistent with the patient's preferred geographic region, medical needs, and insurance network was created in [facility] Guide.? This list was provided to the SW. Malathi Schwartz Discharge Planning Asst.
--- NOTE | 2025-08-18 10:12 | CASEMGMT ---
Social Work SW?to room to meet with patient for initial transition planning/care coordination?assessment.?SW?introduced self and role at [facility].? Pt voices understanding and consents to?assessment.? Pt is A/Ox4 and answers all questions appropriately.?? Care providers, pharmacy, and demographics verified. PCP: Dinh Specialists: [facility], plastic surgery Preferred [facility]acy: [facility] Insurance: [facility] Prescription Benefit:? Yes Living Will/HPOA:? Pt states he has completed HCPOA and LW. SW requested documents be brought in for scanning into the medical record. LNOK: son Kal Coffman Living Arrangements: Pt lives in a 2 story home with first floor set up. 2 steps with 2 hand rails to enter. Pt states that home is handicap accessible and has a walk in shower for a WC as well as grab bars in bathrooms. Prior to hospitalization, pt was independent with all ADLs and IADLs. Pt has a BKA and uses a prosthetic and is able to ambulate with a cane. In the evenings pt removes the prosthetic and utilizes a wheelchair. Pt's son lives with pt and works from home. Transportation:?Pt drives DME: ? Wheelchair, cane, walker, shower chair HHC/SNF: Inpatient Rehab in [facility] PLAN: Per physician, pt will not be able to use prosthetic for 3 months and will then need to be fitted for a new prostetic. Physician feels pt would benefit from Inpatient Rehab to assist with ambulation, ADLs and safety without prosthetic. SW spoke with pt regarding this recommendation and pt is agreeable. A list of Inpatient Rehab providers including quality and resource use data and consistent with the patient?s preferred geographic region, medical needs, and insurance network were provided from the [facility]Port Guide. Pt preferred provider is [facility]. SW made referral to [facility]. SW will await determination of acceptance. REYES Bacon
--- NOTE | 2025-08-18 10:19 | CASEMGMT ---
GUAN Met with patient to complete GUAN form. GUAN form and its content were verbally explained and patient's questions were answered to the best of my ability.? Patient voiced understanding and signed GUAN form.? Patient provided a copy of signed GUAN form and original placed in patient's chart.? Patient had no further questions. Malathi Schwartz, Discharge Planning Asst
--- NOTE | 2025-08-18 11:11 | PCM.PN.SRG ---
Subjective Subjective Patient seen this morning with Dr. Robbins and nurse at bedside. He has not been up and ambulating yet with nursing due to incisional pain he described as tugging. He is tolerating oral intake, passing gas, pain is controlled with Oxycodone. No other concerns overnight. He lives with someone in his one-story home but has chronic back issues due to combination of ambulating with crutches and weight gain he reports to me. Objective Data Objective Data Vital Signs: Vital Signs Temp Pulse Resp BP Pulse Ox O2 Del Method O2 Flow Rate 98.3 F 68 16 113/71 97 Room Air 4 08/18/25 08:09 08/18/25 08:09 08/18/25 08:09 08/18/25 08:09 08/18/25 08:09 08/18/25 08:10 08/17/25 10:55 Oxygen Flow Rate (L/min) 4 Oxygen Delivery Method Room Air Weight: 207 lb 3.752 oz Body Mass Index (BMI) 32.4 Intake & Output: Intake and Output for Last 24 Hours 08/16/25 08/17/25 08/18/25 23:59 23:59 23:59 Intake Total 761.75 / 761.75 1018.75 / 1018.75 Output Total 645 / 1145 2225 / 2225 Balance 116.75 / -383.25 -1206.25 / -1206.25 Lab / Micro Data Attestation: I reviewed the patient's lab results. 08/18/25 06:40 08/18/25 06:40 Labs: Laboratory Results - last 24 hr 08/18/25 06:40: WBC 18.0 H, RBC 4.42 L, Hgb 14.0, Hct 40.4, MCV 91.4, MCH 31.7, MCHC 34.7, RDW Std Deviation 42.8, RDW Coeff of Ru 12.8, Plt Count 290, MPV 8.8, Immature Gran % (Auto) 0.400, Neut % (Auto) 85.2 H, Lymph % (Auto) 7.3 L, [place] % (Auto) 6.7, Eos % (Auto) 0.3, Baso % (Auto) 0.1, Absolute Neuts (auto) 15.3 H, Absolute Lymphs (auto) 1.32, Nucleated RBC % 0, Sodium 133, Potassium 4.4, Chloride 103, Carbon Dioxide 19.7 L, Anion Gap 10, BUN 21 H, Creatinine 1.11, Estim Creat Clear Calc 66.70, Est GFR (MDRD) Non-Af 71, BUN/Creatinine Ratio 18.7, Glucose 137 H, Calcium 8.7 Physical Exam Narrative Afebrile/VSS Right lower extremity Provena wound VAC seal is good. incision is clean, dry, intact. No fluid collections noted LION drain 15ml overnight. Leave in place Paresh wrap removed. SCD in left leg, no leg swelling. Assessment & Plan Assessment/Plan (1) Neuroma of amputation stump of extremity: PLAN: Assessment: POD #1 neuroma excision of RLE stump Plan: Pain control: Oxycodone prn. Per MAR Incision care: Provena wound VAC leave in place. No need for Paresh wrap. Non weight bearing on the stump for 3 month postoperatively Drain care: Leave in place. Activity: Encourage mobilization as tolerated. Continue Ancef for surgical prophylaxis. Encouraged incentive spirometry DVT ppx: SCD's, SQ Lovenox started 08/18 Dispo: He would benefit from course of acute rehab stay given he cannot bear any weight on his stump for 3 months and work on gait balance and ambulation given his back issues. CM following. Charges/Coding Procedures Integumentary [id number]: [id number] Global Visit
[2025-08-18 13:13] VITALS: BP 106/64; PULSE 73; RESP 16; TEMP 36.4; O2SAT 98
[2025-08-18 19:20] VITALS: BP 125/69; PULSE 75; RESP 16; TEMP 36.6; O2SAT 95
[2025-08-18 20:49] VITALS: BP 132/72; PULSE 68; RESP 15; TEMP 36.6; O2SAT 97
[2025-08-18] MEDS: Magnesium Chloride 64 MG Delay Rel.Tablet 128 MG PO (20:58)
[2025-08-19] MEDS: 0.9% Normal Saline (1000mL) 1,000 ML 75 ML IV (06:09)
[2025-08-19] MEDS: Cefazolin 1 GM/50 ML BAG IV (06:09)
[2025-08-19 07:40] VITALS: BP 126/74; PULSE 69; RESP 16; TEMP 36.6; O2SAT 94
[2025-08-19 09:00] VITALS: BP 123/72; PULSE 91; RESP 18; TEMP 36.6; O2SAT 98
--- NOTE | 2025-08-19 09:51 | CASEMGMT ---
Addendum entered by Kassy Herrera 08/19/25 11:26: Social Work Per physician, pt is ready for dc to inpatient rehab today. [facility] in Rehab notified. SW informed pt who is agreeable and will contact his son. Nursing updated and to arranged transfer time with nurse. Disposition: [facility] Inpatient Rehab REYES Baer Original Note: Social Work SW spoke with Kamilla in and pt has been accepted and a bed is available today. SW met with pt and pt is agreeable to dc to inpatient rehab. Physician notified. Plan: Inpatient Rehab, when medically ready REYES Baer
--- NOTE | 2025-08-19 10:54 | DS.PCM_ITS ---
Providers Date of Admission: 08/17/25 Primary Care Physician: Dr. Sam Tao MD Reason For Visit: Right lower extremity exploration for neuroma and Diagnosis Discharge Diagnosis (1) Neuroma of amputation stump of extremity: Status: Acute Code(s): T87.30 - Neuroma of amputation stump, unspecified extremity Plan: Assessment: POD #1 neuroma excision of RLE stump Plan: Pain control: Oxycodone prn. Per MAR Incision care: Provena wound VAC leave in place. No need for Paresh wrap. Non weight bearing on the stump for 3 month postoperatively Drain care: Leave in place. Activity: Encourage mobilization as tolerated. Continue Ancef for surgical prophylaxis. Encouraged incentive spirometry DVT ppx: SCD's, SQ Lovenox started 08/18 Dispo: He would benefit from course of acute rehab stay given he cannot bear any weight on his stump for 3 months and work on gait balance and ambulation given his back issues. CM following. Medications at Discharge Home Medications amlodipine 5 mg tablet 10 mg PO QHS 04/16/25 levocetirizine 5 mg tablet 5 mg PO QHS 04/16/25 ramipril 10 mg capsule 10 mg PO QHS 04/16/25 magnesium oxide 400 mg (241.3 mg magnesium) tablet 400 mg PO QHS Vitiman 04/23/25 pyridoxine (vitamin B6) 250 mg tablet (Vitamin B-6) 250 mg PO DAILY Vitamin 04/23/25 fluticasone propionate 50 mcg/actuation nasal spray,suspension 1 - 2 spray intranasal QHS 07/28/25 hydrochlorothiazide 25 mg tablet 25 mg PO DAILY 07/28/25 lorazepam 1 mg tablet 1 mg PO DAILY PRN LEG CRAMP 07/28/25 enoxaparin 40 mg/0.4 mL subcutaneous syringe 40 mg (0.4 mL) subcut DAILY #7 mL 08/19/25 oxycodone 5 mg tablet 5 - 10 mg (1 - 2 x 5 mg) PO Q4H PRN PRN Pain Score 4-10 7 days #42 tabs 08/19/25 Hospital Course Operations - (Right lower extremity stump neuroma exploration and excision) Summary of Care Provided Minutes Spent on Discharge: 30 Hospital Course: Patient underwent above mentioned surgery with Dr. Robbins and Dr. Millan on 08/17/25 with intraoperative drain and wound VAC placement. He awoke from anesthesia without issues and transferred to general floor. He continued SCD for mechanical DVT prophylaxis and started on subcutaneous Lovnox on postop day for chemical prophylaxis. He was continued on Clindamycin for surgical prophylaxis. Inpatient evaluation was ordered and deemed a good candidate for inpatient rehab. Today is postop day #2, he reports incisional pain, drain output is adequate and wound VAC has good seal. He's tolerating oral intake, ambulating with therapies with crutches, urinating well, passing gas. He will be discharged and admitted to inpatient rehab today. Physical Exam Narrative Afebrile/VSS Right lower extremity Provena wound VAC seal is good. incision is clean, dry, intact. No fluid collections noted. Tender to palpation of lateral and mid incision. LION drain 10ml overnight. Leave in place no leg swelling. Weight / BMI Weight Weight: 207 lb 3.752 oz Body Mass Index (BMI) 32.4 ABG / Lab / Microbiology Data 08/18/25 06:40 08/18/25 06:40 D/C Instructions DC O2, CPAP, BIPAP Needs Home O2 Discharge instructions: No Meaningful Use Info Meaningful Use Meaningful Use Diagnoses (Choose all that apply): None applicable Discharge Plan Admission Admit Date/Time: 08/17/25 09:54 Primary Reason for Your Visit: Right leg stump neuroma excision Attending Provider: Montez Robbins Primary Care Provider: Sam Tao Instructions Additional Instructions / Restrictions: Operations Performed: Right leg stump neuroma excision Instructions for My Care at Home or Healthcare Facility The following instructions will help you know what to expect in the days following surgery. These are general instructions. Your surgeon and therapist may give you special instructions, which vary to some degree based on your specific procedure -- follow those as directed. Do not, however, hesitate to call if you have any questions or concerns. Splint Care/Dressing Care/Wound Care * Continue LION drain care. Strip drain tube and record output per shift. * Continue Provena wound VAC therapy. [ ] ? Activities * Frequent ambulation. * No prosthesis or weight bearing on incision for 3 months postop. * For the first 4 weeks after surgery, try to balance your activity, allowing time for rest. * Avoid lifting, pushing, or pulling anything over 5 pounds. * Do not drive or operate heavy machinery within 24 hrs of surgery or while taking narcotic pain medication.? Pain Control/Medications * Oxycodone as neede for pain. Continue Lovenox for chemical DVT prophylaxis. * If you received an anesthetic block, your hand or arm may be numb for several hours. You will be discharged to home with medications, including an oral pain medication (analgesic). Rest and elevation are still one of the most important factors for pain control. Take your pain medication as needed, but do not wait for the pain to become out of control. * For severe pain, you may take prescription pain medication as directed, but please note that this may also contain Tylenol (e.g. Percocet). Do not take more than 4000mg of Tylenol (acetaminophen) from all sources daily.? * Pain medication may cause some lethargy, nausea, and or constipation. You should not drive/operate dangerous machinery while taking these medications. If these or other symptoms become significantly problematic, please your surgeon's office. * If prescribed oral antibiotics (Keflex, Clindamycin, or others), please take prescription for full duration as instructed. You should not have any pills remaining once completed (refills are written for your convenience should the course need to be extended, but generally they are not required). Diet (what I can eat): Resume normal diet as before Follow up * We will continue to follow you while you are in rehab facility Follow-up appointment reminders:? (A list of any scheduled appointments is at the end of this document)? At your earliest convenience, please call [phone] to confirm/schedule a follow-up appointment with [ ] in clinic. When to call your surgeon: * If any signs of surgical site infection develop: redness, pus, pain, increased swelling or foul odor at the incision site, fever, cold and clammy skin, or confusion. * Consistent temperature above 101?F (38.3?C). * The affected area gets swollen or much more painful. * You have excessive bleeding from surgical site (soaking through). If you experience difficulty breathing and/or shortness of breath, seek immediate medical attention. If experiencing any of the above complications or if you have any questions, call [phone] Discharge Orders/Prescriptions Prescriptions: New oxycodone 5 mg Tablet 5 - 10 mg PO Q4H PRN PRN (Reason: Pain Score 4-10) 7 Days Qty: 42 0RF enoxaparin 40 mg/0.4 mL Syringe 40 mg subcut DAILY Qty: 7 0RF Continued magnesium oxide 400 mg (241.3 mg magnesium) tablet 400 mg PO QHS pyridoxine (vitamin B6) [Vitamin B-6] 250 mg tablet 250 mg PO DAILY amlodipine 5 mg tablet 10 mg PO QHS ramipril 10 mg capsule 10 mg PO QHS levocetirizine 5 mg tablet 5 mg PO QHS hydrochlorothiazide 25 mg tablet 25 mg PO DAILY fluticasone propionate 50 mcg/actuation spray,suspension 1 - 2 spray INTRANASAL QHS lorazepam 1 mg tablet 1 mg PO DAILY PRN (Reason: LEG CRAMP) Referrals / Follow Up: Sam Tao MD [Primary Care Provider, Family Practice] Disposition Disposition (needs filled in before D/C Order can be placed): Inpatient Rehab Unit/Facility Charges/Coding Procedures Integumentary 111xxx-113xx: [id number] Global Visit
--- NOTE | 2025-08-19 11:23 | PHA.DC.MR.R ---
Pharmacy [place] Med Reconciliation Pharmacy Service has performed discharge medication reconciliation for this patient. The patient's discharge medication list was reviewed for discrepancies and discrepancies were resolved. Medications at Discharge Home Medications amlodipine 5 mg tablet 10 mg PO QHS 04/16/25 levocetirizine 5 mg tablet 5 mg PO QHS 04/16/25 ramipril 10 mg capsule 10 mg PO QHS 04/16/25 magnesium oxide 400 mg (241.3 mg magnesium) tablet 400 mg PO QHS Vitiman 04/23/25 pyridoxine (vitamin B6) 250 mg tablet (Vitamin B-6) 250 mg PO DAILY Vitamin 04/23/25 fluticasone propionate 50 mcg/actuation nasal spray,suspension 1 - 2 spray intranasal QHS 07/28/25 hydrochlorothiazide 25 mg tablet 25 mg PO DAILY 07/28/25 lorazepam 1 mg tablet 1 mg PO DAILY PRN LEG CRAMP 07/28/25 enoxaparin 40 mg/0.4 mL subcutaneous syringe 40 mg (0.4 mL) subcut DAILY #7 mL 08/19/25 oxycodone 5 mg tablet 5 - 10 mg (1 - 2 x 5 mg) PO Q4H PRN PRN Pain Score 4-10 7 days #42 tabs 08/19/25
[2025-08-19 12:49] VITALS: BP 144/70; PULSE 70; RESP 18; TEMP 36.8; O2SAT 98
== END 2025-08-19 12:52 ==
LOC: SDC 10:07 → MS3 10:07
PROVIDERS: Physician Assistant; Admitting Provider Surgery Plastic and Reconstructive Surgery; PCP Family Medicine; Referring Provider Surgery Plastic and Reconstructive Surgery; Visit Provider Surgery Plastic and Reconstructive Surgery
PROC: (CPT 64786; principal; 2025-08-17 07:15)
DX: T87.33 Neuroma of amputation stump, right lower extremity (principal); I10 Essential (primary) hypertension; Y83.5 Amputation of limb(s) as the cause of abnormal reaction of the patient, or of later complication, without mention of misadventure at the time of the procedure; Z85.830 Personal history of malignant neoplasm of bone; Z87.891 Personal history of nicotine dependence; M19.90 Unspecified osteoarthritis, unspecified site; Z79.899 Other long term (current) drug therapy
CPT/HCPCS: 64786; 64787; 01250; 96361 ×3; 96365; 96366 ×2; 96372 ×2; 36415; 80048; 85025; 88304; 94668; 97162; 97166; 97530; 97535; 99221; A4648; G0378; J2405

== ENCOUNTER 2025-08-19 13:00 | Inpatient (IN) | payer MEDICARE, OTHER, SELFPAY ==
[2025-08-19 13:18] VITALS: BP 137/75; PULSE 79; RESP 15; TEMP 36.4; O2SAT 96; BMI 32.2
--- NOTE | 2025-08-19 14:27 | HP.PCM_ITS ---
HPI - General General Date of Admission: 08/19/25 Date of Service: 09/01/25 Chief Complaint: Debility status post exploration and excision of right sciatic nerve neuroma. HPI Narrative DIANELYS SMALL, is a 70 YO M with a past medical history of who presents [ ] [facility] Medical History Numbness and tingling in both hands Cancer Wears glasses Cancer Ambulates with cane Arthritis Former smoker Leg cramps History of stress test Hypertension Home Medications ?Medication ?Instructions ?Recorded ?Last Taken ?Type amlodipine 5 mg tablet 10 mg PO QHS blood pressure 04/16/25 08/18/25 History levocetirizine 5 mg tablet 5 mg PO QHS allery 04/16/25 08/18/25 History ramipril 10 mg capsule 10 mg PO QHS blood pressure 04/16/25 08/18/25 History magnesium oxide 400 mg (241.3 mg 400 mg PO QHS Vitiman 04/23/25 08/18/25 History magnesium) tablet pyridoxine (vitamin B6) 250 mg 250 mg PO DAILY Vitamin 04/23/25 08/19/25 History tablet (Vitamin B-6) fluticasone propionate 50 1 - 2 spray intranasal QHS 1 08/18/25 History mcg/actuation nasal allergies spray,suspension hydrochlorothiazide 25 mg tablet 25 mg PO DAILY blood pressure 07/28/25 08/19/25 History lorazepam 1 mg tablet 1 mg PO DAILY PRN LEG CRAMP 07/28/25 08/16/25 History Held on 08/19/25. Instructions: MD Ordered enoxaparin 40 mg/0.4 mL 40 mg (0.4 mL) subcut DAILY DVT 08/19/25 08/19/25 Rx subcutaneous syringe prophylaxis #7 mL oxycodone 5 mg tablet 5 - 10 mg (1 - 2 x 5 mg) PO Q4H 08/19/25 08/19/25 Rx PRN PRN Pain Score 4-10 7 days #42 tabs Allergy/AdvReac Type Severity Reaction Status Date / Time No Known Allergies Allergy Verified 08/17/25 06:36 Family History unable to obtain Surgical History History of fusion of cervical spine (12/25/22) H/O neck surgery Hx of total knee arthroplasty Hx of left knee surgery (~2021) Hx of colonoscopy History of carpal tunnel surgery of left wrist Hx of above knee amputation Social History household members: none Smoking Status: Never smoker alcohol intake: never substance use type: does not use additional social history: pt denies aspirin, denies ibuprofen , denies vaping, denies edibles, denies marijuana denies blood clots Vital Signs Vital Signs Vital Signs: 08/19/25 13:18 Temperature 97.6 F L Temperature Source Temporal Pulse Rate 79 Respiratory Rate 15 Blood Pressure 137/75 H Blood Pressure Mean 95 Blood Pressure Source Monitor Blood Pressure Position Semi-Fowlers Blood Pressure Location Right Arm Pulse Ox 96 Oxygen Delivery Method Room Air Weight Weight: 205 lb 14.588 oz Body Mass Index (BMI) 32.2
--- NOTE | 2025-08-19 14:27 | PCM.HP.STD ---
[facility] - General General Date of Admission: 08/19/25 Date of Service: 09/01/25 Chief Complaint: Debility status post exploration and excision of right sciatic nerve neuroma. HPI Narrative DIANELYS SMALL, is a 70 YO M with a past medical history of hypertension, right AKA in 1971 secondary to cancer, history of left total knee replacement, osteoarthritis, obesity, prediabetes, allergic rhinitis and history of cervical fusion [place] [address] Dockery who was admitted to [facility] 08/17/25 for planned exploration and excision of a neuroma in the R stump by Dr. Robbins. Until recently he had been ambulating with a RLE prosthesis and crutches. Recently he has not been able to wear the prosthesis due to extreme pain with any pressure on the R stump. He lives with his son and the house is set up for a handicapped person. He has a walk-in shower and grab bars. He can maneuver a WC in his BR. He has been told he will not be able to wear a prosthesis for the next 4 months. He is being admitted to the acute inpt rehab unit at [facility] on 08/19/25 for 3 hours of therapy daily to restore function at or near his level prior to the recent surgery. His son Kal lives with him and he works from home so he will have assistance at home. He has been told in the past that he snores and that his oxygen drops when he is sleeping. He was told this when he was in [facility] in 2021 for cervical fusion. He has never had a sleep study. He naps during the day and falls asleep reading a book and watching TV. He denies restless leg sx. He denies any hx of AF. All labs from yesterday was personally reviewed. The white blood cell count was 18 and there was a left shift present which is likely a stress response. Hemoglobin is normal at 14 with a normal MCV and MCH. Platelets were 292,000. Sodium was 133 and the potassium was 4.4. The BUN is 21 with a creatinine of 1.11. GFR is 71. Fasting glucose yesterday was elevated at 137. He had a hemoglobin A1c on 08/03/2025 and it was elevated at 6.1. LFTs done on 08/03/2025 showed a normal bilirubin and normal alk phos but the AST was elevated at 60 and the ALT was elevated at 82. [facility] Medical History Halitosis Poor dentition Allergic rhinitis Obesity (BMI 30.0-34.9) Neuroma Herniated nucleus pulposus, C5-6 left Herniated nucleus pulposus, C6-7 right Numbness and tingling in both hands Cancer Wears glasses Ambulates with cane Arthritis Former smoker Leg cramps History of stress test Hypertension Home Medications ?Medication ?Instructions ?Recorded ?Last Taken ?Type amlodipine 5 mg tablet 10 mg PO QHS blood pressure 04/16/25 08/18/25 History levocetirizine 5 mg tablet 5 mg PO QHS allery 04/16/25 08/18/25 History ramipril 10 mg capsule 10 mg PO QHS blood pressure 04/16/25 08/18/25 History magnesium oxide 400 mg (241.3 mg 400 mg PO QHS Vitiman 04/23/25 08/18/25 History magnesium) tablet pyridoxine (vitamin B6) 250 mg 250 mg PO DAILY Vitamin 04/23/25 08/19/25 History tablet (Vitamin B-6) fluticasone propionate 50 1 - 2 spray intranasal QHS 07/28/25 08/18/25 History mcg/actuation nasal allergies spray,suspension hydrochlorothiazide 25 mg tablet 25 mg PO DAILY blood pressure 07/28/25 08/19/25 History lorazepam 1 mg tablet 1 mg PO DAILY PRN LEG CRAMP 07/28/25 08/16/25 History Held on 08/19/25. Instructions: MD Ordered enoxaparin 40 mg/0.4 mL 40 mg (0.4 mL) subcut DAILY DVT 08/19/25 08/19/25 Rx subcutaneous syringe prophylaxis #7 mL oxycodone 5 mg tablet 5 - 10 mg (1 - 2 x 5 mg) PO Q4H 08/19/25 08/19/25 Rx PRN PRN Pain Score 4-10 7 days #42 tabs Allergy/AdvReac Type Severity Reaction Status Date / Time No Known Allergies Allergy Verified 08/17/25 06:36 Family History unable to obtain no significant family history Surgical History History of fusion of cervical spine (12/25/22) Hx of total knee arthroplasty Hx of left knee surgery (~2021) Hx of colonoscopy History of carpal tunnel surgery of left wrist Hx of above knee amputation Social History (Updated 08/19/25 @ 15:[address] Krystin Jean-Baptiste, DO) household members: children and other details: He lives with his son Kal in a home that is handicap accessible housing: house number of children: 2 Smoking Status: Never smoker alcohol intake: never substance use type: does not use additional social history: pt denies aspirin, denies ibuprofen , denies vaping, denies edibles, denies marijuana denies blood clots Homelessness:: Sheltered ROS Review of Systems ROS Unobtainable: Denies due to encephalopathy, due to endotracheal tube, due to mental condition or due to mental status Constitutional Constitutional: Denies anorexia, change in weight, chills, fatigue, fever(s), night sweats or weakness Eyes Eyes: Denies blurry vision, change in vision, eye pain or loss of vision ENT HEENT: Reports dry mouth and halitosis; Denies abnormal hearing, dizziness, dysphagia, headache(s), hearing loss, nasal congestion, sinus pressure or sore throat Cardiovascular Cardiovascular: Denies chest pain, dyspnea on exertion, edema, lightheadedness, orthopnea, palpitations, paroxysmal nocturnal dyspnea or syncope Respiratory/Chest Respiratory/Chest: Denies cough, dyspnea, shortness of breath at rest, shortness of breath with exertion or wheezing Gastrointestinal Gastrointestinal: Reports constipation; Denies abdominal pain, diarrhea, dyspepsia, hematemesis, hematochezia, nausea or vomiting Genitourinary Genitourinary: Denies dysuria, hematuria, nocturia, urinary frequency, urinary hesitancy, urinary incontinence or urinary urgency Musculoskeletal Musculoskeletal: Reports extremity pain and other Details: Right stump pain secondary to ; Denies back pain, joint pain, joint swelling, neck pain or numbness Integumentary Integumentary: Denies jaundice or rash Neurologic Neurologic: Reports other Details: c/o electric shock like pain in the R stump....lasts only secs and then goes away. ; Denies confusion, disequilibrium, dizziness, focal weakness, headache(s), paresthesias, seizures or tremor(s) Psychiatric Psychiatric: Denies anxiety, depression, homicidal ideation or suicidal ideation Endocrine Endocrinology: Denies change in body appearance, polydipsia or polyuria Hematologic/Lymphatic Hematologic/Lymphatic: Denies easy bleeding, easy bruising or lymphadenopathy Allergic/Immunologic Allergic/Immunologic: Reports rhinitis; Denies eczemia or asthma Vital Signs Vital Signs Vital Signs: 08/19/25 13:18 Temperature 97.6 F L Temperature Source Temporal Pulse Rate 79 Respiratory Rate 15 Blood Pressure 137/75 H Blood Pressure Mean 95 Blood Pressure Source Monitor Blood Pressure Position Semi-Fowlers Blood Pressure Location Right Arm Pulse Ox 96 Oxygen Delivery Method Room Air Weight Weight: 205 lb 14.588 oz Body Mass Index (BMI) 32.2 Physical Exam Const alert, oriented x3 and no apparent distress Constitutional Narrative: pleasant, making good eye contact. Affect is normal. General Appearance: cooperative HEENT normocephalic, head/scalp atraumatic and hearing grossly normal bilaterally HEENT Narrative: Dry MM. Hallitosis. Multiple missing, broken off and carious teeth. Narrow palate. Eyes PERRL, EOMs intact bilaterally, conjunctivae normal and no scleral icterus Eyes Narrative: No discharge from the eyes. Neck supple, No nodes and no carotid bruits Neck Narrative: Neck circumference is 44 cm. Chest Chest: symmetrical chest wall rise Resp normal respiratory effort and clear to auscultation bilaterally Effort and Inspection: able to speak in complete sentences Cardio regular rate and regular rhythm Cardio Narrative: Heart sounds are distant. No murmurs, gallops or rub appreciated. No ectopy. GI soft to palpation and non-tender GI Narrative: The abdomen is mildly distended and tympanic. Bowel sounds are very active but not hyperactive. No guarding with palpation. No masses appreciated. no CVA tenderness Extremity Extremity Narrative: No ankle edema on the left. The stump has a dressing on and I did not examine. Will examine with Dr. Robbins/wound care with the next dressing change. Status post right AKA. General Extremity: amputation Skin Rashes: no rashes Neuro oriented x3, CN's II-XII intact bilaterally, moves all extremities and no focal motor deficits Psych thought process normal, cooperative, affect normal, speech normal and activity/motor behavior normal Assessment & Plan Assessment/Plan (1) Debility: (2) Neuroma of amputation stump of extremity: (3) Prediabetes: PLAN: HGBA1C is 6.1. (4) S/P excision of neuroma: (5) Abnormal transaminases: PLAN: Hepatitis panel negative in the past. Not a drinker. AP and Bili are normal. AST and ALT have been elevated the last 2 times they have been checked. Has not had any imaging of the liver at this hospital. (6) Hypertension: QUALIFIERS: Hypertension type: primary hypertension Qualified Code(s): I10 - Essential (primary) hypertension (7) Allergic rhinitis: QUALIFIERS: Allergic rhinitis trigger: unspecified Allergic rhinitis seasonality: non-seasonal Qualified Code(s): J30.89 - Other allergic rhinitis (8) Halitosis: (9) Poor dentition: PLAN: Recommended he follow up with a dentist post DC from rehab. (10) Obesity (BMI 30.0-34.9): PLAN: Plan PLAN PT for gait stability OT for ADL's Analgesics as needed - will schedule Oxycodone with breakfast and at HS and keep the PRN order. He does not seem to be bothered by the electric zingers in the R stump......if it starts to bother him may add Gabapentin. Bowel protocol Fall precautions Assess for Anxiety/Depression GI prophylaxis -not necessary at this time. He denies history of peptic ulcer disease and also denies heartburn, nausea, epigastric pain. Hemoglobin is normal. DVT prophylaxis with enoxaparin 40 mg daily Follow up with Dr. Robbins and Dr. Tao and a dentist following DC from Rehab AM lab including CMP, CBC, Mag vitamin D level, lipid panel and Phos ordered Add carb consistent to current diet. Also no added salt in light of hypertension. Advised to try and lose some weight to prevent him progressing to DM II. Valdo twice daily to promote wound healing Charges/Coding Visit Charges Inpatient E&M: 70621 Init Hosp L2
[2025-08-19 15:12] VITALS: O2SAT 96
[2025-08-19 17:36] VITALS: BP 137/75; PULSE 79; RESP 15; TEMP 36.4; O2SAT 96
[2025-08-19 20:11] VITALS: PULSE 82; O2SAT 94
[2025-08-19 22:00] VITALS: PULSE 89
[2025-08-19] MEDS: Fluticasone 0.05% 1 SPRAY NASAL.SRY 2 SPRAY NASAL (22:04)
[2025-08-19] MEDS: Magnesium Chloride 64 MG Delay Rel.Tablet 128 MG PO (22:04)
[2025-08-19] MEDS: Senna/Docusate Sodium 1 Tablet 2 TABLET PO (22:04)
[2025-08-20 06:00] VITALS: BP 118/72; PULSE 80; RESP 16; TEMP 36.7; O2SAT 96; BMI 31.5
[2025-08-20 06:07] LABS: Hematocrit 40.3 % (40-54); Hemoglobin 14.3 g/dL (13.0-16.5); Immature Granulocytes Count 0.040 X10^3/uL (0.0-0.0); Mean Corp Hgb Conc 35.5 g/dL (32-36); Mean Corpuscular Volume 90.8 fL (80-94); Mean Platelet Vol. 8.8 fl (6.2-12.0); NRBC Flagged by Analyzer 0 % (0-5); Platelet Count 282 K/mm3 (150-450); RBC Distribution Width CV 13.2 % (11.6-14.6); RBC Distribution Width SD 43.0 fl (35.1-43.9); Red Blood Count 4.44 M/mm3 (4.6-6.2); White Blood Count 9.8 K/mm3 (4.4-11.0)
[2025-08-20 06:52] LABS: AST(SGOT) 48 U/L (<=37); Alanine Aminotransfer ALT/SGPT 49 U/L (<=46); Albumin, Serum 3.9 g/dL (3.4-4.8); Alkaline Phosphatase 88 U/L (40-129); Anion Gap 11 (5-15); BUN 24 mg/dL (4-19); BUN/Creat Ratio 24.4 RATIO (10-20); Calcium,Total 9.3 mg/dL (7.6-11.0); Carbon Dioxide 22.3 mmol/L (21.0-32.0); Chloride 102 mmol/L (98-108); Cholesterol 175 mg/dL (<=200); Estimated Creatinine Clearance 73.78 ml/min (50-250); Globulin 3.3 g/dL (2.2-4.2); Glucose 102 mg/dL (70-99); Low Density Lipoprotein Calc. 102 mg/dL; Magnesium 2.3 mg/dL (1.5-2.2); Potassium 4.5 mmol/L (3.3-5.1); Triglycerides 99 mg/dL; Very Low Density Lipoprotein 20 mg/dL (5-40); Vitamin D,25 Hydroxy 17.1 ng/mL (30-100); cholesterol:hdl ratio screen 3.21
--- NOTE | 2025-08-20 08:04 | PN_ITS ---
Subjective Subjective Afebrile Vital signs stable, blood pressure controlled and heart rate within normal limits Eating 75 to 100% of his meals. Fluid intake is poor Night nursing gave PRN Oxycodone twice last night and PRN Tylenol. I reviewed the OARRS. No narcotic RX's in the past year. Had a RX for Ativan 1 mg #30 filled 06/01/25. All lab done this morning was personally reviewed. White blood cell count is 9.8 and the hemoglobin is 14.3. Platelets are within normal limits. White blood cell differential is unremarkable. Sodium is 135 and the potassium is 4.5. The BUN is 24 with a creatinine of 0.99 which is down from 1.11 on 08/18/2025. Fasting blood sugar is 102. Calcium phosphorus and magnesium are normal. AST is mildly elevated at 48 but this is down from 60 on 08/03/2025. ALT is 49, down from 88-1 08/03/2025. Alk phos and bili are normal. Triglycerides are 99 and the total cholesterol is 175. The LDL is 102 and the HDL is 55. Vitamin D level is very low at 17.1. He describes the pain in the RLE as nerve pain. Electric shock like pain. No other complaints. denies chills, sweats, dysuria. I reviewed the overnight trending pulse ox. 93.8% of the time he was 90% saturated or greater. 6.18% of the time he was 89% or less. There were no desaturations lasting longer than 60 seconds. He was hypoxic for a total of 34 minutes and 28 seconds. 1. Do you snore loudly? Yes 2. Do you often feel tired, fatigued or sleepy during the day? Yes 3. Has anyone ever observed you stop breathing during sleep? No 4. Do you have (or are you being treated for) HTN? Yes BMI no AGE 70 Neck circumference 44 cm Gender male Total 5 Objective Data Objective Data Vital Signs: Vital Signs Temp Pulse Resp BP Pulse Ox O2 Del Method FiO2 98.1 F 80 16 118/72 96 Room Air 21 08/20/25 06:00 08/20/25 06:00 08/20/25 06:00 08/20/25 06:00 08/20/25 06:00 08/20/25 06:00 08/19/25 20:11 Oxygen Delivery Method Room Air Weight: 201 lb 8.04 oz Body Mass Index (BMI) 31.5 Intake & Output: Intake and Output for Last 24 Hours 08/18/25 08/19/25 08/20/25 23:59 23:59 23:59 Intake Total 800 / 800 200 / 200 Output Total 1075 / 1075 600 / 600 Balance -275 / -275 -400 / -400 Lab / Micro Data 08/20/25 05:38 08/20/25 05:38 Labs: Laboratory Results - last 24 hr 08/20/25 05:38: WBC 9.8, RBC 4.44 L, Hgb 14.3, Hct 40.3, MCV 90.8, MCH 32.2 H, MCHC 35.5, RDW Std Deviation 43.0, RDW Coeff of Ru 13.2, Plt Count 282, MPV 8.8, Immature Gran % (Auto) 0.400, Neut % (Auto) 65.9, Lymph % (Auto) 20.4, [place] % (Auto) 11.0 H, Eos % (Auto) 1.6, Baso % (Auto) 0.7, Absolute Neuts (auto) 6.5, Absolute Lymphs (auto) 2.00, Nucleated RBC % 0, Sodium 135, Potassium 4.5, Chloride 102, Carbon Dioxide 22.3, Anion Gap 11, BUN 24 H, Creatinine 0.99, Estim Creat Clear Calc 73.78, Est GFR (MDRD) Non-Af 81, BUN/Creatinine Ratio 24.4 H, Glucose 102 H, Calcium 9.3, Phosphorus 2.7, Magnesium 2.3 H, Total Bilirubin 0.85, AST 48 H, ALT 49 H, Alkaline Phosphatase 88, Total Protein 7.2, Albumin 3.9, Globulin 3.3, Albumin/Globulin Ratio 1.2, Triglycerides 99, Cholesterol 175, LDL Cholesterol, Calc 102, VLDL Cholesterol 20, HDL Cholesterol 55, Cholesterol/HDL Ratio 3.21, Vitamin D 25-Hydroxy 17.1 L Social Homelessness:: Sheltered Physical Exam Const alert, oriented x3 and no apparent distress Constitutional Narrative: pleasant, talkative Resp clear to auscultation bilaterally Cardio regular rate, regular rhythm and no gallops Extremity Extremity Narrative: No edema. Left ankle. No calf tenderness on the left. Skin Rashes: no rashes Assessment & Plan Assessment/Plan (1) Sleep-related hypoxia: (2) Debility: (3) Neuroma of amputation stump of extremity: (4) Prediabetes: (5) S/P excision of neuroma: (6) Abnormal transaminases: (7) Hypertension: QUALIFIERS: Hypertension type: primary hypertension Qualified Code(s): I10 - Essential (primary) hypertension (8) Allergic rhinitis: QUALIFIERS: Allergic rhinitis trigger: unspecified Allergic rhinitis seasonality: non-seasonal Qualified Code(s): J30.89 - Other allergic rhinitis (9) Halitosis: (10) Poor dentition: (11) Obesity (BMI 30.0-34.9): PLAN: Plan 1. Continue therapy 2. Scheduled 10 mg of oxycodone at 0600 and 2200 and continue oxycodone 5 mg every 4 hours as needed. Start Gabapentin 100 mg TID and schedule Tylenol 1,000 Q 8H. 3. Start a Vitamin D supplement 4. Will discuss obtaining a sleep study with Rizwan and try and schedule for the night he is discharged from rehab. 5. Apply oxygen anytime he is sleeping at 2 L/min Charges/Coding Visit Charges Inpatient E&M: 53779 Subs Hosp L1
[2025-08-20] MEDS: Senna/Docusate Sodium 1 Tablet 2 TABLET PO ×2 (08:05→21:34)
--- NOTE | 2025-08-20 08:16 | PCM.RU.PYE ---
Admission Information Primary Diagnosis:: Post excision neuroma R AKA stump Status Changes from Prescreening?: No changes Identified Actual Problem List:: Skin Intergrity, Pain, ALteration in Cmfrt, Bowel, Constipation, Alteration in Sleep, Mobility Impaired, Self Care Deficit, Fluid Change-Dehydration and Alteration-Leisure Activ. Potential Problem List:: DVT, Bleeding, Infection, UTI, Aspiration, Falls, Skin Integrity and Depression Risk of Complications DVT: LMWH and LINDA Hose Bleeding: Monitor Lab Values, Nursing to Teach Precautions for anti-coagulation therapy., Wound, if applicable, to be assessed every shift. and Stroke patients assessed for lethargy or change in status. Infection: Clinical Staff to Monitor for S/S of infection: and S/S of infection include fever, redness, warmth, etc. Urinary Tract Infection: Monitor for frequency, burning, discomfort, or incontinence. and Nursing will obtain urine sample for urinalysis and C&S when ordered. Aspiration: Clinical staff will monitor for coughing, drooling, congestion., Speech will evaluate swallowing and dsyphasia. and Nursing will monitor patient swallowing during meals. Falls: Patient will be evaluated for Fall Precautions and Patient will be placed on Fall Precautions as indicated per protocol. Skin Breakdown: Nursing will assess skin daily using assessment tool. and Nursing will place on Skin Breakdown Precautions as indicated. Pain: Clinical staff will assess patient's pain level per protocol., Medications will be given, if needed, and the pain level reassessed. and Other methods: Massage, distraction, decrease stimulus, etc. used PRN. Plan of Care Patient requires physician specializing in physical medicine and rehab oversight to provide close medical supervision of rehab issues including: Pain Management, Sleep Problems, Bowel and Bladder, Medical and co-morbidity Management, DVT prophylaxis, Rehabilitation Leadership and Coordination of treatment team Patient needs Physical Therapy: For a minimum of 1 hour and At least 5 out of 7 days Patient needs Physical Therapy to improve:: Mobility, Strengthening, Transfers, Stretching, ROM, Endurance, Stairs, Gait and Balance Patient needs Occupational Therapy: For a minimum of 1 hour and At least 5 out of 7 days Patient needs Occupational Therapy to improve ADL's incl.: Eating, Grooming, Bathing, Dressing, Toileting, Toilet transfers, Community Reintegration, Higher functioning activities, Household tasks, Adaptive Equipment, Splinting and Other activities as determined Patient requires 24/ Rehabilitation Nursing for: Pain Issues, Identifying and preventing risk factors, Monitoring and reporting current medical conditions, Assisting with ambulation, transfer, and all ADL's, Teaching patients about disease process and medications, Family teaching, Providing safe environment, Bowel and Bladder Issues, Skin integrity and Medication Management Patient needs Fixed Route Bus Operator/ Case Management for: Discharge Planning, Arranging Home Equipment or Services and Family Interventions Patient needs Dietary and Nutrition Services for: Adequate Nutrition, Nutritional Supplements and Nutritional Education Goals Goals Patient will remain: free from falls Patient will perform eating at: MOD I level of assist. Patient will perform bed mobility at: MOD I level of assist. Patient will complete transfers from bed to chair at: MOD I level of assist. Patient will ambulate: - (50 feet with crutches on various surfaces at supervision) Patient will propel wheelchair: - (350 feet on various surfaces at modified) Patient will complete upper body dressing at: MOD I level of assist. Patient will complete lower body dressing at: MOD I level of assist. (With adaptive equipment as needed) Patient will complete toilet transfer at: MOD I level of assist. Patient will complete toileting at: MOD I level of assist. Patient will perform bathing at: MOD I level of assist. (Upper body bathing independently and lower body bathing at mod I with adaptive equipment as needed) Patient will perform Tub/Shower transfer at: - (Supervision using DME as needed) Patient will complete grooming at: MOD I level of assist. (While standing at the sink) Patient will achieve: - (3 steps with 2 handrails and crutches at standby assist/contact-guard assist to allow access to his home) Discharge Planning Estimated Length of stay (days): 21 Anticipated D/C Destination: Home w/ family or friends (Lives with his son Kal) Was Preadmission Assessment Accurate?: Yes
[2025-08-20] MEDS: Cholecalciferol (VIT D3) 25 MCG TABLET (1,000 UNITS) PO (10:55)
[2025-08-20 18:00] VITALS: BP 131/77; PULSE 81; RESP 16; TEMP 36.9; O2SAT 96
[2025-08-20] MEDS: Magnesium Chloride 64 MG Delay Rel.Tablet 128 MG PO (21:34)
[2025-08-20] MEDS: Fluticasone 0.05% 1 SPRAY NASAL.SRY 2 SPRAY NASAL (21:34)
[2025-08-21 05:14] VITALS: BP 127/70; PULSE 77; RESP 18; TEMP 36.6; O2SAT 93
[2025-08-21 07:29] VITALS: O2SAT 91
[2025-08-21] MEDS: Senna/Docusate Sodium 1 Tablet 2 TABLET PO ×2 (08:11→23:00)
[2025-08-21] MEDS: Cholecalciferol (VIT D3) 25 MCG TABLET (1,000 UNITS) PO (08:13)
[2025-08-21 17:58] VITALS: BP 119/73; PULSE 90; RESP 16; TEMP 36.3; O2SAT 93
[2025-08-21] MEDS: Magnesium Chloride 64 MG Delay Rel.Tablet 128 MG PO (23:00)
[2025-08-21] MEDS: Fluticasone 0.05% 1 SPRAY NASAL.SRY 2 SPRAY NASAL (23:01)
[2025-08-21 23:02] VITALS: BP 110/75; PULSE 86
[2025-08-21] MEDS: 0.9% Saline Lock 10 ML Syringe IV (23:02)
[2025-08-22 05:49] VITALS: BP 109/71; PULSE 77; RESP 18; TEMP 36.2; O2SAT 94
[2025-08-22] MEDS: Senna/Docusate Sodium 1 Tablet 2 TABLET PO ×2 (08:13→23:10)
[2025-08-22] MEDS: Cholecalciferol (VIT D3) 25 MCG TABLET (1,000 UNITS) PO (08:13)
[2025-08-22 18:00] VITALS: BP 127/62; PULSE 81; RESP 16; TEMP 36.8; O2SAT 95
[2025-08-22 23:10] VITALS: BP 98/69; PULSE 83
[2025-08-22] MEDS: Fluticasone 0.05% 1 SPRAY NASAL.SRY 2 SPRAY NASAL (23:11)
[2025-08-22] MEDS: Magnesium Chloride 64 MG Delay Rel.Tablet 128 MG PO (23:11)
[2025-08-23 05:46] VITALS: BP 108/74; PULSE 82; RESP 18; TEMP 36.8; O2SAT 97
[2025-08-23] MEDS: 0.9% Saline Lock 10 ML Syringe IV ×2 (05:52→11:59)
[2025-08-23 08:26] VITALS: BP 110/67; PULSE 80
[2025-08-23] MEDS: Senna/Docusate Sodium 1 Tablet 2 TABLET PO ×2 (08:27→21:17)
[2025-08-23] MEDS: Cholecalciferol (VIT D3) 25 MCG TABLET (1,000 UNITS) PO (08:27)
--- NOTE | 2025-08-23 09:49 | PCM.PROGNOTE ---
Documented by User: GUADALUPE Solomon 08/23/25 13:16 Subjective Subjective [facility] Medical Records Department [address] [place] [address] Progress Note 08/20/25 08 MR#: [id number] Acct: [id number] Name: RIZWAN SMALL Rep #: [id number] : 1955 70 From: Krystin Jean-Baptiste DO PCP: Dr. Sam Tao MD Status: ADM IN Location: [place] [address] Subjective Subjective Afebrile Vital signs stable, blood pressure controlled and heart rate within normal limits Eating meals well. Fluid intake continues to be poor. Encouraged fluid intake. Has not required any Oxy IR for breakthrough pain. All lab done this morning was personally reviewed. Vitamin D3 level continues to be very low. Increased his D3 to 125mcg daily. His AST has improved today from 60 to 49. ALT is also improved from [address] Robbins was at bedside this morning and removed the LION drain. He did have an episode of drainage following removel. The bandage was changed and it is now clean, dry and intact. He currently denies pain. He feels his scheduled mediations are working well for him right now. Therapy notes reviewed and he is working well with therapy, ROS completed and and negative for complaints except as indicated above. This note was generated with Recommendi dictation software. It may contain incorrect words, spelling, and punctuation that were not noted in checking the note before signing. Objective Data Objective Data Vital Signs: Vital Signs Temp Pulse Resp BP Pulse Ox O2 Del Method FiO2 98.3 F 80 18 110/67 97 Room Air 21 08/23/25 05:46 08/23/25 08:26 08/23/25 05:46 08/23/25 08:26 08/23/25 05:46 08/23/25 05:46 08/19/25 20:11 Oxygen Delivery Method Room Air Weight: 201 lb 8.04 oz Body Mass Index (BMI) 31.5 Intake & Output: Intake and Output for Last 24 Hours 08/21/25 08/22/25 08/23/25 23:59 23:59 23:59 Intake Total 1470 / 1470 1450 / 1450 1040 / 1040 Output Total 1340 / 1340 1730 / 1730 400 / 400 Balance 130 / 130 -280 / -280 640 / 640 Lab / Micro Data Attestation: I reviewed the patient's lab results. Lab results narrative: see above 08/20/25 05:38 08/20/25 05:38 Social Homelessness:: Sheltered Physical Exam Const alert, oriented x3 and no apparent distress Constitutional Narrative: pleasant, talkative General Appearance: cooperative HEENT normocephalic Eyes PERRL Resp normal respiratory effort, normal air movement and clear to auscultation bilaterally Cardio regular rate, regular rhythm and no murmurs GI normal to inspection, nondistended, normoactive bowel sounds Extremity Extremity Narrative: No edema. Left ankle. No calf tenderness on the left. Skin Rashes: no rashes Wound Narrative: R stump LION drain removed by Dr. Robbins. dressing was changed related to drainage immediately after removal. Dressing is now clean, dry and intact. 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 Continue therapy 2. Scheduled 10 mg of oxycodone at 0600 and 2200 and continue oxycodone 5 mg every 4 hours as needed. Start Gabapentin 100 mg TID and schedule Tylenol 1,000 Q 8H. 3. Start a Vitamin D supplement 4. discuss obtaining a sleep study with Rizwan and try and schedule for the night he is discharged from rehab. 5. Apply oxygen anytime he is sleeping at 2 L/min 6. Increase Vitamin D3 to 125 mcg daily. 7. LION drain removed, continue to monitor. Charges/Coding Visit Charges Inpatient E&M: 30950 Subs Hosp L2 Documented by User: Dr. Krystin Jean-Baptiste DO 08/23/25 14:43 Subjective Subjective [facility] Medical Records Department [address] [place] [address] Progress Note 08/20/25 0804 MR#: [id number] Acct: [id number] Name: RIZWAN SMALL Rep #: [id number] : 1955 70 From: Krystin Jean-Baptiste DO PCP: Dr. Sam Tao MD Status: ADM IN Location: [place] [address] Malachi Astorga was seen on team rounds today. No family was available to participate. Afebrile Vital signs stable, blood pressure controlled and heart rate within normal limits Eating meals well. Fluid intake continues to be poor. Encouraged fluid intake. Has not required any Oxy IR for breakthrough pain. All lab done this morning was personally reviewed. Vitamin D3 level continues to be very low. Increased his D3 to 125mcg daily. His AST has improved today from 60 to 49. ALT is also improved from [address] Robbins was at bedside this morning and removed the LION drain. He did have an episode of drainage following removel. The bandage was changed and it is now clean, dry and intact. He currently denies pain. He feels his scheduled mediations are working well for him right now. Therapy notes reviewed and he is working well with therapy, ROS completed and and negative for complaints except as indicated above. This note was generated with Recommend[employer] dictation software. It may contain incorrect words, spelling, and punctuation that were not noted in checking the note before signing. 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 Continue therapy 2. Increase Vitamin D3 to 125 mcg daily. 3. LION drain removed, continue to monitor. 4. Plan DC for Saturday. therapy feels he is ready and he has ambulated up to 200' with crutches. 5. Will need to follow up with Dr. Robbins post DC tj to be removed in 2 weeks. I reviewed the note by the [employer] and we discussed plan of care. Good results with Gabapentin so will continue. Incision is healing nicely. Drain DC'd by Dr. Robbins today. Slept well last night.
--- NOTE | 2025-08-23 10:05 | PCM.PN.SRG ---
Subjective Subjective Patient seen with Dr. Robbins and Dr. Jean-Baptiste and family member at rehab bedside. He's making good progress with therapies. His pain is well controlled and was started on Gabapentin with good relief. Objective Data Objective Data Vital Signs: Vital Signs Temp Pulse Resp BP Pulse Ox O2 Del Method FiO2 98.3 F 80 18 110/67 97 Room Air 21 08/23/25 05:46 08/23/25 08:26 08/23/25 05:46 08/23/25 08:26 08/23/25 05:46 08/23/25 05:46 08/19/25 20:11 Oxygen Delivery Method Room Air Weight: 201 lb 8.04 oz Body Mass Index (BMI) 31.5 Intake & Output: Intake and Output for Last 24 Hours 08/21/25 08/22/25 08/23/25 23:59 23:59 23:59 Intake Total 1470 / 1470 1450 / 1450 1040 / 1040 Output Total 1340 / 1340 1730 / 1730 400 / 400 Balance 130 / 130 -280 / -280 640 / 640 Lab / Micro Data Attestation: I reviewed the patient's lab results. 08/20/25 05:38 08/20/25 05:38 Social Homelessness:: Sheltered Physical Exam Narrative Afebrile/VSS Wound VAC and LION drain removed by Dr. Robbins Incision is well aligned, tj in place. C/D/I Covered with gauze and tape. Assessment & Plan Assessment/Plan (1) Neuroma of amputation stump of extremity: PLAN: Assessment: POD #6 neuroma excision of RLE stump Plan: Pain control: per MAR Incision care: Provena wound VAC and LION drain removed today. ABD and tape with plans for staple removal at 2 weeks postop. Non weight bearing on the stump for 3 month postoperatively Drain care: Removed 08/23 Activity: Encourage mobilization as tolerated. Pathology returned as neuroma. DVT ppx: SCD's, SQ Lovenox started 08/18 PSU following. Charges/Coding Procedures Integumentary [id number]: [id number] Global Visit
[2025-08-23] MEDS: Cholecalciferol (Vit D3) 125 MCG CAPSULE (5,000 UNITS) PO (11:58)
--- NOTE | 2025-08-23 13:14 | CASEMGMT ---
Addendum entered by Dawn Pan 08/23/25 14:44: Pt's preferred agency is [facility]. SW phoned referral. Original Note: Social Work IDT met with patient for Team meeting. Discussed patient's progress in PT/OT/SN/MD. Educated to Medicare approval of 10 days with [facility] 08/27. However, pt is doing well and thrives in his own environment. SW offered to set DC prior to Thanksgiving for 08/25. Pt agreed. SW offered HHC for PT/OT/SN. Pt agreed. SW provided list of skilled HHC agencies within geographical area, INN with insurance, that include quality and resource data via [employer] guide. Pt to review and notify this worker of preferences. Pt denied DME needs. Son to transport. Plan: DC home with son 08/25, HHC PT/OT/SN Dawn Pan [employer]
--- NOTE | 2025-08-23 16:39 | DCINST_ITS ---
Discharge Instructions DC O2, CPAP, BIPAP needs Home O2 Discharge instructions: No Dressing / Incision Discharge Activity: May Not Drive (Can drive if vehicle is outfitted with hand controls or modified to accommodate the R AKA. ), May Shower (No tub baths until the incision is completely healed and Dr. Robbins says it is OK to take a bath.) and Use Crutches Weight Bearing Status: Weight bearing as tolerated (Can not use prosthesis. Can ambulate up to 200' with crutches and has a WC.) Dressing / Incision Call your doctor if your incision/area has: Continuous Slow Oozing, Sudden Increased Bleeding, Increased Pain/ Swelling, Increased Redness, Foul Smelling Discharge and Swelling at the incision site Call your doctor if you observe: Fever of 101 or Higher, Shortness of breath, Dizziness, Fainting spells, Swelling in the ankles, Chest pain, Increased palpitations (irregular heartbeat), Calf discomfort and Uncontrolled pain Suture Line Care: Avoid Pulling/Pushing, Avoid Pinching/Bending and - Remove Dressing in: 1 day (cover with a dry dressing And change daily. ) Cleanse incision/area with: Soap & Water and Keep Dressing Clean & Dry Follow Up Care When: You have a follow-up appointment with Dr. Sam Tao scheduled for you and Dr. Robbins would like to see you next week in the office, not the wound care center. We will make an appointment for you. Test Results: Test results from this visit will be discussed in further detail at your follow- up appointment, if applicable. Discharge Plan Admission Admit Date/Time: 08/19/25 13:00 Primary Reason for Your Visit: Debility secondary to excision of right sciatic neuroma Attending Provider: Krystin Jean-Baptiste Primary Care Provider: Sam Tao Instructions Patient Instructions: Incision Care, What Are Snoring and Sleep Apnea?, Depression Affects Your Mind ..., Counseling for Depression Additional Instructions / Restrictions: 1. It has been a pleasure having you on rehab. You have a great spirit and are great with people. You have done very well. I know it has been very hard for you not being able to do what you like to do for the past 8 months and you will still not be able to use a prosthesis for 3-4 months but, you are a survivor and I have complete confidence that you will get through this. I think you may be a little depressed but, you are handling it. I have given you some literature about depression and the symptoms of depression. This is situational and once you are able to get a prosthesis on again and you are up and about You will likely do fine. Depression affects your body in many ways. Don't be afraid to consider some counselling or even a trial of an antidepressant. Some antidepre ssants are used for chronic pain control in addition to treating depression. If you feel you are getting depressed talk to Dr. Tao. Some people do not feel comfortable talking about their feelings and they deflect attention be making jokes. It's OK to be depressed.........there is treatment if you need it. Just talking with someone about how you are feeling often helps a lot. 2. We checked your oxygen when you were sleeping and it does drop into the abnormal range when you are sleeping. I suspect you have sleep apnea. Some of the symptoms of sleep apnea are restless legs, insomnia, not feeling rested in the AM when you get up and needing to take naps during the day, getting up frequently at night to urinate, Falling asleep reading a book or watching TV, and problems with the rhythm of the heart. Atrial fibrillation is more common in patients with untreated sleep apnea. Atrial fibrillation (also called AFIB) increases the risk for stroke about 5X's. I have filled out a requisition for you to get a sleep study here at the hospital. I know you are not ready to do this right now but, when you are you can call the sleep lab to schedule the test. 3. The incision looks very good. No sign of infection. Check the incision every day. If you get redness around the incision or increased swelling or pain call Dr. Robbins. Also call if you have fevers, shaking chills, night sweats or any pus draining from the wound. 4. Good luck to you Rizwan. If you or Kal have any questions after you leave rehab please do not hesitate to call me. You can also call if you want to talk.......i can be a good listener. OFFICE: [phone] CELL: [phone] NURSES STATION ON REHAB: [phone] Discharge Orders/Prescriptions Prescriptions: New acetaminophen 500 mg Tablet 1,000 mg PO Q8 PRN (Reason: pain/fever) Qty: 120 0RF gabapentin 100 mg Capsule 100 mg PO TIDCM Qty: 90 0RF sennosides-docusate sodium [Stimulant Laxative Plus] 8.6-50 mg Tablet 2 tab PO BID Qty: 56 0RF cholecalciferol (vitamin D3) [Vitamin D3] 50 mcg (2,000 unit) capsule 50 mcg PO DAILY Qty: 30 5RF Continued magnesium oxide 400 mg (241.3 mg magnesium) tablet 400 mg PO QHS pyridoxine (vitamin B6) [Vitamin B-6] 250 mg tablet 250 mg PO DAILY oxycodone 5 mg Tablet 5 - 10 mg PO Q4H PRN PRN (Reason: Pain Score 4-10) 7 Days Qty: 42 0RF amlodipine 5 mg tablet 10 mg PO QHS ramipril 10 mg capsule 10 mg PO QHS levocetirizine 5 mg tablet 5 mg PO QHS hydrochlorothiazide 25 mg tablet 25 mg PO DAILY fluticasone propionate 50 mcg/actuation spray,suspension 1 - 2 spray INTRANASAL QHS lorazepam 1 mg tablet 1 mg PO DAILY PRN (Reason: LEG CRAMP) Discontinued enoxaparin 40 mg/0.4 mL Syringe 40 mg subcut DAILY Qty: 7 0RF Referrals / Follow Up: Sam Tao MD [Primary Care Provider, Family Practice] - 09/08/25 1:20 pm Montez Robbins MD [Med Staff - Active Staff, Plastic Surgery] - 08/31/25 2:00 pm Disposition Disposition (needs filled in before D/C Order can be placed): Home Health Service
[2025-08-23 18:00] VITALS: BP 117/77; PULSE 96; RESP 16; TEMP 36.8; O2SAT 95
[2025-08-23 21:00] VITALS: PULSE 96; RESP 16; O2SAT 95
[2025-08-23] MEDS: Magnesium Chloride 64 MG Delay Rel.Tablet 128 MG PO (21:17)
[2025-08-23] MEDS: Fluticasone 0.05% 1 SPRAY NASAL.SRY 2 SPRAY NASAL (21:18)
[2025-08-24 05:52] VITALS: BP 103/63; PULSE 78; RESP 16; TEMP 36.6; O2SAT 93
[2025-08-24] MEDS: Cholecalciferol (Vit D3) 125 MCG CAPSULE (5,000 UNITS) PO (08:23)
[2025-08-24] MEDS: Senna/Docusate Sodium 1 Tablet 2 TABLET PO ×2 (08:23→20:33)
--- NOTE | 2025-08-24 11:26 | PCM.DC.SUM ---
Providers Date of Admission: 08/19/25 Date of Discharge: 08/25/25 Primary Care Physician: Dr. 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 AST on 08/20/2025 was 48, down from 69 on 06/04/2025. ALT is 49 on 08/20/2025 and this is down from 92 on 06/04/2025. Alk phos and bilirubin are normal. Will defer any further workup to PCP. (6) Prediabetes: Status: Chronic Code(s): R73.03 - Prediabetes Plan: Hemoglobin A1c is 6.1%. (7) Hypertension: Status: Chronic Code(s): I10 - Essential (primary) hypertension Qualifiers: Hypertension type: primary hypertension Qualified Code(s): I10 - Essential (primary) hypertension Plan: Well-controlled on amlodipine 10 mg daily and hydrochlorothiazide 25 mg daily. (8) Allergic rhinitis: Status: Chronic Code(s): J30.9 - Allergic rhinitis, unspecified Qualifiers: Allergic rhinitis seasonality: non-seasonal Allergic rhinitis trigger: unspecified Qualified Code(s): J30.89 - Other allergic rhinitis (9) Halitosis: Status: Chronic Code(s): R19.6 - Halitosis (10) Poor dentition: Status: Chronic Code(s): K08.9 - Disorder of teeth and supporting structures, unspecified Plan: Recommend that he see a dentist in the very near future. Many broken, carious and missing teeth (11) Obesity (BMI 30.0-34.9): Status: Chronic Code(s): E66.811 - Obesity, class 1 (12) Sleep-related hypoxia: Status: Chronic Code(s): G47.34 - Idiopathic sleep related nonobstructive alveolar hypoventilation Plan: Abnormal overnight trending pulse ox. A requisition was placed for a sleep study. He would like to defer this a few weeks. Sleep lab made aware and will contact him in future to schedule the test. Refuses Oxygen at night. STOP-BANG score is 5 which puts him at high risk for obstructive sleep apnea. He can fall asleep watching TV or reading a book and takes sometimes multiple naps every day. Plan 1. Discharge home on 08/25/2025 2. Home health care for PT/OT/SN at discharge 3. Follow-up with Dr. Robbins next week in the office 4. Follow-up has been scheduled with Dr. Sam Tao for 09/07/2025 5. Prescriptions were faxed to the [facility] retail pharmacy. Medications at Discharge Home Medications amlodipine 5 mg tablet 10 mg PO QHS blood pressure 04/16/25 levocetirizine 5 mg tablet 5 mg PO QHS allery 04/16/25 ramipril 10 mg capsule 10 mg PO QHS blood pressure 04/16/25 magnesium oxide 400 mg (241.3 mg magnesium) tablet 400 mg PO QHS Vitiman 04/23/25 pyridoxine (vitamin B6) 250 mg tablet (Vitamin B-6) 250 mg PO DAILY Vitamin 04/23/25 fluticasone propionate 50 mcg/actuation nasal spray,suspension 1 - 2 spray intranasal QHS allergies 07/28/25 hydrochlorothiazide 25 mg tablet 25 mg PO DAILY blood pressure 07/28/25 lorazepam 1 mg tablet 1 mg PO DAILY PRN LEG CRAMP 07/28/25 acetaminophen 500 mg tablet 1,000 mg (2 x 500 mg) PO Q8 PRN pain/fever #120 tabs 08/24/25 cholecalciferol (vitamin D3) 50 mcg (2,000 unit) capsule (Vitamin D3) 50 mcg PO DAILY #30 caps 08/24/25 gabapentin 100 mg capsule 100 mg PO TIDCM #90 caps 08/24/25 oxycodone 5 mg tablet 5 - 10 mg (1 - 2 x 5 mg) PO Q4H PRN PRN Pain Score 4-10 7 days #42 tabs 08/24/25 sennosides 8.6 mg-docusate sodium 50 mg tablet (Stimulant Laxative Plus) 2 tab PO BID #56 tabs 08/24/25 Hospital Course Operations - (Excision of right sciatic neuroma by Dr. 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 Dockery who was admitted to [facility] 08/17/25 for planned exploration and excision of a sciatic neuroma in the R stump by Dr. Robbins. Until recently he had been ambulating with a RLE prosthesis and crutches. Recently he has not been able to wear the prosthesis due to extreme pain with any pressure on the R stump. He lives with his son Kal and the house is set up for a handicapped person. He has a walk-in shower and grab bars. He can maneuver a WC in his BR. He has been told he will not be able to wear a prosthesis for the next 4 months. He was admitted to the acute inpt rehab unit at [facility] on 08/19/25 for 3 hours of therapy daily to restore function at or near his level prior to the recent surgery. His son Kal lives with him and he works from home so he will have assistance at home. An overnight trending pulse ox was done while Rizwan was on rehab and it was abnormal. His STOP BANG score is 5 which puts him at high risk for obstructive sleep apnea. He admitted to sometimes taking a few naps during the day and falling asleep while reading and watching TV. He also stated that he snores loudly. Apparently he had oxygen desaturation in the past when he was admitted to the hospital for the cervical laminectomy and fusion in 2021. A requisition was placed with the sleep lab for a formal split-night sleep study. Rizwan wants to defer this test for a few weeks but states he will have it done. He is a little overwhelmed right now with everything that has been going on since December with the extreme pain in his right leg and the inability to do the things he likes to do. He refused oxygen when sleeping. Transaminases have been mildly elevated since May 2025. The alk phos and bilirubin have been normal. The transaminases are still mildly elevated at discharge but they have come down a little. Further workup deferred to his primary care physician. Hemoglobin prior to discharge is stable at 14.3. White blood cell count on 08/20/2025 was 9.8. Platelets have been normal. The BUN is mildly increased to 24 with a creatinine of 0.99 but he takes hydrochlorothiazide for hypertension. He denies lightheadedness. Potassium is 4.5. Magnesium was 2.3 and he takes a magnesium supplement at home. Hemoglobin A1c was elevated at 6.1%. Vitamin D level was very low at 17.1 and he was started on cholecalciferol 50 mcg daily. Rizwan was having electric shocklike pain in his right stump and admission to rehab. This was not controlled with oxycodone. He was started on gabapentin 100 mg 3 times daily and his pain is well-controlled at discharge from rehab on 10 mg of oxycodone at bedtime and the gabapentin. He has not been taking oxycodone during the day. Rizwan did very well in therapy. At the time of discharge he is propelling a wheelchair 250 feet at supervision on various surfaces. He has completed 7 sit to stands in 30 seconds. He is able to ascend/descend three 4 inch steps and two 6 inch steps with 2 handrails and crutches at contact-guard assist. He is ambulated up to 200 feet with crutches at contact-guard assist/standby assist on various surfaces. He is contact-guard assist/standby assist for transfers from various surfaces. He is independent with eating and supervision/set up for grooming while seated at the sink. He is modified independent for bathing, upper body dressing and lower body dressing. He is standby assist for toilet/tub transfer. He is supervision for toilet transfer and MOD I with toileting. He has an appointment to follow-up with Dr. Sam Tao on 09/07/2025. He will have home health care for PT/OT/SN. Rizwan was discharged home on 08/25/2025 and will follow-up with Dr. Robbins in his office next week. The wound VAC and LION drain were discontinued on 08/24/[address] Robbins. He will keep a light dry dressing on the incision.Signs of infection were discussed with Rizwan prior to DC and he was instructed to look at the wound daily. Physical Exam Const alert, oriented x3 and no apparent distress General Appearance: cooperative HEENT hearing grossly normal bilaterally Eyes PERRL, EOMs intact bilaterally, conjunctivae normal and no scleral icterus Eyes Narrative: No discharge from the eyes. Neck supple, No nodes and no carotid bruits Neck Narrative: Neck circumference is 44 cm. Resp normal respiratory effort and clear to auscultation bilaterally Effort and Inspection: able to speak in complete sentences Cardio regular rate and regular rhythm Cardio Narrative: Heart sounds are distant. No murmurs, gallops or rub appreciated. No ectopy. GI soft to palpation and non-tender Extremity Extremity Narrative: No calf tenderness on the left and no ankle edema on the left. The incision is well aligned and tj are in place. There is no gauri-incisional erythema and no purulent discharge. Skin Rashes: no rashes Medical Records Data Homelessness:: Sheltered Weight / BMI Weight Weight: 201 lb 8.04 oz Body Mass Index (BMI) 31.5 ABG / Lab / Microbiology Data 08/20/25 05:38 08/20/25 05:38 D/C Instructions Weight Bearing Status: Weight bearing as tolerated (Can not use prosthesis. Can ambulate up to 200' with crutches and has a WC.) Call your doctor if your incision/area has: Continuous Slow Oozing, Sudden Increased Bleeding, Increased Pain/ Swelling, Increased Redness, Foul Smelling Discharge and Swelling at the incision site Call your doctor if you observe: Fever of 101 or Higher, Shortness of breath, Dizziness, Fainting spells, Swelling in the ankles, Chest pain, Increased palpitations (irregular heartbeat), Calf discomfort and Uncontrolled pain Suture Line Care: Avoid Pulling/Pushing, Avoid Pinching/Bending and - Cleanse incision/area with: Soap & Water and Keep Dressing Clean & Dry DC O2, CPAP, BIPAP Needs Home O2 Discharge instructions: No When: You have a follow-up appointment with Dr. Sam Tao scheduled for you and Dr. Robbins would like to see you next week in the office, not the wound care center. We will make an appointment for you. Meaningful Use Info Meaningful Use Meaningful Use Diagnoses (Choose all that apply): None applicable Discharge Plan Admission Admit Date/Time: 08/19/25 13:00 Primary Reason for Your Visit: Debility secondary to excision of right sciatic neuroma Attending Provider: Krystin Jean-Baptiste Primary Care Provider: Sam Tao Instructions Patient Instructions: Incision Care, What Are Snoring and Sleep Apnea?, Depression Affects Your Mind ..., Counseling for Depression Additional Instructions / Restrictions: 1. It has been a pleasure having you on rehab. You have a great spirit and are great with people. You have done very well. I know it has been very hard for you not being able to do what you like to do for the past 8 months and you will still not be able to use a prosthesis for 3-4 months but, you are a survivor and I have complete confidence that you will get through this. I think you may be a little depressed but, you are handling it. I have given you some literature about depression and the symptoms of depression. This is situational and once you are able to get a prosthesis on again and you are up and about You will likely do fine. Depression affects your body in many ways. Don't be afraid to consider some counselling or even a trial of an antidepressant. Some antidepressants are used for chronic pain control in addition to treating depression. If you feel you are getting depressed talk to Dr. Tao. Some people do not feel comfortable talking about their feelings and they deflect attention be making jokes. It's OK to be depressed.........there is treatment if you need it. Just talking with someone about how you are feeling often helps a lot. 2. We checked your oxygen when you were sleeping and it does drop into the abnormal range when you are sleeping. I suspect you have sleep apnea. Some of the symptoms of sleep apnea are restless legs, insomnia, not feeling rested in the AM when you get up and needing to take naps during the day, getting up frequently at night to urinate, Falling asleep reading a book or watching TV, and problems with the rhythm of the heart. Atrial fibrillation is more common in patients with untreated sleep apnea. Atrial fibrillation (also called AFIB) increases the risk for stroke about 5X's. I have filled out a requisition for you to get a sleep study here at the hospital. I know you are not ready to do this right now but, when you are you can call the sleep lab to schedule the test. 3. The incision looks very good. No sign of infection. Check the incision every day. If you get redness around the incision or increased swelling or pain call Dr. Robbins. Also call if you have fevers, shaking chills, night sweats or any pus draining from the wound. 4. Good luck to you Rizwan. If you or Kal have any questions after you leave rehab please do not hesitate to call me. You can also call if you want to talk.......i can be a good listener. OFFICE: [phone] CELL: [phone] NURSES STATION ON REHAB: [phone] Discharge Orders/Prescriptions Prescriptions: New acetaminophen 500 mg Tablet 1,000 mg PO Q8 PRN (Reason: pain/fever) Qty: 120 0RF gabapentin 100 mg Capsule 100 mg PO TIDCM Qty: 90 0RF sennosides-docusate sodium [Stimulant Laxative Plus] 8.6-50 mg Tablet 2 tab PO BID Qty: 56 0RF cholecalciferol (vitamin D3) [Vitamin D3] 50 mcg (2,000 unit) capsule 50 mcg PO DAILY Qty: 30 5RF Continued magnesium oxide 400 mg (241.3 mg magnesium) tablet 400 mg PO QHS pyridoxine (vitamin B6) [Vitamin B-6] 250 mg tablet 250 mg PO DAILY oxycodone 5 mg Tablet 5 - 10 mg PO Q4H PRN PRN (Reason: Pain Score 4-10) 7 Days Qty: 42 0RF amlodipine 5 mg tablet 10 mg PO QHS ramipril 10 mg capsule 10 mg PO QHS levocetirizine 5 mg tablet 5 mg PO QHS hydrochlorothiazide 25 mg tablet 25 mg PO DAILY fluticasone propionate 50 mcg/actuation spray,suspension 1 - 2 spray INTRANASAL QHS lorazepam 1 mg tablet 1 mg PO DAILY PRN (Reason: LEG CRAMP) Discontinued enoxaparin 40 mg/0.4 mL Syringe 40 mg subcut DAILY Qty: 7 0RF Referrals / Follow Up: Sam Tao MD [Primary Care Provider, Family Practice] - 09/08/25 1:20 pm Montez Robbins MD [Med Staff - Active Staff, Plastic Surgery] - 08/31/25 2:00 pm Disposition Disposition (needs filled in before D/C Order can be placed): Home Health Service Charges/Coding Visit Charges Inpatient E&M: 42459 Disch Hosp >30min
[2025-08-24 17:32] VITALS: BP 111/66; PULSE 67; RESP 17; TEMP 36.6; O2SAT 96
[2025-08-24 20:25] VITALS: PULSE 67; RESP 17
[2025-08-24] MEDS: Fluticasone 0.05% 1 SPRAY NASAL.SRY 2 SPRAY NASAL (20:32)
[2025-08-24] MEDS: Magnesium Chloride 64 MG Delay Rel.Tablet 128 MG PO (20:33)
[2025-08-25 06:00] VITALS: BP 101/68; PULSE 74; RESP 16; TEMP 37.2; O2SAT 96
[2025-08-25] MEDS: Senna/Docusate Sodium 1 Tablet 2 TABLET PO (07:45)
[2025-08-25] MEDS: Cholecalciferol (Vit D3) 125 MCG CAPSULE (5,000 UNITS) PO (07:46)
--- NOTE | 2025-08-25 13:29 | NURSING ---
discharged home with family. discharge instructions, medications and appointments reviewed with pt. denies questions or concerns
[2025-08-25 13:31] VITALS: BP 110/70; PULSE 72; RESP 18; TEMP 37.1; O2SAT 97
== END 2025-08-25 13:34 | disposition home health service (06) | DRG 941 ==
PROVIDERS: Admitting Provider Internal Medicine; PCP Family Medicine; Referring Provider Internal Medicine; Visit Provider Internal Medicine
DX: Z48.811 Encounter for surgical aftercare following surgery on the nervous system (principal); E66.811 Obesity, class 1; T87.33 Neuroma of amputation stump, right lower extremity; K08.9 Disorder of teeth and supporting structures, unspecified; G47.34 Idiopathic sleep related nonobstructive alveolar hypoventilation; I10 Essential (primary) hypertension; J30.9 Allergic rhinitis, unspecified; K02.9 Dental caries, unspecified; M54.10 Radiculopathy, site unspecified; M19.90 Unspecified osteoarthritis, unspecified site; R73.03 Prediabetes; Z87.891 Personal history of nicotine dependence; Y83.5 Amputation of limb(s) as the cause of abnormal reaction of the patient, or of later complication, without mention of misadventure at the time of the procedure; Z79.899 Other long term (current) drug therapy; Z85.830 Personal history of malignant neoplasm of bone; R19.6 Halitosis; Z98.1 Arthrodesis status; Z68.32 Body mass index [BMI] 32.0-32.9, adult; R74.8 Abnormal levels of other serum enzymes
CPT/HCPCS: 36415; 80048; 80053; 80061; 82306; 83735; 84100; 85025; 88304; 94668; 94762; 96361; 96365; 96366; 96372; 97110; 97116; 97162; 97166; 97167; 97530; 97535; 97802; 99221; A4648; A4216; G0378; J2405